=== PATIENT | male | born 1950 | race African-American/Black ===

== ENCOUNTER 2024-07-15 12:00 | Emergency (ER) | payer OTHER, SELFPAY ==
[2024-07-15 12:01] VITALS: BP 154/82; PULSE 75; RESP 16; TEMP 36.6; O2SAT 99; BMI 34.5
--- NOTE | 2024-07-15 12:03 | EDS_ITS ---
HPI History of Present Illness HPI Narrative: Patient presents with a right knee injury that occurred today. Patient states he slipped and fell. Patient states he landed on the anterior aspect of his right knee. Patient states he has been unable to bear any weight since the fall. Patient states his pain is also worse with any flexion. Patient describes it as dull and aching. Patient denies any paresthesias. Patient admits to some weakness with extending his knee. Patient denies any head injury or loss of consciousness. Patient denies any other injuries. Chief Complaint: Lower Extremity Injury Occured/Mechanism Mechanism/Context: Yes fall Onset/Context/Timing Onset: Today Context: Sudden Onset Timing: Continuous Quality of Pain: Dull Location: Right knee Worsened by: Flexion, weightbearing Relieved by: Rest Associated Symptoms Associated Symptoms: Positive for Parasthesia (Chronic) and Weakness; Negative for Loss of Funtion [facility] Medical History (Updated 07/15/24 @ 15:[address] Parth Ayala, DO) Arthritis Neuropathy Diabetes mellitus Hypertension Asthma Hx of fracture of patella Home Medications ?Medication ?Instructions ?Recorded ?Last Taken ?Type albuterol sulfate 90 mcg/actuation 2 inh inhalation Q8 H PRN shortness 07/15/24 Unknown History aerosol inhaler (Ventolin HFA) of breath ascorbic acid (vitamin C) 500 mg 500 mg PO DAILY 07/15 Unknown History tablet (Vitamin C) atorvastatin 40 mg tablet (Lipitor) 40 mg PO QHS 07/15 Unknown History cholecalciferol (vitamin D3) 25 50 mcg PO DAILY Unknown History mcg (1,000 unit) tablet (Vitamin D3) gabapentin 800 mg tablet 800 mg PO BID 07/15/24 Unkno wn History hydrocodone-acetaminophen 5-325mg 1 tab PO Q6H PRN PRN Pain 3 days 07/15/24 Unknown Rx 5mg-325mg #10 TABLETS insulin aspart U-100 100 unit/mL 12 unit subcut TID Unknown History (3 mL) subcutaneous pen (Novolog FlexPen U-100 Insulin aspart) insulin glargine 100 unit/mL (3 35 unit subcut BID Unknown History mL) subcutaneous pen (Lantus Solostar U-100 Insulin) losartan 25 mg tablet (Cozaar) 12.5 mg PO DAILY Unknown History metformin 1,000 mg tablet 1,000 mg PO BID 07/15/24 Unk nown History pantoprazole 40 mg tablet,delayed 40 mg PO DAILY 07/15 Unknown History release (Protonix) Allergy/AdvReac Type Severity Reaction Status Date / Time Penicillins Allergy Unknown NEEDS Verified 07/15/24 12:01 FOLLOW-UP Surgical History (Updated 07/15/24 @ 12:[address] Parth Ayala DO) Hx of right knee surgery Social History Smoking Status: Never smoker ROS ROS ED Constitutional Constitutional ED: Denies chills or fever(s) Eyes Eyes: Denies blurry vision or change in vision ENT ENT ED: Denies rhinorrhea or sore throat Cardiovascular Cardiovascular: Denies chest pain or palpitations Respiratory/Chest Respiratory/Chest: Denies cough or dyspnea Gastrointestinal Gastrointestinal: Denies nausea or vomiting Genitourinary Genitourinary ED: Denies dysuria or hematuria Musculoskeletal Musculoskeletal: Denies back pain or neck pain Integumentary Denies abscess or rash Neurologic Neurologic: Denies headache(s) or weakness Allergic/Immunologic Allergic/Immunologic ED: Denies mouth swelling or urticaria EXAM Physical Exam Const Vital Signs: 07/15/24 12:01 07/15/24 14:00 Temperature 97.8 F Temperature Source Oral Pulse Rate 75 69 Respiratory Rate 16 15 Blood Pressure 154/82 H 148/74 H Blood Pressure Mean 106 98 Pulse Ox 99 98 Oxygen Delivery Method Room Air Room Air Positive well nourished and well developed General Appearance ED: well developed and NAD HEENT Reports moist mucous membranes Neck full ROM and supple Extremity Extremity Narrative: There is tenderness over the anterior aspect of the right knee. There is no joint effusion noted. Patient is unable to extend his knee and elevate his lower leg off of the bed. There is no obvious deformity noted. Range of motion was limited in all motions of the right knee secondary to pain. Pedal pulses are equal bilaterally. Sensation was intact to light touch bilaterally in the lower extremities. Neuro oriented x3, CN's II-XII intact bilaterally, moves all extremities and no sensory deficits noted Sensorium / Orientation: alert Motor Exam: strength 5/5 throughout MDM MDM MDM Narrative Medical decision making narrative: Differential diagnosis includes patella fracture, patellar tendon rupture, tibial plateau fracture, contusion, and sprain. X-rays of the right knee will be obtained to assess for fracture and high riding patella. History & Record Review Additional record(s) reviewed:: No prior records Radiography Diagnostic Testing: Clinical Impression(s) from Imaging Studies Knee X-Ray 07/15/24 12:28 IMPRESSION: Prior patellar fracture and tension band wiring repair. No obvious acute fracture. If continued clinical concern, CT could be performed for further evaluation. Reading Location: [facility] X-rays of the right knee were obtained. There are 4 views. On my independent interpretation, there is no acute fracture. There are degenerative changes noted. Radiologist also interpreted the x-rays and agrees. Treatment and Re-Evaluation Narrative: Patient was given an injection of morphine. Patient was advised of the findings. Patient still unable to extend his knee against gravity. Because of this, I advised the patient that he may have a patellar tendon rupture. Case was discussed with Dr. Bekc. He will follow-up with patient next week. Patient was placed in a knee immobilizer and was given crutches. Patient was given a prescription for [place]. Patient was instructed to return if worse in any way. Patient was advised that he may need an MRI before any surgery. Patient was advised that this may take a week or 2 to get this done. Patient was advised that he could follow-up here or go back to his home in [place] and follow-up there. Patient understood and was agreeable with plan. All questions were answered. Discharge Plan Triage Chief Complaint: Lower Extremity Injury ED Provider: Parth Ayala Dx/Rx/DC Orders Clinical Impression: Rupture of right patellar tendon, Hypertension, Diabetes mellitus Instructions: ED Quadriceps Tendon Rupture Prescriptions: New hydrocodone-acetaminophen 5-325 mg tablet 1 tab PO Q6H PRN PRN (Reason: Pain) 3 Days Qty: 10 0RF No Action insulin glargine [Lantus Solostar U-100 Insulin] 100 unit/mL (3 mL) insulin pen 35 unit subcut BID insulin aspart U-100 [Novolog FlexPen U-100 Insulin] 100 unit/mL (3 mL) insulin pen 12 unit subcut TID metformin 1,000 mg tablet 1,000 mg PO BID atorvastatin [Lipitor] 40 mg tablet 40 mg PO QHS losartan [Cozaar] 25 mg tablet 12.5 mg PO DAILY albuterol sulfate [Ventolin HFA] 90 mcg/actuation HFA aerosol inhaler 2 inh inhalation Q8H PRN (Reason: shortness of breath) gabapentin 800 mg tablet 800 mg PO BID cholecalciferol (vitamin D3) [Vitamin D3] 25 mcg (1,000 unit) tablet 50 mcg PO DAILY ascorbic acid (vitamin C) [Vitamin C] 500 mg tablet 500 mg PO DAILY pantoprazole [Protonix] 40 mg tablet,delayed release (DR/EC) 40 mg PO DAILY Primary Care Provider: [facility] Doctor,Out of Referrals: Lonnie Beck MD [Med Staff - Active Staff] - 3-5 Days [facility] Doctor,Out of [Primary Care Provider] - 5-7 Days Print Language: Serbian Disposition Disposition: Home, Self Care
[2024-07-15] MEDS: Morphine 4 MG/ML Syringe IM ×2 (12:23→15:24)
--- NOTE | 2024-07-15 12:28 | RAD_ITS ---
PROCEDURE: KNEE 4 OR MORE VIEWS 07/15/2024 REASON FOR EXAM: INJURY/PAIN. History of patellar fracture 3 years ago, fell today onto knee, severe pain, unable to bear weight. TECHNIQUE: 4 view(s) of the right knee COMPARISON: None. FINDINGS: Bones: Diffuse osseous demineralization. No acute osseous fracture. Prior patellar fracture with tension band wiring repair. The patella is in grossly anatomic alignment. Joints: Moderate degenerative changes. Effusion: Moderate joint effusion. Soft tissues: Soft tissues are unremarkable. Muscular atrophy. Other: Vascular calcifications. RAD/Knee 4 or More Views IMPRESSION: Prior patellar fracture and tension band wiring repair. No obvious acute fract ure. If continued clinical concern, CT could be performed for further evaluation. Reading Location: [id number]
[2024-07-15 14:00] VITALS: BP 148/74; PULSE 69; RESP 15; O2SAT 98
--- NOTE | 2024-07-15 15:45 | CM.ED ---
Social Work Date of referral: 07/15/24 Reason for referral: Fall/Fall prevention education Referred by: Social Work Identification Patient provided consent for social work visit. Patient stated he has been in town for roughly 10 days visiting his brother who is in poor health, trying to help provide care for him. Patient stated he was mopping the kitchen floor today when his right foot went backwards and his right left twisted. Patient stated he has neuropathy and at times can't feel his feet which patient feels was a contributing factor. [address] [facility] provided fall prevention education which patient verbalized he understood. Patient has an established medical team in [place] that patient reported he follows through with routinely. Patient was supposed to return to [place] Wednesday evening however has decided to stay in the area to follow up with medical care that is going to be needed for his current injury. Patient reported he has a standard cane, a rollator and braces for his knees. No additional concerns/needs identified at this time. Ivette Verma, [employer], [employer]
[2024-07-15 16:03] VITALS: BP 135/86; PULSE 88; RESP 16; TEMP 36.7; O2SAT 99
--- NOTE | 2024-07-15 17:36 | CONS.ORTHO ---
HPI Consult Data Date of Consult: 07/15/24 HPI Narrative HPI Narrative: RANJANA IRVING, is a 74 M who presents with concern of patellar tendon injury from ED provider. Setting of past TWB for patellar fracture. [facility] Medical History (Updated 07/15/24 @ 15:[address] Parth Ayala DO) Arthritis Neuropathy Diabetes mellitus Hypertension Asthma Hx of fracture of patella Home Medications ?Medication ?Instructions ?Recorded ?Last Taken ?Type albuterol sulfate 90 mcg/actuation 2 inh inhalation Q8H PRN shortness 07/15/24 Unknown History aerosol inhaler (Ventolin HFA) of breath ascorbic acid (vitamin C) 500 mg 500 mg PO DAILY 07/15/24 Unknown History tablet (Vitamin C) atorvastatin 40 mg tablet (Lipitor) 40 mg PO QHS 07/15/24 Unknown History cholecalciferol (vitamin D3) 25 50 mcg PO DAILY 07/15/24 Unknown History mcg (1,000 unit) tablet (Vitamin D3) gabapentin 800 mg tablet 800 mg PO BID 07/15/24 Unknown History hydrocodone-acetaminophen 5-325mg 1 tab PO Q6H PRN PRN Pain 3 days 07/15/24 Unknown Rx 5mg-325mg #10 TABLETS insulin aspart U-100 100 unit/mL 12 unit subcut TID 07/15/24 Unknown History (3 mL) subcutaneous pen (Novolog FlexPen U-100 Insulin aspart) insulin glargine 100 unit/mL (3 35 unit subcut BID 07/15/24 Unknown History mL) subcutaneous pen (Lantus Solostar U-100 Insulin) losartan 25 mg tablet (Cozaar) 12.5 mg PO DAILY 07/15/24 Unknown History metformin 1,000 mg tablet 1,000 mg PO BID 07/15/24 Unknown History pantoprazole 40 mg tablet,delayed 40 mg PO DAILY 07/15/24 Unknown History release (Protonix) Allergy/AdvReac Type Severity Reaction Status Date / Time Penicillins Allergy Unknown NEEDS Verified 07/15/24 12:01 FOLLOW-UP Surgical History (Updated 07/15/24 @ 12:[address] Parth Ayala DO) Hx of right knee surgery Social History Smoking Status: Never smoker Vital Signs Vital Signs Vital Signs: 07/15/24 12:01 07/15/24 14:00 07/15/24 16:03 Temperature 97.8 F 98.1 F Temperature Source Oral Pulse Rate 75 69 88 Respiratory Rate 16 15 16 Blood Pressure 154/82 H 148/74 H 135/86 H Blood Pressure Mean 106 98 102 Pulse Ox 99 98 99 Oxygen Delivery Method Room Air Room Air Weight Weight: 269 lb Body Mass Index (BMI) 34.5 Imaging Radiology Impression Knee X-Ray 07/15/24 12:28 IMPRESSION: Prior patellar fracture and tension band wiring repair. No obvious acute fracture. If continued clinical concern, CT could be performed for further evaluation. Reading Location: [id number] Assessment & Plan Assessment/Plan (1) Rupture of right patellar tendon: PLAN: 74 yr M with concern for patellar tendon injury. Recommend for now knee immobilizer, WBAT in full extension. he can FU with myself early this week for further exam and investigation, or go back to [place] where he is travelling from to get definitive treatment there.
== END 2024-07-15 16:04 | disposition home or self-care (01) ==
PROVIDERS: Emergency Provider Emergency Medicine; Visit Provider Emergency Medicine
DX: S76.111A Strain of right quadriceps muscle, fascia and tendon, initial encounter (principal); E11.9 Type 2 diabetes mellitus without complications; Z79.4 Long term (current) use of insulin; I10 Essential (primary) hypertension; W01.10XA Fall on same level from slipping, tripping and stumbling with subsequent striking against unspecified object, initial encounter; Z79.899 Other long term (current) drug therapy; Z79.84 Long term (current) use of oral hypoglycemic drugs
CPT/HCPCS: 73564; 96372; 99285

== ENCOUNTER 2024-07-25 16:33 | Observation (INO) | payer OTHER, SELFPAY ==
[2024-07-25 16:38] VITALS: BP 138/83; PULSE 89; RESP 18; TEMP 37; O2SAT 99; BMI 34.2
--- NOTE | 2024-07-25 17:20 | ED.VIS.FALL ---
HPI HPI - Fall History of Present Illness Chief Complaint: Fall Narrative Narrative: Chief complaint and HPI: Mechanical fall with left upper extremity and left lower extremity pain. 74-year-old male with past medical history of DM 2, HLD, HTN presents for evaluation of left upper extremity and left lower extremity after mechanical fall. Patient states he recently went through divorce and decided to have fun yesterday and green party. States he used cocaine and alcohol. States he was at a family house when he tried to ambulate to the bathroom and slipped on a rug. Did not his head. No LOC. States he landed on his left leg and arm. Family helped him to the couch. Patient states that he has been unable to ambulate since last night secondary to pain which is why presents. He usually uses a walker due to a bad right knee. Denies any fever, chills, abdominal pain, chest pain, nausea, vomiting, shortness of breath. Has taken Tylenol and Advil yesterday for the pain. States that he usually is not a drug abuser. Review of systems: See HPI Medications: As listed on the chart Allergies: As listed on the chart PFSH: Per chart Vital signs: As listed on the chart. Reviewed. Physical exam: Gen: A&O x3, NAD Head: Normocephalic, atraumatic Eyes: No sclera icterus, conjunctiva clear, PERRL, EOMI ENT: TMs clear BL, moist mucous membranes, no swelling/lacerations/blood in the mouth or the nares, No nasal septal hematoma, no facial tenderness Neck: Trachea midline, No JVD, Nontender, full range of motion CV: RRR, no murmurs, no chest wall TTP Resp: Lungs CTA BL, no w/r/c GI: Abd soft, non-distended, non-tender, no r/r/g Musc: Full ROM of the bilateral upper extremities although endorses pain in the left shoulder and mid humerus with movement-no deformity or obvious signs of trauma-tender to palpation, limited range of motion of the left lower extremity secondary to left thigh pain-tender to palpation without any deformity or obvious signs of injury, full range of motion of the left knee without pain or tenderness, radial/DP/PT pulses +2 bilateral, good capillary refill, no midline spinal tenderness, no bony step-off Skin: Warm, dry, intact Neuro: Alert, oriented, grossly intact, sensation intact, GCS 15 Psych: Cooperative, appropriate mood and affect [facility] Medical History (Updated 07/25/24 @ 20:[address] Indu Strauss MD) Cocaine use Obesity HLD (hyperlipidemia) Arthritis Neuropathy Diabetes mellitus Hypertension Asthma Hx of fracture of patella Home Medications ?Medication ?Instructions ?Recorded ?Last Taken ?Type albuterol sulfate 90 mcg/actuation 2 inh inhalation Q8H PRN shortness 07/15/24 Unknown History aerosol inhaler (Ventolin HFA) of breath ascorbic acid (vitamin C) 500 mg 500 mg PO DAILY 07/15/24 07/24/24 History tablet (Vitamin C) atorvastatin 40 mg tablet (Lipitor) 40 mg PO QHS 07/15/24 07/24/24 History cholecalciferol (vitamin D3) 25 50 mcg PO DAILY 07/15/24 07/24/24 History mcg (1,000 unit) tablet (Vitamin D3) gabapentin 800 mg tablet 800 mg PO BID 07/15/24 07/24/24 History hydrocodone-acetaminophen 5-325mg 1 tab PO Q6H PRN PRN Pain 3 days 07/15/24 07/24/24 Rx 5mg-325mg #10 TABLETS insulin aspart U-100 100 unit/mL 12 unit subcut TID 07/15/24 07/24/24 History (3 mL) subcutaneous pen (Novolog FlexPen U-100 Insulin aspart) insulin glargine 100 unit/mL (3 35 unit subcut BID 07/15/24 07/24/24 History mL) subcutaneous pen (Lantus Solostar U-100 Insulin) losartan 25 mg tablet (Cozaar) 12.5 mg PO DAILY 07/15/24 07/24/24 History metformin 1,000 mg tablet 1,000 mg PO BID 07/15/24 07/24/24 History pantoprazole 40 mg tablet,delayed 40 mg PO DAILY 07/15/24 07/24/24 History release (Protonix) Allergy/AdvReac Type Severity Reaction Status Date / Time Penicillins Allergy Unknown NEEDS Verified 07/25/24 16:41 FOLLOW-UP Surgical History Hx of right knee surgery Social History Smoking Status: Never smoker EXAM Physical Exam Const Vital Signs: 07/25/24 16:33 07/25/24 16:38 07/25/24 19:00 Temperature 98.6 F Temperature Source Oral Pulse Rate 89 103 H Respiratory Rate 18 18 Respiratory Effort Normal Respiratory Depth Normal Respiratory Pattern Normal Blood Pressure 138/83 H 170/94 H Blood Pressure Mean 101 119 Pulse Ox 99 98 Oxygen Delivery Method Room Air Room Air Room Air MDM MDM MDM Narrative Medical decision making narrative: 74-year-old male with past medical history of DM 2, HLD, HTN presents for evaluation of left upper extremity and left lower extremity after mechanical fall. Had a mechanical fall on a rug yesterday after alcohol and cocaine abuse. Did not hit his head. No LOC. Not able to ambulate. Differential diagnosis includes but is not limited to contusion, sprain, fracture. X-ray of the left shoulder and humerus ordered along with x-rays of the pelvis and left femur. Morphine and Zofran ordered for symptoms. Given patient has not been able to ambulate he may end up needing admission for placement/PT/OT. Will obtain basic labs with urine drug screen and alcohol level. Given patient did not hit his head and is not endorsing any neck pain I do not think any imaging of the head or neck is needed. Patient did not hit his head. No LOC. Not on blood thinners. CBC without leukocytosis. Patient has anemia with hemoglobin 11.5. I do not have previous labs to compare to although I suspect this is chronic. Urine drug screen positive for cocaine. Patient does admit to cocaine use yesterday. Alcohol level unremarkable. X-rays of the pelvis, left femur, left humerus, left shoulder were personally reviewed interpreted by me, ED physician. No fracture or dislocation. Radiology in agreement. Suspect patient's pain is secondary to contusions. Now that patient has received pain medicine will ambulate with walker. BMP consistent with dehydration, likely secondary to his cocaine and alcohol abuse yesterday. NS bolus ordered. Potassium mildly elevated at 5.2. Will obtain EKG to assess for changes. Creatinine 1.56. Unknown patient's baseline. Glucose 391. Patient is a known diabetic. Patient was unable to ambulate with a walker. Unsteady on his feet and required 2 people to assist him. Patient states his pain is controlled currently in the bed. States pain worsens with ambulation. Patient will warrant admission for PT/OT evaluation. EKG was personally reviewed interpreted by me, ED physician. Sinus tachycardia. No acute ischemic changes. No hyperacute T waves. Heart rate 107. Patient was discussed with the hospitalist service, given patient follows with the PR plan will be to reach out to the [facility] first for admission. I spoke with the [facility] given that patient also has Medicare it is his option [facility] with the use of his Medicare. Patient elected to stay here and use Medicare. Hospitalist repaged, they accepted admission. Impression: 1. Inability to ambulate secondary to injury/pain 2. Left upper extremity contusion 3. Left lower extremity contusion 4. Mechanical fall 5. Mild dehydration 6. Mild hyperkalemia 7. Cocaine abuse Lab Data Labs: Laboratory Results - last 24 hr 07/25/24 07/25/24 15:10 17:25 WBC 9.6 RBC 4.90 Hgb 11.5 L Hct 36.0 L MCV 73.5 L MCH 23.5 L MCHC 31.9 L RDW Std Deviation 38.4 RDW Coeff of Summer 14.5 Plt Count 207 MPV 11.0 Sodium 133 Potassium 5.2 H Chloride 98 Carbon Dioxide 17.5 L Anion Gap 17 H BUN 21 H Creatinine 1.56 H Estim Creat Clear Calc 59.14 Est GFR (MDRD) Non-Af 47 L BUN/Creatinine Ratio 13.7 Glucose 391 H Calcium 9.8 Urine Opiates Screen NEGATIVE U Buprenorphine Qual NEGATIVE Ur Oxycodone Screen NEGATIVE Urine Methadone Screen NEGATIVE Urine Fentanyl Screen NEGATIVE Ur Barbiturates Screen NEGATIVE Ur Phencyclidine Scrn NEGATIVE Ur Amphetamines Screen NEGATIVE U Benzodiazepines Scrn NEGATIVE Urine Cocaine Screen PRESUMPTIVE POSITIVE U Cannabinoids Screen NEGATIVE Ethyl Alcohol < 10.1 Radiography Diagnostic Testing: Clinical Impression(s) from Imaging Studies Femur X-Ray 07/25/24 17:45 IMPRESSION: No acute osseous abnormality of the left femur. Reading Location: [id number] Humerus X-Ray 07/25/24 17:45 IMPRESSION: No acute osseous abnormalities. Reading Location: [id number] Pelvis X-Ray 07/25/24 17:45 IMPRESSION: No acute osseous abnormalities. Details above. Reading Location: [id number] Shoulder X-Ray 07/25/24 17:45 IMPRESSION: No acute osseous abnormalities. Reading Location: [id number] Discharge Plan Triage Chief Complaint: Fall ED Provider: Red Hector Dx/Rx/DC Orders Prescriptions: No Action insulin glargine [Lantus Solostar U-100 Insulin] 100 unit/mL (3 mL) insulin pen 35 unit subcut BID insulin aspart U-100 [Novolog FlexPen U-100 Insulin] 100 unit/mL (3 mL) insulin pen 12 unit subcut TID metformin 1,000 mg tablet 1,000 mg PO BID atorvastatin [Lipitor] 40 mg tablet 40 mg PO QHS losartan [Cozaar] 25 mg tablet 12.5 mg PO DAILY albuterol sulfate [Ventolin HFA] 90 mcg/actuation HFA aerosol inhaler 2 inh inhalation Q8H PRN (Reason: shortness of breath) gabapentin 800 mg tablet 800 mg PO BID cholecalciferol (vitamin D3) [Vitamin D3] 25 mcg (1,000 unit) tablet 50 mcg PO DAILY ascorbic acid (vitamin C) [Vitamin C] 500 mg tablet 500 mg PO DAILY pantoprazole [Protonix] 40 mg tablet,delayed release (DR/EC) 40 mg PO DAILY hydrocodone-acetaminophen 5-325 mg tablet 1 tab PO Q6H PRN PRN (Reason: Pain) 3 Days Qty: 10 0RF Primary Care Provider: [facility] Doctor,Out of Referrals: [facility] Doctor,Out of [Primary Care Provider] - Print Language: Welsh
[2024-07-25] MEDS: Morphine 2 MG/ML Syringe IV (17:22)
[2024-07-25] MEDS: Ondansetron 4 MG/2 ML Vial IV (17:22)
[2024-07-25 17:36] LABS: Hemoglobin 11.5 g/dL (13.0-16.5); Mean Corp Hgb Conc 31.9 g/dL (32-36); Mean Corpuscular Hgb 23.5 pg (27.0-32.0); Mean Corpuscular Volume 73.5 fL (80-94); Platelet Count 207 K/mm3 (150-450); RBC Distribution Width CV 14.5 % (11.6-14.6); RBC Distribution Width SD 38.4 fl (35.1-43.9); White Blood Count 9.6 K/mm3 (4.4-11.0)
[2024-07-25 17:44] LABS: Amphetamine Urine NEGATIVE (<1000 ng/mL); Barbiturate Urine NEGATIVE (< 200 ng/mL); Benzodiazepine Urine NEGATIVE (< 200 ng/mL); Buprenorphine Urine NEGATIVE (< 200 ng/mL); Cocaine Urine PRESUMPTIVE POSITIVE (< 300 ng/mL); Fentanyl, Urine NEGATIVE; Methadone Urine NEGATIVE (< 300 ng/mL); Opiates Urine NEGATIVE (< 300 ng/mL); Oxycodone, Urine NEGATIVE (< 100 ng/mL); PCP Urine NEGATIVE (< 25 ng/mL); THC Urine NEGATIVE (< 50 ng/mL)
--- NOTE | 2024-07-25 17:45 | RAD_ITS ---
PROCEDURE: SHOULDER MIN 2 VIEWS 07/25/2024 REASON FOR EXAM: PAIN TECHNIQUE: 4 views of the left shoulder. COMPARISON: None. FINDINGS: No evidence of acute fracture or dislocation. Mild glenohumeral and acromioclavicular degenerative changes. RAD/Shoulder min 2 Views IMPRESSION: No acute osseous abnormalities. Reading Location: [place] [id number]
--- NOTE | 2024-07-25 17:45 | RAD_ITS ---
PROCEDURE: HUMERUS MIN 2 VIEWS 07/25/2024 REASON FOR EXAM: PAIN TECHNIQUE: 2 view(s) of the left humerus. COMPARISON: None. FINDINGS: No evidence acute fracture or dislocation. No acute soft tissue abnormalities. RAD/Humerus min 2 Views IMPRESSION: No acute osseous abnormalities. Reading Location: [place] [id number]
--- NOTE | 2024-07-25 17:45 | RAD_ITS ---
PROCEDURE: FEMUR MIN 2 VIEWS 07/25/2024 REASON FOR EXAM: PAIN TECHNIQUE: 4 view(s) of the left femur. COMPARISON: None FINDINGS: No acute fracture or traumatic malalignment. There is osteophyte formation at the hip and knee. Bone mineral density is subjectively normal. There are vascular calcifications in the soft tissues. RAD/Femur Min 2 Views IMPRESSION: No acute osseous abnormality of the left femur. Reading Location: [facility]
--- NOTE | 2024-07-25 17:45 | RAD_ITS ---
PROCEDURE: PELVIS 1 OR 2 VIEWS 07/25/2024 REASON FOR EXAM: PAIN TECHNIQUE: 1 view(s) of the pelvis. COMPARISON: None. FINDINGS: No evidence of acute fracture or dislocation. Mild degenerative changes of the bilateral hips. Partially visualized degenerative changes of the spine. Large dense rectal stool burden. RAD/Pelvis 1 or 2 Views IMPRESSION: No acute osseous abnormalities. Details above. Reading Location: [id number]
[2024-07-25 17:58] LABS: Alcohol, Blood (Medical)-Serum < 10.1 mg/dL (<=10.0)
[2024-07-25 18:11] LABS: Anion Gap 17 (5-15); BUN 21 mg/dL (4-19); BUN/Creat Ratio 13.7 RATIO (10-20); Calcium,Total 9.8 mg/dL (7.6-11.0); Carbon Dioxide 17.5 mmol/L (21.0-32.0); Chloride 98 mmol/L (98-108); Creatinine, Serum 1.56 mg/dL (0.70-1.20); EST Glomerular Filtration Rate 47 (>60); Estimated Creatinine Clearance 59.14 ml/min (50-250); Glucose 391 mg/dL (70-99); Potassium 5.2 mmol/L (3.3-5.1); Sodium Level 133 mmol/L (133-145)
--- NOTE | 2024-07-25 18:15 | EKG12_ITS ---
Test Reason : FALL Blood Pressure : */* mmHG Vent. Rate : 107 BPM Atrial Rate : 107 BPM P-R Int : 180 ms QRS Dur : 76 ms QT Int : 352 ms P-R-T Axes : 42 16 17 degrees QTcB Int : 469 ms Sinus tachycardia Otherwise normal ECG Confirmed by KAIN RAMIREZ, MARINA ([id number]), graphics editor TYRELL WANG ([id number]) on 07/31/2024 7:08:27 AM Referred By: Confirmed By: MARINA FINNEGAN MD
[2024-07-25] MEDS: 0.9% Normal Saline (1000mL) 1,000 ML 1000 ML IV (18:21)
--- NOTE | 2024-07-25 18:44 | PCA ---
Addendum entered by Ann Alcantara 07/25/24 19:47: CALL BACK @[id number] Original Note: [facility], CLINICS FAXED OVER AND INFORMATION AND DIAGNOSIS GIVE. AWAIT CALL BACK FROM CLINIC.
[2024-07-25 19:00] VITALS: BP 170/94; PULSE 103; RESP 18; O2SAT 98
--- NOTE | 2024-07-25 20:23 | PCM.HP.STD ---
HPI - General General Date of Admission: 07/25/24 Date of Service: 07/25/24 Chief Complaint: Fall, debility, intractable L sided pain. HPI Narrative The patient is a 74 y/o [facility] patient M w/ PMHx: Former tobacco use, RADHA noncompliant with PAP therapy, Asthma, HTN, HLD, GERD, Diabetes mellitus type II with chronic neuropathy, Obesity, Presumed Chronic CKD stage III unclear subtype but uncertain, Presumed chronic microcytic anemia but uncertain who presents to the [facility] ED on 07/25/24 with history of mechanical fall onto the left side with discomfort to the upper and lower extremity noting that he recently went through divorce and was at a republic[employer] the day prior where he drank a significant mount of alcohol and used cocaine and while attempting to ambulate to the bathroom slipped on a rug with no loss of consciousness or head trauma with family helping him to the couch however he has had discomfort and inability to ambulate since then normally using a walker secondary to severe right knee osteoarthritis prompting family to bring him in for evaluation. In the ED patient initially reporting pain 9 out of 10 in severity to the left side primarily with any exertion or movement or weightbearing attempts. Following administration medications the ED patient noted pain improved to 7 out of 10 however still some discomfort in the calf and thigh. Workup in the ED included T90.6, heart rate 89, BP 138/83, respiratory 18, 99% on room air with most recent repeat labs with heart rate 103, BP 170/94, respiratory rate 18, 98% on room air, CBC with WC 9.6, hemoglobin 0.5, MCV 73.5, platelet 207 without differential, BMP with potassium 5.2, At 17.5, anion gap 17, BUN/creatinine 21/1.56, GFR 47, glucose 391, UDS with presumptive positive cocaine, ethyl alcohol less than 10.1, plain film of the left femur with no acute osseous abnormality, plain film of the left humerus with no acute osseous abnormality, plain film of the pelvis with no acute osseous abnormality, plain film of the left shoulder with no acute osseous abnormality. Patient has both medicare and [facility] insurance and preferred to remain at [facility] for care and evaluation. [facility], [facility] Medical History Former tobacco use RADHA (obstructive sleep apnea) Chronic anemia CKD (chronic kidney disease), stage III Cocaine use Obesity HLD (hyperlipidemia) Arthritis Neuropathy Diabetes mellitus Hypertension Asthma Hx of fracture of patella Home Medications ?Medication ?Instructions ?Recorded ?Last Taken ?Type albuterol sulfate 90 mcg/actuation 2 inh inhalation Q8H PRN shortness 07/15/24 Unknown History aerosol inhaler (Ventolin HFA) of breath ascorbic acid (vitamin C) 500 mg 500 mg PO DAILY 07/15/24 07/24/24 History tablet (Vitamin C) atorvastatin 40 mg tablet (Lipitor) 40 mg PO QHS 07/15/24 07/24/24 History cholecalciferol (vitamin D3) 25 50 mcg PO DAILY 07/15/24 07/24/24 History mcg (1,000 unit) tablet (Vitamin D3) gabapentin 800 mg tablet 800 mg PO BID 07/15/24 07/24/24 History hydrocodone-acetaminophen 5-325mg 1 tab PO Q6H PRN PRN Pain 3 days 07/15/24 07/24/24 Rx 5mg-325mg #10 TABLETS insulin aspart U-100 100 unit/mL 12 unit subcut TID 07/15/24 07/24/24 History (3 mL) subcutaneous pen (Novolog FlexPen U-100 Insulin aspart) insulin glargine 100 unit/mL (3 35 unit subcut BID 07/15/24 07/24/24 History mL) subcutaneous pen (Lantus Solostar U-100 Insulin) losartan 25 mg tablet (Cozaar) 12.5 mg PO DAILY 07/15/24 07/24/24 History metformin 1,000 mg tablet 1,000 mg PO BID 07/15/24 07/24/24 History pantoprazole 40 mg tablet,delayed 40 mg PO DAILY 07/15/24 07/24/24 History release (Protonix) Allergy/AdvReac Type Severity Reaction Status Date / Time Penicillins Allergy Unknown NEEDS Verified 07/25/24 16:41 FOLLOW-UP Family History Mother Diabetes Father Hypertension GERD (gastroesophageal reflux disease) Surgical History History of cholecystectomy Hx of right knee surgery Social History household members: significant other Smoking Status: Former smoker how long ago did patient quit smoking: Quit remotely. alcohol intake: current alcohol intake frequency: holidays/special occasions only substance use type: other details: Admits to cocaine use 07/26/24 but denies commonly using. ROS ROS Narrative Admission Review of Systems: CONSTITUTIONAL: No weight loss, fever, chills, + weakness or fatigue. HEENT: Eyes: No visual loss, blurred vision, double vision or yellow sclerae. Ears, Nose, Throat: No hearing loss, sneezing, congestion, runny nose or sore throat. SKIN: No rash or itching, lesions, wounds. CARDIOVASCULAR: No chest pain, chest pressure or chest discomfort, palpitations, edema, orthopnea, syncopal events. RESPIRATORY: No shortness of breath, cough or sputum, wheezing, hemoptysis. GASTROINTESTINAL: No anorexia, nausea, vomiting or diarrhea, abdominal pain, melena, BRBPR. GENITOURINARY: No dysuria, frequency, urgency or retention. NEUROLOGICAL: + Chronic diabetic neuropathy. No headache, dizziness, syncope, paralysis, ataxia, focal weakness, change in bowel or bladder control, seizure. MUSCULOSKELETAL: + muscle, back pain, joint pain or stiffness. HEMATOLOGIC: + Chronic anemia. No marked easy history of bleeding or bruising. LYMPHATICS: No enlarged nodes. No history of splenectomy. PSYCHIATRIC: No history of depression or anxiety. ENDOCRINOLOGIC: No reports of sweating, cold or heat intolerance. No polyuria or polydipsia. ALLERGIES: + History of asthma. Vital Signs Vital Signs Vital Signs: 07/25/24 16:33 07/25/24 16:38 07/25/24 19:00 Temperature 98.6 F Temperature Source Oral Pulse Rate 89 103 H Respiratory Rate 18 18 Respiratory Effort Normal Respiratory Depth Normal Respiratory Pattern Normal Blood Pressure 138/83 H 170/94 H Blood Pressure Mean 101 119 Pulse Ox 99 98 Oxygen Delivery Method Room Air Room Air Room Air Weight Weight: 266 lb 8.622 oz Body Mass Index (BMI) 34.2 Physical Exam Narrative Physical Examination: General: Awake, alert, oriented x 3 and cooperative, seated upright in bed, no obvious distress, reports ongoing left-sided upper and lower extremity discomfort worse with activity attempts. Skin: Normal color, normal turgor, no icterus, no cyanosis. HEENT: AT/NC, EOMI, PERRLA, MMM, no carotid bruits, difficult to discern JVD given thickened neck. Lungs: Mildly diminished, greater bases, poor effort, no rales, ronchi or wheezing. Heart: Regular rate and rhythm; no gallop, rub audible. Abdomen: Soft, obese, NTTP, no obvious distention, mildly hyperactive BS, no appreciated HSM however habitus makes evaluation difficult. Extremities: No cyanosis, no marked clubbing, no marked significant extremity edema despite recent fall with left-sided ongoing pain to the upper and lower extremity primarily worse with movements. Neurological: Patient awake, alert, oriented as noted, cognitive function intact; pupils equally reactive to light and accommodation, cranial nerves gross normal, moving all 4 extremities, no focal deficits, strength moderately to severely globally decreased secondary to pain reported. Psychiatric: Affect appears normal, talkative, no acute evidence of depressive or anxiety feelings. Results Lab / Micro Data 07/25/24 17:25 07/25/24 17:25 Labs: Laboratory Results - last 24 hr 07/25/24 15:10: Urine Opiates Screen NEGATIVE, U Buprenorphine Qual NEGATIVE, Ur Oxycodone Screen NEGATIVE, Urine Methadone Screen NEGATIVE, Urine Fentanyl Screen NEGATIVE, Ur Barbiturates Screen NEGATIVE, Ur Phencyclidine Scrn NEGATIVE, Ur Amphetamines Screen NEGATIVE, U Benzodiazepines Scrn NEGATIVE, Urine Cocaine Screen PRESUMPTIVE POSITIVE, U Cannabinoids Screen NEGATIVE 07/25/24 17:25: WBC 9.6, RBC 4.90, Hgb 11.5 L, Hct 36.0 L, MCV 73.5 L, MCH 23.5 L, MCHC 31.9 L, RDW Std Deviation 38.4, RDW Coeff of Summer 14.5, Plt Count 207, MPV 11.0, Sodium 133, Potassium 5.2 H, Chloride 98, Carbon Dioxide 17.5 L, Anion Gap 17 H, BUN 21 H, Creatinine 1.56 H, Estim Creat Clear Calc 59.14, Est GFR (MDRD) Non-Af 47 L, BUN/Creatinine Ratio 13.7, Glucose 391 H, Calcium 9.8, Ethyl Alcohol < 10.1 Imaging Radiology Impression Femur X-Ray 07/25/24 17:45 IMPRESSION: No acute osseous abnormality of the left femur. Reading Location: [id number] Humerus X-Ray 07/25/24 17:45 IMPRESSION: No acute osseous abnormalities. Reading Location: [id number] Pelvis X-Ray 07/25/24 17:45 IMPRESSION: No acute osseous abnormalities. Details above. Reading Location: [id number] Shoulder X-Ray 07/25/24 17:45 IMPRESSION: No acute osseous abnormalities. Reading Location: [id number] Assessment & Plan Assessment/Plan (1) Intractable pain: (2) Fall: PLAN: Plan The patient is a 74 y/[facility] patient M w/ PMHx: Former tobacco use, RADHA noncompliant with PAP therapy, Asthma, HTN, HLD, GERD, Diabetes mellitus type II with chronic neuropathy, Obesity, Presumed Chronic CKD stage III unclear subtype but uncertain, Presumed chronic microcytic anemia but uncertain who presents to the [facility] ED on 07/25/24 with history of mechanical fall onto the left side with discomfort to the upper and lower extremity noting that he recently went through divorce and was at a republic[employer] the day prior where he drank a significant mount of alcohol and used cocaine and while attempting to ambulate to the bathroom slipped on a rug with no loss of consciousness or head trauma with family helping him to the couch however he has had discomfort and inability to ambulate since then normally using a walker secondary to severe right knee osteoarthritis prompting family to bring him in for evaluation. #1. Mechanical fall complicated by recent intoxication and cocaine usage which patient denies baseline however uncertain with intractable left upper and lower extremity discomfort complicated by usually chronic walker usage secondary to severe right knee osteoarthritis: Will admit to medical surgical floor, maintain on fall precautions, will initiate short course low-dose IV torado given renal function, lidoacine patches, as needed Tylenol, po/IV narcotic pain regimen only as needed, anti-emetics, bowel regimen. Will consult PT and OT for evaluation as well as Case management for discharge planning. #2. Hyperkalemia, mild: Admission potassium 5.2, no evidence of hemolysis, will judiciously hydrate and repeat CMP in AM. #3. Cocaine use: UDS with positive presumptive cocaine, otherwise negative, ethyl alcohol less than 10.1, [facility], notes used cocaine the day previously at a [employer], encourage clean status. #4. Diabetes mellitus type II with hyperglycemia with chronic neuropathy: Hold oral home regimen, continue home insulin regimen, ADA diet, accu checks w/ ISS, continue home gabapentin regimen. #5. Chronic asthma: Per current list does not appear to be on chronic regimen, will have PRN albuterol, HOB, IS parameters. #6. Hypertension: Continue home regimen including losartan, PRN hydralazine. #7. Hyperlipidemia: Will continue patient on statin therapy. #8. Possible chronic microcytic anemia: Admission hemoglobin 1.5, MCV 73.5, no comparison labs available, will continue to trend CBC to further elucidate. #9. Presumed Chronic Kidney Disease Stage III, unclear subtype: Admission BUN/Cr 21/1.56, GFR 47, baseline renal function uncertain as no comparison labs, will repeat BMP in AM to further elucidate. #10. Obesity: Weight loss and lifestyle changes encouraged. GERD: Will continue patient on PPI. #11. RADHA: Noncompliant with PAP therapy. #12. Former tobacco use: Patient notes he smoked very remotely, encourage continued cessation. #13. DVT prophylaxis: Lovenox. #14. CODE status: Patient ALVA is his girlfriend [place] and living will is currently in place. Discussed CODE status at length including difference between FULL code, DNR-CCA and DNR-CC status. Following discussions about the differences in these status, requested Full Code status. Charges/Coding Visit Charges Inpatient E&M: 62398 Init Hosp L2
[2024-07-25 20:30] VITALS: BP 148/76; PULSE 100; RESP 18; TEMP 37; O2SAT 100
[2024-07-25 21:17] VITALS: BMI 33.5
[2024-07-25 21:24] VITALS: BP 179/83; PULSE 93; RESP 18; TEMP 36.4; O2SAT 97
[2024-07-25] MEDS: oxyCODONE 5 MG Tablet PO (21:31)
[2024-07-25] MEDS: Acetaminophen 325 MG Tablet 650 MG PO (21:32)
[2024-07-25] MEDS: Atorvastatin Calcium 40 MG Tablet PO (21:32)
[2024-07-25] MEDS: Ketorolac 15 MG/ML Vial IV (21:32)
[2024-07-25] MEDS: tiZANidine HCl 2 MG Tablet PO (21:32)
[2024-07-25] MEDS: 0.9% Saline Lock 10 ML Syringe IV (21:33)
[2024-07-25] MEDS: Gabapentin 800 MG Tablet PO (21:39)
[2024-07-25] MEDS: Insulin Glargine-YFGN 100 UNIT/ML Pen 35 UNIT SC (21:45)
[2024-07-25] MEDS: Insulin Lispro 100 UNIT/ML INSULN.PEN SC (21:48)
--- OUTSIDE RECORDS SUMMARY | 2024-07-25 22:16 | XMS RPT_ITS | CCD ---
Author Organization [facility] ion Partnership [facility] Care Team Providers Care Cinder Man Name Role Phone Kishor Hardin Keli Unavailable STACYTommy KISHOR KELI Unavailable Unavailab le WILFRED, KISHOR PARKER-LANDRY Unavailable Unavailab dat HARDIN, KISHOR PARKER-GRIS Unavailable Unavailab le CHERIAGINLINDAY Unavailable Unavailabl e CUNAGIN, LINDA WOLFY Unavailable Unavailabl e SILVERTIGREE Unavailable Unavailabl e YETommy, KISHOR JUAN ANTONIO-LANDRY Unavailable Unavailab le NYLANLINDAY Unavailable Unavailabl e SILVERTIGREE Unavailable Unavailabl e YEH, KISHOR PARKER-LANDRY Unavailable Unavailab le CUNAGINLINDAY Unavailable Unavailabl e SILVERTIGREE Unavailable Unavailabl e YEH, KISHOR SI-LANDRY Unavailable Unavailab DOLORES Rodriguez Unavailable Unava CORAL Buchanan Unavailable Unavailable KISHOR HARDIN Unavailable Unavailab BENJAMIN Downs Attending Unavailable Physician, PCP Unknown Primary Care Unavailab Kishor Mireles Primary Care Provider JOHN JAIMES Admitting Unavail able JOHN JAIEMS Attending Unavail able KISHOR HARDIN Primary Care Unavailab Darlene Louise Primary Care Provider Darlene Calvin Primary Care Provider Darlene Calvin MD Primary Care Provider [phone] DARLENE CALVIN Primary Care Unavailable [place] Attending Unavaila DARLENE Haider Primary Care Unavailable [place] Attending Unavailremy lane [facility] Doctor, Out of Primary Care Unavailable Lonnie Beck Attending Unavailable Darlene Ayala Attending [facility] Doctor, Out of Primary Care Unavailable Allergies Allergy Classification Reported Allergen(s) Allergy Type Date of Onset Reaction(s) Facility (13 sources) Penicillins; Translations: [PENICILLINS] Propensity to adverse reactions to drug 04-10-19 16 Other (See Comments) [facility] Work Phone: (6 sources) atorvastatin; Translations: [Unknown] Drug Allergy 01-03-20 [facility] Repository (6 sources) Milk; Translations: [MILK] Propensity to adverse reactions to drug (disorder) 01-03-20 [facility] Repository (4 sources) Ciprofloxacin Drug Allergy 01-03-20 [facility] (2 sources) cyclobenzaprine Drug Allergy 01-03-20 [facility] (2 sources) Penicillins Propensity to adverse reactions to drug 04-10-19 Other (See Comments) [facility] (1 source) Penicillins Drug allergy (disorder) 07-16-19 [facility] Repository Medications Current Medications Medication Drug Class(es) Dates Sig (Normalized) Sig (Original) empagliflozin 25 mg oral tablet (2 sources) Sodium-Glucose Cotransporter 2 Inhibitor take 1 tablet by mouth once daily empagliflozin (Jardiance) 25 mg Tab Take 25 mg by mouth daily . 0 Active ferrous sulfate 325 mg oral tablet (3 sources) Start: 02-21-2021 End: 03-23-2021 take 1 tablet by mouth every other day ferrous sulfate 325 (65 FE) MG tablet Take 1 (one) tablet (325 mg total) by mouth every other day . 15 tablet 0 02/21/2021 03/23/2021 Active GINSENG ORAL (9 sources) take 1 tablet by mouth twice daily GINSENG ORAL Take 1 tablet by mouth 2 (two) times a day. 0 take 1 tablet by mouth twice cesar ly GINSENG ORAL Take 1 tablet by mouth 2 (two) times a day. 0 Active take 1 tablet by mouth twice cesar ly GINSENG ORAL Take 1 tablet by mouth 2 (two) times a day. Active Ginseng Oral (1 source) take 1 tablet by mouth twice daily GINSENG ORAL Take 1 tablet by mouth 2 (two) times a day. Active glipiZIDE 5 mg oral tablet (2 sources) Sulfonylurea Start: 02-21-2021 End: 03-23-2021 take 1 tablet by mouth twice daily before mealtime glipiZIDE (GLUCOTROL) 5 MG tablet Take 1 (one) tablet (5 mg total) by mouth 2 (two) times a day before meals . 60 tablet 0 02/21/2021 03/23/2021 Active Multivitamin-Ferrous Fumarate-Folic Acid 18 Mg-400 McG Tablet (4 sources) Start: 09-18-2015 rfjoyrucysye-cjfe-n olic acid (CENTRUM COMPLETE) 18-400 mg-mcg Tab 1 tablet daily. 90 tablet 3 09/18/2015 Active modified 24 hr metFORMIN hydrochloride 1000 mg extended release oral tablet (11 sources) Biguanide take 1 tablet by mouth twice daily metFORMIN (GLUMETZA) 1000 MG (MOD) 24 hr tablet Take 1,000 mg by mouth 2 (two) times a day . 0 Active take 1 tablet by mouth twice cesar ly metFORMIN (GLUCOPHAGE-XR) 500 MG 24 hr tablet Take 1,000 mg by mouth 2 (two) times a day . 0 Active take 1 tablet by paco th three times daily metFORMIN (GLUCOPHAGE-XR) 500 MG 24 hr t ablet Take 500 mg by mouth 3 (three) times a day . 0 Active take 1 tablet by paco th four times daily metFORMIN (GLUCOPHAGE-XR) 500 MG 24 hr t ablet Take 500 mg by mouth 4 (four) times a day. Active ficqhosglinq-uzpz-gyvth acid (CENTRUM COMPLETE) 18-400 mg-mcg Tab (7 sources) Start: 09-18-2015 multivitamin-i serge-folic acid (CENTRUM COMPLETE) 18-400 mg-mcg Tab 1 tablet daily. 90 tablet 3 09/18/2015 Start: 09-18-2015 multivitamin-i serge-folic acid (CENTRUM COMPLETE) 18-400 mg-mcg Tab 1 tablet daily. 90 tablet 3 09/18/2015 Active insulin human, isophane 100 unt/ml injectable suspension (4 sources) insulin NPH (HumuLIN,NovoLIN) 100 unit/mL injection Inject 52 Units under the skin 2 (two) times a day. Active omeprazole 40 mg delayed release oral capsule (11 sources) Proton Pump Inhibitor take 2 capsules by mouth twice daily omeprazole (PRILOSEC) 40 MG capsule Take 80 mg by mouth 2 (two) times a day . 0 Active take 1 capsule by mouth once cesar ly omeprazole (PRILOSEC) 40 MG capsule Take 40 mg by mouth daily. Active oxyCODONE hydrochloride 5 mg oral tablet (2 sources) Opioid Agonist Start: 02-21-2021 End: 02-24-2021 oxyCODONE (ROXICODONE) 5 MG immediate release tablet Indications: Drug-induced acute pancreatitis without infection or necrosis Take 1 (one) tablet (5 mg total) by mouth every 6 (six) hours as needed (moderate to severe pain) (Days supply per fill: 3) . 12 tablet 0 02/21/2021 02/24/2021 Active pioglitazone 30 mg oral tablet (3 sources) Peroxisome Proliferator Receptor alpha Agonist, Peroxisome Proliferator Receptor gamma Agonist, Thiazolidinedione pioglitazone (ACTOS) 30 MG tablet Take 25 mg by mouth daily . 0 Active rosuvastatin calcium 20 mg oral tablet (7 sources) HMG-CoA Reductase Inhibitor take 1 tablet by mouth once daily rosuvastatin (CRESTOR) 20 MG tablet Take 20 mg by mouth daily . 0 Active End: 11-28-2020 take 1 tablet by mouth once daily rosuvastatin (CRESTOR) 40 MG tablet Take 40 mg by mouth daily . 0 11/28/2020 Discontinued Completed/Discontinued Medications Medication Drug Class(es) Dates Sig (Normalized) Sig (Original) acetaminophen 325 mg oral tablet (3 sources) Start: 02-20-2021 End: 02-21-2021 take 1 tablet by mouth every four hours as needed for pain and headache 650 mg, Oral, Every 4 hours PRN, mild pain, fever 100.4 F or greater, headaches, Starting on Tori 02/20/21 at 0502 Start: 01-04-2019 End: 01-04-2019 take 1 tablet by mouth every six hours as needed acetaminophen (TYLENOL) tablet 650 mg Start: 05-19-2018 End: 05-20-2018 take 1 tablet by mouth every four hours as needed 650 mg, Oral, Every 4 hours PRN, mild pain, fever 100.4 F or greater, headaches, Starting Tori 05/19/18 at 2210 acetaminophen 325 mg / oxyCODONE hydrochloride 5 mg oral tablet (1 source) Opioid Agonist Start: 05-19-2018 End: 05-20-2018 take 1 tablet by mouth every four hours as needed oxyCODONE-acetaminophen (PERCOCET) 5-325 mg per tablet 1 tablet [id number] 200 actuat albuterol 0.09 mg/actuat metered dose inhaler (13 sources) beta2-Adrene rgic Agonist Start: 02-20-2021 End: 02-21-2021 take 2 puff(s) by inhalation every six hours as needed for wheezing 2 puff, Inhalation, Every 6 hours PRN (RT), wheezing, Starting on Tori 02/20/21 at 1154 SPACER REQUIRED FOR ADMINISTRATION Start: 05-19-2018 End: 05-20-2018 take 2 puff(s) by inhalation every six hours as needed for wheezing 2 puff, Inhalation, Every 6 hours PRN (RT), wheezing, Starting Tori 05/19/18 at 2256 SPACER REQUIRED FOR ADMINISTRATION albuterol 90 mcg /actuation inhaler Inhale 2 puffs every 6 (six) hours as needed for wheezing. Active alogliptin 25 mg oral tablet (2 sources) End: 02-21-2021 take 1 tablet by mouth once daily alogliptin 25 mg Tab Take 25 mg by mouth daily . 0 02/21/2021 Discontinued aluminum hydroxide 40 mg/ml / magnesium hydroxide 40 mg/ml / simethicone 4 mg/ml oral suspension (1 source) Start: 02-20-2021 End: 02-21-2021 take 30 mL by mouth every four hours as needed 30 mL, Oral, Every 4 hours PRN, indigestion, Starting on Tori 02/20/21 at 0502 amLODIPine 5 mg oral tablet (7 sources) Dihydropyridine Calcium Channel Natalya Start: 05-20-2018 End: 05-20-2018 take 10 mg by mouth once daily 10 mg, Oral, Daily, First dose on Wed05/20/18 at 0900 End: 02-20-2021 take 1 tablet by mouth once daily amLODIPine (NORVASC) 10 MG tablet Take 10 mg by mouth daily . 0 02/20/2021 Discontinued (Therapy completed) aspirin 81 mg delayed release oral tablet (12 sources) Nonsteroidal Anti-inflammatory Drug Start: 02-20-2021 End: 02-21-2021 take 81 mg by mouth once daily 81 mg, Oral, Daily, First dose on Tori 02/20/21 at 0900 DO NOT CRUSH OR CHEW. atorvastatin 20 mg oral tablet (11 sources) HMG-CoA Reductase Inhibitor Start: 05-20-2018 End: 05-20-2018 take 80 mg by mouth once daily 80 mg, Oral, Nightly, First dose on Wed05/20/18 at 0030 End: 02-20-2021 take 1 tablet by mouth once daily atorvastatin (LIPITOR) 40 MG tablet Take 40 mg by mouth daily. 0 02/20/2021 Discontinued (Therapy completed) azithromycin 250 mg oral tablet (5 sources) Macrolide Antimicrobial Start: 04-08-2017 End: 11-28-2020 azithromycin (ZITHROMAX) 250 MG tablet 2 tabs po x 1 day then 1 tab po x 4 days. 6 tablet 0 04/08/2017 11/28/2020 Discontinued bisacodyl 10 mg rectal suppository (1 source) Stimulant Laxative Start: 05-20-2018 End: 05-20-2018 bisacodyl (DULCOLAX) suppository 10 mg budesonide / formoterol (12 sources) Corticosteroid, beta2-Adrenergic Agonist Start: 02-20-2021 End: 02-21-2021 take 2 puff(s) by inhalation twice daily 2 puff, Inhalation, 2 times daily (RT), First dose on Tori 02/20/21 at 1400 SPACER REQUIRED FOR ADMINISTRATION take 2 puff(s) by in halation twice daily budesonide-formoterol (SYMBICORT) 80-4.5 mcg/actuation inhaler Inhale 2 puffs 2 (two) times a day. 0 take 2 puff(s) by in halation twice daily budesonide-formoterol (SYMBICORT) 80-4.5 mcg/actuation inhaler Inhale 2 puffs 2 (two) times a day. 0 Active take 2 puff(s) by in halation twice daily budesonide-formoterol (SYMBICORT) 80-4.5 mcg/actuation inhaler Inhale 2 puffs 2 (two) times a day. 0 Active budesonide-formo terol (SYMBICORT) 80-4.5 mcg/actuation inhaler Inhale 2 puffs 2 (two) times a day. Active calcium chloride 0.0014 meq/ ml / potassium chloride 0.004 meq/ml / sodium chloride 0.103 meq/ml / sodium lactate 0.028 meq/ml injectable solution (4 sources) Start: 02-20-2021 End: 02-21-2021 lactated Ringers infusion Start: 01-04-2019 End: 01-04-2019 take 100 mL intravenous route every hour 100 mL/hr, Intravenous, Continuous, Starting Wed01/04/19 at 1015, PACU (only) Start: 01-04-2019 End: 01-04-2019 lactated Ringers infusion Start: 05-20-2018 End: 05-20-2018 lactated Ringers infusion cholecalciferol 0.025 mg oral tablet (12 sources) Vitamin D Start: 02-20-2021 End: 02-21-2021 take 1000 [IU] by mouth once daily 1,000 Units, Oral, Daily, First dose on Tori 02/20/21 at 0900 cyclobenzaprine hydrochloride 10 mg oral tablet (6 sources) Muscle Relaxant Start: 04-02-2017 End: 11-28-2020 take 1 tablet by mouth three times daily as needed for muscle spasms cyclobenzaprine (FLEXERIL) 10 MG tablet Take 1 (one) tablet (10 mg total) by mouth 3 (three) times a day as needed for muscle spasms. 90 tablet 0 04/02/2017 11/28/2020 Discontinued dicyclomine hydrochloride 10 mg oral capsule (1 source) Anticholinergic Start: 02-20-2021 End: 02-21-2021 take 1 capsule by mouth every twelve hours as needed dicyclomine (BENTYL) capsule 20 mg docusate sodium 50 mg / sennosides, long term 8.6 mg oral tablet (1 source) Start: 05-20-2018 End: 05-20-2018 senna-docusate (SENNA-S) 8.6-50 mg per tablet 1 tablet 0.4 ml enoxaparin sodium 100 mg/ml prefilled syringe (1 source) Low Molecular Weight Heparin Start: 02-20-2021 End: 02-21-2021 inject 40 mg by subcutaneous injection once daily 40 mg, Subcutaneous, Daily, First dose on Tori 02/20/21 at 0900 Administer in abdomen unless otherwise directed by prescriber. Notify physician if patient refuses. Indication: VTE Prophylaxis 50 ml fentaNYL 0.05 mg/ml injection (3 sources) Opioid Agonist Start: 05-19-2018 End: 05-19-2018 fentaNYL (SUBLIMAZE) injection 50 mcg Start: 05-19-2018 End: 05-19-2018 fentaNYL (SUBLIMAZE) 50 mcg/ mL injection - ADS Override Pull Start: 11-09-2016 End: 11-09-2016 fentaNYL (SUBLIMAZE) 50 mcg/ mL injection 50 mcg 50 mcg, Intravenous, Once, 11/09/16 at 1205, For 1 dose Given 11/09/2016 12:49 EDT 50 mcg folic acid 1 mg oral tablet (1 source) Start: 02-20-2021 End: 02-21-2021 folic acid (FOLVITE) tablet 1 mg gabapentin 300 mg oral capsule (12 sources) Anti-epileptic Agent Start: 02-20-2021 End: 02-21-2021 take 600 mg by mouth every eight hours 600 mg, Oral, Every 8 hours scheduled, First dose on Tori 02/20/21 at 0600 take 1 tablet by mouth three cynthia es daily gabapentin (NEURONTIN) 600 MG tablet Take 600 mg by mouth 3 (three) times a day . 0 Active take 2 capsules by m outh three times daily gabapentin (NEURONTIN) 300 MG capsule Ta ke 600 mg by mouth 3 (three) times a day . 0 Active take 1 capsule by mo uth three times daily gabapentin (NEURONTIN) 300 MG capsule Ta ke 300 mg by mouth 3 (three) times a day . 0 Active take 3 capsules by m outh three times daily gabapentin (NEURONTIN) 300 MG capsule Ta ke 900 mg by mouth 3 (three) times a day. Active hydroCHLOROthiazide (9 sources) Thiazide Diuretic End: 11-28-2020 HYDROCHLOROTHIAZIDE ORAL Take by mouth daily . 0 11/28/2020 Discontinued HYDROCHLOROTHIAZ LUDWIN ORAL Take by mouth daily . 0 Active HYDROCHLOROTHIAZ LUDWIN ORAL Take by mouth. Active 0.5 ml HYDROmorphone hydrochloride 1 mg/ml prefilled syringe (3 sources) Opioid Agonist Start: 02-19-2021 End: 02-21-2021 take 0.5 mg intravenously every three hours as needed HYDROmorphone (DILAUDID) injection 0.5 mg insulin glargine 100 unt/ml injectable solution (7 sources) Insulin Analog Start: 02-20-2021 End: 02-21-2021 11 Units (rounded from 10.89 Units = 0.1 Units/kg 108.9 kg), Subcutaneous, Nightly, First dose on Tori 02/20/21 at 2100 Do not hold basal insulin without notifying physician. If patient NPO and BG < 100 before procedure, administer half of the glargine insulin (Lantus) dose; if BG is >100 administer full dose. Do not mix with other insulins in a syringe. Do NOT hold basal insulin without notifying physician Start: 05-20-2018 End: 05-20-2018 35 Units, Subcutaneous, 2 ti mes daily, First dose on Wed05/20/18 at 0200 Do not hold basal insulin without notifying physician. If patient NPO and BG < 100 before procedure, administer half of the glargine insulin (Lantus) dose; if BG is >100 administer full dose. Do not mix with other insulins in a syringe. Do NOT hold basal insulin without notifying physician End: 11-28-2020 inject 50 [IU] by subcutaneous injection twice daily insulin glargine (LANTUS) 100 unit/mL (3 mL) InPn Inject 50 Units under the skin 2 (two) times a day . 0 11/28/2020 Discontinued insulin lispro 100 unt/ml injectable solution (4 sources) Insulin Analog Start: 02-20-2021 End: 02-21-2021 inject 1 dose by subcutaneous injection once daily 0-15 Units, Subcutaneous, At bedtime, First dose on Tori 02/20/21 at 2100 For Nightly Insulin Dose Coverage, use: CORRECTIVE (Only) for BG greater than 300 Nightly CORRECTIVE Dose Method: Follow Corrective SCALE Corrective Scale to use for BG > 300: Normal Sensitivity Scale For Downtime Calculator, use: Insulin SC NIGHTtime Start: 02-20-2021 End: 02-21-2021 inject 1 dose by subcutaneous injection three times daily before mealtime 0-30 Units, Subcutaneous, 3 times daily before meals, First dose on Tori 02/20/21 at 0730 Dose should be given 10-15 minutes before a meal. If poor oral intake, nausea or blood glucose value < 80 before meal, give of the dose (rounded up to nearest unit) immediately after meal completed. If patient skipping meal, hold base prandial dose and continue to use corrective insulin as ordered. Once diet resumed, total base prandial + corrective doses may be given. Prandial Insulin Dosing Method: NO Prandial Dose - Corrective Scale ONLY Corrective Insulin Regimen (select desired scale to cover BG result): Normal Sensitivity Scale For Downtime Calculator, use: Insulin SC MEALtime PREprandial Start: 05-20-2018 End: 05-20-2018 inject 1 dose by subcutaneous injection three times daily before mealtime 0-30 Units, Subcutaneous, 3 times daily before meals, First dose on Wed05/20/18 at 0730 Dose should be given 10-15 minutes before a meal. If poor oral intake, nausea or blood glucose value < 80 before meal, give of the dose (rounded up to nearest unit) immediately after meal completed. If patient skipping meal, hold base prandial dose and continue to use corrective insulin as ordered. Once diet resumed, total base prandial + corrective doses may be given. Prandial Insulin Dosing Method: NO Prandial Dose - Corrective Scale ONLY Corrective Insulin Regimen (select desired scale to cover BG result): Conservative Scale For Downtime Calculator, use: Insulin SC MEALtime PREprandial Start: 05-20-2018 End: 05-20-2018 inject 1 dose by subcutaneous injection once daily 0-15 Units, Subcutaneous, At bedtime, First dose on Wed05/20/18 at 0030 For Nightly Insulin Dose Coverage, use: CORRECTIVE (Only) for BG greater than 300 Nightly CORRECTIVE Dose Method: Specific Corrective Dose Nightly Specific CORRECTIVE dose (units of insulin): 2 For Downtime Calculator, use: Insulin SC NIGHTtime insulin aspart, human 100 unt/ml injectable solution (9 sources) Insulin Analogue End: 11-28-2020 insulin aspart (NovoLOG) 100 unit/mL injection Inject under the skin 3 (three) times a day before meals 10-22 units sliding scale insulin 180, 240 . 0 11/28/2020 Discontinued insulin isophane, human 100 unt/ml injectable suspension (5 sources) End: 11-28-2020 inject 52 [IU] by subcutaneous injection twice daily insulin NPH (HumuLIN,NovoLIN) 100 unit/mL injection Inject 52 Units under the skin 2 (two) times a day. 0 11/28/2020 Discontinued iopamidol (1 source) Radiographic Contrast Agent Start: 11-09-2016 End: 11-09-2016 iopamidol (ISOVUE-370) 76 % injection 75 mL 75 mL, Intravenous, Once in imaging, contrast, Starting 11/09/16 at 1049, For 1 dose Contrast Administered 11/09/2016 11:09 EDT 145 mL iopamidoL (ISOVUE-370) 76 % injection 75 mL (1 source) Start: 02-19-2021 End: 02-19-2021 iopamidoL (ISOVUE-370) 76 % injection 75 mL 4 ml labetalol hydrochloride 5 mg/ml cartridge (1 source) beta-Adrenergic Natalya Start: 01-04-2019 End: 01-04-2019 5 mg, Intravenous, Every 5 min PRN, SBP greater than 180 or DBP greater than 120, Starting 01/04/19 at 0928, For 4 doses, PACU (only) [] Do not give more than 20 mg total. [] Hold for HR less than 50. ledipasvir / sofosbuvir (9 sources) Hepatitis C Virus NS5A Inhibitor, Hepatitis C Virus Nucleotide Analog NS5B Polymerase Inhibitor End: 11-28-2020 LEDIPASVIR/SOFOSB UVIR (HARVONI ORAL) Take by mouth daily. 0 11/28/2020 Discontinued LEDIPASVIR/SOFOS BUVIR (HARVONI ORAL) Take by mouth daily. 0 Active LEDIPASVIR/SOFOS BUVIR (HARVONI ORAL) Take by mouth daily. Active lisinopril 40 mg oral tablet (9 sources) Angiotensin Converting Enzyme Inhibitor End: 11-28-2020 take 1 tablet by mouth once daily lisinopril (PRINIVIL,ZESTRIL) 40 MG tablet Take 40 mg by mouth daily. 0 11/28/2020 Discontinued magnesium gluconate 550 mg oral tablet (9 sources) End: 11-28-2020 take 1 tablet by mouth twice daily magnesium 30 mg tablet Take 30 mg by mouth 2 (two) times a day. 0 11/28/2020 Discontinued methocarbamol 500 mg oral tablet (3 sources) Muscle Relaxant Start: 02-20-2021 End: 02-21-2021 take 750 mg by mouth three times daily as needed for muscle spasms 750 mg, Oral, 3 times daily PRN, muscle spasms, Starting on Tori 30/21 at 0502 take 1 tablet by [facility] three times daily as needed for muscle spasms methocarbamoL (ROBAXIN) 750 MG tablet Ta ke 750 mg by mouth 3 (three) times a day as needed for muscle spasms . 0 Active metoprolol tartrate 25 mg oral tablet (9 sources) beta-Adrenergic Natalya Start: 02-20-2021 End: 02-21-2021 25 mg, Oral, 2 times daily, First dose on Wed02/20/21 at 0900 Hold for HR less than 60 and SBP less than 105 Start: 05-20-2018 End: 05-20-2018 take 25 mg by mouth twice daily 25 mg, Oral, 2 times d aily, First dose on Wed05/20/18 at 0030 multivitamin (THERAGRAN) per tablet 1 tablet (1 source) Start: 02-20-2021 End: 02-21-2021 multivitamin (THERAGRAN) per tablet 1 tablet 2 ml ondansetron 2 mg/ml injection (4 sources) Serotonin-3 Receptor Antagonist Start: 02-19-2021 End: 02-20-2021 ondansetron (ZOFRAN) injection 4 mg Start: 01-04-2019 End: 01-04-2019 take 4 mg intravenous route every twenty-four hours as needed 4 mg, Intravenous, Once as needed, nausea, vomiting, Starting Wed01/04/19 at 0928, For 1 dose, PACU (only) Administer first as needed for nausea/vomiting, or as directed by anesthesia Start: 05-19-2018 End: 05-20-2018 take 4 mg intravenous route every six hours as needed 4 mg, Intravenous, Every 6 hours PRN, nausea, vomiting, Starting Wed05/19/18 at 2249 ondansetron (ZOFRAN-ODT) disintegrating tablet 4 mg (1 source) Start: 02-20-2021 End: 02-21-2021 take 1 tablet by mouth every six hours as needed for nausea and vomiting ondansetron (ZOFRAN-ODT) disintegrating tablet 4 mg pantoprazole 40 mg delayed release oral tablet (3 sources) Proton Pump Inhibitor Start: 02-20-2021 End: 02-21-2021 take 40 mg by mouth twice daily 40 mg, Oral, 2 times daily, First dose on Tori 02/20/21 at 0900 DO NOT CRUSH OR CHEW. Start: 05-20-2018 End: 05-20-2018 pantoprazole (PROTONIX) EC t ablet 40 mg Start: 05-19-2018 End: 05-20-2018 40 mg, Intravenous, 2 times daily, First dose on Tori 05/19/18 at 2300 polyethylene glycol 3350 10385 mg powder for oral solution (2 sources) Osmotic Laxative Start: 05-21-2018 End: 05-20-2018 polyethylene glycol (MIRALAX) powder 34 g Start: 05-20-2018 End: 05-20-2018 polyethylene glycol (MIRALAX ) powder 17 g 2 ml prochlorperazine 5 mg/ml injection (1 source) Phenothiazine Start: 01-04-2019 End: 01-04-2019 2.5 mg, Intravenous, Every 15 min PRN, nausea, Starting 01/04/19 at 0928, For 2 doses, PACU (only) Administer if ondansetron (Zofran), promethazine (Phenergan), and Metocolopramide (Reglan) ineffective or not ordered, or as directed by anesthesia, as needed for nausea/vomiting Do not give more than 2 doses. ribavirin (9 sources) Nucleoside Analog Antiviral End: 11-28-2020 RIBAVIRIN ORAL Take by mouth daily. 0 11/28/2020 Discontinued RIBAVIRIN ORAL T matt by mouth daily. 0 Active RIBAVIRIN ORAL T matt by mouth daily. Active sennosides, long term 8.6 mg oral tablet (1 source) Start: 02-20-2021 End: 02-21-2021 take 1 tablet by mouth twice daily as needed for constipation 8.6 mg (1 tablet), Oral, 2 times daily PRN, constipation, Starting on Tori 02/20/21 at 0502 sodium chloride (5 sources) Start: 02-20-2021 End: 02-21-2021 sodium chloride (PF) (NS) flush 5 mL Start: 02-19-2021 End: 02-20-2021 sodium chloride 0.9% (NS) adele clovis 1,000 mL Start: 05-19-2018 End: 05-20-2018 take 125 mL intravenous route every hour 125 mL/hr, Intravenous, Continuous, Starting Tori 05/19/18 at 2345 Start: 11-09-2016 End: 11-09-2016 sodium chloride 0.9% (NS) adele clovis 1,000 mL 1,000 mL, Intravenous, at 1,000 mL/hr, Once, 11/09/16 at 0945, For 1 dose New Bag 11/09/2016 09:45 EDT 1,000 mL 1000 mL/hr sodium phosphate, dibasic 59 .3 mg/ml / sodium phosphate, monobasic 161 mg/ml enema (1 source) Start: 01-04-2019 End: 01-04-2019 sodium phosphates (FLEETS ADULT) 19-7 gram/118 mL enema 1 each thiamine 100 mg oral tablet (1 source) Start: 02-20-2021 End: 02-21-2021 thiamine tablet 100 mg Problems Active Problems Problem Classification Problem Date Documented Da te Episodic/Chronic Abdominal pain (10 sources) Abdominal pain; Translations: [Generalized abdominal pain] Onset: 07-18-2017 05-19-2018 Episodic Diabetes mellitus without complication (12 sources) Type 2 diabetes mellitus; Translations: [Type 2 diabetes mellitus without complications] Onset: 04-11-2015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 pelvis. Mild endplate irregularity at L5-S1 favors degenerative change management consultant early discitis. No disc space narrowing is seen. No acute osseous abnormality or suspicious bony lesion is identified. IMPRESSION: 1. Nonspecific bubbles of air outlining the posterior wall of the dependent cecum and ascending colon favors pseudopneumatosis over pneumatosis coli related to colonic ischemia. No colonic wall thickening, surrounding fat stranding, or portal venous gas is present. Precautionary lactate level is recommended. No other potential acute findings are seen in the abdomen or pelvis. 2. Interval cholecystectomy. Workstation ID: [id number] [facility] CT Abdomen Pelvis With IV Co ntrast OnlyOrdered By: Austny Bush on 02-20-2021 [facility] Work Phone: Calcium Levelon 02-20-2021 Calcium [Mass/Vol] 9.1 mg/dL 8.4 - 10. 2 mg/dL [facility] Calcium [Mass/Vol]on Interpretation and review of laboratory results Normal [facility] Ethanol [Mass/Vol]on Interpretation and review of laboratory results Normal [facility] Glucose (Bld) [Mass/Vol]on 1 Glucose [Mass/Vol] 174 mg/dL High 65 - 99 mg/dL [facility] Interpretation and review of laboratory results Abnormal [facility] Glucose [Mass/Vol] 285 mg/dL High 65 - 99 mg/dL [facility] Interpretation and review of laboratory results Abnormal [facility] Glucose [Mass/Vol] 176 mg/dL High 65 - 99 mg/dL [facility] Interpretation and review of laboratory results Abnormal [facility] Glucose [Mass/Vol] 236 mg/dL High 65 - 99 mg/dL [facility] Interpretation and review of laboratory results Abnormal [facility] HbA1c (Bld) [Mass fraction]o n 02-20-2021 Average glucose Estimated from glycated hemoglobin (Bld) [Mass/Vol] 280 mg/dL High 74 - 114 mg/dL [facility] Interpretation and review of laboratory results Abnormal [facility] Normal: 4.2% - 5.6% Increased risk for diabetes: 5.7% - 6.4% Diabetes: >= 6.5% Pediatrics: No established reference range Estimated average glucose: 74-114 mg/dL [facility] Hemoglobin A1con 02-20-2021 HbA1c (Bld) [Mass fraction] 11.4 % High 4.2 - 5.6 % [facility] Iron Study with Ferritinon 1 Ferritin [Mass/Vol] 189 ng/mL 30 - 400 ng/mL [facility] Interpretation and review of laboratory results Abnormal [facility] Iron [Mass/Vol] 42 ug/dL [facility] Iron binding capacity [Mass/Vol] 279 [facility] Iron saturation [Mass fraction] 15 % Low 20 - 50 % [facility] Lactate [Moles/Vol]on 2020 Interpretation and review of laboratory results Normal [facility] Lactic Acid, Plasmaon 2020 Lactate [Moles/Vol] 0.7 mmol/L 0.6 - 2. 0 mmol/L [facility] LipaseOrdered By: Shayne sewell on 02-20-2021 Lipase [Catalytic activity/Vol] 693 U/L Critically high 15 - 65 U/L [facility] Lipase [Catalytic activity/V ol]Ordered By: Shayne Mccarthy on 02-20-2021 Interpretation and review of laboratory results Abnormal [facility] Lipid 1996 panelon Cholesterol [Mass/Vol] 101 mg/dL 100 - 199 mg/dL [facility] Cholesterol in HDL [Mass/Vol] 39 mg/dL Low 40 - 59 [facility] Cholesterol in LDL [Mass/Vol] 52 mg/dL 10 - 130 mg/dL [facility] Comment on above: National Cholesterol Education Program Guidelines: LDL Cholesterol Optimal: <100 mg/dL Near Optimal/above Optimal: 100-129 mg/dL Borderline High: 130-159 mg/dL High: 160-189 mg/dL Very High: greater than or equal to 190 mg/dL Cholesterol non HDL [Mass/Vol] 62 mg/dL [facility] Comment on above: National Cholesterol Education Program Guidelines: NON HDL Cholesterol Desirable: <130 mg/dL Borderline High: 130-159 mg/dL High: 160-189 mg/dL Very High: > or = 190 mg/dL Cholesterol.total/Cho lesterol in HDL [Mass ratio] 2.6 {ratio} ratio [facility] Comment on above: Males Cholesterol/HD L Ratio: Average risk: 5.0 1/2 average risk: 3.4 2 x average risk: 9.6 Interpretation and review of laboratory results Abnormal [facility] Triglyceride [Mass/Vol] 52 mg/dL 30 - 150 mg/dL [facility] Magnesium Levelon 02-20-2021 Magnesium [Mass/Vol] 2.3 mg/dL 1.6 - 2 .4 mg/dL [facility] Magnesium [Mass/Vol]on 02-20 Interpretation and review of laboratory results Normal [facility] No Panel Informationon 02-20 Extra Tube Hold for add-ons. [facility] Comment on above: Auto resulted. [facility] [place] Topon 02-20-2021 [facility] SARS-CoV-2 (COVID-19) RdRp g shahnaz ROXANA+probe Ql (Resp)Ordered By: Arturo Charles on 02-20-2021 Interpretation and review of laboratory results Normal [facility] Triglyceride [Mass/Vol]on Interpretation and review of laboratory results Abnormal [facility] Triglycerideson 02-20-2021 Triglyceride [Mass/Vol] 160 mg/dL High 30 - 150 mg/dL [facility] Comment on above: National Cholesterol Education Program Guidelines: Triglyceride Normal: <150 mg/dL Borderline High: 150-199 mg/dL High: 200-499 mg/dL Very High: greater than or equal to 500 mg/dL Basic metabolic 1998 panelOr dered By: Sherin Morris on 02-19-2021 Anion gap [Moles/Vol] 17 mmol/L 10 - 2 0 mmol/L [facility] Chloride [Moles/Vol] 97 mmol/L Low 98 - 10 8 mmol/L [facility] Creatinine [Mass/Vol] 0.95 mg/dL 0.80 - 1.30 [facility] GFR/1.73 sq M.predicted CKD-EPI (S/P/Bld) [Vol rate/Area] 95 >=60 mL/min/1.73 m2 [facility] Glucose [Mass/Vol] 486 mg/dL Critically high 65 - 9 9 mg/dL [facility] HCO3 [Moles/Vol] 21 mmol/L 21 - 32 mmol/L [facility] Interpretation and review of laboratory results Abnormal [facility] Potassium [Moles/Vol] 4.4 mmol/L 3.5 - 5.1 mmol/L [facility] Sodium [Moles/Vol] 131 mmol/L Low 135 - 145 mmol/L [facility] Urea nitrogen [Mass/Vol] 20 mg/dL 8 - 25 mg/dL [facility] Urea nitrogen/Creatinine [Mass ratio] 21.1 mg/mg High [facility] The eGFR should be used for monitoring renal function only and not for medication dosing. [facility] CBC Auto Differentialon 01-23 Basophils (Bld) [#/Vol] 0.02 10*3/uL [facility] Basophils/100 WBC (Bld) 0.2 % [facility] Eosinophils (Bld) [#/Vol] 0.08 10*3/uL [facility] Eosinophils/100 WBC (Bld) 0.9 % [facility] Erythrocyte distribution width (RBC) [Entitic vol] 14.8 % 11.6 - 14.8 % [facility] Hematocrit (Bld) [Volume fraction] 39.4 % Low 41.0 - 53.0 % [facility] Hemoglobin (Bld) [Mass/Vol] 12.6 g/dL Low 13.5 - 17.5 g/dL [facility] Immature granulocytes (Bld) [#/Vol] 0.05 10*3/uL [facility] Immature granulocytes/100 WBC (Bld) 0.60 % [facility] Comment on above: The IG parameter is the percentage of metamyelocytes, myelocytes and promyelocytes. An immature granulocyte count (IG) of 1% or more suggests the possibility of infection, an IG count of 3% is very likely related to an infection. Interpretation and review of laboratory results Abnormal [facility] Lymphocytes (Bld) [#/Vol] 2.90 10*3/uL [facility] Lymphocytes/100 WBC (Bld) 34.1 % [facility] MCH (RBC) [Entitic mass] 23.1 pg Low 26.0 - 34.0 pg [facility] MCHC (RBC) [Mass/Vol] 32.0 g/dL 31.0 - 37.0 g/dL [facility] MCV (RBC) [Entitic vol] 72.3 fL Low 80.0 - 100.0 fL [facility] Monocytes (Bld) [#/Vol] 0.82 10*3/uL [facility] Monocytes/100 WBC (Bld) 9.6 % [facility] Neutrophils (Bld) [#/Vol] 4.63 10*3/uL [facility] Neutrophils/100 WBC (Bld) 54.6 % [facility] Nucleated RBC (Bld) [#/Vol] 0.00 10*3/uL [facility] Nucleated RBC/100 WBC (Bld) [Ratio] 0.0 % [facility] Platelet mean volume (Bld) [Entitic vol] 11.0 fL 9.4 - 12.4 fL [facility] Platelets (Bld) [#/Vol] 250 10*3/uL [facility] RBC (Bld) [#/Vol] 5.45 10*6/uL [facility] WBC (Bld) [#/Vol] 8.50 10*3/uL [facility] With IV Co ntrast Onlyon 02-19-2021 Radiology Study observation (narrative) [facility] Hepatic function 2000 panelo n 02-19-2021 Albumin [Mass/Vol] 4.2 g/dL 3.2 - 5.2 g/dL [facility] ALP [Catalytic activity/Vol] 93 U/L 40 - 150 U/L [facility] ALT [Catalytic activity/Vol] 13 U/L 0 - 40 U/L [facility] AST [Catalytic activity/Vol] 12 U/L 0 - 45 U/L [facility] Bilirubin [Mass/Vol] 0.2 mg/dL 0.0 - 1 .3 mg/dL [facility] Bilirubin.conjugated [Mass/Vol] mg/dL 0.0 - 0.4 mg/dL [facility] Interpretation and review of laboratory results Normal [facility] Protein [Mass/Vol] 7.2 g/dL 6.0 - 8.0 g/dL [facility] Lipaseon 02-19-2021 Lipase [Catalytic activity/Vol] 1200 U/L Critically high 15 - 65 U/L [facility] Lipase [Catalytic activity/V ol]on 02-19-2021 Interpretation and review of laboratory results Abnormal [facility] UrinalysisOrdered By: Thalia Rogers on 02-19-2021 Bacteria Auto Ql (U) None Seen None Se en /hpf [facility] Bilirubin Ql (U) Negative Negative [facility] th Clarity Refractometry automated (U) Clear Clear [facility] Color (U) Colorless Colorless, Yellow [facility] Glucose Auto test strip (U) [Mass/Vol] >=500 Abnormal Negative mg/dL [facility] Hemoglobin Auto test strip Ql (U) Negative Negative [facility] Interpretation and review of laboratory results Abnormal [facility] Ketones (U) [Mass/Vol] Trace Abnormal Negative mg/dL [facility] Leukocyte esterase Auto test strip Ql (U) Negative Negative [facility] Mucus Auto (Urine sed) [#/Area] Rare None Seen, Rare /lpf [facility] Nitrite Auto test strip Ql (U) Negative Negative [facility] pH (U) 5.0 [pH] [facility] Protein (U) [Mass/Vol] Negative Negative mg/dL [facility] RBC Auto (Urine sed) [#/Area] 1 [facility] Specific gravity (U) [Rel density] 1.035 High [facility] Urobilinogen (U) [Mass/Vol] mg/dL <2.0 mg/dL [facility] Microscopic examination is performed on all urinalysis samples and only positive findings are reported. The test for blood on the chemical analytic portion of urinalysis may also be positive due to hemoglobinuria and myoglobinuria and if red blood cells are present they are quantified by microscopic examination. [facility] POC Glucoseon 01-04-2019 Glucose [Mass/Vol] 196 mg/dL High 65 - 99 mg/dL [facility] Interpretation and review of laboratory results Abnormal [facility] SCAN OTHER ORDERSon 01-04-20 Ordered by an unspecified provider. [facility] SCAN OTHER ORDERSon 12-31-19 Ordered by an unspecified provider. [facility] Basic Metabolic Panelon 04-23 Anion gap molar conc 13 mmol/L 10 - 20 mmol/L [facility] Calcium mass conc 9.1 mg/dL 8.4 - 10.2 mg/dL [facility] Chloride molar conc 102 mmol/L 98 - 108 mmol/L [facility] Creatinine mass conc 0.87 mg/dL 0.8 - 1 .3 mg/dL [facility] GFR/1.73 sq M predicted among non-blacks MDRD vol rate/area (S/P/Bld) The eGFR should be used for monitoring renal function only and not for medication dosing. [facility] GFR/1.73 sq M.predicted CKD-EPI vol rate/area (S/P/Bld) 104 >=60 mL/min/1.73 m2 [facility] Glucose mass conc 89 mg/dL 65 - 99 mg/dL [facility] HCO3 molar conc 26 mmol/L 21 - 32 mmol/L [facility] Potassium molar conc 4.6 mmol/L 3.5 - 5 .1 mmol/L [facility] Sodium molar conc 136 mmol/L 135 - 145 mmol/L [facility] Urea nitrogen mass conc 15 mg/dL 8 - 25 mg/dL [facility] Urea nitrogen/Creatinine mass ratio 17.2 mg/mg [facility] CBCon 05-20-2018 Erythrocyte distribution width Entitic volume (RBC) 14.7 % 11.6 - 14.8 % [facility] Hematocrit Volume Fraction (Bld) 33.6 % Low 41 - 53 % [facility] Hemoglobin mass conc (Bld) 10.7 g/dL Low 13.5 - 17.5 g/dL [facility] Interpretation and review of laboratory results Abnormal [facility] MCH Entitic mass (RBC) 22.8 pg Low 26 - 34 pg [facility] Comment on above: 2+ hypochromia MCHC mass conc (RBC) 31.8 g/dL 31 - 37 g/dL [facility] MCV Entitic volume (RBC) 71.6 fL Low 80 - 100 fL [facility] Comment on above: 2+microcytosis Nucleated RBC #/vol (Bld) 0.00 10*3/uL [facility] Nucleated RBC/100 WBC Ratio (Bld) 0.0 % [facility] Platelet mean volume Entitic volume (Bld) 11.6 fL 9 - 15.5 fL [facility] Platelets #/vol (Bld) 177 10*3/uL [facility] RBC #/vol (Bld) 4.69 10*6/uL [facility] WBC #/vol (Bld) 7.21 10*3/uL [facility] ECG 12-LEADon 05-20-2018 Atrial Rate 49 BPM [facility] P [place] 33 degrees [facility] P-R Interval 218 ms [facility] Q-T Interval 438 ms [facility] QRS Duration 72 ms [facility] QTC Calculation (Bezet) 395 ms [facility] R [place] 21 degrees [facility] T [place] 27 degrees [facility] Ventricular Rate 49 BPM [facility] Sinus bradycardia with 1st degree AV block Otherwise normal ECG Confirmed by Dolores Espinosa MD ([id number]) on 05/20/2018 6:06:36 PM [facility] Otheron 05-20-2018 Interpretation and review of laboratory results Normal [facility] POC Glucoseon 05-20-2018 Glucose mass conc 122 mg/dL High 65 - 99 mg/dL [facility] Interpretation and review of laboratory results Abnormal [facility] Glucose mass conc 122 mg/dL High 65 - 99 mg/dL [facility] Interpretation and review of laboratory results Abnormal [facility] Glucose mass conc 98 mg/dL 65 - 99 mg/dL [facility] Glucose mass conc 100 mg/dL High 65 - 99 mg/dL [facility] Interpretation and review of laboratory results Abnormal [facility] Glucose mass conc 88 mg/dL 65 - 99 mg/dL [facility] US ABDOMEN LIMITED STUDYon 0 05-20-2018 EXAMINATION: US ABDOMEN LIMITED STUDY HISTORY: ORDERING SYSTEM PROVIDED HISTORY: evall for gallstones, TECHNOLOGIST PROVIDED HISTORY: Reason for exam: evall for gallstones Illness/Other Cancer History: unk Surgery, RadiationHistory: unk Encounter Type: Unknown Additional signs and symptoms: ORDERING SYSTEM PROVIDED DIAGNOSIS CODES: K85.90 Acute pancreatitis, unspecified complication status, unspecified pancreatitis type R10.84 Generalized abdominal pain COMPARISON: None. TECHNIQUE: Sonographic evaluation of the abdomen was performed by the technologist. Images are submitted for review. FINDINGS: Pancreas: The proximal aspect of the pancreas is obscured secondary to overlying bowel gas, fat and technical factors. Liver: The liver demonstrates diffusely increased and coarsened echotexture with poor visualization of the intrahepatic landmarks. Gallbladder and Biliary Tree: The gallbladder wall is not significantly thickened and measures up to 2.6 mm, however there is a mild amount of sludge suggested in the gallbladder. No sonographic Elizabeth sign is reported. No definite large shadowing stones are seen. The common duct measures 3 mm. Right Kidney: The right kidney measures approximately 11.2 x 4.7 x 5.4 cm. Normal renal echotexture with no space-occupying lesions identified. No definite shadowing stones. No hydronephrosis. No sonographic Elizabeth sign is reported. There is no ascites. [facility] Interface, Rad In Wilfrido Dangq - 05/20/2018 5:24 AM EDT EXAMINATION: US ABDOMEN LIMITED STUDY HISTORY: ORDERING SYSTEM PROVIDED HISTORY: evall for gallstones, TECHNOLOGIST PROVIDED HISTORY: Reason for exam: evall for gallstones Illness/Other Cancer History: unk Surgery, RadiationHistory: unk Encounter Type: Unknown Additional signs and symptoms: ORDERING SYSTEM PROVIDED DIAGNOSIS CODES: K85.90 Acute pancreatitis, unspecified complication status, unspecified pancreatitis type R10.84 Generalized abdominal pain COMPARISON: None. TECHNIQUE: Sonographic evaluation of the abdomen was performed by the technologist. Images are submitted for review. FINDINGS: Pancreas: The proximal aspect of the pancreas is obscured secondary to overlying bowel gas, fat and technical factors. Liver: The liver demonstrates diffusely increased and coarsened echotexture with poor visualization of the intrahepatic landmarks. Gallbladder and Biliary Tree: The gallbladder wall is not significantly thickened and measures up to 2.6 mm, however there is a mild amount of sludge suggested in the gallbladder. No sonographic Elizabeth sign is reported. No definite large shadowing stones are seen. The common duct measures 3 mm. Right Kidney: The right kidney measures approximately 11.2 x 4.7 x 5.4 cm. Normal renal echotexture with no space-occupying lesions identified. No definite shadowing stones. No hydronephrosis. No sonographic Elizabeth sign is reported. There is no ascites. IMPRESSION: 1. Heterogeneously echogenic liver, which is nonspecific finding and may represent hepatic steatosis and/or other underlying hepatocellular pathology. 2. Small amount of gallbladder sludge with no evidence of significant gallbladder wall thickening, definite shadowing stones, or biliary ductal dilatation. [facility] Workstation ID: [id number] [facility] 1. Heterogeneously echogenic liver, which is nonspecific finding and may represent hepatic steatosis and/or other underlying hepatocellular pathology. 2. Small amount of gallbladder sludge with no evidence of significant gallbladder wall thickening, definite shadowing stones, or biliary ductal dilatation. [facility] Workstation ID: [id number] [facility] BMPon 05-19-2018 Anion gap molar conc 18 mmol/L 10 - 20 mmol/L [facility] Calcium mass conc 9.4 mg/dL 8.4 - 10.2 mg/dL [facility] Chloride molar conc 97 mmol/L Low 98 - 108 mmol/L [facility] Creatinine mass conc 1.04 mg/dL 0.8 - 1 .3 mg/dL [facility] GFR/1.73 sq M predicted among non-blacks MDRD vol rate/area (S/P/Bld) The eGFR should be used for monitoring renal function only and not for medication dosing. [facility] GFR/1.73 sq M.predicted CKD-EPI vol rate/area (S/P/Bld) 86 >=60 mL/min/1.73 m2 [facility] Glucose mass conc 271 mg/dL High 65 - 99 mg/dL [facility] HCO3 molar conc 24 mmol/L 21 - 32 mmol/L [facility] Interpretation and review of laboratory results Abnormal [facility] Potassium molar conc 4.7 mmol/L 3.5 - 5 .1 mmol/L [facility] Sodium molar conc 134 mmol/L Low 135 - 145 mmol/L [facility] Urea nitrogen mass conc 20 mg/dL 8 - 25 mg/dL [facility] Urea nitrogen/Creatinine mass ratio 19.2 mg/mg [facility] CBC WITH AUTO DIFFERENTIALon 05-19-2018 Basophils #/vol (Bld) 0.01 10*3/uL [facility] Basophils/100 WBC (Bld) 0.1 % [facility] Eosinophils #/vol (Bld) 0.10 10*3/uL [facility] Eosinophils/100 WBC (Bld) 1.2 % [facility] Erythrocyte distribution width Entitic volume (RBC) 14.6 % 11.6 - 14.8 % [facility] Hematocrit Volume Fraction (Bld) 38.0 % Low 41 - 53 % [facility] Hemoglobin mass conc (Bld) 11.8 g/dL Low 13.5 - 17.5 g/dL [facility] Immature granulocytes #/vol (Bld) 0.02 10*3/uL [facility] Immature granulocytes/100 WBC (Bld) 0.20 % [facility] Comment on above: The IG parameter is the percentage of metamyelocytes, myelocytes, and promyelocytes. Interpretation and review of laboratory results Abnormal [facility] Lymphocytes #/vol (Bld) 2.96 10*3/uL [facility] Lymphocytes/100 WBC (Bld) 35.0 % [facility] MCH Entitic mass (RBC) 23.0 pg Low 26 - 34 pg [facility] MCHC mass conc (RBC) 31.1 g/dL 31 - 37 g/dL [facility] MCV Entitic volume (RBC) 74.2 fL Low 80 - 100 fL [facility] Monocytes #/vol (Bld) 0.61 10*3/uL [facility] Monocytes/100 WBC (Bld) 7.2 % [facility] Neutrophils #/vol (Bld) 4.76 10*3/uL [facility] Neutrophils/100 WBC (Bld) 56.3 % [facility] Nucleated RBC #/vol (Bld) 0.00 10*3/uL [facility] Nucleated RBC/100 WBC Ratio (Bld) 0.0 % [facility] Platelet mean volume Entitic volume (Bld) 12.2 fL 9 - 15.5 fL [facility] Platelets #/vol (Bld) 197 10*3/uL [facility] RBC #/vol (Bld) 5.12 10*6/uL [facility] WBC #/vol (Bld) 8.46 10*3/uL [facility] CT Abdomen Pelvis With IV Co ntrast Onlyon 05-19-2018 EXAMINATION: CT ABDOMEN PELVIS WITH IV CONTRAST ONLY HISTORY: ORDERING SYSTEM PROVIDED HISTORY: epigastric abd pain, TECHNOLOGIST PROVIDED HISTORY: Reason for exam: epigastric abd pain Illness/Other Encounter Type: Initial Additional signs and symptoms: n ORDERING SYSTEM PROVIDED DIAGNOSIS CODES: COMPARISON: 11/09/2016. TECHNIQUE: CT examination of the abdomen and pelvis following the administration of intravenous contrast. Coronal and sagittal reformations were performed. Dose reduction techniques were achieved by using automated exposure control and/or adjustment of mA and/or kV according to patient size and/or use of iterative reconstruction technique. CONTRAST: IOPAMIDOL 76 % INTRAVENOUS SOLUTION - 75 mL, FINDINGS: The lung bases are clear. The heart size is normal. The liver, gallbladder, spleen, pancreas, and adrenal glands are unremarkable. Bilateral kidneys demonstrate normal size, morphology, and contrast enhancement. There is no evidence for hydronephrosis bilaterally. The stomach and duodenum appear unremarkable. Mild fluid distention of the small bowel is seen with air-fluid levels, which may represent mild ileus/enteritis. Normal-appearing appendix is visualized. Large volume of stool is seen in the right and transverse colon. No significant bowel wall thickening is seen. The urinary bladder is unremarkable. No significant free fluid or abnormal fluid collections are seen in the abdomen and pelvis. No significant enlarged abdominal or pelvic adenopathy is seen. Aortic and iliac arterial calcification is seen, without aneurysmal dilatation. Small, fat-containing umbilical hernia is seen. The abdominal wall and visualized soft tissues are otherwise unremarkable. Stable appearance mild compression deformity of the L4 and L5 vertebral bodies is seen. The osseous structures are otherwise unremarkable. [facility] Interface, Rad In Fuji Speechq - 05/19/2018 8:53 PM EDT EXAMINATION: CT ABDOMEN PELVIS WITH IV CONTRAST ONLY HISTORY: ORDERING SYSTEM PROVIDED HISTORY: epigastric abd pain, TECHNOLOGIST PROVIDED HISTORY: Reason for exam: epigastric abd pain Illness/Other Encounter Type: Initial Additional signs and symptoms: n ORDERING SYSTEM PROVIDED DIAGNOSIS CODES: COMPARISON: 11/09/2016. TECHNIQUE: CT examination of the abdomen and pelvis following the administration of intravenous contrast. Coronal and sagittal reformations were performed. Dose reduction techniques were achieved by using automated exposure control and/or adjustment of mA and/or kV according to patient size and/or use of iterative reconstruction technique. CONTRAST: IOPAMIDOL 76 % INTRAVENOUS SOLUTION - 75 mL, FINDINGS: The lung bases are clear. The heart size is normal. The liver, gallbladder, spleen, pancreas, and adrenal glands are unremarkable. Bilateral kidneys demonstrate normal size, morphology, and contrast enhancement. There is no evidence for hydronephrosis bilaterally. The stomach and duodenum appear unremarkable. Mild fluid distention of the small bowel is seen with air-fluid levels, which may represent mild ileus/enteritis. Normal-appearing appendix is visualized. Large volume of stool is seen in the right and transverse colon. No significant bowel wall thickening is seen. The urinary bladder is unremarkable. No significant free fluid or abnormal fluid collections are seen in the abdomen and pelvis. No significant enlarged abdominal or pelvic adenopathy is seen. Aortic and iliac arterial calcification is seen, without aneurysmal dilatation. Small, fat-containing umbilical hernia is seen. The abdominal wall and visualized soft tissues are otherwise unremarkable. Stable appearance mild compression deformity of the L4 and L5 vertebral bodies is seen. The osseous structures are otherwise unremarkable. IMPRESSION: Mild fluid distention of the small bowel with multiple air-fluid levels may represent mild ileus versus enteritis. No significant bowel wall thickening is seen. No abnormal fluid collection is seen. Large volume of stool seen in the right and transverse colon. Small fat-containing umbilical hernia, without evidence for bowel obstruction. [employer] Workstation ID: [id number] [facility] Mild fluid distentio n of the small bowel with multiple air-fluid levels may represent mild ileus versus enteritis. No significant bowel wall thickening is seen. No abnormal fluid collection is seen. Large volume of stool seen in the right and transverse colon. Small fat-containing umbilical hernia, without evidence for bowel obstruction. [employer] Workstation ID: [id number] [facility] Hepatic Function Panel (LFT) on 05-19-2018 Albumin mass conc 4.7 g/dL 3.2 - 5.2 g/dL [facility] ALP enzyme act/vol 58 U/L 40 - 150 U/L [facility] ALT enzyme act/vol 18 U/L 0 - 40 U/L [facility] AST enzyme act/vol 19 U/L 0 - 45 U/L [facility] Bilirubin mass conc 0.2 mg/dL 0 - 1.3 mg/dL [facility] Bilirubin.conjugated mass conc mg/dL 0 - 0.4 mg/dL [facility] Interpretation and review of laboratory results Normal [facility] Protein mass conc 7.9 g/dL 6 - 8 g/dL [facility] Lipaseon 05-19-2018 Interpretation and review of laboratory results Abnormal [facility] Lipase enzyme act/vol 459 U/L Critically high 15 - 65 U /L [facility] Otheron 05-19-2018 Extra Tube Hold for add-ons. [facility] Comment on above: Auto resulted. POC Glucoseon 05-19-2018 Glucose mass conc 109 mg/dL High 65 - 99 mg/dL [facility] Interpretation and review of laboratory results Abnormal [facility] Triglycerideson 05-19-2018 Interpretation and review of laboratory results Normal [facility] Triglyceride mass conc 124 mg/dL 30 - 150 mg/dL [facility] Comment on above: National Cholesterol Education Program Guidelines: Triglyceride Normal: <150 mg/dL Borderline High: 150-199 mg/dL High: 200-499 mg/dL Very High: greater than or equal to 500 mg/dL URINALYSISon 05-19-2018 Bacteria Auto Ql (U) None Seen None Se en /hpf [facility] Bilirubin Ql (U) Negative Negative [facility] th Clarity Refractometry automated Nom (U) Hazy Abnormal Clear [facility] Color Nom (U) Yellow Colorless, Yellow [facility] Epithelial cells.squamous Auto #/area (Urine sed) 1 [facility] Glucose Automated test strip mass conc (U) 50 Abnormal Negative mg/dL [facility] Hemoglobin Automated test strip Ql (U) Moderate Abnormal Negative [facility] Interpretation and review of laboratory results Abnormal [facility] Ketones mass conc (U) Negative Negati ve mg/dL [facility] Leukocyte esterase Automated test strip Ql (U) Negative Negative [facility] Mucus Auto #/area (Urine sed) Rare None Seen, Rare /lpf [facility] Nitrite Automated test strip Ql (U) Negative Negative [facility] pH (U) 5.0 [pH] [facility] Protein mass conc (U) Negative Negati ve mg/dL [facility] RBC Auto #/area (Urine sed) 28 High [facility] Specific gravity Relative Density (U) 1.021 [facility] Urobilinogen mass conc (U) <2.0 <2.0 mg/dL [facility] WBC Auto #/area (Urine sed) 3 [facility] Microscopic examination is performed on all urinalysis samples and only positive findings are reported. The test for blood on the chemical analytic portion of urinalysis may also be positive due to hemoglobinuria and myoglobinuria and if red blood cells are present they are quantified by microscopic examination. [facility] HIPAA Documentson 07-26-2017 HIPAA Documents IMPORTANT Please be aware that during the time of registration the wrong patient was initially selected for a MCE visit. Corrections for a wrong patient registered involving Ranjana Hughes and Ranjana Hughes have been completed and noted in [id number]. The correct patient is now registered for this visit and the information for both patients has been verified in [employer] and the EMPI. Correct patient: Ranjana Hughes. 1950 [id number] Wrong patient: Ranjana Hughes. 1950 [id number] Please distribute this e-mail internally, as needed, so that the necessary corrections can be carried down-stream to ancillary information systems and/or to those maintaining paper records. Thanks, [employer] [facility] Progress Noteson 07-26-2017 Protein mass conc PROGRESS NOTES IMPORTANT Please be aware that during the time of registration the wrong patient was initially selected for a MCE visit. Corrections for a wrong patient registered involving Ranjana Hughes and Ranjana Hughes have been completed and noted in [id number]. The correct patient is now registered for this visit and the information for both patients has been verified in [employer] and the EMPI. Correct patient: Ranjana Hughes. 1950 [id number] Wrong patient: Ranjana Hughes. 1950 [id number] Please distribute this e-mail internally, as needed, so that the necessary corrections can be carried down-stream to ancillary information systems and/or to those maintaining paper records. Thanks, [employer] [facility] ED Pat Eduon 07-22-2017 ED Pat Edu [address] [address] Emergency Department Discharge Instructions RANJANA HUGHES , Please provide this information to your Primary Care/Specialist Name : RANJANA HUGHES Current Date : 07/22/2017 11:18:04 : 1950 12:00 PM Primary Care Physician : Physician, PCP Unknown Diagnosis : Abdominal pain Follow-Up Instructions: RANJANA HUGHES has been given these follow-up instructions: FOLLOW-UP APPOINTMENTS: Provider: Specialty: Address: Date: PCP Unknown Physician Family Practice Follow-up as needed Provider: Specialty: Address: Date: Follow up with primary care provider 1 to 2 days Comment: Your primary care doctor at the [facility] Return to the emergency department immediately for a recheck if your symptoms worsen or if you develop concerns or have difficulty following up with your doctor. Laboratory Orders: Name: Status: Urinalysis with Microscopic Automatic Completed Basic Metabolic Panel Completed CBC with Differential Completed Lipase Completed Hepatic Function Panel Completed Troponin I Completed GFRaa Completed GFRbb Completed Urinalysis Microscopic Completed Radiology Orders: Name: Status: US Abdomen Ltd Completed Diagnostic Tests: Name: Status: ECG 12 Lead Completed Procedure(s) and Patient Education(s) : Free Text Instruction (CUSTOM); Work Release 1 Day No restrictions ([place]) (CUSTOM); Abdominal Pain, Adult EMERGENCY SERVICES MEDICATION LIST Lista de Medicaciones de los Servicios de Emergencia Name RANJANA HUGHES MRN (COL)-[id number] PLEASE READ THE FOLLOWING REGARDING YOUR MEDICATIONS Based on the information available during your visit we have given you the medication instructions below. Continue taking medications you took prior to your visit unless you have been told to change. Please share this information with your own doctor. Carry a list of your medications with you in case of an emergency. Update it when medications are stopped, doses are changed, or new medications (including awxb-mhw-mbktmys products) are added. If you have any questions, check with your doctor. Por la informaci??n disponible shelley mcmillan visita, las instrucciones de medicaci??n aparecen debajo. Favor de continuar tomando las medicaciones Ud. roxana?? antes de mcmillan visita por lo menos que hay cambios. Favor de compartir esta informaci??n con mcmillan medico. Lleva nelly lista de medicaciones consigo por kinjal de emergenc??a. Actualiza la lista cuando Ud. ezra de sam las medicaciones, si cambian las dosis, o si hay nuevas medicaciones a??adidas (incluyendo medicaciones vendidas sin prescripci??n). Favor de preguntar a mcmillan medico por cualquier germain. THESE ARE THE MEDICATIONS YOU SHOULD BE TAKING acetaminophen-HYDROco done (Ro[place]oke 325 mg-5 mg oral tablet) 1 Tab(s) By Mouth every 6 hours. Refills: 0. Diagnosis: Abdominal pain [R10.9] omeprazole (PriLOSEC 20 mg oral enteric coated capsule) 1 Capsule By Mouth once a day. Refills: 0. ondansetron (Zofran 4 mg oral tablet) 1 Tab(s) By Mouth every 6 hours as needed Nausea and Vomitting for 2 Days. Refills: 0. MEDICATIONS GIVEN DURING MEDICAL VISIT None NON-MEDICATION PRESCRIPTION SCHEDULING PHONE NUMBER: MEDICATION CHANGE DETAILS (Not your Final Home Medication List) During the course of your visit, your home medication list was updated with the most current information. The details of those changes are shown below: NEW MEDICATIONS Printed Prescriptions acetaminophen-HYDROco done (Roanoke 325 mg-5 mg oral tablet) 1 Tab(s) By Mouth every 6 hours. Refills: 0. Comment omeprazole (PriLOSEC 20 mg oral enteric coated capsule) 1 Capsule By Mouth once a day. Refills: 0. Comment ondansetron (Zofran 4 mg oral tablet) 1 Tab(s) By Mouth every 6 hours as needed Nausea and Vomitting for 2 Days. Refills: 0. Comment UPDATED MEDICATIONS None UNCHANGED MEDICATIONS None STOP TAKING THESE MEDICATIONS None DO NOT TAKE UNTIL YOU TALK TO YOUR DOCTOR None [place] [id number] Emergency Department Discharge Instructions Name: RANJANA HUGHES Current Date: 07/22/2017 11:18:04 : 1950 12:00 PM Primary Physician: Physician, PCP Unknown We would like to thank you for choosing [facility] for your emergency medical needs. We examined and treated you today on an emergency basis only. This was not a substitute for, or an effort to provide, complete medical care. In most cases, you must let your doctor (or the doctor we referred you to) check you again. Tell your doctor about any new or lasting problems. We cannot recognize and treat all injuries or illnesses in one emergency department visit. After you leave, you should follow the directions attached. Instructions for obtaining X-rays: When following up with your doctor or a bone doctor, you may need to take copies of your x-rays that were done in the Emergency Department. If you didn't receive these upon your discharge from the emergency department, please call . When the final report becomes available and it is reviewed, the emergency department will attempt to contact you if there are any changes in your instructions. It is important that you leave accurate information with us on how to contact you. IF you cannot be contacted, YOU must contact the follow-up doctor that you were assigned to make sure that the final official x-ray report does not require a change in your treatment. Instructions for obtaining medical records: If you need a copy of your medical records for follow-up, please contact the Health Information Management Department at . Their office hours are 8 AM- 4:30 PM, Wednesday through Wednesday. Please note: Results are not immediately available. Please allow a minimum of 48 hours for documentation and results. If you were prescribed an antibiotic: Antibiotics are life-saving drugs and they need to be used properly. Your team might change your antibiotic because test results show that a different antibiotic would be better to treat your infection. Like all medications, antibiotics have side effects. Some can be serious. This includes the risk of getting an antibiotic-resistant infection later, which may be difficult to treat. Remember to take your antibiotics as prescribed. If you have any questions please talk to your healthcare team. Seatbelts: There is no doubt that seatbelts save lives. Every day, people without seatbelts have more serious injuries. Have everyone buckle up, using age appropriate seatbelts or car seats, to reduce their risk of injury. Smoking: If you do smoke, we encourage you to stop. Smoking affects all aspects of your health and the health of those around you. [facility] offers many resources to help with smoking cessation. Call the [place] Tobacco Quit Line at 4-374-TTIG-NOW ( ). High blood pressure: Your screening blood pressure today was 138 mm Hg / 89 mm Hg. Hypertension (high blood pressure) is blood pressure over 120/80. People with hypertension should contact their primary care provider within 30 days to follow up. Check your patient portal for additional blood pressure information. Immunizations: Immunization is a way to protect against deadly infections. Discuss this with your child's engineer design and construction, or Public Health Department. Your family practice doctor can determine if you need pneumonia or flu vaccine. The [facility] Department can be reached at . Domestic Violence: If you are a victim of domestic violence (physical, verbal, or emotional), you are not alone. Discuss this with your physician or a friend and call the [place] Domestic Violence Hotline or [place] Domestic Violence Hotline for assistance and support. You are the most important factor in your recovery. Follow the provided instructions carefully. Take your medications as prescribed. Most importantly, see a doctor again as discussed. If you have problems that we have not discussed, call or visit your doctor right away. If you do not have a primary care physician, we have provided one for you to follow up with. When you call for an appointment, please inform them that you were seen in the emergency department and the date of your visit. If you are unable to reach your doctor and are still experiencing problems, return to the emergency department. For assistance finding a primary care physician, call the Physician Referral Line at [phone] 626-YCOV (9588). Suicide Hotline: Your mental and emotional well-being is important. If you are in a mental health crisis or are having thoughts of suicide, please call the nationwide suicide hotline, anytime day or night, at 7-989-707-GWFL (3542). Community Manager Retail Store: You may be contacted by your local fire department for a follow up visit from a community mortgage loan processor. The community mortgage loan processor can help with a home safety check; follow up care, and general home care management. Pharmacy Information: Below is a list of 24 hour pharmacies that we are aware of. We suggest that you call the specific pharmacy for their hours before traveling to a location. Hours may vary on holidays. [facility] [address], [place] [phone] [address], [place] [address] [phone] [address] [place], [place] [address] [phone] [address], [place] [phone] [address], [place] [phone] [address] [place], [place] [phone] [address], [place] [phone] Take all medications as directed. If you need prescription assistance, contact the following agencies: ?? Partnership for Prescription Assistance at or www.[employer].org ?? [place] at or www.[employer].org ?? www.[employer] is a site with many valuable coupons Patient Education Materials RANJANA HUGHES has been given the following patient education materials: It's important for you to [facility] to further investigate your gallbladder with nuclear scan or HIDA scan to see if your gallbladder is functioning properly. [facility] Emergency Department [address] [place] [address] Work Release Form This notice verifies that your employee Vesta Hughes was seen in this facility on 07/22/2017 11:18:04. Excused From Work: 1 day The following restrictions: None NOTE: If symptoms continue and the employee is unable to perform the full duties of their job by this date, please advise the employee to return to this facility or make an appointment with the referral physician for further evaluation. ED Physician/Provider Emergency Medicine Abdominal Pain, Adult Many things can cause abdominal pain. Usually, abdominal pain is not caused by a disease and will improve without treatment. It can often be observed and treated at home. Your health care provider will do a physical exam and possibly order blood tests and X-rays to help determine the seriousness of your pain. However, in many cases, more time must pass before a clear cause of the pain can be found. Before that point, your health care provider may not know if you need more testing or further treatment. HOME CARE INSTRUCTIONS Monitor your abdominal pain for any changes. The following actions may help to alleviate any discomfort you are experiencing: ???Only take zojr-gyp-mztscmf or prescription medicines as directed by your health care provider. ???Do not take laxatives unless directed to do so by your health care provider. ???Try a clear liquid diet (broth, tea, or water) as directed by your health care provider. Slowly move to a bland diet as tolerated. SEEK MEDICAL CARE IF: ???You have unexplained abdominal pain. ???You have abdominal pain associated with nausea or diarrhea. ???You have pain when you urinate or have a bowel movement. ???You experience abdominal pain that wakes you in the night. ???You have abdominal pain that is worsened or improved by eating food. ???You have abdominal pain that is worsened with eating fatty foods. ???You have a fever. SEEK IMMEDIATE MEDICAL CARE IF: ???Your pain does not go away within 2 hours. ???You keep throwing up (vomiting). ???Your pain is felt only in portions of the abdomen, such as the right side or the left lower portion of the abdomen. ???You pass bloody or black tarry stools. MAKE SURE YOU: ???Understand these instructions. ?Will watch your condition. ?Will get help right away if you are not doing well or get worse. ? This information is not intended to replace advice given to you by your health care provider. Make sure you discuss any questions you have with your health care provider. Document Released: 11/18/2005 Document Revised: 03/01/2015 Document Reviewed: 10/18/2013 [employer] Patient Education ?2016 [employer] What You Should Know About Opioid Medicine What is an Opioid? Opioid medications are used to treat moderate to severe pain. Morphine, Oxycodone (Percocet??), Hydromorphone (Dilaudid??) and Hydrocodone (Roanoke??) are some types of opioids. How do Opioids work? Opioids reduce the pain signals sent to your brain, which decrease your feelings of pain. Opioids may reduce your pain, but may not take all the pain away. What are the risks from taking opioids? Prescription opioids carry serious risks of physical dependence, addiction and overdose, with long term care phlebotomist use. If you take too much of an opioid it can cause sudden . Other risks include but are not limited to: - Physical dependence means you have symptoms of withdrawal when a medication is stopped. - Addiction is a brain disease. Medications change the structure of the brain and how the brain works. These brain changes may be long lasting and can lead to harmful behaviors. - Overdose means you took too much medication. Opioid overdose can result in . Make sure you read all of the medication sheet you received with your prescription. Call 911 right away if you have any of these signs of overdose: - Pale or bluish skin color - Trouble breathing - Severe confusion; not knowing where you are - Your heart is beating slower than normal - You see or hear things that are not real Tell the people you live with that you are taking a medicine that can stop your breathing. Ask them to watch for slow, shallow, or trouble breathing. Tell them to call 911 right away if you have trouble breathing or they cannot wake you up. What you need to know while taking Opioid medication: - Do Not take more medication, or higher doses than prescribed, as you may stop breathing or pass out. - Do not take opioids more often or in higher doses than prescribed. Call your doctor if your pain is not controlled. - Do Not drink alcohol (beer, wine or liquor) while taking this medication, as you may stop breathing or pass out. - Do Not take sleeping pills (like zolpidem (Ambien??) or temazepam (Restoril??)or anti-anxiety medication (like alprazolam (Xanax??), diazepam (Valium??), and lorazepam (Ativan ??) while taking this medication, as you may stop breathing or pass out. - Do Not crush or alter opioid medication or take it in ways not prescribed by your doctor. - Do Not drive or do tasks that require you to be alert after taking this medication. - If you are , talk to your doctor. Opioids may harm your or baby. What are the side effects from taking opioids? The most common side effects are: - Hard stools (Constipation) - Upset stomach, throwing up and dry mouth - Feeling sleepy - Feeling more pain - Confusion - Depression, low mood, feeling sad or nervous - Itching and sweating - Trouble passing urine Will I become addicted to opioid medication? Addiction is not common when this medication is used for a short time. But, when opioid medications are misused addiction is possible. Talk with your doctor about how to switch to using only non-opioid pain treatment. Please talk to your doctor about your concerns about addiction. How do I safely store and dispose of my opioids? Storage: - Keep your medications secure. - Keep your medications, including any medication patches,out of reach of others (this includes children, friends, family and pets). - Keep your opioids, and all medications, in the pill bottle from the pharmacy. Keep the lid closed. Disposal: - Safely throw out unused opioids: Contact your local pharmacy for how to throw out unused opioid medications or find your local medicine take-back site (http://disposemymeds .org/) - Follow these steps if you can't find a medicine take-back site to throw out , unused or unwanted medicines: Step #1: Mix medicine with used coffee grounds, dirt, or di litter. Step #2: Put medicines in a sealed plastic bag. Step #3: Place plastic bag in the trash. Step #4: Take prescription bottle and scratch out personal information, then recycle or throw away. - Throw out patch medications by folding them in half with the sticky sides together,and then flushing them down a toilet. Do not place them in the household trash where children or pets can find them. It is against the law to share or sell your opioid medication. What else can I use to treat my pain? Non-opioid pain medications (such as Tylenol??, Motrin??, and Aleve??) may also help with your pain. If your doctor approves, these medications may be used with an opioid medication ordered for you. Non-opioid pain medications also have risks and side effects; please ask your doctor if these medications are safe for you. Many opioid medications also have acetaminophen (Tylenol??) in it. Very bad, and sometimes deadly, liver problems can happen with too much acetaminophen use. What are other ways to help ease your pain? - Heat or ice - Stretching - A pillow under the painful area - Massage - Talking to someone about how your thoughts and feelings affect your pain - Listening to music Talk to your doctor to make sure these actions are safe for you <><><><><><><><><><>< ><><><><><><><><><><> <><><><><> Patient Visit Summary Signature RANJANA HUGHES has been given the following list of patient education materials, prescriptions and follow-up instructions: MARIA FERNANDA Amador THOMAS D, have received the above patient education materials/instruction s and have verbalized understanding: Date Time Patient Signature Date Time Provider Signature Normal [facility] CBCon 04-02-2017 Erythrocytes (RBC) 5.42 M/mcL Invalid Interpretation Code 4.50 - 5.90 [facility] Erythrocytes (RBC) 0.00 K/mcL Invalid Interpretation Code 0.00 - 0.00 [facility] Hematocrit (HCT) 40.3 % Low 41 - 53 % [facility] Hemoglobin (HGB) 12.3 g/dL Low 13.5 - 17.5 g/dL [facility] MCH 22.7 pg Low 26 - 34 pg [facility] MCHC 30.5 g/dL Low 31 - 37 g/dL [facility] MCV 74.4 fL Low 80 - 100 fL [facility] Nucleated erythrocytes/100 erythrocytes 0.0 % Invalid Interpretation Code [facility] Platelet mean volume (PMV) 12.1 fL Invalid Interpretation Code 9 - 15.5 fL [facility] Platelets 168 K/mcL Invalid Interpretation Code 150 - 400 [facility] RDW-CA 15.2 % High 11.6 - 14.8 % [facility] WBC (Leukocytes) 9.02 K/mcL Invalid Interpretation Code 4.50 - 11.00 [facility] Comprehensive Metabolic Pane richelle 04-02-2017 Alanine aminotransferase (ALT) 18 U/L Invalid Interpretation Code 0 - 40 U/L [facility] Albumin 4.5 g/dL Invalid Interpretation Code 3.2 - 5.2 g/dL [facility] Alkaline phosphatase (ALP) 55 U/L Invalid Interpretation Code 40 - 150 U/L [facility] Anion gap 18 mmol/L Invalid Interpretation Code 10 - 20 mmol/L [facility] Aspartate aminotransferase (AST) 21 U/L Invalid Interpretation Code 0 - 45 U/L [facility] Bicarbonate (HCO3) 24 mmol/L Invalid Interpretation Code 21 - 32 mmol/L [facility] Bilirubin (total) 0.4 mg/dL Invalid Interpretation Code 0 - 1.3 mg/dL [facility] BUN/Creatinine Ratio 15.9 mg/mg Invalid Interpretation Code 10.0 - 20.0 [facility] Calcium 9.1 mg/dL Invalid Interpretation Code 8.4 - 10.2 mg/dL [facility] Chloride 100 mmol/L Invalid Interpretation Code 98 - 108 mmol/L [facility] Creatinine 0.88 mg/dL Invalid Interpretation Code 0.8 - 1.3 mg/dL [facility] eGFR (black) 105 mL/min/{1.73_m2} Invalid Interpretation Code >=60 [facility] eGFR (non-black) The eGFR should be used for monitoring renal function only and not for medication dosing. Invalid Interpretation Code [facility] Glucose 241 mg/dL High 65 - 99 mg/dL [facility] Potassium 4.8 mmol/L Invalid Interpretation Code 3.5 - 5.1 mmol/L [facility] Protein 7.5 g/dL Invalid Interpretation Code 6 - 8 g/dL [facility] Sodium 137 mmol/L Invalid Interpretation Code 135 - 145 mmol/L [facility] Urea nitrogen 14 mg/dL Invalid Interpretation Code 8 - 25 mg/dL [facility] Hemoglobin A1con 04-02-2017 Glucose 249 mg/dL High 68 - 126 mg/dL [facility] HbA1c 10.3 % High 4.2 - 6 % [facility] Interpretation and review of laboratory results Abnormal Invalid Interpretation Code [facility] Microalbumin, Urine, Randomo n 04-02-2017 ACR (microalbumin/creatin ine) ratio 45 mg/g crea High 0 - 25 [facility] Urine, creatinine 274.3 mg/dL Invalid Interpretation Code [facility] Urine, microalbumin 12.3 mg/dL High 0 - 1.8 mg/dL [facility] Urinalysison 04-02-2017 Bilirubin, Urine Negative Invalid Interpretation Code Negative [facility] Blood, Urine Negative Invalid Interpretation Code Negative [facility] Mucus, Urine Rare Invalid Interpretation Code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 wheezing and stridor. Cardiovascular: Negative for chest pain, palpitations and leg swelling. Gastrointestinal: Positive for abdominal distention, abdominal pain, constipation and nausea. Negative for blood in stool, diarrhea and vomiting. Genitourinary: Negative for hematuria. Musculoskeletal: Negative for arthralgias and myalgias. Neurological: Negative for dizziness, syncope, weakness, light-headedness and numbness. Hematological: Negative for adenopathy. All other systems reviewed and are negative. Physical Exam Vital Signs: BP 148/83 (BP Location: Right arm, Patient Position: Lying) Pulse (!) 51 Temp 97.5 F (36.4 C) (Oral) Resp 16 Ht 6' Wt 127.1 kg (280 lb 4 oz) SpO2 100% BMI 38.01 kg/m Physical Exam Constitutional: He is oriented to person, place, and time. No distress. Male sitting up at edge of bed with at bedside. HENT: Head: Normocephalic and atraumatic. Eyes: Pupils are equal, round, and reactive to light. No scleral icterus. Cardiovascular: Normal rate, regular rhythm, S1 normal and S2 normal. Exam reveals distant heart sounds and decreased pulses. Exam reveals no gallop. No murmur heard. Extremities warm to palpation Pulmonary/Chest: Effort normal and breath sounds normal. No accessory muscle usage or stridor. No tachypnea. No respiratory distress. He has no decreased breath sounds. He has no wheezes. He has no rhonchi. He has no rales. Abdominal: Soft. Bowel sounds are normal. He exhibits no distension, no fluid wave, no ascites and no mass. There is no hepatosplenomegaly. There is tenderness in the epigastric area and periumbilical area. There is no rigidity, no guarding, no tenderness at McBurney's point and negative Elizabeth's sign. Musculoskeletal: He exhibits no edema or tenderness. Neurological: He is alert and oriented to person, place, and time. Skin: Skin is warm and dry. Capillary refill takes less than 2 seconds. He is not diaphoretic. No erythema. Vitals reviewed. Additional Data - Labs/ Radiology/ etc. Recent Labs 05/19/18 1701 05/20/18 0438 NA 134* 136 K 4.7 4.6 CL 97* 102 BICARB 24 26 BUN 20 15 CREATININE 1.04 0.87 GLUCOSE 271* 89 Recent Labs 05/19/18 1701 05/20/18 0438 WBC 8.46 7.21 HGB 11.8* 10.7* HCT 38.0* 33.6* PLT 197 177 Lab Results Component Value Date ALT 18 05/19/2018 AST 19 05/19/2018 ALKPHOS 58 05/19/2018 BILITOT 0.2 05/19/2018 ALBUMIN 4.7 05/19/2018 No results for input(s): INR in the last 72 hours. Lab Results Component Value Date HGBA1C 10.3 (H) 04/02/2017 Patient Home Medications Ranjana Hughes Home Medication Instructions Prior to Surgery DAVID:[id number] Printed on:05/20/18 0900 Medication Information Take last dose on Take the morning of surgery Comment(s) albuterol 90 mcg/actuation inhaler Inhale 2 puffs every 6 (six) hours as needed for wheezing. amLODIPine (NORVASC) 10 MG tablet Take 10 mg by mouth daily . aspirin 81 MG EC tablet Take 81 mg by mouth daily. atorvastatin (LIPITOR) 40 MG tablet Take 40 mg by mouth daily. azithromycin (ZITHROMAX) 250 MG tablet 2 tabs po x 1 day then 1 tab po x 4 days. budesonide-formoterol (SYMBICORT) 80-4.5 mcg/actuation inhaler Inhale 2 puffs 2 (two) times a day. cholecalciferol, vitamin D3, 1,000 unit tablet Take 1,000 Units by mouth daily. cyclobenzaprine (FLEXERIL) 10 MG tablet Take 1 (one) tablet (10 mg total) by mouth 3 (three) times a day as needed for muscle spasms. gabapentin (NEURONTIN) 300 MG capsule Take 300 mg by mouth 3 (three) times a day . GINSENG ORAL Take 1 tablet by mouth 2 (two) times a day. HYDROCHLOROTHIAZIDE ORAL Take by mouth daily . insulin aspart (NovoLOG) 100 unit/mL injection Inject under the skin 3 (three) times a day before meals 10-22 units sliding scale insulin 180, 240 . insulin glargine (LANTUS) 100 unit/mL (3 mL) InPn Inject 50 Units under the skin 2 (two) times a day . insulin NPH (HumuLIN,NovoLIN) 100 unit/mL injection Inject 52 Units under the skin 2 (two) times a day. LEDIPASVIR/SOFOSBUVIR (HARVONI ORAL) Take by mouth daily. lisinopril (PRINIVIL,ZESTRIL) 40 MG tablet Take 40 mg by mouth daily. magnesium 30 mg tablet Take 30 mg by mouth 2 (two) times a day. metFORMIN (GLUCOPHAGE-XR) 500 MG 24 hr tablet Take 500 mg by mouth 3 (three) times a day . metoprolol tartrate (LOPRESSOR) 25 MG tablet Take 25 mg by mouth 2 (two) times a day . nwlkjegtynoa-erxf-xvwvd acid (CENTRUM COMPLETE) 18-400 mg-mcg Tab 1 tablet daily. omeprazole (PRILOSEC) 40 MG capsule Take 80 mg by mouth 2 (two) times a day . RIBAVIRIN ORAL Take by mouth daily. rosuvastatin (CRESTOR) 40 MG tablet Take 40 mg by mouth daily . Associated attestation - Surendra Draper DO - 05/20/2018 2:29 PM EDT Gastroenterology Resident Attestation 4 The patient was seen and examined with the residents. I personally reviewed the radiographic images and laboratory data. I agree with the history, physical exam, and assessment and plan with the following comments. Reason for visit/chief complaint: Epigastric pain History of Present Illness: Epigastric pain a/w nausea x 2 weeks. Denies NSAIDs. Denies vomiting. Denies alcohol. Pain improving. Denies melena/hematochezia. Family history: No significant family history of GI malignancy or disorders ROS: Ten systems were reviewed and negative except for those as specified in the history of present illness Physical examination: CONSTITUTIONAL: Appropriate attention to grooming, normal body habitus, NAD HEENT: Normocephalic, atraumatic, nonicteric CARDIAC: regular rate & rhythm. LUNGS: Clear to auscultation anteriorly ABDOMEN: flat, negative hepatosplenomegaly, soft and non-tender. SKIN: No jaundice, rashes NEURO: No asterixis PSYCHIATRIC: Normal insight, AAO x 3, normal affect/mood EXTREMITIES: No evidence of cyanosis, clubbing or edema. Assessment/Plan: This is a 56 yo male with a history of obesity, DM, and HCV s/p treatment admitted with epigastric pain x 2 weeks. Lipase 459. LFTs normal. TG normal. Hgb 10.[address] with a small bowel ileus and constipation but normal appearing pancreas. U/S gallbladder sludge. Epigastric pain with an elevated lipase meets criteria for acute pancreatitis however if symptoms have been occurring for two weeks would suspect we would see evidence on imaging. EGD with erosive gastritis but no PUD. PPI daily. Will treat as pancreatitis with IVFs. Low fat diet today. Will consult surgery to evaluate for possible cholecystectomy given gallbladder sludge. Will need an outpatient colonoscopy to evaluate anemia but this can be done at the [facility]. Surendra Draper Associated Order(s): IP CONSULT TO UROLOGY CONSULT NOTE Patient Name: Ranjana Hughes Admit Date: [id number] MR #: [id number] : 1950 Physicians: FAMILY: Kishor Hardin DO REFERRING: Loreta Conrad MD Chief Complaint/Reason for Visit: Gross hematuria Assessment and Plan: Gross hematuria States has had intermittent small amount of bloody urination for several years. Has seen a urologist at the [facility] in the past, however denies imaging or cystoscopy. His CT a/p here showed no upper tract pathology. Recommend cystoscopy in the future. Dr. Acosta will evaluate later today. History of Present Illness: Mr. Hughes is a 68-year-old male with a history of diabetes mellitus type 2, hypertension, asthma, and GERD. He presented to [facility] observation on 05/19/2018, after his PCP evaluated him for 4 weeks of burning epigastric and periumbilical abdominal pain. His lab work indicated the patient had significantly elevated lipase, and he was instructed to present to the emergency department for further care. He states that for the past several years has intermittently passed small bloody threads and he has some urethral pain as he does this. He states that this occurs on average every few months. This occurred yesterday. He states that he has seen a urologist at the [facility] years ago for this issue, however states did not receive formal workup. He admits to some urinary hesitancy, moderate stream quality and nocturia x [address] a/p with IV contrast was obtained here and showed no pathology within the kidney of bladder. History: Past Medical History: Diagnosis Date Arthritis Asthma Coronary artery disease Diabetes mellitus (HCC) Hypertension Myocardial infarction (HCC) Neuropathy Reflux History reviewed. No pertinent surgical history. Family History Problem Relation Age of Onset Hypertension Father Hyperlipidemia Father Social History Socioeconomic History Marital status: Spouse name: Not on file Number of children: Not on file Years of education: Not on file Highest education level: Not on file Social Needs Financial resource strain: Not on file Food insecurity - worry: Not on file Food insecurity - inability: Not on file Transportation needs - medical: Not on file Transportation needs - non-medical: Not on file Occupational History Not on file Tobacco Use Smoking status: Former Smoker Last attempt to quit: 02/22/1977 Years since quittin.2 Smokeless tobacco: Never Used Substance and Sexual Activity Alcohol use: No Alcohol/week: 0.0 oz Drug use: No Sexual activity: Not on file Other Topics Concern Not on file Social History Narrative Not on file Allergy Information: I have reviewed the patient's allergies. Penicillins Home Medications: Outpatient Medications as of 05/19/2018 Medication Sig albuterol 90 mcg/actuation inhaler Inhale 2 puffs every 6 (six) hours as needed for wheezing. aspirin 81 MG EC tablet Take 81 mg by mouth daily. cholecalciferol, vitamin D3, 1,000 unit tablet Take 1,000 Units by mouth daily. gabapentin (NEURONTIN) 300 MG capsule Take 300 mg by mouth 3 (three) times a day . GINSENG ORAL Take 1 tablet by mouth 2 (two) times a day. HYDROCHLOROTHIAZIDE ORAL Take by mouth daily . insulin aspart (NovoLOG) 100 unit/mL injection Inject under the skin 3 (three) times a day before meals 10-22 units sliding scale insulin 180, 240 . metFORMIN (GLUCOPHAGE-XR) 500 MG 24 hr tablet Take 500 mg by mouth 3 (three) times a day . ygajfpdtbtcx-avxx-cvuph acid (CENTRUM COMPLETE) 18-400 mg-mcg Tab 1 tablet daily. omeprazole (PRILOSEC) 40 MG capsule Take 80 mg by mouth 2 (two) times a day . atorvastatin (LIPITOR) 40 MG tablet Take 40 mg by mouth daily. azithromycin (ZITHROMAX) 250 MG tablet 2 tabs po x 1 day then 1 tab po x 4 days. budesonide-formoterol (SYMBICORT) 80-4.5 mcg/actuation inhaler Inhale 2 puffs 2 (two) times a day. cyclobenzaprine (FLEXERIL) 10 MG tablet Take 1 (one) tablet (10 mg total) by mouth 3 (three) times a day as needed for muscle spasms. insulin NPH (HumuLIN,NovoLIN) 100 unit/mL injection Inject 52 Units under the skin 2 (two) times a day. LEDIPASVIR/SOFOSBUVIR (HARVONI ORAL) Take by mouth daily. lisinopril (PRINIVIL,ZESTRIL) 40 MG tablet Take 40 mg by mouth daily. magnesium 30 mg tablet Take 30 mg by mouth 2 (two) times a day. RIBAVIRIN ORAL Take by mouth daily. Review of Systems: The following system(s) were reviewed and are negative unless otherwise noted in the HPI: Eyes, ENT, CV, Resp, GI, Neuro, Skin, Musc, Endo, , Heme/Lym, Allergy, Psych. Physical Examination: Vital Signs: BP 148/83 (BP Location: Right arm, Patient Position: Lying) Pulse (!) 51 Temp 97.5 F (36.4 C) (Oral) Resp 16 Ht 6' Wt 127.1 kg (280 lb 4 oz) SpO2 100% BMI 38.01 kg/m Constitutional: Alert, cooperative, no distress, appears stated age Eyes: conjunctiva/corneas clear, normal vision Ears/Nose/Mouth Eyes -EOMI. Ears - External normal ear. Hearing normal. Mouth - Lips normal color. Head/Neck: Face symmetrical, trachea midline, Head - Normocephalic. symmetrical. Respiratory: Normal respiratory effort, non-labored breathing. Abdominal/GI: Soft, non-tender, no organomegaly Skin: Skin color, texture, turgor normal, no rashes or lesions Neurologic: Alert and oriented x3. No focal neurological deficits noted. Extremities: No clubbing, cyanosis, or edema noted, no calf tenderness bilaterally. Skin: Normal turgor, well-hydrated, no rashes noted. Psych: Mood and affect appropriate Genitourinary: Normal genitalia, No CVA tenderness bilaterally Laboratory and Additional Data Reviewed: Laboratory 05/20/18 9:35 AM Microbiology 05/20/18 9:35 AM Pathology 05/20/18 9:35 AM Radiology 05/20/18 9:35 AM Cardiology 05/20/18 9:35 AM Medications 05/20/18 9:35 AM Transcriptions 05/20/18 9:35 AM Associated attestation - Nitin Acosta MD - 05/20/2018 5:29 PM EDT I have spoken to Mr. Hughes, reviewed records and films. Agree with assessment and plan as noted below by Cy Lee CNP as noted below. [facility] given [facility]in this encounter Delia Wynne RN - 05/20/2018 12:43 PM Kayden Leal RN - 05/20/2018 11:59 AM Brian Phan RN - 05/20/2018 11:22 AM Vesta Montes RN - 01/04/2019 9:39 AM EST Nursing Notes (unrecognized section and content) REPORT CALLED TO FLOOR RN SUNITA EVSTA WAS HERE AT BEDSIDE AND TALKED WITH DR VALE THEN WENT BACK UP TO PTS ROOM See anesthesia notes for meds and vitals.Procedure was done under General/MAC. Patients (Vesta) is in waiting room. Ok to share information with . in this encounter Taking solids and fluids well Belongings returned to patient. Arrives in PACU on cart. Snoring noted. Arouses easily. Denies c/o. 10 ounces apple juice this morning, dr finn notified Mother here documented in this encounter Judy Castillo, JAREK - 05/19/2018 10:33 PM Nancy Morrow, VIOLETA - 05/19/2018 5:39 PM Nelly Dang RN - 05/19/2018 4:46 PM Easton Arevalo RN - 05/19/2018 4:45 PM EDT ED Notes (unrecognized secti on and content) Spoke with Dr Conrad per telephone. V.o. For oxycodone 5mg/325mg x1 q 4 hrs as needed for pain. Prep for transport to room PCP: Kishor Hardin DO Chief Complaint Patient presents with Abdominal Pain HPI: HPI HPI, 68-year-old -British male who presents emergency department with complaints of having abdominal pain for the last 12-13 days. Patient describes the pain is more in the middle of his abdomen. Patient states that he followed up with his family doctor yesterday who did lab work called him today said his lipase was elevated at 2000 and creat was elevated at 1.5. Patient is a diabetic. Patient states that he has had diarrhea along with having this abdominal pain from was 2 weeks. Denies noticing any blood or stool but also states that he has not really looked. The patient just returned back from the bathroom when I entered the room to assess him. He states that he had some burning with urination which is the first time he had that. Denies any flank pain. Denies any nausea or vomiting. Patient states he has never been told he had pancreatitis in the past. Therefore his doctor wanted him to come in and be evaluated for further evaluation. REVIEW OF SYSTEMS: Review of Systems All systems reviewed negative except as mentioned above. Constitutional: no fevers Skin: no rash Eyes: no discharge ENMT: No sore throat Genitourinary: No dysuria Endocrine: No polyuria Neurologic: No new numbness Psychiatric: No hallucinations Hematologic/Lymphatic: No abnormal bruising Allergic/Immunologic: no urticaria Other pertinent positives and negatives in HPI Past Medical History: Past Medical History: Diagnosis Date Asthma Diabetes mellitus (HCC) Hypertension Myocardial infarction (HCC) Neuropathy Reflux Past medical history reviewed. Past Surgical History: History reviewed. No pertinent surgical history. Past surgical history reviewed. Family History: Family History Problem Relation Age of Onset Hypertension Father Hyperlipidemia Father Family history reviewed. Social History: Social History Socioeconomic History Marital status: Spouse name: Not on file Number of children: Not on file Years of education: Not on file Highest education level: Not on file Social Needs Financial resource strain: Not on file Food insecurity - worry: Not on file Food insecurity - inability: Not on file Transportation needs - medical: Not on file Transportation needs - non-medical: Not on file Occupational History Not on file Tobacco Use Smoking status: Former Smoker Last attempt to quit: 02/22/1977 Years since quittin.2 Smokeless tobacco: Never Used Substance and Sexual Activity Alcohol use: No Alcohol/week: 0.0 oz Drug use: No Sexual activity: Not on file Other Topics Concern Not on file Social History Narrative Not on file Social history reviewed. Allergies: Allergies Allergen Reactions Penicillins Other (See Comments) Pt states shakes and nausea Medications: Ranjana Hughes Home Medication Instructions Prior to Surgery DAVID:[id number] Printed on:05/19/18 8101 Medication Information Take last dose on Take the morning of surgery Comment(s) albuterol 90 mcg/actuation inhaler Inhale 2 puffs every 6 (six) hours as needed for wheezing. aspirin 81 MG EC tablet Take 81 mg by mouth daily. atorvastatin (LIPITOR) 40 MG tablet Take 40 mg by mouth daily. azithromycin (ZITHROMAX) 250 MG tablet 2 tabs po x 1 day then 1 tab po x 4 days. budesonide-formoterol (SYMBICORT) 80-4.5 mcg/actuation inhaler Inhale 2 puffs 2 (two) times a day. cholecalciferol, vitamin D3, 1,000 unit tablet Take 1,000 Units by mouth daily. cyclobenzaprine (FLEXERIL) 10 MG tablet Take 1 (one) tablet (10 mg total) by mouth 3 (three) times a day as needed for muscle spasms. gabapentin (NEURONTIN) 300 MG capsule Take 900 mg by mouth 3 (three) times a day. GINSENG ORAL Take 1 tablet by mouth 2 (two) times a day. HYDROCHLOROTHIAZIDE ORAL Take by mouth. insulin aspart (NovoLOG) 100 unit/mL injection Inject under the skin 3 (three) times a day before meals 10-22 units sliding scale insulin 180, 240 . insulin NPH (HumuLIN,NovoLIN) 100 unit/mL injection Inject 52 Units under the skin 2 (two) times a day. LEDIPASVIR/SOFOSBUVIR (HARVONI ORAL) Take by mouth daily. lisinopril (PRINIVIL,ZESTRIL) 40 MG tablet Take 40 mg by mouth daily. magnesium 30 mg tablet Take 30 mg by mouth 2 (two) times a day. metFORMIN (GLUCOPHAGE-XR) 500 MG 24 hr tablet Take 500 mg by mouth 4 (four) times a day. incgzpuvsmlb-gnww-tsxfz acid (CENTRUM COMPLETE) 18-400 mg-mcg Tab 1 tablet daily. omeprazole (PRILOSEC) 40 MG capsule Take 40 mg by mouth daily. RIBAVIRIN ORAL Take by mouth daily. PHYSICAL EXAMINATION: Vital Signs BP 131/69 (BP Location: Right arm, Patient Position: Lying) Pulse 66 Temp 97.7 F (36.5 C) (Oral) Resp 18 Ht 6' Wt 127.1 kg (280 lb 4 oz) SpO2 97% BMI 38.01 kg/m Physical Exam Constitutional: He is oriented to person, place, and time. He appears well- developed and well-nourished. No distress. HENT: Head: Normocephalic. Nose: Nose normal. Eyes: Pupils are equal, round, and reactive to light. Neck: Normal range of motion. Neck supple. Cardiovascular: Normal rate, regular rhythm and normal heart sounds. Pulmonary/Chest: Effort normal and breath sounds normal. Abdominal: Soft. Bowel sounds are normal. There is tenderness. Abdomen is soft to palpate. Diffuse tenderness to the middle of the abdomen. No pinpoint tenderness. Musculoskeletal: Normal range of motion. Neurological: He is alert and oriented to person, place, and time. Skin: Skin is warm and dry. Psychiatric: He has a normal mood and affect. Nursing note and vitals reviewed. Vital Signs During ED Visit (as charted by nursing) Patient Vitals for the past 24 hrs: BP Temp Temp src Pulse Resp SpO2 Height Weight 05/19/18 1930 131/69 97.7 F (36.5 C) Oral 66 18 05/19/18 1724 (!) 171/84 98.3 F (36.8 C) Oral 81 (!) 20 97 % 05/19/18 1648 (!) 150/79 98 F (36.7 C) 83 14 97 % 6' 127.1 kg (280 lb 4 oz) MEDICAL DECISION MAKING: Medical decision-making at this time patient presented to the ER with complaints of having abdominal pain. Patient states symptoms have been going on little less than 2 weeks. Also having some nonbloody or mucousy diarrhea. Workup was done regarding his complaints. As he was found to have an elevated lipase yesterday repeat lipase was done here today was 459 which is significantly lower than yesterday however still elevated. Urine showed moderate blood and RBCs at 28. He is noticed other signs of infection. Sodium 134. Glucose 271. BUN and creat are unremarkable. Normal anion gap and bicarb. AST / ALT are normal. White blood cell count is normal at 8.4. Hemoglobin 11.8. Platelets 197. CT abdomen pelvis with IV contrast was done which showed mild fluid distention of the small bowel with multiple air-fluid levels may represent mild ileus versus enteritis. No significant wall thickening seen. No abnormal fluid collection is seen. Large volume of stool seen in the right and transverse colon. Small fat-containing umbilical hernia, without evidence of bowel obstruction. Patient was given pain nausea medicine along with fluids. Did bring him in for concerns for new onset pancreatitis. Hydrate patient and watch his lipase level. No vomiting noted. Vital signs are stable. He is nontoxic appearing. Stable for observation at this time. Spoke to [employer]. IMPRESSION: SNOMED CT(R) 1. Acute pancreatitis, unspecified complication status, unspecified pancreatitis type ACUTE PANCREATITIS 2. Generalized abdominal pain GENERALIZED ABDOMINAL PAIN Plan- Med [facility] PACO Condition- stable PROCEDURES (if any, during ED visit): Procedures DIAGNOSTICS: Laboratory (if any, during ED visit): Labs Reviewed BASIC METABOLIC PANEL - Abnormal; Notable for the following components: Result Value Sodium 134 (*) Chloride 97 (*) Glucose 271 (*) All other components within normal limits Narrative: The eGFR should be used for monitoring renal function only and not for medication dosing. LIPASE - Abnormal; Notable for the following components: Lipase 459 (*) All other components within normal limits URINALYSIS - Abnormal; Notable for the following components: Clarity, Urine Hazy (*) Glucose, Urine 50 (*) Blood, Urine Moderate (*) RBCs, Urine 28 (*) All other components within normal limits Narrative: Microscopic examination is performed on all urinalysis samples and only positive findings are reported. The test for blood on the chemical analytic portion of urinalysis may also be positive due to hemoglobinuria and myoglobinuria and if red blood cells are present they are quantified by microscopic examination. CBC WITH AUTO DIFFERENTIAL - Abnormal; Notable for the following components: Hemoglobin 11.8 (*) Hematocrit 38.0 (*) MCV 74.2 (*) MCH 23.0 (*) All other components within normal limits HEPATIC FUNCTION PANEL - Normal TRIGLYCERIDES - Normal CBC AND DIFFERENTIAL Narrative: The following orders were created for panel order CBC w/ Diff. Procedure Abnormality Status --------- ------ CBC Auto Differential[[id number]] Abnormal Final result Please view results for these tests on the individual orders. RADIOGRAPHIC IMAGING (if any, during ED visit): CT Abdomen Pelvis With IV Contrast Only Final Result Mild fluid distention of the small bowel with multiple air-fluid levels may represent mild ileus versus enteritis. No significant bowel wall thickening is seen. No abnormal fluid collection is seen. Large volume of stool seen in the right and transverse colon. Small fat-containing umbilical hernia, without evidence for bowel obstruction. WARD/LIBCAST Workstation ID: [id number] MEDICATIONS ORDERED/GIVEN (if any, during ED visit): Medications sodium chloride (PF) (NS) 0.9 % contrast line flush 10 mL (10 mL Intravenous Given 05/19/181846) And sodium chloride (PF) (NS) 0.9 % contrast line flush 80 mL (80 mL Intravenous Given 05/19/181845) And iopamidol (ISOVUE-370) 76 % injection 75 mL (75 mL Intravenous Contrast Administered 05/19/181845) fentaNYL (SUBLIMAZE) injection 50 mcg (50 mcg Intravenous Given 05/19/181832) ondansetron (ZOFRAN) injection 4 mg (4 mg Intravenous Given 05/19/181831) sodium chloride 0.9% (NS) bolus 500 mL (0 mL Intravenous Stopped 05/19/181999) Nancy Hollis CNP 05/19/182129 TRANSFER NOTE: Sending pt to [facility] ED for evaluation of acute pancreatitis. Pt will be coming from home and arrive approximately 1400. Seen in office 05/18 lab work returned w/ elevated Lipase 2000, and Cr 1.5. states vss, Will forward labs and progress notes Pt presents to triage c/o abd pain for 2 weeks. in this encounter Quick Note - Sunita Arthur, JAREK - 05/20/2018 5:56 PM EDTQuick Note - Nickie Hamlin RN - 05/20/2018 5:56 PM EDTVariance IP Rehab - Yanick Harris, PT - 05/20/2018 3:04 PM EDT Miscellaneous Notes (unrecog nized section and content) Pt has called RN to room every 1/2 and or come to RN station for the last 4 hours. Pt is very agitated about multiple issue regarding food, obs status and surgery scheduled tomorrow. Pt wants to talk to dr radha snowden which we were about to accommodated 2 times and I called SW to talk to him more about billing. Pt wants to take his own home med's that we have in bedside med locked box. I reminded him that he already took a similar medication this am. Pt has been at the desk speaking in a very elevated voice to radha RN's and dietary. The dietary attendant went to get his tray earlier and delivered within 30 min's BC he was so addiment on getting his tray immediately. Pt had been given 2 turkey sandwiches 10 min's prior. Pt had to be walked back to his room 3 times by this RN bc of his elevated voice and aggressive behavior at the RN station. Pt is leaving AMA This RN called to patient room. Patient requesting to leave. Patient informed that he would be leaving AMA. Patient became verbally aggressive toward this RN. Patient refused to sign AMA form and informed RN he ws leaving and not signing any form. Witness at bedside. Brenda ESPINOZA notified. RN removed patient IV and returned home medications to patient at that time. Patient then ambulated off the unit yelling at staff. PHYSICAL THERAPY VISIT VARIANCE NOTE Attempted to see patient at this time, but unable secondary to: PT Visit Variance: (Patient on phone when PT entered room. Patient did not make eye contact with PT or get off of phone. RN reports patient has not appeared to be in a good mood today). Will follow up as appropriate. Pt. brought meds from home: Generic antacid (Mintox) and prescription Omeprazole 40 mg. Agreed to take hospital supplied meds. Personal meds stored on unit in lockbox in room. Refused to send to pharmacy. ED Attestation: I have reviewed the non physician practitioner's documentation, personally taken the patient's history, performed an exam and agree with the physical findings, clinical impression and management plan ADDENDUM TO ATTESTATION A 68-year-old gentleman who [facility], vomiting, mostly in the upper abdomen. He denies history of pancreatitis. He does drink some alcohol. Denies gallbladder problems or triglycerides. His lipase was markedly elevated yesterday at 4000; it is down to 400 today. He denies history of kidney stones, but he states he has had some blood in his urine and thought he passed something. PHYSICAL EXAMINATION General: He is moderately obese. Vital Signs: He is afebrile. Lungs: Clear. Cardiac: Rhythm and rate are regular without murmur. Abdomen: Soft with bowel sounds. There is tenderness across the upper abdomen. No guarding or rebound. No masses. His urine does show blood, including red blood cells. No markers for infection. His lipase is elevated at 459, which is trending down. White count 8.4, hemoglobin 11.8. His liver functions are normal. Bilirubin is normal. Electrolytes are normal. Glucose 271. Urine shows no markers for infection. CT scan of the abdomen and pelvis currently pending to evaluate for pancreatitis or obstructive uropathy due to his hematuria. IMPRESSION 1.Abdominal pain secondary to pancreatitis. 2.Hematuria. I anticipate patient will need admission to continue to trend his pancreas enzymes. He is cloth dyeing range tender, unclear etiology. May need evaluation of triglycerides or gallbladder. in this encounter Care Teams (unrecognized sec tion and content) Cinder Man Relationship Specialty Start Date End Date Darlene Calvin MD [address] [place] [address] PCP - General Internal Medicine 12/29/18 Cinder Man Relationship Specialty Start Date End Date Darlene Clavin MD [address] [place] [address] PCP - General Internal Medicine 12/29/18 Scheduled Active and Recently Administ ered Medications (unrecognized section and content) Medication Order 02/19/2021 02/20/2021 02/21/2021 aspirin EC tablet 81 mg 81 mg, Oral, Daily, First dose on Tori 02/20/21 at 0900, DO NOT CRUSH OR CHEW. 0900 (Given - Provider: Jarrod Lu, JAREK) 0938 (Given - Provider: Danni Vaughan, RN) budesonide-formoteroL (SYMBICORT) 80-4.5 mcg/actuation inhaler 2 puff 2 puff, Inhalation, 2 times daily (RT), First dose on Tori 02/20/21 at 1400, SPACER REQUIRED FOR ADMINISTRATION 1454 (Given - Provider: Dejah Anthony RN) 0100 (Not Given - Provider: Mai Townsend RN - Reason: Patient/family refused)0900 (Not Given - Provider: Danni Vaughan, RN - Reason: Patient/family refused) cholecalciferol (vitamin D3) tablet 1,000 Units 1,000 Units, Oral, Daily, First dose on Tori 02/20/21 at 0900 0900 (Given - Provider: Jarrod Lu RN) 0938 (Given - Provider: Danni Vaughan, RN) enoxaparin (LOVENOX) syringe 40 mg 40 mg, Subcutaneous, Daily, First dose on Tori 02/20/21 at 0900, Administer in abdomen unless otherwise directed by prescriber. Notify physician if patient refuses., Indication: VTE Prophylaxis 0900 (Given - Provider: Jarrod Lu RN) 0938 (Given - Provider: Danni Vaughan, RN) ferrous sulfate tablet 325 mg 325 mg, Oral, Daily with breakfast, First dose on Wed02/21/21 at 0800 0938 (Given - Provid er: Danni Vaughan RN - Comment: with food) folic acid (FOLVITE) tablet 1 mg 1 mg, Oral, Daily, First dose on Wed02/20/21 at 1500 1454 (Given - Provider: Dejah Anthony RN) 0938 (Given - Provider: Danni Vaughan RN) gabapentin (NEURONTIN) capsule 600 mg 600 mg, Oral, Every 8 hours scheduled, First dose on Wed02/20/21 at 0600 0524 (Given - Provider: Delia Rainey RN)1312 (Given - Provider: Dejah Anthony RN)2051 (Given - Provider: Charis Sanford RN) 0652 (Given - Provider: Mia Townsend RN) HYDROmorphone (DILAUDID) injection 0.5 mg (COMPLETED) 0.5 mg, Intravenous, Once, On Wed02/19/21 at 2345, For 1 dose 0004 (Given - Provider: Polina Soto RN) HYDROmorphone (DILAUDID) injection 0.5 mg (COMPLETED) 0.5 mg, Intravenous, Once, On Wed02/20/21 at 0110, For 1 dose 0125 (Given - Provider: Polina Soto, JAREK) insulin glargine (LANTUS) injection 11 Units 11 Units (rounded from 10.89 Units = 0.1 Units/kg 108.9 kg), Subcutaneous, Nightly, First dose on Wed02/20/21 at 2100, Do not hold basal insulin without notifying physician. If patient NPO and BG < 100 before procedure, administer half of the glargine insulin (Lantus) dose; if BG is >100 administer full dose. Do not mix with other insulins in a syringe. Do NOT hold basal insulin without notifying physician 2054 (Given - Provider: Charis Sanford RN) insulin lispro (AdmeLOG,HumaLOG) injection 0-15 Units 0-15 Units, Subcutaneous, At bedtime, First dose on Wed02/20/21 at 2100, For Nightly Insulin Dose Coverage, use: CORRECTIVE (Only) for BG greater than 300, Nightly CORRECTIVE Dose Method: Follow Corrective SCALE, Corrective Scale to use for BG > 300: Normal Sensitivity Scale, For Downtime Calculator, use: Insulin SC NIGHTtime 2100 (Not Given - Provider: Charis Sanford RN - Reason: Order parameters not met) insulin lispro (AdmeLOG,HumaLOG) injection 0-30 Units 0-30 Units, Subcutaneous, 3 times daily before meals, First dose on Wed02/20/21 at 0730, Dose should be given 10-15 minutes before a meal. If poor oral intake, nausea or blood glucose value < 80 before meal, give of the dose (rounded up to nearest unit) immediately after meal completed. If patient skipping meal, hold base prandial dose and continue to use corrective insulin as ordered. Once diet resumed, total base prandial + corrective doses may be given., Prandial Insulin Dosing Method: NO Prandial Dose - Corrective Scale ONLY, Corrective Insulin Regimen (select desired scale to cover BG result): Normal Sensitivity Scale, For Downtime Calculator, use: Insulin SC MEALtime PREprandial 0730 (Given - Provider: James Moreau RN)1130 (Not Given - Provider: Dejah Anthony RN - Reason: Patient/family refused)1852 (Given - Provider: Dejah Anthony RN) 0952 (Given - Provider: Danni Vaughan RN - Comment: late breakfast)1246 (Given - Provider: Francisca Carrion RN) lactated ringers bolus 1,000 mL (COMPLETED) 1,000 mL, Intravenous, at 983.6 mL/hr, Once, On Wed02/20/21 at 0505, For 1 dose 0524 (New Bag - Provider: Delia Rainey, JAREK)0644 (Stopped - Provider: James Moreau RN) metoprolol tartrate (LOPRESSOR) tablet 25 mg 25 mg, Oral, 2 times daily, First dose on Wed02/20/21 at 0900, Hold for HR less than 60 and SBP less than 105 0900 (Given - Provider: Jarrod Lu RN)2051 (Not Given - Provider: Charis Sanford RN - Reason: Order parameters not met) 0938 (Not Given - Provider: Danni Vaughan, JAREK - Reason: Order parameters not met) multivitamin (THERAGRAN) per tablet 1 tablet 1 tablet, Oral, Daily, First dose on Wed02/20/21 at 1500 1454 (Given - Provider: Dejah Anthony RN) 0938 (Given - Provider: Danni Vaughan RN) ondansetron (ZOFRAN) injection 4 mg (COMPLETED) 4 mg, Intravenous, Once, On Wed02/19/21 at 2345, For 1 dose 0003 (Given - Provider: Polina Soto RN) pantoprazole (PROTONIX) EC tablet 40 mg 40 mg, Oral, 2 times daily, First dose on Wed02/20/21 at 0900, DO NOT CRUSH OR CHEW. 0900 (Given - Provider: Jarrod Lu RN)2044 (Given - Provider: Charis Sanford RN) 0938 (Given - Provider: Danni Vaughan RN) sodium chloride (PF) (NS) flush 5 mL(Linked Group 1) 5 mL, Intravenous, Every 8 hours scheduled, First dose on Wed02/20/21 at 0600, Saline lock 0600 (Not Given - Provider: aJmes Moreau RN - Reason: Other)1400 (Canceled Entry - Provider: Dejah Anthony RN)2200 (Canceled Entry - Provider: Charis Sanford RN) 0600 (Canceled Entry - Provider: Danni Vaughan RN) sodium chloride 0.9% (NS) bolus 1,000 mL (COMPLETED) 1,000 mL, Intravenous, at 983.6 mL/hr, Once, On Wed02/19/21 at 2345, For 1 dose 0003 (New Bag - Provider: Polina Soto RN)010 (Stopped - Provider: Polina Soto, JAREK) thiamine tablet 100 mg 100 mg, Oral, Daily, First dose on Wed02/20/21 at 1500 1454 (Given - Provider: Dejah Anthony RN) 0938 (Given - Provider: Danni Vaughan RN) Continuous Medication Order 02/19/2021 02/20/2021 02/21/2021 lactated Ringers infusion (CANCELED) 3 mL/kg/hr 108.9 kg (326.7 mL/hr), Intravenous, Continuous, Starting on Tori 02/20/21 at 0505 0644 (New Bag - Provider: James Moreau, RN)1215 (Stopped - Provider: Dejah Anthony, RN) lactated Ringers infusion 150 mL/hr, Intravenous, Continuous, Starting on Tori 02/20/21 at 1500 1453 (New Bag - Provider: Dejah Anthony, RN)1522 (Paused - Provider: Charis Sanford RN)1525 (Restarted - Provider: Charis Sanford RN)1525 (Paused - Provider: Charis Sanford RN)1526 (Restarted - Provider: Charis Sanford RN)1526 (Paused - Provider: Charis Sanford RN)1527 (Restarted - Provider: Charis Sanford RN)1528 (Paused - Provider: Charis Sanford RN)1528 (Restarted - Provider: Charis Sanford RN)1529 (Paused - Provider: Charis Sanford RN)1530 (Restarted - Provider: Charis Sanford RN)1530 (Paused - Provider: Charis Sanford RN)1530 (Restarted - Provider: Charis Sanford RN)1530 (Paused - Provider: Charis Sanford RN)1531 (Restarted - Provider: Charis Sanford RN)1531 (Paused - Provider: Charis Sanford RN)1531 (Restarted - Provider: Charis Sanford RN)1532 (Paused - Provider: Charis Sanford RN)1532 (Restarted - Provider: Charis Sanford RN)1533 (Paused - Provider: Charis Sanford RN)1533 (Restarted - Provider: Charis Sanford RN)1533 (Paused - Provider: Charis Sanford RN)1533 (Restarted - Provider: Charis Sanford RN)1534 (Paused - Provider: Charis Sanford RN)1534 (Restarted - Provider: Charis Sanford RN)1535 (Paused - Provider: Charis Sanford RN)1535 (Restarted - Provider: Charis Sanford RN)1535 (Paused - Provider: Charis Sanford RN)1535 (Restarted - Provider: Charis Sanford RN)1536 (Paused - Provider: Charis Sanford RN)1536 (Restarted - Provider: Charis Sanford RN)1536 (Paused - Provider: Charis Sanford RN)1537 (Restarted - Provider: Charis Sanford RN)1537 (Paused - Provider: Charis Sanford RN)1539 (Restarted - Provider: Charis Sanford RN)1539 (Paused - Provider: Charis Sanford RN)1542 (Restarted - Provider: Charis Sanford RN)1542 (Paused - Provider: Charis Sanford RN)1542 (Restarted - Provider: Charis Sanford RN)1543 (Paused - Provider: Charis Sanford RN)1543 (Restarted - Provider: Charis Sanford RN)1543 (Paused - Provider: Charis Sanford RN)1543 (Restarted - Provider: Charis Sanford RN)1544 (Paused - Provider: Charis Sanford RN)1546 (Restarted - Provider: Charis Sanford RN)1546 (Paused - Provider: Charis Sanford RN)1547 (Restarted - Provider: Charis Sanford RN)1548 (Paused - Provider: Charis Sanford RN)1549 (Restarted - Provider: Charis Sanford RN)1549 (Paused - Provider: Charis Sanford RN)1550 (Restarted - Provider: Charis Sanford RN)1550 (Paused - Provider: Charis Sanford RN)1551 (Restarted - Provider: Charis Sanford RN)1551 (Paused - Provider: Charis Sanford RN)1554 (Restarted - Provider: Chrais Sanford RN)1555 (Paused - Provider: Charis Sanford RN)1557 (Restarted - Provider: Charis Sanford RN)1557 (Paused - Provider: Charis Sanford RN)1559 (Restarted - Provider: Charis Sanford RN)1559 (Paused - Provider: Charis Sanford RN)1600 (Restarted - Provider: Charis Sanford RN)1601 (Paused - Provider: Charis Sanford RN)1605 (Restarted - Provider: Charis Sanford RN)1605 (Paused - Provider: Charis Sanford RN)1608 (Restarted - Provider: Charis Sanford RN)1609 (Paused - Provider: Charis Sanford RN)1609 (Restarted - Provider: Charis Sanford RN)1610 (Paused - Provider: Charis Sanford RN)1614 (Restarted - Provider: Charis Sanford RN)1614 (Paused - Provider: Charis Sanford RN)1620 (Restarted - Provider: Charis Sanford RN)1620 (Paused - Provider: Charis Sanford RN)1621 (Restarted - Provider: Charis Sanford RN)1622 (Paused - Provider: Charis Sanford RN)1622 (Restarted - Provider: Charis Sanford RN)1622 (Paused - Provider: Charis Sanford RN)1622 (Restarted - Provider: Charis Sanford RN)1622 (Rate/Dose Change - Provider: Charis Sanford RN)1623 (Paused - Provider: Charis Sanford RN)1623 (Restarted - Provider: Charis Sanford RN)1623 (Paused - Provider: Charis Sanford RN)1631 (Restarted - Provider: Charis Sanford RN)1632 (Paused - Provider: Charis Sanford RN)1637 (Restarted - Provider: Charis Sanford RN)1637 (Rate/Dose Change - Provider: Charis Sanford RN)1638 (Stopped - Provider: Charis Sanford RN)204 (New Bag - Provider: Charis Sanford RN)2046 (Paused - Provider: Charis Sanford RN)204 (Paused - Provider: Charis Sanford RN)204 (Paused - Provider: Charis Sanford RN)204 (Paused - Provider: Charis Sanford RN)204 (Restarted - Provider: Charis Sanford RN)2248 (Rate/Dose Verify - Provider: Charis Sanford RN)2300 (Rate/Dose Verify - Provider: Mai Townsend RN) 0000 (Rate/Dose Verify - Provider: Mai Townsend RN)0200 (Rate/Dose Verify - Provider: Mai Townsend RN)0251 (Rate/Dose Verify - Provider: Mai Townsend RN)0315 (Rate/Dose Change - Provider: Mai Townsend RN)0320 (Paused - Provider: Mai Townsend RN)0324 (Rate/Dose Change - Provider: Mai Townsend RN)0331 (Stopped - Provider: Mai Townsend RN)0331 (New Bag - Provider: Mai Townsend RN)0400 (Rate/Dose Verify - Provider: Mai Townsend RN)0600 (Rate/Dose Verify - Provider: Mai Townsend RN)0700 (Rate/Dose Verify - Provider: Mai Townsend RN)1007 (New Bag - Provider: Danni Vaughna RN)1306 (Stopped - Provider: Francisca Carrion RN) PRN Medication Order 02/19/2021 02/20/2021 02/21/2021 acetaminophen (TYLENOL) tablet 650 mg 650 mg, Oral, Every 4 hours PRN, mild pain, fever 100.4 F or greater, headaches, Starting on Wed02/20/21 at 0502 1652 (Given - Provider: Dejah Anthony, RN) 1249 (Given - Provider: Francisca Carrion, JAREK) albuterol inhaler 2 puff 2 puff, Inhalation, Every 6 hours PRN (RT), wheezing, Starting on Wed02/20/21 at 1154, SPACER REQUIRED FOR ADMINISTRATION aluminum-magnesium hydroxide-simethicone (MAALOX PLUS) 200-200-20 mg/5 mL suspension 30 mL 30 mL, Oral, Every 4 hours PRN, indigestion, Starting on Wed02/20/21 at 0502 dicyclomine (BENTYL) capsule 20 mg 20 mg, Oral, Every 12 hours PRN, abd pain, Starting on Wed02/20/21 at 1656 1746 (Given - Provider: Dejah Anthony RN) HYDROmorphone (DILAUDID) injection 0.5 mg 0.5 mg, Intravenous, Every 3 hours PRN, moderate to severe pain, Starting on Wed02/20/21 at 0413 0437 (Given - Provider: James Moreau, JAREK)0903 (Given - Provider: Jarrod Lu, JAREK)2214 (Given - Provider: Charis Sanford, JAREK) 0327 (Given - Provider: Mai Townsend RN - Comment: 08/31 sharp, burning mid-line epigastric)0935 (Given - Provider: Danni Vaughan RN) iopamidoL (ISOVUE-370) 76 % injection 75 mL (COMPLETED) 75 mL, Intravenous, Once in imaging, contrast, Starting on Wed02/19/21 at 2343, For 1 dose 2348 (Contrast Administered - Provider: Duyen Frey, TECHNOLOGIST) methocarbamoL (ROBAXIN) tablet 750 mg 750 mg, Oral, 3 times daily PRN, muscle spasms, Starting on Wed02/20/21 at 0502 ondansetron (ZOFRAN) injection 4 mg(Linked Group 2) 4 mg, Intravenous, Every 6 hours PRN, nausea, vomiting, Starting on Wed02/20/21 at 0502, Use oral route first, if tolerated. ondansetron (ZOFRAN-ODT) disintegrating tablet 4 mg(Linked Group 2) 4 mg, Oral, Every 6 hours PRN, nausea, vomiting, Starting on Wed02/20/21 at 0502, Use oral route first, if tolerated. Formulation requires tablet remain in sealed package until immediately prior to dose being administered. senna (SENOKOT) tablet 8.6 mg 8.6 mg (1 tablet), Oral, 2 times daily PRN, constipation, Starting on Wed02/20/21 at 0502 sodium chloride (PF) (NS) 0.9 % contrast line flush 10 mL (COMPLETED) 10 mL, Intravenous, Once in imaging, contrast, Per tabber (Radiology) for line patency check prior to contrast administration, Starting on Wed02/19/21 at 2343, For 1 dose 2349 (Given - Provider: Duyen Frey, TECHNOLOGIST) sodium chloride (PF) (NS) 0.9 % contrast line flush 80 mL (COMPLETED) 80 mL, Intravenous, Once in imaging, contrast, Per tabber (Radiology), Starting on Wed02/19/21 at 2343, For 1 dose, 30 mL BEFORE contrast administration 50 mL AFTER contrast administration 2348 (Given - Provider: Duyen Frey, TECHNOLOGIST) sodium chloride (PF) (NS) flush 5 mL(Linked Group 1) 5 mL, Intravenous, As needed, line care, Starting on Wed02/20/21 at 0502 sodium chloride 0.9% (NS)(Linked Group 1) 0-150 mL/hr, Intravenous, As needed, To flush line after IV infusions when no maintenance IV ordered or a compatibility issue. Infuse 20ml at the same rate as the secondary infusion, Starting on Wed02/20/21 at 0502, Run as Primary IV. NOT intended for KVO. Linked Groups Order Group 1: Saline lock IV (CANCELED) Routine, Continuous, Starting on Wed02/20/21 at 0505, Until Specified And sodium chloride (PF) (NS) flush 5 mLJump to med 5 mL, Intravenous, As needed, line care, Starting on Wed02/20/21 at 0502 And sodium chloride (PF) (NS) flush 5 mLJump to med 5 mL, Intravenous, Every 8 hours scheduled, First dose on Tori 02/20/21 at 0600
Saline lock
And sodium chloride 0.9% (NS)Jump to med 0-150 mL/hr, Intravenous, As needed, To flush line after IV infusions when no maintenance IV ordered or a compatibility issue. Infuse 20ml at the same rate as the secondary infusion, Starting on Tori 02/20/21 at 0502
Run as Primary IV. NOT intended for KVO.
Group 2: ondansetron (ZOFRAN-ODT) disintegrating tablet 4 mgJump to med 4 mg, Oral, Every 6 hours PRN, nausea, vomiting, Starting on Tori 02/20/21 at 0502
Use oral route first, if tolerated. Formulation requires tablet remain in sealed package until immediately prior to dose being administered.
Or ondansetron (ZOFRAN) injection 4 mgJump to med 4 mg, Intravenous, Every 6 hours PRN, nausea, vomiting, Starting on Tori 02/20/21 at 0502
Use oral route first, if tolerated.
FOR RECORDS PERTAINING TO PATIENTS WHO ARE OR HAVE BEEN ENROLLED IN A CHEMICAL DEPENDENCY/SUBSTANCEABUSE PROGRAM, SOME INFORMATION MAY BE OMITTED. This clinical summary was aggregated from multiple sources. Caution should be exercised in using it in the provision of clinical care. This summary normalizes information from multiple sources, and as a consequence, information in this document may materially change the coding, format and clinical context of patient data. In addition, data may be omitted in some cases. CLINICAL DECISIONS SHOULD BE BASED ON THE PRIMARY CLINICAL RECORDS. [email or web address] provides no warranty or guarantee of the accuracy or completeness of information in this document.
[2024-07-25 22:30] LABS: Bedside Glucose 332 mg/dL (74-106)
[2024-07-26] MEDS: Morphine 2 MG/ML Syringe IV (00:38)
[2024-07-26] MEDS: MELATONIN 3 MG TABLET PO (00:38)
[2024-07-26] MEDS: 0.9% Saline Lock 10 ML Syringe IV ×4 (00:39→21:33)
[2024-07-26] MEDS: Lidocaine 5% Patch 2 PATCH TOPICAL (03:07)
[2024-07-26] MEDS: Acetaminophen 325 MG Tablet 650 MG PO ×2 (03:16→09:01)
[2024-07-26] MEDS: oxyCODONE 5 MG Tablet PO ×3 (03:16→21:53)
[2024-07-26 03:30] VITALS: BP 157/88; PULSE 88; RESP 16; TEMP 36.6; O2SAT 97
[2024-07-26] MEDS: Ketorolac 15 MG/ML Vial IV ×3 (05:47→21:32)
[2024-07-26 06:00] VITALS: BMI 33.5
[2024-07-26 06:59] LABS: Absolute Lymphocyte Count 1.64 X10^3/uL (0.83-4.51); Absolute Neutrophil Count 3.1 X10^3/uL (2.0-7.7); Basophil# 0.01 X10^3/uL; Basophil% 0.2 % (0-1); Eosinophil# 0.12 X10^3/uL; Eosinophils% 2.1 % (0-5); Hematocrit 28.9 % (40-54); Hemoglobin 9.1 g/dL (13.0-16.5); Lymphocyte # 1.64 X10^3/ul (0.83-4.51); Lymphocyte % 28.7 % (19-41); Mean Corp Hgb Conc 31.5 g/dL (32-36); Mean Corpuscular Volume 73.2 fL (80-94); Mean Platelet Vol. 10.9 fl (6.2-12.0); NRBC Flagged by Analyzer 0 % (0-5); Neutrophil # 3.13 X10^3/uL (2.7-7.7); Neutrophil % 54.8 % (47-70); Platelet Count 166 K/mm3 (150-450); RBC Distribution Width CV 14.6 % (11.6-14.6); RBC Distribution Width SD 38.7 fl (35.1-43.9); Red Blood Count 3.95 M/mm3 (4.6-6.2); White Blood Count 5.7 K/mm3 (4.4-11.0)
[2024-07-26 07:15] VITALS: O2SAT 93
--- NOTE | 2024-07-26 07:23 | PCM.PN.HOSP ---
Reason for Visit Reason for Visit: Diagnoses Pain, unspecified (07/25/24) Unspecified fall, initial encounter (07/25/24) Subjective Subjective Patient is a 74-year-old gentleman presented following a fall Objective Data Objective Data Vital Signs: Vital Signs Temp Pulse Resp BP Pulse Ox O2 Del Method 98 F 88 16 157/88 H 97 Room Air 07/26/24 03:30 07/26/24 03:30 07/26/24 03:30 07/26/24 03:30 07/26/24 03:30 07/26/24 03:30 Oxygen Delivery Method Room Air Weight: 118.6 kg Body Mass Index (BMI) 33.5 Intake & Output: Intake and Output for Last 24 Hours 07/24/24 07/25/24 07/26/24 23:59 23:59 23:59 Intake Total 1000 / 1000 Output Total 600 / 600 600 / 600 Balance 400 / 400 -600 / -600 Lab / Micro Data 07/26/24 06:44 07/26/24 06:44 Labs: Laboratory Results - last 24 hr 07/25/24 15:10: Urine Opiates Screen NEGATIVE, U Buprenorphine Qual NEGATIVE, Ur Oxycodone Screen NEGATIVE, Urine Methadone Screen NEGATIVE, Urine Fentanyl Screen NEGATIVE, Ur Barbiturates Screen NEGATIVE, Ur Phencyclidine Scrn NEGATIVE, Ur Amphetamines Screen NEGATIVE, U Benzodiazepines Scrn NEGATIVE, Urine Cocaine Screen PRESUMPTIVE POSITIVE, U Cannabinoids Screen NEGATIVE 07/25/24 17:25: WBC 9.6, RBC 4.90, Hgb 11.5 L, Hct 36.0 L, MCV 73.5 L, MCH 23.5 L, MCHC 31.9 L, RDW Std Deviation 38.4, RDW Coeff of Summer 14.5, Plt Count 207, MPV 11.0, Sodium 133, Potassium 5.2 H, Chloride 98, Carbon Dioxide 17.5 L, Anion Gap 17 H, BUN 21 H, Creatinine 1.56 H, Estim Creat Clear Calc 59.14, Est GFR (MDRD) Non-Af 47 L, BUN/Creatinine Ratio 13.7, Glucose 391 H, Calcium 9.8, Ethyl Alcohol < 10.1 07/25/24 21:43: POC Glucose 332 H 07/26/24 06:44: WBC 5.7, RBC 3.95 L, Hgb 9.1 L, Hct 28.9 L, MCV 73.2 L, MCH 23.0 L, MCHC 31.5 L, RDW Std Deviation 38.7, RDW Coeff of Summer 14.6, Plt Count 166, MPV 10.9, Immature Gran % (Auto) 0.200, Neut % (Auto) 54.8, Lymph % (Auto) 28.7, [place] % (Auto) 14.0 H, Eos % (Auto) 2.1, Baso % (Auto) 0.2, Absolute Neuts (auto) 3.1, Absolute Lymphs (auto) 1.64, Nucleated RBC % 0 Radiography Diagnostic Testing: Radiology Impression Femur X-Ray 07/25/24 17:45 IMPRESSION: No acute osseous abnormality of the left femur. Reading Location: [facility] Humerus X-Ray 07/25/24 17:45 IMPRESSION: No acute osseous abnormalities. Reading Location: [place] [address] Pelvis X-Ray 07/25/24 17:45 IMPRESSION: No acute osseous abnormalities. Details above. Reading Location: [place] [address] Shoulder X-Ray 07/25/24 17:45 IMPRESSION: No acute osseous abnormalities. Reading Location: [place] [address] Physical Exam Narrative GENERAL: cooperative HEENT: Atraumatic; normocephalic EYES; Anicteric, Normal Conjunctiva NECK; supple, normal thyroid, RESPIRATORY: Diminished to auscultation CARDIOVASCULAR: Regular S1 S2, GI: soft, normoactive bowel sounds, : No Renal angle tenderness; EXTREMITIES: No edema, no clubbing, MUSCULOSKELETAL: no muscle wasting NEURO: Awake; no lateralizing signs. SKIN: No Rash PSYCH; Flat affect Assessment & Plan Assessment/Plan (1) Intractable pain: (2) Fall: PLAN: Plan Patient is a 74-year-old gentleman presented following a fall 1. Acute mechanical fall ? Patient underwent extensive imaging studies with no identifiable fractures. Admitted to regular nursing floor for pain management. Requested for PT OT eval and social organization professor to assist with discharge planning 2. Polysubstance dependence ? Patient urine drug screen was positive for cocaine alcohol was less than10.1. Cessation encouraged 3. Diabetes mellitus type II -patient's oral hypoglycemics held. Placed on long acting insulin, Accu-Cheks a.c. and at bedtime and covered with sliding scale insulin 4. Class I obesity with BMI of 33.6 ? Weight loss advised 5. Hypertension ? Blood pressure controlled, home medications continued with dose adjustment as needed 6. GERD ? On PPI 7. Mild intermittent asthma ? Aerosol treatment as needed 8. Diabetic polyneuropathy ? Patient is on gabapentin 9. Dyslipidemia ?Patient is on statin therapy, continued at home dose 10. Obstructive sleep apnea ? With reported noncompliance with PAP therapy consistent use encouraged 11. DVT prophylaxis ? On enoxaparin Charges/Coding Visit Charges Inpatient E&M: 76790 Subs Hosp L2
[2024-07-26 07:33] LABS: ALB/GLOB Ratio 1.6 RATIO (0.9-2.4); AST(SGOT) 29 U/L (<=37); Alanine Aminotransfer ALT/SGPT 17 U/L (<=46); Albumin, Serum 4.1 g/dL (3.4-4.8); Alkaline Phosphatase 65 U/L (40-129); Anion Gap 10 (5-15); BUN 29 mg/dL (4-19); BUN/Creat Ratio 18.8 RATIO (10-20); Carbon Dioxide 23.2 mmol/L (21.0-32.0); Chloride 100 mmol/L (98-108); Creatinine, Serum 1.52 mg/dL (0.70-1.20); EST Glomerular Filtration Rate 48 (>60); Estimated Creatinine Clearance 60.12 ml/min (50-250); Globulin 2.6 g/dL (2.2-4.2); Glucose 348 mg/dL (70-99); Potassium 5.1 mmol/L (3.3-5.1); Protein, Total 6.6 g/dL (5.9-8.4); Sodium Level 133 mmol/L (133-145); Total Bilirubin 0.65 mg/dL (0.00-1.30)
[2024-07-26] MEDS: Insulin Lispro 100 UNIT/ML INSULN.PEN SC ×3 (08:00→21:49)
[2024-07-26] MEDS: Insulin Lispro 100 UNIT/ML INSULN.PEN 12 UNIT SC ×2 (08:00→16:31)
[2024-07-26 08:22] LABS: Bedside Glucose 332 mg/dL (74-106)
[2024-07-26 08:44] VITALS: BP 150/78; PULSE 82; RESP 18; TEMP 36.6; O2SAT 96
[2024-07-26] MEDS: Pantoprazole Sodium 40 MG Tablet PO (09:00)
[2024-07-26] MEDS: Enoxaparin 40 MG/0.4 ML Syringe SC (09:00)
[2024-07-26] MEDS: Gabapentin 800 MG Tablet PO ×2 (09:01→21:48)
[2024-07-26] MEDS: Insulin Glargine-YFGN 100 UNIT/ML Pen 35 UNIT SC ×2 (09:01→21:48)
[2024-07-26] MEDS: Losartan Potassium 25 MG Tablet 12.5 MG PO (09:01)
--- NOTE | 2024-07-26 11:15 | CASEMGMT ---
JAREK CM asked Discharge Char [employer] to do pt polo.
--- NOTE | 2024-07-26 11:49 | CASEMGMT ---
Addendum entered by Marce Grissom 07/26/24 12:20: A list of SNF providers including quality and resource use data and consistent with the patient?s preferred geographic region, medical needs, and insurance network were provided from the [facility] Guide. Pt [facility]. DAMARI notified of referral request. JAKE Mcdonald Original Note: Social Work- SW met with pt to discuss discharge plans. Pt feels that he is unable to return to [place] at this time and needs additional therapy. Pt reports that he is 100% disabled [facility] to the [facility]. Pt verified his other coverage is MCR A. Pt is agreeable to using [facility] for placement. DCA notified of request for SNF list. ARBEN remains available to follow. JAKE Mcdonald
[2024-07-26 12:04] LABS: Bedside Glucose 125 mg/dL (74-106)
--- NOTE | 2024-07-26 12:08 | CASEMGMT ---
Discharge Planning A list of?SNF providers including quality and resource use data and consistent with the patient's preferred geographic region, medical needs, and insurance network was created in [employer] Guide.? This list was provided to the SW. Janna Blackburn Discharge Planning Asst.
--- NOTE | 2024-07-26 12:24 | CASEMGMT ---
Addendum entered by Janna Blackburn 07/26/24 15:30: [facility]. SW updated. Janna Blackburn DC Planning Asst. Original Note: Discharge Planning Referral sent to [place] [facility] [place]. Janna Blackburn DC Planning Asst.
[2024-07-26 14:04] VITALS: BP 114/61; PULSE 83; RESP 18; TEMP 36.9; O2SAT 99
--- NOTE | 2024-07-26 14:56 | CASEMGMT ---
Met with patient to complete PAPPAS form. PAPPAS form and its content were verbally explained and patient's questions were answered to the best of my ability.? Patient voiced understanding and signed PAPPAS form.? Patient provided a copy of signed PAPPAS form and original placed in patient's chart.? Patient had no further questions. Janna Blackburn, Discharge Planning Asst
--- NOTE | 2024-07-26 15:29 | CASEMGMT ---
Social Work- SW met with pt to advise that [facility] is unable to accept referral. Pt selected [facility] as next choice. DCA notified of referral request. JAKE Mcdonald
--- NOTE | 2024-07-26 15:30 | CASEMGMT ---
Addendum entered by Janna Blackburn 07/26/24 16:06: [facility] has accepted and will submit for auth. SW updated. Janna Blackburn DC Planning Asst. Original Note: Discharge Planning Referral sent to [facility]. Janna Blackburn DC Planning Asst.
--- NOTE | 2024-07-26 15:53 | CASEMGMT ---
Social Work- SW called Yahir Goldsmith at [facility] and left a voicemail to confirm pt connectedness to [place]. ARBEN remains available to follow. JAKE Mcdonald
--- NOTE | 2024-07-26 16:31 | CASEMGMT ---
Social Work- SW received notice that [facility] accepted referral. ARBEN submitted [facility] to [facility] via secure email and fax. ARBEN remains available to follow. JAKE Mcdonald
[2024-07-26 16:51] LABS: Bedside Glucose 247 mg/dL (74-106)
[2024-07-26 21:30] VITALS: BP 159/71; PULSE 85; RESP 16; TEMP 36.6; O2SAT 98
[2024-07-26] MEDS: Atorvastatin Calcium 40 MG Tablet PO (21:48)
[2024-07-26 22:20] LABS: Bedside Glucose 264 mg/dL (74-106)
[2024-07-27 02:45] VITALS: BP 147/71; PULSE 84; RESP 16; TEMP 36.3; O2SAT 96
[2024-07-27] MEDS: Acetaminophen 325 MG Tablet 650 MG PO ×4 (03:45→22:17)
[2024-07-27] MEDS: oxyCODONE 5 MG Tablet PO ×3 (03:46→22:18)
[2024-07-27 05:01] VITALS: BMI 34.1
[2024-07-27] MEDS: Ketorolac 15 MG/ML Vial IV (06:03)
[2024-07-27] MEDS: 0.9% Saline Lock 10 ML Syringe IV (06:04)
[2024-07-27 06:22] LABS: Bedside Glucose 261 mg/dL (74-106)
[2024-07-27 06:31] LABS: Absolute Lymphocyte Count 1.97 X10^3/uL (0.83-4.51); Absolute Neutrophil Count 2.4 X10^3/uL (2.0-7.7); Basophil# 0.01 X10^3/uL; Basophil% 0.2 % (0-1); Eosinophil# 0.12 X10^3/uL; Eosinophils% 2.4 % (0-5); Lymphocyte # 1.97 X10^3/ul (0.83-4.51); Lymphocyte % 38.9 % (19-41); Mean Corpuscular Volume 74.2 fL (80-94); Mean Platelet Vol. 11.3 fl (6.2-12.0); Monocyte# 0.58 X10^3/uL; Monocyte% 11.5 % (0-10); NRBC Flagged by Analyzer 0 % (0-5); Neutrophil # 2.37 X10^3/uL (2.7-7.7); Neutrophil % 46.8 % (47-70); POSITIVE MORPHOLOGY YES; Platelet Count 163 K/mm3 (150-450); RBC Distribution Width CV 14.6 % (11.6-14.6); RBC Distribution Width SD 38.7 fl (35.1-43.9); Red Blood Count 3.91 M/mm3 (4.6-6.2); White Blood Count 5.1 K/mm3 (4.4-11.0)
[2024-07-27 06:40] LABS: Differential Indicated SCAN CRITERIA MET
[2024-07-27 07:13] LABS: Anion Gap 9 (5-15); BUN 33 mg/dL (4-19); Calcium,Total 8.4 mg/dL (7.6-11.0); Carbon Dioxide 23.6 mmol/L (21.0-32.0); Chloride 103 mmol/L (98-108); Creatinine, Serum 1.28 mg/dL (0.70-1.20); EST Glomerular Filtration Rate 59 (>60); Estimated Creatinine Clearance 71.98 ml/min (50-250); Glucose 296 mg/dL (70-99); Magnesium 1.9 mg/dL (1.5-2.2); Phosphorus 3.8 mg/dL (2.7-4.5); Potassium 5.1 mmol/L (3.3-5.1); Sodium Level 135 mmol/L (133-145)
[2024-07-27 07:19] LABS: Ovalocyte 1+; Platelet Estimate A (ADEQ); Polychromasia 1+
[2024-07-27 08:00] VITALS: O2SAT 93
[2024-07-27] MEDS: Insulin Lispro 100 UNIT/ML INSULN.PEN SC ×4 (08:16→22:16)
[2024-07-27] MEDS: Insulin Lispro 100 UNIT/ML INSULN.PEN 12 UNIT SC ×3 (08:16→16:41)
[2024-07-27] MEDS: Pantoprazole Sodium 40 MG Tablet PO (08:17)
[2024-07-27] MEDS: Losartan Potassium 25 MG Tablet 12.5 MG PO (08:17)
[2024-07-27] MEDS: Enoxaparin 40 MG/0.4 ML Syringe SC (08:18)
[2024-07-27] MEDS: Gabapentin 800 MG Tablet PO ×2 (08:23→22:18)
--- NOTE | 2024-07-27 09:06 | CASEMGMT ---
Social Work- SW received an email from Yahir Arias [facility] that approval will need to go through [facility] for SNF placement. SW reached out to Cande Wyatt [facility] SW ([phone] ext [phone] and fax [phone]) who provided SW with required forms and documentation requirements checklist. SW completed forms and faxed along with documentation. SW remains available to follow. Plan: [facility]; skilled level of care pending [facility] approval JAKE Mcdonald
[2024-07-27 09:30] VITALS: BP 150/80; PULSE 75; RESP 18; TEMP 36.5; O2SAT 95
[2024-07-27] MEDS: Insulin Glargine-YFGN 100 UNIT/ML Pen 35 UNIT SC ×2 (09:43→22:17)
[2024-07-27] MEDS: Lidocaine 5% Patch 2 PATCH TOPICAL (09:43)
--- NOTE | 2024-07-27 11:01 | PCM.PN.HOSP ---
Reason for Visit Reason for Visit: Diagnoses Pain, unspecified (07/25/24) Unspecified fall, initial encounter (07/25/24) Subjective Subjective Patient seen awaiting insurance precertification [facility]. If patient denied plan for patient to be discharged home with outpatient PT Objective Data Objective Data Vital Signs: Vital Signs Temp Pulse Resp BP Pulse Ox O2 Del Method 97.7 F L 75 18 150/80 H 95 Room Air 07/27/24 09:30 07/27/24 09:30 07/27/24 09:30 07/27/24 09:30 07/27/24 09:30 07/27/24 09:30 Oxygen Delivery Method Room Air Weight: 120.6 kg Body Mass Index (BMI) 34.1 Intake & Output: Intake and Output for Last 24 Hours 07/25/24 07/26/24 07/27/24 23:59 23:59 23:59 Intake Total 1000 / 1000 120 / 120 Output Total 600 / 600 600 / 900 400 / 400 Balance 400 / 400 -480 / -780 -400 / -400 Lab / Micro Data 07/27/24 06:10 07/27/24 06:10 Labs: Laboratory Results - last 24 hr 07/26/24 11:44: POC Glucose 125 H 07/26/24 16:31: POC Glucose 247 H 07/26/24 21:38: POC Glucose 264 H 07/27/24 06:04: POC Glucose 261 H 07/27/24 06:10: WBC 5.1, RBC 3.91 L, Hgb 9.0 L, Hct 29.0 L, MCV 74.2 L, MCH 23.0 L, MCHC 31.0 L, RDW Std Deviation 38.7, RDW Coeff of Summer 14.6, Plt Count 163, MPV 11.3, Immature Gran % (Auto) 0.200, Neut % (Auto) 46.8 L, Lymph % (Auto) 38.9, [place] % (Auto) 11.5 H, Eos % (Auto) 2.4, Baso % (Auto) 0.2, Absolute Neuts (auto) 2.4, Absolute Lymphs (auto) 1.97, Nucleated RBC % 0, Platelet Estimate A, Polychromasia 1+, Ovalocytes 1+, Sodium 135, Potassium 5.1, Chloride 103, Carbon Dioxide 23.6, Anion Gap 9, BUN 33 H, Creatinine 1.28 H, Estim Creat Clear Calc 71.98, Est GFR (MDRD) Non-Af 59 L, BUN/Creatinine Ratio 26.0 H, Glucose 296 H, Calcium 8.4, Phosphorus 3.8, Magnesium 1.9 Physical Exam Narrative GENERAL: cooperative HEENT: Atraumatic; normocephalic EYES; Anicteric, Normal Conjunctiva NECK; supple, normal thyroid, RESPIRATORY: Diminished to auscultation CARDIOVASCULAR: Regular S1 S2, GI: soft, normoactive bowel sounds, : No Renal angle tenderness; EXTREMITIES: No edema, no clubbing, MUSCULOSKELETAL: no muscle wasting NEURO: Awake; no lateralizing signs. SKIN: No Rash PSYCH; Flat affect Assessment & Plan Assessment/Plan (1) Intractable pain: (2) Fall: PLAN: Plan Patient is a 74-year-old gentleman presented following a fall 1. Acute mechanical fall ? Patient underwent extensive imaging studies with no identifiable fractures. Admitted to regular nursing floor for pain management. Requested for PT OT eval and social media assistant to assist with discharge planning 07/27/2024;Patient seen awaiting insurance precertification prior to [facility]. If patient denied plan for patient to be discharged home with outpatient PT 2. Polysubstance dependence ? Patient urine drug screen was positive for cocaine alcohol was less than10.1. Cessation encouraged 3. Diabetes mellitus type II -patient's oral hypoglycemics held. Placed on long acting insulin, Accu-Cheks a.c. and at bedtime and covered with sliding scale insulin 4. Class I obesity with BMI of 33.6 ? Weight loss advised 5. Hypertension ? Blood pressure controlled, home medications continued with dose adjustment as needed 6. GERD ? On PPI 7. Mild intermittent asthma ? Aerosol treatment as needed 8. Diabetic polyneuropathy ? Patient is on gabapentin 9. Dyslipidemia ?Patient is on statin therapy, continued at home dose 10. Obstructive sleep apnea ? With reported noncompliance with PAP therapy consistent use encouraged 11. DVT prophylaxis ? On enoxaparin 12. Anemia ? Secondary to chronic disorder monitoring H&H and transfuse if patient becomes symptomatic or hemoglobin falls below 7, did undertake iron studies given patient low MCV Charges/Coding Visit Charges Inpatient E&M: 77772 Subs Hosp L2
[2024-07-27 12:16] LABS: Bedside Glucose 155 mg/dL (74-106)
[2024-07-27 13:22] LABS: Platelet Count 172 K/mm3 (150-450); RET-HE 24.9 pg (30-35); Reticulocyte Count 2.26 % (0.5-1.5)
[2024-07-27 13:52] LABS: Vitamin B12 394 pg/mL (180-914)
[2024-07-27 14:10] LABS: Iron 43 ug/dL (65-175); Iron Binding Capacity,Total 267 ug/dL (250-450); Iron Binding Capacity,Unsat 224 ug/dL (228-428)
[2024-07-27 15:13] VITALS: BP 127/74; PULSE 88; RESP 18; TEMP 37.1; O2SAT 98
--- NOTE | 2024-07-27 16:17 | CASEMGMT ---
Social Work- SW received fax confirmation at 10:39 that fax of documentation for SNF approval was completed. ARBEN followed up with an email and voicemail to Ms Edmundo CM ([phone] ext [phone]). ARBEN met with pt to update that documentation was faxed and once determination has been made, SW will provide updates. Pt was frustrated, but agreeable to continued updates. SW was asked to stop in pt room. Pt was on the phone with [facility] with [facility], title unknown, inquiring into SNF approval. Lexis was unable to assist other than to forward a message to Ms. Wyatt. Pt was observed to be agitated with aggressive language and labile affect. SW worked to co-regulate pt and provide support via active and empathetic listening. Pt shared that he is entitled to whatever care he needs as he has precedence over all medical decisions as being declared totally disabled. SW created space for pt to verbally process emotions and return to a more regulated state. ARBEN called Ms Wyatt at 15:35 to inquire into status of determination, as it was previously mentioned that reviews occur at 13:00 and a determination would be offered same day. Ms. Wyatt reports she has not received a decision at this time. When asked, Ms Wyatt reports that she is unable to confirm that fax had been received and is in process. Ms Wyatt reports that there are no other contacts that ARBEN could call to confirm this information. Ms Wyatt reports that she does not have any contacts that she can reach out to regarding this information. Ms Wyatt offered that if she has not received a decision by 14:00 tomorrow (following review at 13:00), that she would follow up with ARBEN. ARBEN re-faxed documentation with a request for a call to confirm receipt (fax [phone]). ARBEN received fax confirmation of fax at 16:12. ARBEN attempted to call [facility] Office ([phone] ext [phone]), however, office was closed and there was no ability to leave a voicemail. ARBEN notified hospitalist of undecided determination at this time. ARBEN updated bedside nurse and pt as well. Pt agreeable and cooperative in demeanor. Plan: [facility]; pending [facility] approval JAKE Mcdonald
[2024-07-27 17:01] LABS: Bedside Glucose 190 mg/dL (74-106)
[2024-07-27 19:55] VITALS: BP 145/82; PULSE 97; RESP 18; TEMP 36.9; O2SAT 98
[2024-07-27] MEDS: tiZANidine HCl 2 MG Tablet PO (20:06)
[2024-07-27] MEDS: MELATONIN 3 MG TABLET PO (22:18)
[2024-07-27] MEDS: Atorvastatin Calcium 40 MG Tablet PO (22:18)
[2024-07-27 22:40] LABS: Bedside Glucose 338 mg/dL (74-106)
[2024-07-28] VITALS (7 sets, daily range): BP systolic 142–163; BP diastolic 65–77; PULSE 80–89; RESP 16–18; TEMP 36.6–37; O2SAT 94–100; BMI 34.7
[2024-07-28] MEDS: oxyCODONE 5 MG Tablet PO ×2 (04:08→21:05)
[2024-07-28] MEDS: Acetaminophen 325 MG Tablet 650 MG PO ×2 (04:08→21:06)
[2024-07-28 06:19] LABS: Absolute Lymphocyte Count 1.88 X10^3/uL (0.83-4.51); Absolute Neutrophil Count 2.6 X10^3/uL (2.0-7.7); Basophil# 0.01 X10^3/uL; Basophil% 0.2 % (0-1); Eosinophil# 0.12 X10^3/uL; Eosinophils% 2.3 % (0-5); Hematocrit 28.2 % (40-54); Hemoglobin 8.8 g/dL (13.0-16.5); Lymphocyte # 1.88 X10^3/ul (0.83-4.51); Lymphocyte % 35.9 % (19-41); Mean Corp Hgb Conc 31.2 g/dL (32-36); Mean Corpuscular Hgb 23.1 pg (27.0-32.0); Mean Platelet Vol. 11.6 fl (6.2-12.0); Monocyte# 0.64 X10^3/uL; Monocyte% 12.2 % (0-10); NRBC Flagged by Analyzer 0 % (0-5); Neutrophil # 2.56 X10^3/uL (2.7-7.7); Platelet Count 181 K/mm3 (150-450); RBC Distribution Width CV 14.6 % (11.6-14.6); RBC Distribution Width SD 38.9 fl (35.1-43.9); Red Blood Count 3.81 M/mm3 (4.6-6.2); White Blood Count 5.2 K/mm3 (4.4-11.0)
[2024-07-28 07:19] LABS: Anion Gap 9 (5-15); BUN 24 mg/dL (4-19); BUN/Creat Ratio 22.3 RATIO (10-20); Calcium,Total 8.8 mg/dL (7.6-11.0); Carbon Dioxide 24.2 mmol/L (21.0-32.0); Chloride 103 mmol/L (98-108); Creatinine, Serum 1.06 mg/dL (0.70-1.20); EST Glomerular Filtration Rate 75 (>60); Estimated Creatinine Clearance 87.67 ml/min (50-250); Glucose 244 mg/dL (70-99); Potassium 4.9 mmol/L (3.3-5.1); Sodium Level 136 mmol/L (133-145)
[2024-07-28] MEDS: Pantoprazole Sodium 40 MG Tablet PO (08:34)
[2024-07-28] MEDS: Losartan Potassium 25 MG Tablet 12.5 MG PO (08:34)
[2024-07-28] MEDS: Insulin Lispro 100 UNIT/ML INSULN.PEN 12 UNIT SC ×3 (08:35→16:17)
[2024-07-28] MEDS: Insulin Lispro 100 UNIT/ML INSULN.PEN SC ×3 (08:36→21:04)
[2024-07-28] MEDS: Insulin Glargine-YFGN 100 UNIT/ML Pen 35 UNIT SC ×2 (08:36→21:05)
[2024-07-28] MEDS: Enoxaparin 40 MG/0.4 ML Syringe SC (08:37)
[2024-07-28] MEDS: Lidocaine 5% Patch 2 PATCH TOPICAL (08:37)
[2024-07-28] MEDS: Gabapentin 800 MG Tablet PO ×2 (08:46→21:06)
[2024-07-28] MEDS: Morphine 2 MG/ML Syringe IV (08:47)
--- NOTE | 2024-07-28 09:08 | PCM.PN.HOSP ---
Reason for Visit Reason for Visit: Diagnoses Pain, unspecified (07/25/24) Unspecified fall, initial encounter (07/25/24) Subjective Subjective Patient seen still complains of feeling weak. Awaiting insurance precertification from the [place] prior to patient being discharged Objective Data Objective Data Vital Signs: Vital Signs Temp Pulse Resp BP Pulse Ox O2 Del Method 98 F 80 18 142/68 H 100 Room Air 07/28/24 04:04 07/28/24 04:04 07/28/24 04:04 07/28/24 04:04 07/28/24 04:04 07/28/24 04:04 Oxygen Delivery Method Room Air Weight: 122.7 kg Body Mass Index (BMI) 34.7 Intake & Output: Intake and Output for Last 24 Hours 07/26/24 07/27/24 07/28/24 23:59 23:59 23:59 Intake Total 120 / 120 120 / 120 700 / 700 Output Total 600 / 900 400 / 400 Balance -480 / -780 -280 / -280 700 / 700 Lab / Micro Data 07/28/24 05:47 07/28/24 05:47 Labs: Laboratory Results - last 24 hr 07/27/24 06:10: Retic Count 2.26 H, Immature Retic Fraction 30.90 H, Retic Hgb Equivalent 24.9 L, Iron 43 L, TIBC 267, Iron Saturation 16.0, Unsaturated IBC 224 L, Vitamin B12 394 07/27/24 11:54: POC Glucose 155 H 07/27/24 16:41: POC Glucose 190 H 07/27/24 22:15: POC Glucose 338 H 07/28/24 05:47: WBC 5.2, RBC 3.81 L, Hgb 8.8 L, Hct 28.2 L, MCV 74.0 L, MCH 23.1 L, MCHC 31.2 L, RDW Std Deviation 38.9, RDW Coeff of Summer 14.6, Plt Count 181, MPV 11.6, Immature Gran % (Auto) 0.400, Neut % (Auto) 49.0, Lymph % (Auto) 35.9, [place] % (Auto) 12.2 H, Eos % (Auto) 2.3, Baso % (Auto) 0.2, Absolute Neuts (auto) 2.6, Absolute Lymphs (auto) 1.88, Nucleated RBC % 0, Sodium 136, Potassium 4.9, Chloride 103, Carbon Dioxide 24.2, Anion Gap 9, BUN 24 H, Creatinine 1.06, Estim Creat Clear Calc 87.67, Est GFR (MDRD) Non-Af 75, BUN/Creatinine Ratio 22.3 H, Glucose 244 H, Calcium 8.8 Physical Exam Narrative GENERAL: cooperative HEENT: Atraumatic; normocephalic EYES; Anicteric, Normal Conjunctiva NECK; supple, normal thyroid, RESPIRATORY: Diminished to auscultation CARDIOVASCULAR: Regular S1 S2, GI: soft, normoactive bowel sounds, : No Renal angle tenderness; EXTREMITIES: No edema, no clubbing, MUSCULOSKELETAL: no muscle wasting NEURO: Awake; no lateralizing signs. SKIN: No Rash PSYCH; Flat affect Assessment & Plan Assessment/Plan (1) Intractable pain: (2) Fall: PLAN: Plan Patient is a 74-year-old gentleman presented following a fall 1. Acute mechanical fall ? Patient underwent extensive imaging studies with no identifiable fractures. Admitted to regular nursing floor for pain management. Requested for PT OT eval and social work supervisor to assist with discharge planning 07/27/2024;Patient seen awaiting insurance precertification prior to being transferred to residential facility for rehab. If patient denied plan for patient to be discharged home with outpatient PT ? 07/28/2024; insurance precertification pending prior to patient being 2. Polysubstance dependence ? Patient urine drug screen was positive for cocaine alcohol was less than10.1. Cessation encouraged 3. Diabetes mellitus type II -patient's oral hypoglycemics held. Placed on long acting insulin, Accu-Cheks a.c. and at bedtime and covered with sliding scale insulin 4. Class I obesity with BMI of 33.6 ? Weight loss advised 5. Hypertension ? Blood pressure controlled, home medications continued with dose adjustment as needed 6. GERD ? On PPI 7. Mild intermittent asthma ? Aerosol treatment as needed 8. Diabetic polyneuropathy ? Patient is on gabapentin 9. Dyslipidemia ?Patient is on statin therapy, continued at home dose 10. Obstructive sleep apnea ? With reported noncompliance with PAP therapy consistent use encouraged 11. DVT prophylaxis ? On enoxaparin 12. Anemia ? Secondary to chronic disorder monitoring H&H and transfuse if patient becomes symptomatic or hemoglobin falls below 7, did undertake iron studies given patient low MCV 6 extremity and 5; patient iron studies consistent with iron deficiency anemia patient given parenteral iron discussed with patient on the need to undergo subsequent outpatient evaluation including colonoscopy given his advanced age Time spent in the patient's overall evaluation,decision-making process, review of diagnostic data, adjustment of management, discussion with other providers, nursing nursing and ancillary staff involved in patient's care documentation, 35 Minutes Charges/Coding Visit Charges Inpatient E&M: 65409 Subs Hosp L2
[2024-07-28 09:27] LABS: Bedside Glucose 201 mg/dL (74-106)
[2024-07-28 11:51] LABS: Bedside Glucose 141 mg/dL (74-106)
--- NOTE | 2024-07-28 14:47 | CASEMGMT ---
Addendum entered by Sheron Flores 07/28/24 15:58: Social Work Return call from Sil Espino at the [place]. Sil will reach out to [facility] to set up authorization and call this screen writer back. JAKE Buchanan Addendum entered by Sheron Flores 07/28/24 15:44: Social Work Second call placed to Sil Pisanoyor with call going to . Call to the [facility] dept and VM recieved. SW called Kymberly Casillas and explained that Sil has not returned call and SW would like to obtain authorization today so pt does not have to be hospitalized all weeked as he is ready for dc. Kymberly placed SW on hold then came back and stated she contacted Sil with the situation and Sil will reach out to this SW shortly to discuss authorization for SNF. JAKE Buchanan Original Note: Social Work SW received call from Kymberly Casillas at the [facility] ([phone] ext [phone]) who states that pt has been approved for 30 days of skilled stay at a facility in the [facility]. Kymberly states this SW much contact local [place] to find a facility in the [facility] and once a facility is secured, this SW must call Sil Espino at [facility] to set up authorization. Phone call placed to Yahir at [facility]. Yahir confirms [facility] is in the [facility] with provider number [phone]. Phone call placed to Sil Espino at [facility] ([phone]) and left requesting a call back as soon as possible to setup authorization for SNF. SW awaiting return call. JAKE Buchanan
--- NOTE | 2024-07-28 16:15 | PCM.TXEXTCAR ---
Diet Diet Order/Speech Therapy: INPATIENT Hospital Diet / Speech Therapy Order(s) 07/25/24 21:08 Diet: Consistent Carb - Calorie Controlled Food consistency:: Regular Liquid Consistency:: Regular/Thin How many daily calories?: 1800 calorie Routine Orders/Code Status Code Status: Full Code DC O2, CPAP, BIPAP needs Home O2 Discharge instructions: No Wound(s) rt knee: Wound Type: Skin Tear Therapies Physical Therapy: Eval and Treat Occupational Therapy: Eval and Treat Problem/Diagnosis (1) Intractable pain: Status: Acute Code(s): R52 - Pain, unspecified (2) Fall: Status: Acute Code(s): W19.XXXA - Unspecified fall, initial encounter Plan Patient is a 74-year-old gentleman presented following a fall 1. Acute mechanical fall ? Patient underwent extensive imaging studies with no identifiable fractures. Admitted to regular nursing floor for pain management. Requested for PT OT eval and social media senior associate to assist with discharge planning 07/27/2024;Patient seen awaiting insurance precertification prior to being transferred to assisted facility for rehab. If patient denied plan for patient to be discharged home with outpatient PT ? 07/28/2024; insurance precertification pending prior to patient being 2. Polysubstance dependence ? Patient urine drug screen was positive for cocaine alcohol was less than10.1. Cessation encouraged 3. Diabetes mellitus type II -patient's oral hypoglycemics held. Placed on long acting insulin, Accu-Cheks a.c. and at bedtime and covered with sliding scale insulin 4. Class I obesity with BMI of 33.6 ? Weight loss advised 5. Hypertension ? Blood pressure controlled, home medications continued with dose adjustment as needed 6. GERD ? On PPI 7. Mild intermittent asthma ? Aerosol treatment as needed 8. Diabetic polyneuropathy ? Patient is on gabapentin 9. Dyslipidemia ?Patient is on statin therapy, continued at home dose 10. Obstructive sleep apnea ? With reported noncompliance with PAP therapy consistent use encouraged 11. DVT prophylaxis ? On enoxaparin 12. Anemia ? Secondary to chronic disorder monitoring H&H and transfuse if patient becomes symptomatic or hemoglobin falls below 7, did undertake iron studies given patient low MCV 6 extremity and 5; patient iron studies consistent with iron deficiency anemia patient given parenteral iron discussed with patient on the need to undergo subsequent outpatient evaluation including colonoscopy given his advanced age Time spent in the patient's overall evaluation,decision-making process, review of diagnostic data, adjustment of management, discussion with other providers, nursing nursing and ancillary staff involved in patient's care documentation, 35 Minutes Allergies/Procedures Done in Hospital Allergies Penicillins Allergy (Unknown, Verified 07/25/24 16:41) NEEDS FOLLOW-UP Type of Care/Length of Stay Estimated LOS: Convalescent Care Less Than 30 days Type of Care Needed: Skilled Rehab Potential: Good Prognosis: Good Additional Orders/Day of Discharge Day of Discharge: 07/28/24 Discharge Plan Admission Admit Date/Time: 07/25/24 20:25 Attending Provider: Mikhail Guzman Primary Care Provider: [facility] Doctor,Out of Consulting Providers: Indu Strauss Discharge Orders/Prescriptions Prescriptions: New melatonin 3 mg Tablet 3 mg PO QHS PRN PRN (Reason: Insomnia) Qty: 0 0RF lidocaine 5 % Adhesive Patch,Medicated 2 patch topical DAILY Qty: 0 0RF Protocol: *Topical Application Instructions APPLICATION INSTRUCTIONS: L side U/L extremity points of most pain. alum-mag hydroxide-simeth [Mag-Al Plus Extra Strength] 400-400-40 mg/5 mL Suspension 30 ml PO Q6H PRN PRN (Reason: Gastric Burning) Qty: 0 0RF oxycodone 5 mg Tablet 5 mg PO Q4H PRN PRN (Reason: Pain Score 4-10) 3 Days Qty: 14 0RF insulin lispro [Humalog KwikPen Insulin] 100 unit/mL Insulin Pen See Protocol subcut ACHS Qty: 0 0RF Protocol: 3. Sliding Scale Insulin Med Dosing Condition: 150-189 mg/dl = 1 unit Condition: 190-229 mg/dl = 2 units Condition: 230-269 mg/dl = 3 units Condition: 270-309 mg/dl = 4 units Condition: 310-349 mg/dl = 5 units Condition: 350-399 mg/dl = 6 units Condition: 400-449 mg/dl = 7 units Condition: Greater than 449 call physician Protocol Text: - Use for Total Daily Dose of Insulin 37-55 units - Obsese, infected, or steroid patients MEDIUM DOSING ALGORITHIM tizanidine 2 mg Tablet 2 mg PO Q8H PRN PRN (Reason: Muscle spasm/strain) Qty: 0 0RF sennosides-docusate sodium [Stimulant Laxative Plus] 8.6-50 mg Tablet 2 tab PO BID PRN PRN (Reason: Constipation) Qty: 0 0RF acetaminophen 325 mg Tablet 650 mg PO Q4H PRN PRN (Reason: Fever, pain -12/01) Qty: 0 0RF albuterol sulfate 2.5 mg /3 mL (0.083 %) Solution For Nebulization 2.5 mg inhalation Q2H PRN PRN (Reason: Dyspnea, wheezing) Qty: 0 0RF polysaccharide iron complex [Ferrex 150] 150 mg iron Capsule 150 mg PO DAILY Qty: 0 0RF Continued insulin glargine [Lantus Solostar U-100 Insulin] 100 unit/mL (3 mL) insulin pen 35 unit subcut BID insulin aspart U-100 [Novolog FlexPen U-100 Insulin] 100 unit/mL (3 mL) insulin pen 12 unit subcut TID metformin 1,000 mg tablet 1,000 mg PO BID atorvastatin [Lipitor] 40 mg tablet 40 mg PO QHS losartan [Cozaar] 25 mg tablet 12.5 mg PO DAILY albuterol sulfate [Ventolin HFA] 90 mcg/actuation HFA aerosol inhaler 2 inh inhalation Q8H PRN (Reason: shortness of breath) gabapentin 800 mg tablet 800 mg PO BID cholecalciferol (vitamin D3) [Vitamin D3] 25 mcg (1,000 unit) tablet 50 mcg PO DAILY ascorbic acid (vitamin C) [Vitamin C] 500 mg tablet 500 mg PO DAILY pantoprazole [Protonix] 40 mg tablet,delayed release (DR/EC) 40 mg PO DAILY Discontinued hydrocodone-acetaminophen 5-325 mg tablet 1 tab PO Q6H PRN PRN (Reason: Pain) 3 Days Qty: 10 0RF Referrals / Follow Up: [facility] Doctor,Out of [Primary Care Provider] - Within 1 Month (To be scheduled for outpatient colonoscopy) Disposition Disposition (needs filled in before D/C Order can be placed): [facility]
--- NOTE | 2024-07-28 16:18 | PCM.DC.SUM ---
Providers Date of Admission: 07/25/24 Date of Discharge: 07/28/24 Primary Care Physician: Out of [facility] Doctor Reason For Visit: FALL, INTRACTABLE PAIN Diagnosis Discharge Diagnosis (1) Intractable pain: Status: Acute Code(s): R52 - Pain, unspecified (2) Fall: Status: Acute Code(s): W19.XXXA - Unspecified fall, initial encounter Plan Patient is a 74-year-old gentleman presented following a fall 1. Acute mechanical fall ? Patient underwent extensive imaging studies with no identifiable fractures. Admitted to regular nursing floor for pain management. Requested for PT OT eval and industrial services worker to assist with discharge planning 07/27/2024;Patient seen awaiting insurance precertification prior to [facility]. If patient denied plan for patient to be discharged home with outpatient PT ? 07/28/2024; insurance precertification pending prior to patient being 2. Polysubstance dependence ? Patient urine drug screen was positive for cocaine alcohol was less than10.1. Cessation encouraged 3. Diabetes mellitus type II -patient's oral hypoglycemics held. Placed on long acting insulin, Accu-Cheks a.c. and at bedtime and covered with sliding scale insulin 4. Class I obesity with BMI of 33.6 ? Weight loss advised 5. Hypertension ? Blood pressure controlled, home medications continued with dose adjustment as needed 6. GERD ? On PPI 7. Mild intermittent asthma ? Aerosol treatment as needed 8. Diabetic polyneuropathy ? Patient is on gabapentin 9. Dyslipidemia ?Patient is on statin therapy, continued at home dose 10. Obstructive sleep apnea ? With reported noncompliance with PAP therapy consistent use encouraged 11. DVT prophylaxis ? On enoxaparin 12. Anemia ? Secondary to chronic disorder monitoring H&H and transfuse if patient becomes symptomatic or hemoglobin falls below 7, did undertake iron studies given patient low MCV 6 extremity and 5; patient iron studies consistent with iron deficiency anemia patient given parenteral iron discussed with patient on the need to undergo subsequent outpatient evaluation including colonoscopy given his advanced age Time spent in the patient's overall evaluation,decision-making process, review of diagnostic data, adjustment of management, discussion with other providers, nursing nursing and ancillary staff involved in patient's care documentation, 35 Minutes Medications at Discharge Home Medications albuterol sulfate 90 mcg/actuation aerosol inhaler (Ventolin HFA) 2 inh inhalation Q8H PRN shortness of breath 07/15/24 ascorbic acid (vitamin C) 500 mg tablet (Vitamin C) 500 mg PO DAILY 07/15/24 atorvastatin 40 mg tablet (Lipitor) 40 mg PO QHS 07/15/24 cholecalciferol (vitamin D3) 25 mcg (1,000 unit) tablet (Vitamin D3) 50 mcg PO DAILY 07/15/24 gabapentin 800 mg tablet 800 mg PO BID 07/15/24 insulin aspart U-100 100 unit/mL (3 mL) subcutaneous pen (Novolog FlexPen U-100 Insulin aspart) 12 unit subcut TID 07/15/24 insulin glargine 100 unit/mL (3 mL) subcutaneous pen (Lantus Solostar U-100 Insulin) 35 unit subcut BID 07/15/24 losartan 25 mg tablet (Cozaar) 12.5 mg PO DAILY 07/15/24 metformin 1,000 mg tablet 1,000 mg PO BID 07/15/24 pantoprazole 40 mg tablet,delayed release (Protonix) 40 mg PO DAILY 07/15/24 acetaminophen 325 mg tablet 650 mg (2 x 325 mg) PO Q4H PRN PRN Fever, pain 1-12/01 #0 tabs 07/28/24 albuterol sulfate 2.5 mg/3 mL (0.083 %) solution for nebulization 2.5 mg (3 mL) inhalation Q2H PRN PRN Dyspnea, wheezing #0 mL 07/28/24 aluminum-mag hydroxide-simethicone 400 mg-400 mg-40 mg/5 mL oral susp (Mag-Al Plus Extra Strength) 30 ml PO Q6H PRN PRN Gastric Burning #0 mL 07/28/24 insulin lispro 100 unit/mL subcutaneous pen (Humalog KwikPen (U-100) Insulin) See Protocol subcut ACHS #0 mL 07/28/24 lidocaine 5 % topical patch 2 patch topical DAILY #0 ea 07/28/24 melatonin 3 mg tablet 3 mg PO QHS PRN PRN Insomnia #0 tabs 07/28/24 oxycodone 5 mg tablet 5 mg PO Q4H PRN PRN Pain Score 4-10 3 days #14 tabs 07/28/24 polysaccharide iron complex 150 mg iron capsule (Ferrex) 150 mg PO DAILY #0 caps 07/28/24 sennosides 8.6 mg-docusate sodium 50 mg tablet (Stimulant Laxative Plus) 2 tab PO BID PRN PRN Constipation #0 tabs 07/28/24 tizanidine 2 mg tablet 2 mg PO Q8H PRN PRN Muscle spasm/strain #0 tabs 07/28/24 Physical Exam Narrative GENERAL: cooperative HEENT: Atraumatic; normocephalic EYES; Anicteric, Normal Conjunctiva NECK; supple, normal thyroid, RESPIRATORY: Diminished to auscultation CARDIOVASCULAR: Regular S1 S2, GI: soft, normoactive bowel sounds, : No Renal angle tenderness; EXTREMITIES: No edema, no clubbing, MUSCULOSKELETAL: no muscle wasting NEURO: Awake; no lateralizing signs. SKIN: No Rash PSYCH; Flat affect Weight / BMI Weight Weight: 122.7 kg Body Mass Index (BMI) 34.7 ABG / Lab / Microbiology Data 07/28/24 05:47 07/28/24 05:47 Laboratory: Laboratory Results - last 24 hr 07/27/24 16:41: POC Glucose 190 H 07/27/24 22:15: POC Glucose 338 H 07/28/24 05:47: WBC 5.2, RBC 3.81 L, Hgb 8.8 L, Hct 28.2 L, MCV 74.0 L, MCH 23.1 L, MCHC 31.2 L, RDW Std Deviation 38.9, RDW Coeff of Summer 14.6, Plt Count 181, MPV 11.6, Immature Gran % (Auto) 0.400, Neut % (Auto) 49.0, Lymph % (Auto) 35.9, [place] % (Auto) 12.2 H, Eos % (Auto) 2.3, Baso % (Auto) 0.2, Absolute Neuts (auto) 2.6, Absolute Lymphs (auto) 1.88, Nucleated RBC % 0, Sodium 136, Potassium 4.9, Chloride 103, Carbon Dioxide 24.2, Anion Gap 9, BUN 24 H, Creatinine 1.06, Estim Creat Clear Calc 87.67, Est GFR (MDRD) Non-Af 75, BUN/Creatinine Ratio 22.3 H, Glucose 244 H, Calcium 8.8 07/28/24 08:33: POC Glucose 201 H 07/28/24 11:26: POC Glucose 141 H D/C Instructions Discharge Diet: 1800 Calorie Control Diet Discharge Activity: Return to Normal Activity Call your doctor if you observe: Fever of 101 or Higher, Shortness of breath, Fainting spells and Chest pain DC O2, CPAP, BIPAP Needs Home O2 Discharge instructions: No Meaningful Use Info Meaningful Use Meaningful Use Diagnoses (Choose all that apply): None applicable Ischemic Stroke Statin Dosing Therapy Reference: STATIN DOSE THERAPY REFERENCE: * Patients > 75 years receive moderate or high dose statin therapy. * Patients 75 years or YOUNGER should receive HIGH intensity statin dose unless contraindicated. You will be required to document reason for non-treatment if statin daily dose does not meet guidelines. HIGH DOSE STATIN THERAPY DAILY Atorvastatin > than or = to 40 mg Rosuvastatin > than or = to 20 mg Amlodipine + Atorvastatin > than or = to 2.5/40 mg Ezetimibe + Simvastatin 10/80 mg Simvastatin 80mg Discharge Plan Admission Admit Date/Time: 07/25/24 20:25 Attending Provider: Mikhail Guzman Primary Care Provider: [facility] Doctor,Out of Consulting Providers: Indu Strauss Discharge Orders/Prescriptions Prescriptions: New melatonin 3 mg Tablet 3 mg PO QHS PRN PRN (Reason: Insomnia) Qty: 0 0RF lidocaine 5 % Adhesive Patch,Medicated 2 patch topical DAILY Qty: 0 0RF Protocol: *Topical Application Instructions APPLICATION INSTRUCTIONS: L side U/L extremity points of most pain. alum-mag hydroxide-simeth [Mag-Al Plus Extra Strength] 400-400-40 mg/5 mL Suspension 30 ml PO Q6H PRN PRN (Reason: Gastric Burning) Qty: 0 0RF oxycodone 5 mg Tablet 5 mg PO Q4H PRN PRN (Reason: Pain Score 4-10) 3 Days Qty: 14 0RF insulin lispro [Humalog KwikPen Insulin] 100 unit/mL Insulin Pen See Protocol subcut ACHS Qty: 0 0RF Protocol: 3. Sliding Scale Insulin Med Dosing Condition: 150-189 mg/dl = 1 unit Condition: 190-229 mg/dl = 2 units Condition: 230-269 mg/dl = 3 units Condition: 270-309 mg/dl = 4 units Condition: 310-349 mg/dl = 5 units Condition: 350-399 mg/dl = 6 units Condition: 400-449 mg/dl = 7 units Condition: Greater than 449 call physician Protocol Text: - Use for Total Daily Dose of Insulin 37-55 units - Obsese, infected, or steroid patients MEDIUM DOSING ALGORITHIM tizanidine 2 mg Tablet 2 mg PO Q8H PRN PRN (Reason: Muscle spasm/strain) Qty: 0 0RF sennosides-docusate sodium [Stimulant Laxative Plus] 8.6-50 mg Tablet 2 tab PO BID PRN PRN (Reason: Constipation) Qty: 0 0RF acetaminophen 325 mg Tablet 650 mg PO Q4H PRN PRN (Reason: Fever, pain -12/01) Qty: 0 0RF albuterol sulfate 2.5 mg /3 mL (0.083 %) Solution For Nebulization 2.5 mg inhalation Q2H PRN PRN (Reason: Dyspnea, wheezing) Qty: 0 0RF polysaccharide iron complex [Ferrex 150] 150 mg iron Capsule 150 mg PO DAILY Qty: 0 0RF Continued insulin glargine [Lantus Solostar U-100 Insulin] 100 unit/mL (3 mL) insulin pen 35 unit subcut BID insulin aspart U-100 [Novolog FlexPen U-100 Insulin] 100 unit/mL (3 mL) insulin pen 12 unit subcut TID metformin 1,000 mg tablet 1,000 mg PO BID atorvastatin [Lipitor] 40 mg tablet 40 mg PO QHS losartan [Cozaar] 25 mg tablet 12.5 mg PO DAILY albuterol sulfate [Ventolin HFA] 90 mcg/actuation HFA aerosol inhaler 2 inh inhalation Q8H PRN (Reason: shortness of breath) gabapentin 800 mg tablet 800 mg PO BID cholecalciferol (vitamin D3) [Vitamin D3] 25 mcg (1,000 unit) tablet 50 mcg PO DAILY ascorbic acid (vitamin C) [Vitamin C] 500 mg tablet 500 mg PO DAILY pantoprazole [Protonix] 40 mg tablet,delayed release (DR/EC) 40 mg PO DAILY Discontinued hydrocodone-acetaminophen 5-325 mg tablet 1 tab PO Q6H PRN PRN (Reason: Pain) 3 Days Qty: 10 0RF Referrals / Follow Up: [facility] Doctor,Out of [Primary Care Provider] - Within 1 Month (To be scheduled for outpatient colonoscopy) Disposition Disposition (needs filled in before D/C Order can be placed): [facility] Facility Charges/Coding Visit Charges Inpatient E&M: 69765 Disch Hosp >30min
[2024-07-28 16:40] LABS: Bedside Glucose 157 mg/dL (74-106)
--- NOTE | 2024-07-28 16:46 | CASEMGMT ---
Social Work SW spoke with Barbra from [facility]. Barbra states that she has spoke with Sil at the [place] and Sil states the auth will be emailed to [facility] shortly. Barbra will call the nursing unit when auth is received. Physician notified and pt is ready for dc. DC orders sent to [facility] via [facility]. SW updated pt that pt has been approved and will likely discharge tonight. Pt is agreeable. Green sheet on chart to facilitate discharge. Orders have been sent, transportation will need set up once [facility] calls with final auth. Plan: [facility], skilled level of care JAKE Buchanan
[2024-07-28] MEDS: Sodium Ferric Gluconat/Sucrose 250 MG in 0.9% Normal Saline (250mL Bag) 250 ML 135 MG IV (16:48)
[2024-07-28] MEDS: 0.9% Saline Lock 10 ML Syringe IV ×2 (16:48→21:07)
[2024-07-28] MEDS: MELATONIN 3 MG TABLET PO (21:06)
[2024-07-28] MEDS: hydrALAZINE 20 MG/ML Vial 10 MG IV (21:06)
[2024-07-28] MEDS: Atorvastatin Calcium 40 MG Tablet PO (21:06)
[2024-07-28 22:17] LABS: Bedside Glucose 290 mg/dL (74-106)
[2024-07-29] MEDS: Morphine 2 MG/ML Syringe IV ×2 (00:23→15:11)
[2024-07-29 03:01] VITALS: BP 141/75; PULSE 78; RESP 18; TEMP 36.3; O2SAT 98
[2024-07-29 05:48] VITALS: BMI 34.0
[2024-07-29 05:57] LABS: Absolute Lymphocyte Count 1.97 X10^3/uL (0.83-4.51); Absolute Neutrophil Count 3.4 X10^3/uL (2.0-7.7); Basophil# 0.02 X10^3/uL; Basophil% 0.3 % (0-1); Eosinophil# 0.14 X10^3/uL; Eosinophils% 2.2 % (0-5); Hematocrit 31.8 % (40-54); Hemoglobin 10.1 g/dL (13.0-16.5); Lymphocyte # 1.97 X10^3/ul (0.83-4.51); Lymphocyte % 31.5 % (19-41); Mean Corp Hgb Conc 31.8 g/dL (32-36); Mean Corpuscular Hgb 23.4 pg (27.0-32.0); Mean Corpuscular Volume 73.8 fL (80-94); Mean Platelet Vol. 11.2 fl (6.2-12.0); Monocyte# 0.73 X10^3/uL; Monocyte% 11.7 % (0-10); NRBC Flagged by Analyzer 0 % (0-5); Neutrophil # 3.35 X10^3/uL (2.7-7.7); Neutrophil % 53.7 % (47-70); Platelet Count 212 K/mm3 (150-450); RBC Distribution Width CV 14.4 % (11.6-14.6); RBC Distribution Width SD 38.5 fl (35.1-43.9); Red Blood Count 4.31 M/mm3 (4.6-6.2); White Blood Count 6.3 K/mm3 (4.4-11.0)
[2024-07-29 06:13] LABS: Anion Gap 10 (5-15); BUN 15 mg/dL (4-19); BUN/Creat Ratio 14.6 RATIO (10-20); Calcium,Total 9.3 mg/dL (7.6-11.0); Carbon Dioxide 26.2 mmol/L (21.0-32.0); Chloride 101 mmol/L (98-108); Creatinine, Serum 0.99 mg/dL (0.70-1.20); EST Glomerular Filtration Rate 81 (>60); Estimated Creatinine Clearance 92.96 ml/min (50-250); Glucose 157 mg/dL (70-99); Potassium 4.5 mmol/L (3.3-5.1); Sodium Level 137 mmol/L (133-145)
[2024-07-29 07:48] VITALS: BP 133/85; PULSE 87; RESP 16; TEMP 36.3; O2SAT 98
[2024-07-29] MEDS: Insulin Lispro 100 UNIT/ML INSULN.PEN 12 UNIT SC ×3 (07:55→16:25)
[2024-07-29] MEDS: Insulin Glargine-YFGN 100 UNIT/ML Pen 35 UNIT SC ×2 (07:56→20:21)
[2024-07-29] MEDS: Losartan Potassium 25 MG Tablet 12.5 MG PO (07:58)
[2024-07-29] MEDS: Pantoprazole Sodium 40 MG Tablet PO (07:59)
[2024-07-29] MEDS: Enoxaparin 40 MG/0.4 ML Syringe SC (07:59)
[2024-07-29] MEDS: Gabapentin 800 MG Tablet PO ×2 (08:04→20:53)
[2024-07-29] MEDS: oxyCODONE 5 MG Tablet PO ×2 (08:05→20:53)
[2024-07-29] MEDS: Lidocaine 5% Patch 2 PATCH TOPICAL (08:08)
[2024-07-29 08:33] LABS: Bedside Glucose 147 mg/dL (74-106)
[2024-07-29] MEDS: Iron Polysaccharide Complex 150 MG CAPSULE PO (09:57)
[2024-07-29] MEDS: tiZANidine HCl 2 MG Tablet PO (10:03)
[2024-07-29 11:59] LABS: Bedside Glucose 222 mg/dL (74-106)
[2024-07-29] MEDS: Insulin Lispro 100 UNIT/ML INSULN.PEN SC ×3 (12:08→20:21)
--- NOTE | 2024-07-29 13:43 | CASEMGMT ---
Social Work SW did receive a message back from [facility] in [facility]. They asked for the [facility] to [facility] [place] so are hopeful it may come through today. SW asked SW to just call [facility] if they do indeed get the approval for pt to go to [facility] today. LINA Galicia
[2024-07-29] MEDS: 0.9% Saline Lock 10 ML Syringe IV ×2 (15:11→20:37)
[2024-07-29 15:15] VITALS: BP 130/76; PULSE 88; RESP 15; TEMP 36.7; O2SAT 100
[2024-07-29 16:49] LABS: Bedside Glucose 275 mg/dL (74-106)
--- NOTE | 2024-07-29 18:19 | PN.HOSP_ITS ---
Reason for Visit Reason for Visit: Diagnoses Pain, unspecified (07/25/24) Unspecified fall, initial encounter (07/25/24) Subjective Subjective Patient was seen and examined today we are still awaiting approval for him to go to an extended care facility for inpatient rehab services Objective Data Objective Data Vital Signs: Vital Signs Temp Pulse Resp BP Pulse Ox O2 Del Method 98.0 F 88 15 130/76 H 100 Room Air 07/29/24 15:15 07/29/24 15:15 07/29/24 15:15 07/29/24 15:15 07/29/24 15:15 07/29/24 15:15 Oxygen Delivery Method Room Air Weight: 120.3 kg Body Mass Index (BMI) 34.0 Intake & Output: Intake and Output for Last 24 Hours 07/27/24 07/28/24 07/29/24 23:59 23:59 23:59 Intake Total 120 / 120 970 / 1470 1100 / 1100 Output Total 400 / 400 925 / 1925 2600 / 2600 Balance -280 / -280 45 / -455 -1500 / -1500 Lab / Micro Data 07/29/24 05:45 07/29/24 05:45 Labs: Laboratory Results - last 24 hr 07/28/24 21:01: POC Glucose 290 H 07/29/24 05:45: WBC 6.3, RBC 4.31 L, Hgb 10.1 L, Hct 31.8 L, MCV 73.8 L, MCH 23.4 L, MCHC 31.8 L, RDW Std Deviation 38.5, RDW Coeff of Summer 14.4, Plt Count 212, MPV 11.2, Immature Gran % (Auto) 0.600, Neut % (Auto) 53.7, Lymph % (Auto) 31.5, [place] % (Auto) 11.7 H, Eos % (Auto) 2.2, Baso % (Auto) 0.3, Absolute Neuts (auto) 3.4, Absolute Lymphs (auto) 1.97, Nucleated RBC % 0, Sodium 137, Potassium 4.5, Chloride 101, Carbon Dioxide 26.2, Anion Gap 10, BUN 15, Creatinine 0.99, Estim Creat Clear Calc 92.96, Est GFR (MDRD) Non-Af 81, BUN/Creatinine Ratio 14.6, Glucose 157 H, Calcium 9.3 07/29/24 07:53: POC Glucose 147 H 07/29/24 11:40: POC Glucose 222 H 07/29/24 16:21: POC Glucose 275 H Physical Exam Const alert, oriented x3, no apparent distress and healthy appearing General Appearance: cooperative, well kempt and well developed Orientation / Consciousness: awake, oriented to person, oriented to place and oriented to time HEENT normocephalic, head/scalp atraumatic and moist oral mucous membranes Eyes PERRL, EOMs intact bilaterally and conjunctivae normal Neck supple, no JVD, thyroid normal and no carotid bruits General: trachea midline Resp normal respiratory effort, no retractions, no use of accessory muscles and clear to auscultation bilaterally Auscultation: Negative for rales, rhonchi or wheezes Cardio regular rate, regular rhythm, S1 normal heart sound, S2 normal heart sound, no murmurs, no rub and no gallops GI normal to inspection, nondistended, normoactive bowel sounds, soft to palpation, non-tender and non-distended Extremity no clubbing, cyanosis or edema Skin no rashes or lesions noted General Skin Exam: no breakdown Neuro oriented x3, CN's II-XII intact bilaterally and no focal motor deficits Neuro Narrative: decreased sensation to light touch in the feet Sensorium / Orientation: awake and alert Speech: speech normal Psych affect normal Assessment & Plan Assessment/Plan (1) Neuropathy: PLAN: Plan 1. Acute debility-secondary to neuropathy and osteoarthritis-continue PT and OT, awaiting approval of for ECF placement #2 type 2 diabetes-continue present medications, monitor blood sugars #3 essential hypertension-continue present medications #4 neuropathy secondary to diabetes-patient will remain on his present medications Total clinical time spent by myself addressing the patient's medical issues, reviewing all of his data, and collaborating with patient's care team: 35 minutes Charges/Coding Visit Charges Inpatient E&M: 15373 Subs Hosp L2
[2024-07-29 20:10] VITALS: BP 152/81; PULSE 105; RESP 18; TEMP 37; O2SAT 96
[2024-07-29] MEDS: Acetaminophen 325 MG Tablet 650 MG PO (20:19)
[2024-07-29] MEDS: Atorvastatin Calcium 40 MG Tablet PO (20:19)
[2024-07-29] MEDS: Arthritis Pain Compound 60 CLICK TUBE TOPICAL (20:20)
[2024-07-29] MEDS: MELATONIN 3 MG TABLET PO (20:53)
[2024-07-29 21:19] LABS: Bedside Glucose 348 mg/dL (74-106)
[2024-07-30 01:29] VITALS: BP 139/67; PULSE 93; RESP 18; TEMP 36.6; O2SAT 98
[2024-07-30] MEDS: Acetaminophen 325 MG Tablet 650 MG PO ×3 (01:32→20:40)
[2024-07-30] MEDS: oxyCODONE 5 MG Tablet PO ×4 (01:33→22:51)
[2024-07-30 03:53] VITALS: BMI 34.1
[2024-07-30 07:30] VITALS: BP 142/86; PULSE 76; RESP 20; TEMP 37; O2SAT 99
[2024-07-30] MEDS: Insulin Lispro 100 UNIT/ML INSULN.PEN SC ×4 (08:13→20:40)
[2024-07-30] MEDS: Arthritis Pain Compound 60 CLICK TUBE TOPICAL ×2 (08:13→20:40)
[2024-07-30] MEDS: Insulin Lispro 100 UNIT/ML INSULN.PEN 12 UNIT SC ×3 (08:13→16:35)
[2024-07-30] MEDS: Losartan Potassium 25 MG Tablet 12.5 MG PO (08:14)
[2024-07-30] MEDS: Insulin Glargine-YFGN 100 UNIT/ML Pen 35 UNIT SC ×2 (08:15→20:41)
[2024-07-30] MEDS: Lidocaine 5% Patch 2 PATCH TOPICAL (08:15)
[2024-07-30] MEDS: Pantoprazole Sodium 40 MG Tablet PO (08:15)
[2024-07-30] MEDS: Gabapentin 800 MG Tablet PO ×2 (08:20→20:40)
[2024-07-30] MEDS: Enoxaparin 40 MG/0.4 ML Syringe SC (08:22)
[2024-07-30 08:48] LABS: Bedside Glucose 217 mg/dL (74-106)
[2024-07-30] MEDS: Iron Polysaccharide Complex 150 MG CAPSULE PO (11:16)
[2024-07-30 11:42] LABS: Bedside Glucose 227 mg/dL (74-106)
--- NOTE | 2024-07-30 14:18 | PN.HOSP_ITS ---
Reason for Visit Reason for Visit: Diagnoses Polyneuropathy, unspecified (07/25/24) Pain, unspecified (07/25/24) Unspecified fall, initial encounter (07/25/24) Subjective Subjective Patient was seen and examined today, he states that he still having pain in his left knee but the right knee pain is better. I have elected to place him on Voltaren p.o., according to the patient, he has not taken nonsteroidal anti- inflammatory agents before. Objective Data Objective Data Vital Signs: Vital Signs Temp Pulse Resp BP Pulse Ox O2 Del Method 98.6 F 76 20 H 142/86 H 99 Room Air 07/30/24 07:30 07/30/24 07:30 07/30/24 07:30 07/30/24 07:30 07/30/24 07:30 07/30/24 10:00 Oxygen Delivery Method Room Air Weight: 120.6 kg Body Mass Index (BMI) 34.1 Intake & Output: Intake and Output for Last 24 Hours 07/28/24 07/29/24 07/30/24 23:59 23:59 23:59 Intake Total 970 / 1470 1100 / 1100 400 / 400 Output Total 925 / 1925 3350 / 3650 750 / 750 Balance 45 / -455 -2250 / -2550 -350 / -350 Lab / Micro Data 07/29/24 05:45 07/29/24 05:45 Labs: Laboratory Results - last 24 hr 07/29/24 16:21: POC Glucose 275 H 07/29/24 20:17: POC Glucose 348 H 07/30/24 08:11: POC Glucose 217 H 07/30/24 11:15: POC Glucose 227 H Physical Exam Narrative alert, oriented x3, no apparent distress and healthy appearing General Appearance: cooperative, well kempt and well developed Orientation / Consciousness: awake, oriented to person, oriented to place and oriented to time HEENT normocephalic, head/scalp atraumatic and moist oral mucous membranes Eyes PERRL, EOMs intact bilaterally and conjunctivae normal Neck supple, no JVD, thyroid normal and no carotid bruits General: trachea midline Resp normal respiratory effort, no retractions, no use of accessory muscles and clear to auscultation bilaterally Auscultation: Negative for rales, rhonchi or wheezes Cardio regular rate, regular rhythm, S1 normal heart sound, S2 normal heart sound, no murmurs, no rub and no gallops GI normal to inspection, nondistended, normoactive bowel sounds, soft to palpation, non-tender and non-distended Extremity no clubbing, cyanosis or edema Skin no rashes or lesions noted General Skin Exam: no breakdown Neuro oriented x3, CN's II-XII intact bilaterally and no focal motor deficits Neuro Narrative: decreased sensation to light touch in the feet Sensorium / Orientation: awake and alert Speech: speech normal Psych affect normal Assessment & Plan Assessment/Plan (1) Intractable pain: (2) Neuropathy: PLAN: Plan 1. 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-patient will remain on his present medications Total clinical time spent by myself addressing the patient's medical issues, reviewing all of his data, and collaborating with patient's care team: 35 minutes Charges/Coding Visit Charges Inpatient E&M: 35474 Subs Hosp L2
[2024-07-30] MEDS: tiZANidine HCl 2 MG Tablet PO ×2 (14:26→22:51)
[2024-07-30 14:49] VITALS: BP 133/77; PULSE 100; RESP 19; TEMP 37.2; O2SAT 96
[2024-07-30] MEDS: Diclofenac 75 MG Tablet PO (16:34)
[2024-07-30 17:06] LABS: Bedside Glucose 277 mg/dL (74-106)
[2024-07-30 20:23] VITALS: BP 146/77; PULSE 96; RESP 16; TEMP 36.8; O2SAT 95
[2024-07-30] MEDS: Atorvastatin Calcium 40 MG Tablet PO (20:40)
[2024-07-30 21:07] LABS: Bedside Glucose 308 mg/dL (74-106)
[2024-07-30] MEDS: MELATONIN 3 MG TABLET PO (22:51)
[2024-07-31 03:23] VITALS: BMI 34.2
[2024-07-31 04:47] VITALS: BP 138/81; PULSE 80; RESP 18; TEMP 37; O2SAT 98
[2024-07-31] MEDS: Acetaminophen 325 MG Tablet 650 MG PO ×2 (05:06→14:19)
[2024-07-31] MEDS: oxyCODONE 5 MG Tablet PO ×2 (06:45→14:20)
[2024-07-31 07:54] VITALS: BP 149/71; PULSE 74; RESP 17; TEMP 36.3; O2SAT 95
[2024-07-31] MEDS: Insulin Lispro 100 UNIT/ML INSULN.PEN 12 UNIT SC ×2 (08:00→12:03)
[2024-07-31] MEDS: Gabapentin 800 MG Tablet PO (08:00)
[2024-07-31] MEDS: Insulin Lispro 100 UNIT/ML INSULN.PEN SC ×2 (08:00→12:03)
[2024-07-31] MEDS: Losartan Potassium 25 MG Tablet 12.5 MG PO (08:01)
[2024-07-31] MEDS: Insulin Glargine-YFGN 100 UNIT/ML Pen 35 UNIT SC (08:02)
[2024-07-31] MEDS: Arthritis Pain Compound 60 CLICK TUBE TOPICAL (08:02)
[2024-07-31] MEDS: Diclofenac 75 MG Tablet PO (08:02)
[2024-07-31] MEDS: Pantoprazole Sodium 40 MG Tablet PO (08:03)
[2024-07-31] MEDS: Enoxaparin 40 MG/0.4 ML Syringe SC (08:03)
[2024-07-31] MEDS: Lidocaine 5% Patch 2 PATCH TOPICAL (08:03)
[2024-07-31 10:05] LABS: Bedside Glucose 242 mg/dL (74-106)
--- NOTE | 2024-07-31 10:20 | CASEMGMT ---
Addendum entered by Marce Grissom 07/31/24 10:25: [facility] reports authorization received. Pt approved for 30 days through 08/27. ARBEN updated hospitalist and pt. JAKE Mcdonald Original Note: Social Work- SW emailed Ms Wyatt- [facility] to follow up on auth/approval. Ms Wyatt called SW and provided two contacts with the long-term team. Bruna Goldsmith [phone] and Charmaine Kern [phone]. Ms. Wyatt reports that it is showing that the approval has been sent to [facility] multiple times as well as uploaded to the portal. SW forwarded this information for [facility] to follow up with. SW remain available to follow. JAKE Mcdonald
--- NOTE | 2024-07-31 10:30 | CASEMGMT ---
[facility] has obtained auth to admit. SW updated. Janna Blackburn DC Planning Asst.
[2024-07-31 12:24] LABS: Bedside Glucose 261 mg/dL (74-106)
--- NOTE | 2024-07-31 12:29 | CASEMGMT ---
Discharge Planning Discharge orders, signed med list, and transport time sent to [facility]. Physicians will transport pt by cot at 2p. SW updated. Janna Blackburn DC Planning Asst.
--- NOTE | 2024-07-31 12:48 | PCM.TXEXTCAR ---
Diet Diet Order/Speech Therapy: INPATIENT Hospital Diet / Speech Therapy Order(s) 07/25/24 21:08 Diet: Consistent Carb - Calorie Controlled Food consistency:: Regular Liquid Consistency:: Regular/Thin How many daily calories?: 1800 calorie Routine Orders/Code Status Code Status: Full Code DC O2, CPAP, BIPAP needs Home O2 Discharge instructions: No Wound(s) rt knee: Wound Type: Skin Tear Therapies Physical Therapy: Eval and Treat Occupational Therapy: Eval and Treat Problem/Diagnosis (1) Intractable pain: Status: Acute Code(s): R52 - Pain, unspecified (2) Neuropathy: Status: Acute Code(s): G62.9 - Polyneuropathy, unspecified Plan 1. 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-patient will remain on his present medications Total clinical time spent by myself addressing the patient's medical issues, reviewing all of his data, and collaborating with patient's care team: 35 minutes Allergies/Procedures Done in Hospital Allergies Penicillins Allergy (Unknown, Verified 07/25/24 16:41) NEEDS FOLLOW-UP Type of Care/Length of Stay Estimated LOS: Convalescent Care Less Than 30 days Type of Care Needed: Skilled Rehab Potential: Good Prognosis: Good Additional Orders/Day of Discharge Day of Discharge: 07/28/24 Discharge Plan Admission Admit Date/Time: 07/25/24 20:25 Primary Reason for Your Visit: Generalized weakness Attending Provider: Guille Oswald Primary Care Provider: [facility] Doctor,Out of Consulting Providers: Indu Strauss; Mikhali Guzman Discharge Orders/Prescriptions Prescriptions: New melatonin 3 mg Tablet 3 mg PO QHS PRN PRN (Reason: Insomnia) Qty: 0 0RF lidocaine 5 % Adhesive Patch,Medicated 2 patch topical DAILY Qty: 0 0RF Protocol: *Topical Application Instructions APPLICATION INSTRUCTIONS: L side U/L extremity points of most pain. alum-mag hydroxide-simeth [Mag-Al Plus Extra Strength] 400-400-40 mg/5 mL Suspension 30 ml PO Q6H PRN PRN (Reason: Gastric Burning) Qty: 0 0RF oxycodone 5 mg Tablet 5 mg PO Q4H PRN PRN (Reason: Pain Score 4-10) 3 Days Qty: 14 0RF insulin lispro [Humalog KwikPen Insulin] 100 unit/mL Insulin Pen See Protocol subcut ACHS Qty: 0 0RF Protocol: 3. Sliding Scale Insulin Med Dosing Condition: 150-189 mg/dl = 1 unit Condition: 190-229 mg/dl = 2 units Condition: 230-269 mg/dl = 3 units Condition: 270-309 mg/dl = 4 units Condition: 310-349 mg/dl = 5 units Condition: 350-399 mg/dl = 6 units Condition: 400-449 mg/dl = 7 units Condition: Greater than 449 call physician Protocol Text: - Use for Total Daily Dose of Insulin 37-55 units - Obsese, infected, or steroid patients MEDIUM DOSING ALGORITHIM tizanidine 2 mg Tablet 2 mg PO Q8H PRN PRN (Reason: Muscle spasm/strain) Qty: 0 0RF sennosides-docusate sodium [Stimulant Laxative Plus] 8.6-50 mg Tablet 2 tab PO BID PRN PRN (Reason: Constipation) Qty: 0 0RF acetaminophen 325 mg Tablet 650 mg PO Q4H PRN PRN (Reason: Fever, pain 1-10/10) Qty: 0 0RF albuterol sulfate 2.5 mg /3 mL (0.083 %) Solution For Nebulization 2.5 mg inhalation Q2H PRN PRN (Reason: Dyspnea, wheezing) Qty: 0 0RF polysaccharide iron complex [Ferrex 150] 150 mg iron Capsule 150 mg PO DAILY Qty: 0 0RF diclofenac sodium 75 mg Tablet,Delayed Release (Dr/Ec) 75 mg PO BIDCM Qty: 0 0RF Continued insulin glargine [Lantus Solostar U-100 Insulin] 100 unit/mL (3 mL) insulin pen 35 unit subcut BID insulin aspart U-100 [Novolog FlexPen U-100 Insulin] 100 unit/mL (3 mL) insulin pen 14 unit subcut TID metformin 1,000 mg tablet 1,000 mg PO BID atorvastatin [Lipitor] 40 mg tablet 40 mg PO QHS losartan [Cozaar] 25 mg tablet 12.5 mg PO DAILY albuterol sulfate [Ventolin HFA] 90 mcg/actuation HFA aerosol inhaler 2 inh inhalation Q8H PRN (Reason: shortness of breath) gabapentin 800 mg tablet 800 mg PO TID cholecalciferol (vitamin D3) [Vitamin D3] 25 mcg (1,000 unit) tablet 50 mcg PO DAILY ascorbic acid (vitamin C) [Vitamin C] 500 mg tablet 500 mg PO DAILY pantoprazole [Protonix] 40 mg tablet,delayed release (DR/EC) 40 mg PO DAILY Discontinued hydrocodone-acetaminophen 5-325 mg tablet 1 tab PO Q6H PRN PRN (Reason: Pain) 3 Days Qty: 10 0RF Humalog U-100 Insulin 100 unit/mL cartridge 12 unit subcut QHS Referrals / Follow Up: [facility] Doctor,Out of [Primary Care Provider] - Within 1 Month (To be scheduled for outpatient colonoscopy) Disposition Disposition (needs filled in before D/C Order can be placed): Long Term Facility
--- NOTE | 2024-07-31 12:54 | PCM.DC.SUM ---
Providers Date of Admission: 07/25/24 Date of Discharge: 07/31/24 Primary Care Physician: Out of [facility] Doctor Reason For Visit: FALL, INTRACTABLE PAIN Diagnosis Discharge Diagnosis (1) Intractable pain: Status: Acute Code(s): R52 - Pain, unspecified (2) Neuropathy: Status: Acute Code(s): G62.9 - Polyneuropathy, unspecified Plan 1. 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-patient will remain on his present medications Total clinical time spent by myself addressing the patient's medical issues, reviewing all of his data, and collaborating with patient's care team: 35 minutes Medications at Discharge Home Medications albuterol sulfate 90 mcg/actuation aerosol inhaler (Ventolin HFA) 2 inh inhalation Q8H PRN shortness of breath 07/15/24 ascorbic acid (vitamin C) 500 mg tablet (Vitamin C) 500 mg PO DAILY 07/15/24 atorvastatin 40 mg tablet (Lipitor) 40 mg PO QHS 07/15/24 cholecalciferol (vitamin D3) 25 mcg (1,000 unit) tablet (Vitamin D3) 50 mcg PO DAILY 07/15/24 gabapentin 800 mg tablet 800 mg PO TID 07/15/24 insulin aspart U-100 100 unit/mL (3 mL) subcutaneous pen (Novolog FlexPen U-100 Insulin aspart) 14 unit subcut TID 07/15/24 insulin glargine 100 unit/mL (3 mL) subcutaneous pen (Lantus Solostar U-100 Insulin) 35 unit subcut BID 07/15/24 losartan 25 mg tablet (Cozaar) 12.5 mg PO DAILY 07/15/24 metformin 1,000 mg tablet 1,000 mg PO BID 07/15/24 pantoprazole 40 mg tablet,delayed release (Protonix) 40 mg PO DAILY 07/15/24 acetaminophen 325 mg tablet 650 mg (2 x 325 mg) PO Q4H PRN PRN Fever, pain 1-12/01 #0 tabs 07/28/24 albuterol sulfate 2.5 mg/3 mL (0.083 %) solution for nebulization 2.5 mg (3 mL) inhalation Q2H PRN PRN Dyspnea, wheezing #0 mL 07/28/24 aluminum-mag hydroxide-simethicone 400 mg-400 mg-40 mg/5 mL oral susp (Mag-Al Plus Extra Strength) 30 ml PO Q6H PRN PRN Gastric Burning #0 mL 07/28/24 insulin lispro 100 unit/mL subcutaneous pen (Humalog KwikPen (U-100) Insulin) See Protocol subcut ACHS #0 mL 07/28/24 lidocaine 5 % topical patch 2 patch topical DAILY #0 ea 07/28/24 melatonin 3 mg tablet 3 mg PO QHS PRN PRN Insomnia #0 tabs 07/28/24 oxycodone 5 mg tablet 5 mg PO Q4H PRN PRN Pain Score 4-10 3 days #14 tabs 07/28/24 polysaccharide iron complex 150 mg iron capsule (Ferrex) 150 mg PO DAILY #0 caps 07/28/24 sennosides 8.6 mg-docusate sodium 50 mg tablet (Stimulant Laxative Plus) 2 tab PO BID PRN PRN Constipation #0 tabs 07/28/24 tizanidine 2 mg tablet 2 mg PO Q8H PRN PRN Muscle spasm/strain #0 tabs 07/28/24 diclofenac sodium 75 mg tablet,delayed release 75 mg PO BIDCM #0 tabs 07/31/24 Hospital Course Operations None Procedures None Summary of Care Provided Minutes Spent on Discharge: 32 Hospital Course: This 74-year-old black male was seen in the emergency room at [facility] after sustaining mechanical fall at home. He has a history of type 2 diabetes with severe peripheral neuropathy. Patient admitted to using cocaine and alcohol, he was at a family house when he tried to ambulate to the bathroom and slipped. Patient stated he landed on his left leg and arm. Patient complained he was unable to ambulate since the night before secondary to pain. Patient uses a walker due to osteoarthritis in his knees. Imaging studies were performed that showed no evidence of fracture or dislocation. There was suspected the patient's pain was due to contusions. Patient's glucose was elevated at 391 and creatinine was 1.56. Patient was placed in observation status on [facility] 3 and seen by PT and OT, patient [facility] but elected to stay here at [facility] and uses Medicare, ultimately it was advised that the patient go to a skilled care facility for further inpatient rehab services, the [place] approved [facility] but admission was delayed due to communication issues until 07/31/2024. On 07/31/2024, patient was seen and examined: On examination he appeared in good health and spirits. Vital signs as documented. Skin warm and dry and without overt rashes. Neck without JVD, neck was supple, trachea midline, thyroid was normal. Lungs clear bilaterally, normal air movement was noted. Heart exam notable for regular rhythm, normal sounds and absence of murmurs, rubs or gallops. Abdomen unremarkable and without evidence of organomegaly, masses, or abdominal aortic enlargement. Bowel sounds are present, abdomen is not distended. Extremities nonedematous, no cyanosis was noted, no clubbing was noted. Neuro: Cranial nerves II through XII are grossly intact, no focal motor deficits were noted, sensation to light touch and pinprick intact, motor exam 5/5 throughout. Psych: Patient is alert and oriented x3, he does not appear anxious or depressed, he does not appear agitated. On 07/31/2024, patient was transferred to a local extended care facility in stable condition for inpatient rehab services. Weight / BMI Weight Weight: 120.9 kg Body Mass Index (BMI) 34.2 ABG / Lab / Microbiology Data 07/29/24 05:45 07/29/24 05:45 Laboratory: Laboratory Results - last 24 hr 07/30/24 16:33: POC Glucose 277 H 07/30/24 20:37: POC Glucose 308 H 07/31/24 07:46: POC Glucose 242 H 07/31/24 12:01: POC Glucose 261 H D/C Instructions Discharge Diet: 1800 Calorie Control Diet Call your doctor if you observe: Fever of 101 or Higher, Shortness of breath, Fainting spells and Chest pain DC O2, CPAP, BIPAP Needs Home O2 Discharge instructions: No Meaningful Use Info Meaningful Use Meaningful Use Diagnoses (Choose all that apply): None applicable Ischemic Stroke Statin Dosing Therapy Reference: STATIN DOSE THERAPY REFERENCE: * Patients > 75 years receive moderate or high dose statin therapy. * Patients 75 years or YOUNGER should receive HIGH intensity statin dose unless contraindicated. You will be required to document reason for non-treatment if statin daily dose does not meet guidelines. HIGH DOSE STATIN THERAPY DAILY Atorvastatin > than or = to 40 mg Rosuvastatin > than or = to 20 mg Amlodipine + Atorvastatin > than or = to 2.5/40 mg Ezetimibe + Simvastatin 10/80 mg Simvastatin 80mg Discharge Plan Admission Admit Date/Time: 07/25/24 20:25 Primary Reason for Your Visit: Generalized weakness Attending Provider: Guille Oswald Primary Care Provider: [facility] Doctor,Out of Consulting Providers: Indu Strauss; Mikhail Guzman Discharge Orders/Prescriptions Prescriptions: New melatonin 3 mg Tablet 3 mg PO QHS PRN PRN (Reason: Insomnia) Qty: 0 0RF lidocaine 5 % Adhesive Patch,Medicated 2 patch topical DAILY Qty: 0 0RF Protocol: *Topical Application Instructions APPLICATION INSTRUCTIONS: L side U/L extremity points of most pain. alum-mag hydroxide-simeth [Mag-Al Plus Extra Strength] 400-400-40 mg/5 mL Suspension 30 ml PO Q6H PRN PRN (Reason: Gastric Burning) Qty: 0 0RF oxycodone 5 mg Tablet 5 mg PO Q4H PRN PRN (Reason: Pain Score 4-10) 3 Days Qty: 14 0RF insulin lispro [Humalog KwikPen Insulin] 100 unit/mL Insulin Pen See Protocol subcut ACHS Qty: 0 0RF Protocol: 3. Sliding Scale Insulin Med Dosing Condition: 150-189 mg/dl = 1 unit Condition: 190-229 mg/dl = 2 units Condition: 230-269 mg/dl = 3 units Condition: 270-309 mg/dl = 4 units Condition: 310-349 mg/dl = 5 units Condition: 350-399 mg/dl = 6 units Condition: 400-449 mg/dl = 7 units Condition: Greater than 449 call physician Protocol Text: - Use for Total Daily Dose of Insulin 37-55 units - Obsese, infected, or steroid patients MEDIUM DOSING ALGORITHIM tizanidine 2 mg Tablet 2 mg PO Q8H PRN PRN (Reason: Muscle spasm/strain) Qty: 0 0RF sennosides-docusate sodium [Stimulant Laxative Plus] 8.6-50 mg Tablet 2 tab PO BID PRN PRN (Reason: Constipation) Qty: 0 0RF acetaminophen 325 mg Tablet 650 mg PO Q4H PRN PRN (Reason: Fever, pain 1-10/10) Qty: 0 0RF albuterol sulfate 2.5 mg /3 mL (0.083 %) Solution For Nebulization 2.5 mg inhalation Q2H PRN PRN (Reason: Dyspnea, wheezing) Qty: 0 0RF polysaccharide iron complex [Ferrex 150] 150 mg iron Capsule 150 mg PO DAILY Qty: 0 0RF diclofenac sodium 75 mg Tablet,Delayed Release (Dr/Ec) 75 mg PO BIDCM Qty: 0 0RF Continued insulin glargine [Lantus Solostar U-100 Insulin] 100 unit/mL (3 mL) insulin pen 35 unit subcut BID insulin aspart U-100 [Novolog FlexPen U-100 Insulin] 100 unit/mL (3 mL) insulin pen 14 unit subcut TID metformin 1,000 mg tablet 1,000 mg PO BID atorvastatin [Lipitor] 40 mg tablet 40 mg PO QHS losartan [Cozaar] 25 mg tablet 12.5 mg PO DAILY albuterol sulfate [Ventolin HFA] 90 mcg/actuation HFA aerosol inhaler 2 inh inhalation Q8H PRN (Reason: shortness of breath) gabapentin 800 mg tablet 800 mg PO TID cholecalciferol (vitamin D3) [Vitamin D3] 25 mcg (1,000 unit) tablet 50 mcg PO DAILY ascorbic acid (vitamin C) [Vitamin C] 500 mg tablet 500 mg PO DAILY pantoprazole [Protonix] 40 mg tablet,delayed release (DR/EC) 40 mg PO DAILY Discontinued hydrocodone-acetaminophen 5-325 mg tablet 1 tab PO Q6H PRN PRN (Reason: Pain) 3 Days Qty: 10 0RF Humalog U-100 Insulin 100 unit/mL cartridge 12 unit subcut QHS Referrals / Follow Up: [facility] Doctor,Out of [Primary Care Provider] - Within 1 Month (To be scheduled for outpatient colonoscopy) Disposition Disposition (needs filled in before D/C Order can be placed): [facility] Charges/Coding Visit Charges Inpatient E&M: 95438 Disch Hosp >30min
--- NOTE | 2024-07-31 14:22 | CASEMGMT ---
Social Work- SW met with pt to discuss concerns pt brought to nurse's attention. Pt reported feeling that an aide had not been as attentive as pt felt that he should have been and also reported that the aide refused to complete a task. Pt felt that it was verbalized with a disrespectful tone. SW actively and empathetically listened and provided support. Pt shared background information and processed emotions generated by situation and how that impacted pt thoughts. SW guided pt through reframing thoughts and replacing negative thoughts. SW created a safe space for sharing. Pt expressed appreciation for SW time and for creating a safe space for processing emotions so that he can discharge in a more positive frame of mind. Pt requested a new pair of socks, which SW assisted with. Pt thankful and appreciative. JAKE Mcdonald
--- NOTE | 2024-07-31 14:35 | CASEMGMT ---
Social Work DC approval has been obtained.? Physician updated and pt is ready for discharge today.? PASRR form completed in [facility]. Transportation arranged with Physician ambulance for 14:00 pickup via cot.? SW met with pt and they are agreeable to discharge plan as stated above.? DCA and bedside nurse notified of discharge time. Pt notified. Disposition: [facility], skilled level of care JAKE Mcdonald
== END 2024-07-31 14:34 | disposition skilled nursing facility (03) ==
LOC: ED 19:59 → MS3 20:52
PROVIDERS: Internal Medicine; Admitting Provider Family Medicine; Emergency Provider Surgery; Visit Provider Internal Medicine
DX: M17.0 Bilateral primary osteoarthritis of knee (principal); F14.20 Cocaine dependence, uncomplicated; E11.42 Type 2 diabetes mellitus with diabetic polyneuropathy; E11.65 Type 2 diabetes mellitus with hyperglycemia; E11.22 Type 2 diabetes mellitus with diabetic chronic kidney disease; Z79.4 Long term (current) use of insulin; N18.30 Chronic kidney disease, stage 3 unspecified; Z87.891 Personal history of nicotine dependence; G47.33 Obstructive sleep apnea (adult) (pediatric); E87.5 Hyperkalemia; K21.9 Gastro-esophageal reflux disease without esophagitis; I12.9 Hypertensive chronic kidney disease with stage 1 through stage 4 chronic kidney disease, or unspecified chronic kidney disease; E66.811 Obesity, class 1; E78.5 Hyperlipidemia, unspecified; J45.20 Mild intermittent asthma, uncomplicated; R53.81 Other malaise; Z68.33 Body mass index [BMI] 33.0-33.9, adult; E86.0 Dehydration; R26.2 Difficulty in walking, not elsewhere classified; F10.10 Alcohol abuse, uncomplicated; Z79.899 Other long term (current) drug therapy; Z79.84 Long term (current) use of oral hypoglycemic drugs; W01.0XXA Fall on same level from slipping, tripping and stumbling without subsequent striking against object, initial encounter; Y93.01 Activity, walking, marching and hiking; Y92.009 Unspecified place in unspecified non-institutional (private) residence as the place of occurrence of the external cause; D63.8 Anemia in other chronic diseases classified elsewhere; S40.022A Contusion of left upper arm, initial encounter; S80.12XA Contusion of left lower leg, initial encounter
CPT/HCPCS: 36415; 72170; 73030; 73060; 73552; 80048; 80053; 80307; 82077; 82607; 82962; 83540; 83550; 83735; 84100; 85025; 85027; 85045; 93005; 94668; 96361; 96365; 96366; 96372; 96375; 96376; 97110; 97162; 97166; 97530; 97535; 99221; 99285; A4216; G0378; J2405; J2916

== ENCOUNTER → 2024-08-01 05:00 | Outpatient (REF) | payer MEDICARE, SELFPAY ==
--- OUTSIDE RECORDS SUMMARY | 2024-08-01 03:56 | XMS RPT_ITS | CCD ---
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 (S/P/Bld) [Vol rate/Area] 81 mL/min/{1.73_m2} Normal >60 [facility] Comment on above: Result Comment: mL/m in/1.73m2 CKD-EPI Creatinine Equation (2020) Performed By: #### L 501.080 #### [facility] [address] [place], [address] Glucose [Mass/Vol] 157 mg/dL High 70-99 [facility] Comment on above: Performed By: #### L 501.080 #### [facility] [address] [place], [address] Potassium [Moles/Vol] 4.5 mmol/L Normal 3.3-5.1 [facility] Comment on above: Performed By: #### L 501.080 #### [facility] [address] [place], [address] Sodium [Moles/Vol] 137 mmol/L Normal 133-145 [facility] Comment on above: Performed By: #### L 501.080 #### [facility] [address] [place], [address] Urea nitrogen [Mass/Vol] 15 mg/dL Normal 4-19 [facility] Comment on above: Performed By: #### L 501.080 #### [facility] [address] [place], [address] Basophil percentageOrdered B y: Mikhail Sharpmorganamy on 07-29-2024 Basophils/100 WBC (Bld) 0.3 % 0-1 [facility] Bedside Glucoseon 07-29-2024 FINGERSTICK GLU 348 mg/dL High 74-106 [facility] Comment on above: Result Comment: ALEX GEMENT OF PATIENT CARE PER NURSING PROTOCOL Performed By: #### L 501.080 #### [facility] [address] [place], [address] FINGERSTICK GLU 275 mg/dL High 74-106 [facility] Comment on above: Result Comment: ALEX GEMENT OF PATIENT CARE PER NURSING PROTOCOL Performed By: #### L 501.080 ####[facility] [address] [place], [address] FINGERSTICK GLU 222 mg/dL High 74-106 [facility] Comment on above: Result Comment: ALEX GEMENT OF PATIENT CARE PER NURSING PROTOCOL Performed By: #### L 501.080 #### [facility] [address] [place], [address] FINGERSTICK GLU 147 mg/dL High 74-106 [facility] Comment on above: Result Comment: ALEX RAMIREZ OF PATIENT CARE PER NURSING PROTOCOL Performed By: #### L 501.080 ####[facility] [address] [place], [address] CBC W/Diff, Automatedon 06-0 7-2024 Absolute Lymph 1.97 X10 3/uL Normal 0.83-4.51 [facility] Comment on above: Performed By: #### L 501.080 #### [facility] [address] [place], [address] Absolute Neut 3.4 X10 3/uL Normal 2.0-7.7 [facility] Comment on above: Performed By: #### L 501.080 #### [facility] [address] [place], [address] Basophils/100 WBC (Bld) 0.3 % Normal 0-1 [facility] Comment on above: Performed By: #### L 501.080 #### [facility] [address], [address] Eosinophils/100 WBC (Bld) 2.2 % Normal 0-5 [facility] Comment on above: Performed By: #### L 501.080 #### [facility] [address] [place], [address] Erythrocyte distribution width (RBC) [Ratio] 14.4 % Normal 11.6-14.6 [facility] Comment on above: Performed By: #### L 501.080 #### [facility] [address] [place], [address] Hematocrit (Bld) [Volume fraction] 31.8 % Low 40-54 [facility] Comment on above: Performed By: #### L 501.080 #### [facility] [address] [place], [address] Hemoglobin (Bld) [Mass/Vol] 10.1 g/dL Low 13.0-16.5 [facility] Comment on above: Performed By: #### L 501.080 #### [facility] [address] [place], [address] IG% 0.600 Normal 0.0-0.9 [facility] Comment on above: Result Comment: IG% - Immature Granulocytes (promyelocytes, myelocytes and metamyelocytes) > 1% indicates that a LEFT SHIFT is Present. Performed By: #### L 501.080 #### [facility] [address] [place], [address] Lymphocytes/100 WBC (Bld) 31.5 % Normal 19-41 [facility] Comment on above: Performed By: #### L 501.080 #### [facility] [address] [place], [address] MCH (RBC) [Entitic mass] 23.4 pg Low 27.0-32.0 [facility] Comment on above: Performed By: #### L 501.080 #### [facility] [address] [place], [address] MCHC (RBC) [Mass/Vol] 31.8 g/dL Low 32-36 [facility] Comment on above: Performed By: #### L 501.080 #### [facility] [address] [place], [address] MCV (RBC) [Entitic vol] 73.8 fL Low 80-94 [facility] Comment on above: Performed By: #### L 501.080 #### [facility] [address] [place], [address] Monocytes/100 WBC (Bld) 11.7 % High 0-10 [facility] Comment on above: Performed By: #### L 501.080 #### [facility] [address] [place], [address] Neutrophils/100 WBC (Bld) 53.7 % Normal 47-70 [facility] Comment on above: Performed By: #### L 501.080 #### [facility] [address] [place], [address] Nucleated RBC (Bld) [#/Vol] 0 10*3/uL Normal 0-5 [facility] Comment on above: Performed By: #### L 501.080 #### [facility] [address] [place], [address] Platelet mean volume (Bld) [Entitic vol] 11.2 fL Normal 6.2-12.0 [facility] Comment on above: Performed By: #### L 501.080 #### [facility] [address] [place], [address] Platelets (Bld) [#/Vol] 212 10*3/uL Normal 150-450 [facility] Comment on above: Performed By: #### L 501.080 #### [facility] [address] [place], [address] RBC (Bld) [#/Vol] 4.31 10*6/uL Low 4.6-6.2 [facility] Comment on above: Performed By: #### L 501.080 #### [facility] [address] [place], [address] RDW SD 38.5 fl Normal 35.1-43.9 [facility] Comment on above: Performed By: #### L 501.080 #### [facility] [address] [place], [address] WBC (Bld) [#/Vol] 6.3 10*3/uL Normal 4.4-11.0 [facility] Comment on above: Performed By: #### L 501.080 #### [facility] [address] [place], [address] Carbon dioxide, total [Moles /volume] in Central venous bloodOrdered By: Mikhail Guzman on 07-29-2024 CO2 [Moles/Vol] 26.2 mmol/L 21.0-32.0 [facility] Chloride assayOrdered By: Ray Guzman on 07-29-2024 Chloride [Moles/Vol] 101 mmol/L 98-108 [facility] Eosinophil percentageOrdered By: Mikhail Guzman on 07-29-2024 Eosinophils/100 WBC (Bld) 2.2 % 0-5 [facility] Erythrocyte distribution wid th ratioOrdered By: Mikhail Guzman on 07-29-2024 Erythrocyte distribution width (RBC) [Ratio] 14.4 % 11.6-14.6 [facility] Erythrocyte distribution wid th standard deviationOrdered By: Mikhail Guzman on 07-29-2024 Erythrocyte distribution width (RBC) [Ratio] 38.5 fl 35.1-43.9 [facility] Glomerular filtration rate ( GFR) estimation/1.73 sq m using serum, plasma, or whole bOrdered By: Mikhail Guzman on 07-29-2024 GFR/1.73 sq M.predicted among non-blacks MDRD (S/P/Bld) [Vol rate/Area] 81 mL/min/{1.73_m2} >60 [facility] Comment on above: mL/min/1.73m2 CKD-EP I Creatinine Equation (2020) Hematocrit Auto (Bld) [Volum e fraction]Ordered By: Mikhail Guzman on 07-29-2024 Hematocrit (Bld) [Volume fraction] 31.8 % Low 40-54 [facility] Hemoglobin measurementOrdere d By: Mikhail Guzman on 07-29-2024 Hemoglobin (Bld) [Mass/Vol] 10.1 g/dL Low 13.0-16.5 [facility] Immature granulocytes/100 WB C Auto (Bld)Ordered By: Mikhail Guzman on 07-29-2024 Immature granulocytes/100 WBC (Bld) 0.600 % 0.0-0.9 [facility] Comment on above: IG% - Immature Granu locytes (promyelocytes, myelocytes and metamyelocytes) > 1% indicates that a LEFT SHIFT is Present. MCV (mean corpuscular volume ) determinationOrdered By: Mikhail Guzman on 07-29-2024 MCV (RBC) [Entitic vol] 73.8 fL Low 80-94 [facility] Mean corpuscular hemoglobin (MCH) determinationOrdered By: Mikhail Guzman on 07-29-2024 MCH (RBC) [Entitic mass] 23.4 pg Low 27.0-32.0 [facility] Mean corpuscular hemoglobin concentration (MCHC) determinationOrdered By: Mikhail Guzman on 07-29-2024 MCHC (RBC) [Mass/Vol] 31.8 g/dL Low 32-36 [facility] Mean platelet volume determi nationOrdered By: Mikhail Guzman on 07-29-2024 Platelet mean volume (Bld) [Entitic vol] 11.2 fL 6.2-12.0 [facility] Monocyte percentageOrdered B y: Mikhail Guzman on 07-29-2024 Monocytes/100 WBC (Bld) 11.7 % High 0-10 [facility] Neutrophil percentageOrdered By: Mikhail Guzman on 07-29-2024 Neutrophils/100 WBC (Bld) 53.7 % 47-70 [facility] Nucleated red blood cell per centageOrdered By: Mikhail Guzman on 07-29-2024 Nucleated RBC/100 WBC (Bld) [Ratio] 0 % 0-5 [facility] Platelet countOrdered By: Ray Guzman on 07-29-2024 Platelets (Bld) [#/Vol] 212 10*3/uL 150-450 [facility] Potassium measurement (mass/ volume)Ordered By: Mikhail Guzman on 07-29-2024 Potassium (Unsp spec) [Mass/Vol] 4.5 mmol/L 3.3-5.1 [facility] RBC Auto (Bld) [#/Vol]Ordere d By: Mikhail Guzman on 07-29-2024 RBC (Bld) [#/Vol] 4.31 10*6/uL Low 4.6-6.2 [facility] Serum creatinine measurement (mass/volume)Ordered By: Mikhail Guzman on 07-29-2024 Creatinine [Mass/Vol] 0.99 mg/dL 0.70-1.20 [facility] Serum glucose measurement (m ass/volume)Ordered By: Mikhail Guzman on 07-29-2024 Glucose [Mass/Vol] 157 mg/dL High 70-99 [facility] Serum or plasma calcium rodolfo urement (mass/volume)Ordered By: Mikhail Guzman on 07-29-2024 Calcium [Mass/Vol] 9.3 mg/dL 7.6-11.0 [facility] Serum or plasma urea nitroge n measurement (mass/volume)Ordered By: Mikhail Guzman on 07-29-2024 Urea nitrogen [Mass/Vol] 15 mg/dL 4-19 [facility] Sodium levelOrdered By: Rudy Guzman on 07-29-2024 Sodium [Moles/Vol] 137 mmol/L 133-145 [facility] White blood cell (WBC) count Ordered By: Mikhail Guzman on 07-29-2024 WBC (Bld) [#/Vol] 6.3 10*3/uL 4.4-11.0 [facility] Basic Metabolic Profile (BMP )on 07-28-2024 BUN/CRE 22.3 RATIO High 10-20 [facility] Comment on above: Performed By: #### L 501.080 #### [facility] [address] [place], [address] Calcium [Mass/Vol] 8.8 mg/dL Normal 7.6-11.0 [facility] Comment on above: Performed By: #### L 501.080 #### [facility] [address] [place], [address] Chloride [Moles/Vol] 103 mmol/L Normal 98-108 [facility] Comment on above: Performed By: #### L 501.080 #### [facility] [address] [place], [address] CO2 [Moles/Vol] 24.2 mmol/L Normal 21.0-32.0 [facility] Comment on above: Performed By: #### L 501.080 #### [facility] [address] [place], [address] Creatinine [Mass/Vol] 1.06 mg/dL Normal 0.70-1.20 [facility] Comment on above: Performed By: #### L 501.080 #### [facility] [address] [place], [address] ECRCL 87.67 ml/min Normal 50-250 [facility] Comment on above: Performed By: #### L 501.080 #### [facility] [address] [place], [address] GAP 9 Normal 5-15 [facility] Comment on above: Performed By: #### L 501.080 #### [facility] [address] [place], [address] GFR/1.73 sq M.predicted among non-blacks MDRD (S/P/Bld) [Vol rate/Area] 75 mL/min/{1.73_m2} Normal >60 [facility] Comment on above: Result Comment: mL/m in/1.73m2 CKD-EPI Creatinine Equation (2020) Performed By: #### L 501.080 #### [facility] [address] [place], [address] Glucose [Mass/Vol] 244 mg/dL High 70-99 [facility] Comment on above: Performed By: #### L 501.080 #### [facility] [address] [place], [address] Potassium [Moles/Vol] 4.9 mmol/L Normal 3.3-5.1 [facility] Comment on above: Performed By: #### L 501.080 #### [facility] [address] [place], [address] Sodium [Moles/Vol] 136 mmol/L Normal 133-145 [facility] Comment on above: Performed By: #### L 501.080 #### [facility] [address] [place], [address] Urea nitrogen [Mass/Vol] 24 mg/dL High 4-19 [facility] Comment on above: Performed By: #### L 501.080 #### [facility] [address] [place], [address] Bedside Glucoseon 07-28-2024 FINGERSTICK GLU 290 mg/dL High 74-106 [facility] Comment on above: Result Comment: ALEX GEMENT OF PATIENT CARE PER NURSING PROTOCOL Performed By: #### L 501.080 #### [facility] [address] [place], [address] FINGERSTICK GLU 157 mg/dL High 74-106 [facility] Comment on above: Result Comment: ALEX GEMENT OF PATIENT CARE PER NURSING PROTOCOL Performed By: #### L 501.080 ####[facility] [address] [place], [address] FINGERSTICK GLU 141 mg/dL High 74-106 [facility] Comment on above: Result Comment: ALEX GEMENT OF PATIENT CARE PER NURSING PROTOCOL Performed By: #### L 501.080 #### [facility] [address] [place], [address] FINGERSTICK GLU 201 mg/dL High 74-106 [facility] Comment on above: Result Comment: ALEX GEMENT OF PATIENT CARE PER NURSING PROTOCOL Performed By: #### L 501.080 ####[facility] [address] [place], [address] CBC W/Diff, Automatedon 06-0 Absolute Lymph 1.88 X10 3/uL Normal 0.83-4.51 [facility] Comment on above: Performed By: #### L 501.080 #### [facility] [address] [place], [address] Absolute Neut 2.6 X10 3/uL Normal 2.0-7.7 [facility] Comment on above: Performed By: #### L 501.080 #### [facility] [address] [place], [address] Basophils/100 WBC (Bld) 0.2 % Normal 0-1 [facility] Comment on above: Performed By: #### L 501.080 #### [facility] [address] [place], [address] Eosinophils/100 WBC (Bld) 2.3 % Normal 0-5 [facility] Comment on above: Performed By: #### L 501.080 #### [facility] [address] [place], [address] Erythrocyte distribution width (RBC) [Ratio] 14.6 % Normal 11.6-14.6 [facility] Comment on above: Performed By: #### L 501.080 #### [facility] [address] [place], [address] Hematocrit (Bld) [Volume fraction] 28.2 % Low 40-54 [facility] Comment on above: Performed By: #### L 501.080 #### [facility] [address] [place], [address] Hemoglobin (Bld) [Mass/Vol] 8.8 g/dL Low 13.0-16.5 [facility] Comment on above: Performed By: #### L 501.080 #### [facility] [address] [place], [address] IG% 0.400 Normal 0.0-0.9 [facility] Comment on above: Result Comment: IG% - Immature Granulocytes (promyelocytes, myelocytes and metamyelocytes) > 1% indicates that a LEFT SHIFT is Present. Performed By: #### L 501.080 #### [facility] [address] [place], [address] Lymphocytes/100 WBC (Bld) 35.9 % Normal 19-41 [facility] Comment on above: Performed By: #### L 501.080 #### [facility] [address] [place], [address] MCH (RBC) [Entitic mass] 23.1 pg Low 27.0-32.0 [facility] Comment on above: Performed By: #### L 501.080 #### [facility] [address] [place], [address] MCHC (RBC) [Mass/Vol] 31.2 g/dL Low 32-36 [facility] Comment on above: Performed By: #### L 501.080 #### [facility] [address] [place], [address] MCV (RBC) [Entitic vol] 74.0 fL Low 80-94 [facility] Comment on above: Performed By: #### L 501.080 #### [facility] [address] [place], [address] Monocytes/100 WBC (Bld) 12.2 % High 0-10 [facility] Comment on above: Performed By: #### L 501.080 #### [facility] [address] [place], [address] Neutrophils/100 WBC (Bld) 49.0 % Normal 47-70 [facility] Comment on above: Performed By: #### L 501.080 #### [facility] [address] [place], [address] Nucleated RBC (Bld) [#/Vol] 0 10*3/uL Normal 0-5 [facility] Comment on above: Performed By: #### L 501.080 #### [facility] [address] [place], [address] Platelet mean volume (Bld) [Entitic vol] 11.6 fL Normal 6.2-12.0 [facility] Comment on above: Performed By: #### L 501.080 #### [facility] [address] [place], [address] Platelets (Bld) [#/Vol] 181 10*3/uL Normal 150-450 [facility] Comment on above: Performed By: #### L 501.080 #### [facility] [address] [place], [address] RBC (Bld) [#/Vol] 3.81 10*6/uL Low 4.6-6.2 [facility] Comment on above: Performed By: #### L 501.080 #### [facility] [address] [place], [address] RDW SD 38.9 fl Normal 35.1-43.9 [facility] Comment on above: Performed By: #### L 501.080 #### [facility] [address] [place], [address] WBC (Bld) [#/Vol] 5.2 10*3/uL Normal 4.4-11.0 [facility] Comment on above: Performed By: #### L 501.080 #### [facility] [address] [place], [address] Basic Metabolic Profile (BMP )on 07-27-2024 BUN/CRE 26.0 RATIO High 10-20 [facility] Comment on above: Performed By: #### L 501.5200, L501.2300, L500.2500, L100.0100 #### [facility] [address] [place], [address] Calcium [Mass/Vol] 8.4 mg/dL Normal 7.6-11.0 [facility] Comment on above: Performed By: #### L 501.5200, L501.2300, L500.2500, L100.0100 #### [facility] [address] [place], [address] Chloride [Moles/Vol] 103 mmol/L Normal 98-108 [facility] Comment on above: Performed By: #### L 501.5200, L501.2300, L500.2500, L100.0100 #### [facility] [address] [place], [address] CO2 [Moles/Vol] 23.6 mmol/L Normal 21.0-32.0 [facility] Comment on above: Performed By: #### L 501.5200, L501.2300, L500.2500, L100.0100 #### [facility] [address] [place], [address] Creatinine [Mass/Vol] 1.28 mg/dL High 0.70-1.20 [facility] Comment on above: Performed By: #### L 501.5200, L501.2300, L500.2500, L100.0100 #### [facility] [address] [place], [address] ECRCL 71.98 ml/min Normal 50-250 [facility] Comment on above: Performed By: #### L 501.5200, L501.2300, L500.2500, L100.0100 #### [facility] [address] [place], [address] GAP 9 Normal 5-15 [facility] Comment on above: Performed By: #### L 501.5200, L501.2300, L500.2500, L100.0100 #### [facility] [address] [place], [address] GFR/1.73 sq M.predicted among non-blacks MDRD (S/P/Bld) [Vol rate/Area] 59 mL/min/{1.73_m2} Low >60 [facility] Comment on above: Result Comment: mL/m in/1.73m2 CKD-EPI Creatinine Equation (2020) Performed By: #### L 501.5200, L501.2300, L500.2500, L100.0100 #### [facility] [address] [place], [address] Glucose [Mass/Vol] 296 mg/dL High 70-99 [facility] Comment on above: Performed By: #### L 501.5200, L501.2300, L500.2500, L100.0100 #### [facility] [address] [place], [address] Potassium [Moles/Vol] 5.1 mmol/L Normal 3.3-5.1 [facility] Comment on above: Performed By: #### L 501.5200, L501.2300, L500.2500, L100.0100 #### [facility] [address] [place], [address] Sodium [Moles/Vol] 135 mmol/L Normal 133-145 [facility] Comment on above: Performed By: #### L 501.5200, L501.2300, L500.2500, L100.0100 #### [facility] [facility] [address] [place], [address] Urea nitrogen [Mass/Vol] 33 mg/dL High 4-19 [facility] Comment on above: Performed By: #### L 501.5200, L501.2300, L500.2500, L100.0100 #### [facility] [address] [place], [address] Bedside Glucoseon 07-27-2024 FINGERSTICK GLU 338 mg/dL High 74-106 [facility] Comment on above: Result Comment: ALEX GEMENT OF PATIENT CARE PER NURSING PROTOCOL Performed By: #### L 501.080 #### [facility] [address] [place], [address] FINGERSTICK GLU 190 mg/dL High 74-106 [facility] Comment on above: Result Comment: ALEX GEMENT OF PATIENT CARE PER NURSING PROTOCOL Performed By: #### L 501.080 #### [facility] [address] [place], [address] FINGERSTICK GLU 155 mg/dL High 74-106 [facility] Comment on above: Result Comment: ALEX GEMENT OF PATIENT CARE PER NURSING PROTOCOL Performed By: #### L 501.080 ####[facility] [address] [place], [address] FINGERSTICK GLU 261 mg/dL High 74-106 [facility] Comment on above: Result Comment: ALEX GEMENT OF PATIENT CARE PER NURSING PROTOCOL Performed By: #### L 501.080 ####[facility] [address] [place], [address] Blood polychromasia detectio n by light microscopyOrdered By: Mikhail Guzman on 07-27-2024 Polychromasia LM Ql (Bld) 1+ [facility] CBC W/Diff, Automatedon 0 OVALOCYTE 1+ Normal [facility] Comment on above: Performed By: #### L 501.5200, L501.2300, L500.2500, L100.0100 #### [facility] [address] [place], [address] PLT EST A Normal ADEQ [facility] Comment on above: Performed By: #### L 501.5200, L501.2300, L500.2500, L100.0100 #### [facility] [address] [place], [address] POLYCHROMASIA 1+ Normal [facility] Comment on above: Performed By: #### L 501.5200, L501.2300, L500.2500, L100.0100 #### [facility] [address] [place], [address] Iron measurement (mass/mass) Ordered By: Mikhail Guzman on 07-27-2024 Iron (Unsp spec) [Mass/Mass] 43 ug/dL Low 65-175 [facility] Iron+Iron Binding Capacityon 07-27-2024 Iron [Mass/Vol] 43 ug/dL Low 65-175 [facility] Comment on above: Performed By: #### L 503.6030, L503.0106, L100.9950 ####[facility] [address] [place], [address] IRON SATURATION 16.0 Normal 9-55 [facility] Comment on above: Performed By: #### L 503.6030, L503.0106, L100.9950 ####[facility] [address] [place], [address] TIBC 267 ug/dL Normal 250-450 [facility] Comment on above: Performed By: #### L 503.6030, L503.0106, L100.9950 ####[facility] [address] [place], [address] UIBC 224 ug/dL Low 228-428 [facility] Comment on above: Performed By: #### L 503.6030, L503.0106, L100.9950 ####[facility] [address] [place], [address] Magnesiumon 07-27-2024 Magnesium [Mass/Vol] 1.9 mg/dL Normal 1.5-2.2 [facility] Comment on above: Performed By: #### L 501.5200, L501.2300, L500.2500, L100.0100 #### [facility] [address] [place], [address] Magnesium measurement (mass/ volume)Ordered By: Mikhail Guzman on 07-27-2024 Magnesium (Unsp spec) [Mass/Vol] 1.9 mg/dL 1.5-2.2 [facility] No Panel InformationOrdered By: Mikhail Guzman on 07-27-2024 Unsaturated Iron Binding Capacity 224 ug/dL Low 228-428 [facility] Ovalocyte detectionOrdered B y: Mikhail Guzman on 07-27-2024 Ovalocytes LM Ql (Bld) 1+ [facility] Phosphoruson 07-27-2024 Phosphate [Mass/Vol] 3.8 mg/dL Normal 2.7-4.5 [facility] Comment on above: Performed By: #### L 501.5200, L501.2300, L500.2500, L100.0100 #### [facility] [address] [place], [address] Platelet estimateOrdered By: Mikhail Guzman on 07-27-2024 Platelets LM Ql (Bld) A ADEQ [facility] Retic Panelon 07-27-2024 IM RET FRACTION 30.90 High 3.00-15.90 [facility] Comment on above: Performed By: #### L 503.6030, L503.0106, L100.9950 ####[facility] [address] [place], [address] RET-HE 24.9 pg Low 30-35 [facility] Comment on above: Performed By: #### L 503.6030, L503.0106, L100.9950 ####[facility] [address] [place], [address] Retic Count 2.26 High 0.5-1.5 [facility] Comment on above: Performed By: #### L 503.6030, L503.0106, L100.9950 ####[facility] [address] [place], [address] Reticulocyte hemoglobin equi valent (RET-He) measurementOrdered By: Mikhail Guzman on 07-27-2024 Hemoglobin (Reticulocytes) [Entitic mass] 24.9 pg Low 30-35 [facility] Reticulocytes Auto (Bld) [#/ Vol]Ordered By: Mikhail Guzman on 07-27-2024 Reticulocytes/100 RBC (Bld) 2.26 % High 0.5-1.5 [facility] Serum or plasma iron saturat ion measurement (mass fraction)Ordered By: Mikhail Guzman on 07-27-2024 Iron saturation [Mass fraction] 16.0 % 9-55 [facility] Vitamin B12on 07-27-2024 Cobalamin (Vitamin B12) [Mass/Vol] 394 pg/mL Normal 180-914 [facility] Comment on above: Performed By: #### L 503.6030, L503.0106, L100.9950 ####[facility] [address] [facility] [address] Vitamin B12 ser/plasOrdered By: Mikhail Guzman on 07-27-2024 Cobalamin (Vitamin B12) [Mass/Vol] 394 pg/mL 180-914 [facility] Bedside Glucoseon 07-26-2024 FINGERSTICK GLU 264 mg/dL High 74-106 [facility] Comment on above: Result Comment: ALEX GEMENT OF PATIENT CARE PER NURSING PROTOCOL Performed By: #### L 501.080 ####[facility] [address] [facility] [address] FINGERSTICK GLU 247 mg/dL High 74-106 [facility] Comment on above: Result Comment: ALEX GEMENT OF PATIENT CARE PER NURSING PROTOCOL Performed By: #### L 501.080 #### [facility] [address] [facility] [address] FINGERSTICK GLU 125 mg/dL High 74-106 [facility] Comment on above: Result Comment: ALEX GEMENT OF PATIENT CARE PER NURSING PROTOCOL Performed By: #### L 501.080 #### [facility] [address] [place], [address] FINGERSTICK GLU 332 mg/dL High 74-106 [facility] Comment on above: Result Comment: ALEX RAMIREZ OF PATIENT CARE PER NURSING PROTOCOL Performed By: #### L 501.080 ####[facility] [address] [place], [address] Bilirubin, totalOrdered By: Indu Strauss on 07-26-2024 Bilirubin [Mass/Vol] 0.65 mg/dL 0.00-1.30 [facility] CBC W/Diff, Automatedon Absolute Lymph 1.64 X10 3/uL Normal 0.83-4.51 [facility] Comment on above: Performed By: #### L 501.080 #### [facility] [address] [place], [address] Absolute Neut 3.1 X10 3/uL Normal 2.0-7.7 [facility] Comment on above: Performed By: #### L 501.080 #### [facility] [address] [place], [address] Basophils/100 WBC (Bld) 0.2 % Normal 0-1 [facility] Comment on above: Performed By: #### L 501.080 #### [facility] [address] [place], [address] Eosinophils/100 WBC (Bld) 2.1 % Normal 0-5 [facility] Comment on above: Performed By: #### L 501.080 #### [facility] [address] [place], [address] Erythrocyte distribution width (RBC) [Ratio] 14.6 % Normal 11.6-14.6 [facility] Comment on above: Performed By: #### L 501.080 #### [facility] [address] [place], [address] Hematocrit (Bld) [Volume fraction] 28.9 % Low 40-54 [facility] Comment on above: Performed By: #### L 501.080 #### [facility] [address] [place], [address] Hemoglobin (Bld) [Mass/Vol] 9.1 g/dL Low 13.0-16.5 [facility] Comment on above: Performed By: #### L 501.080 #### [facility] [address] [place], [address] IG% 0.200 Normal 0.0-0.9 [facility] Comment on above: Result Comment: IG% - Immature Granulocytes (promyelocytes, myelocytes and metamyelocytes) > 1% indicates that a LEFT SHIFT is Present. Performed By: #### L 501.080 #### [facility] [address] [place], [address] Lymphocytes/100 WBC (Bld) 28.7 % Normal 19-41 [facility] Comment on above: Performed By: #### L 501.080 #### [facility] [address] [place], [address] MCH (RBC) [Entitic mass] 23.0 pg Low 27.0-32.0 [facility] Comment on above: Performed By: #### L 501.080 #### [facility] [address] [place], [address] MCHC (RBC) [Mass/Vol] 31.5 g/dL Low 32-36 [facility] Comment on above: Performed By: #### L 501.080 #### [facility] [address] [place], [address] MCV (RBC) [Entitic vol] 73.2 fL Low 80-94 [facility] Comment on above: Performed By: #### L 501.080 #### [facility] [address] [place], [address] Monocytes/100 WBC (Bld) 14.0 % High 0-10 [facility] Comment on above: Performed By: #### L 501.080 #### [facility] [address] [place], [address] Neutrophils/100 WBC (Bld) 54.8 % Normal 47-70 [facility] Comment on above: Performed By: #### L 501.080 #### [facility] [address] [place], [address] Nucleated RBC (Bld) [#/Vol] 0 10*3/uL Normal 0-5 [facility] Comment on above: Performed By: #### L 501.080 #### [facility] [address] [place], [address] Platelet mean volume (Bld) [Entitic vol] 10.9 fL Normal 6.2-12.0 [facility] Comment on above: Performed By: #### L 501.080 #### [facility] [address] [place], [address] Platelets (Bld) [#/Vol] 166 10*3/uL Normal 150-450 [facility] Comment on above: Performed By: #### L 501.080 #### [facility] [address] [place], [address] RBC (Bld) [#/Vol] 3.95 10*6/uL Low 4.6-6.2 [facility] Comment on above: Performed By: #### L 501.080 #### [facility] [address] [place], [address] RDW SD 38.7 fl Normal 35.1-43.9 [facility] Comment on above: Performed By: #### L 501.080 #### [facility] [address] [place], [address] WBC (Bld) [#/Vol] 5.7 10*3/uL Normal 4.4-11.0 [facility] Comment on above: Performed By: #### L 501.080 #### [facility] [address] [place], [address] Comprehensive Metabolic Prof ilon 07-26-2024 Albumin [Mass/Vol] 4.1 g/dL Normal 3.4-4.8 [facility] Comment on above: Performed By: #### L 501.080 #### [facility] [address] [place], [address] Albumin/Globulin [Mass ratio] 1.6 {ratio} Normal 0.9-2.4 [facility] Comment on above: Performed By: #### L 501.080 #### [facility] [address] [place], [address] ALK PHOS 65 U/L Normal 40-129 [facility] Comment on above: Performed By: #### L 501.080 #### [facility] [address] [place], [address] ALT [Catalytic activity/Vol] 17 U/L Normal <=46 [facility] Comment on above: Performed By: #### L 501.080 #### [facility] [address] [place], [address] AST [Catalytic activity/Vol] 29 U/L Normal <=37 [facility] Comment on above: Performed By: #### L 501.080 #### [facility] [address] [place], [address] Bilirubin [Mass/Vol] 0.65 mg/dL Normal 0.00-1.30 [facility] Comment on above: Performed By: #### L 501.080 #### [facility] [address] [place], [address] BUN/CRE 18.8 RATIO Normal 10-20 [facility] Comment on above: Performed By: #### L 501.080 #### [facility] [address] [place], [address] Calcium [Mass/Vol] 9.0 mg/dL Normal 7.6-11.0 [facility] Comment on above: Performed By: #### L 501.080 #### [facility] [address] [place], [address] Chloride [Moles/Vol] 100 mmol/L Normal 98-108 [facility] Comment on above: Performed By: #### L 501.080 #### [facility] [address] [place], [address] CO2 [Moles/Vol] 23.2 mmol/L Normal 21.0-32.0 [facility] Comment on above: Performed By: #### L 501.080 #### [facility] [address] [place], [address] Creatinine [Mass/Vol] 1.52 mg/dL High 0.70-1.20 [facility] Comment on above: Performed By: #### L 501.080 #### [facility] [address] [place], [address] ECRCL 60.12 ml/min Normal 50-250 [facility] Comment on above: Performed By: #### L 501.080 #### [facility] [address] [place], [address] GAP 10 Normal 5-15 [facility] Comment on above: Performed By: #### L 501.080 #### [facility] [address] [place], [address] GFR/1.73 sq M.predicted among non-blacks MDRD (S/P/Bld) [Vol rate/Area] 48 mL/min/{1.73_m2} Low >60 [facility] Comment on above: Result Comment: mL/m in/1.73m2 CKD-EPI Creatinine Equation (2020) Performed By: #### L 501.080 #### [facility] [address] [place], [address] Globulin (S) [Mass/Vol] 2.6 g/dL Normal 2.2-4.2 [facility] Comment on above: Performed By: #### L 501.080 #### [facility] [address] [place], [address] Glucose [Mass/Vol] 348 mg/dL High 70-99 [facility] Comment on above: Performed By: #### L 501.080 #### [facility] [address] [place], [address] Potassium [Moles/Vol] 5.1 mmol/L Normal 3.3-5.1 [facility] Comment on above: Performed By: #### L 501.080 #### [facility] [address] [place], [address] Sodium [Moles/Vol] 133 mmol/L Normal 133-145 [facility] Comment on above: Performed By: #### L 501.080 #### [facility] [address] [place], [address] T PROT 6.6 g/dL Normal 5.9-8.4 [facility] Comment on above: Performed By: #### L 501.080 #### [facility] [address] [place], [address] Urea nitrogen [Mass/Vol] 29 mg/dL High 4-19 [facility] Comment on above: Performed By: #### L 501.080 #### [facility] [address] [place], [address] Laboratory - Chemistry and C hemistry - challengeOrdered By: Indu Strauss on 07-26-2024 AST [Catalytic activity/Vol] 29 U/L <38 [facility] Serum globulin measurementOr dered By: Indu Strauss on 07-26-2024 Globulin (S) [Mass/Vol] 2.6 g/dL 2.2-4.2 [facility] Serum or plasma alanine diaz otransferase (ALT) measurementOrdered By: Indu Strauss on 07-26-2024 ALT [Catalytic activity/Vol] 17 U/L <47 [facility] Serum or plasma albumin rodolfo urement (mass/volume)Ordered By: Indu Strauss on 07-26-2024 Albumin [Mass/Vol] 4.1 g/dL 3.4-4.8 [facility] Serum or plasma albumin/glob ulin mass ratioOrdered By: Indu Rica on 07-26-2024 Albumin/Globulin [Mass ratio] 1.6 {ratio} 0.9-2.4 [facility] Serum or plasma alkaline chandler sphatase measurementOrdered By: Indu Strauss on 07-26-2024 ALP [Catalytic activity/Vol] 65 U/L 40-129 [facility] Total proteinOrdered By: [facility] access hospitalmelodie Strauss on 07-26-2024 Protein [Mass/Vol] 6.6 g/dL 5.9-8.4 [facility] 12 Lead EKGon 07-25-2024 12 Lead EKG [facility] [address] [place] [address] 12 Lead EKG 07/25/24 1824 MR#: [id number] Acct: [id number] Name: RANJANA HUGHES Rep #: [id number] : 1950 74 From: Trinity Damico MD Attending Dr: Dr. Guille Oswald, DO Status: A DM LOUIE Ordering Dr: Red Hector DO Date: 5 Location: [facility] Sex: M AA Admitted: 07/25/24 Test Reason : FALL Blood Pressure : */* mmHG Vent. Rate : 107 BPM Atrial Rate : 107 BPM P-R Int : 180 ms QRS Dur : 76 ms QT Int : 352 ms P-R-T Axes : 42 16 17 degrees QTcB Int : 469 ms Sinus tachycardia Otherwise normal ECG Confirmed by KAIN RAMIREZ, MARINA ([id number]), medical editor TYRELL WANG ([id number]) on 07/31/2024 7:08:27 AM Referred By: Confirmed By: MARINA DAMICO MD 07/31/24 0708 Date Trinity Damico MD CC: Dr. Red Hector, DO; Dr. Guille Oswald DO Signed Normal [facility] Alcohol, Blood (Medical)-Ser umon 07-25-2024 SERUM ETOH < 10.1 Normal <=10.0 [facility] Comment on above: Result Comment: This test is for medical purposes only. The legal definition of intoxication varies according to local law. Performed By: #### L 501.9100 ####[facility] [address] [facility] [place], [place], [id number] Amphetamine detection with 1 000 ng/mL as cutoffOrdered By: Red Hector on 07-25-2024 Amphetamines Screen method >1000 ng/mL Ql (U) Negative < 200 ng/mL [facility] Basic Metabolic Profile (BMP )on 07-25-2024 BUN/CRE 13.7 RATIO Normal 10-20 [facility] Comment on above: Performed By: #### L 501.080 #### [facility] [address] [facility] [place], [address] Calcium [Mass/Vol] 9.8 mg/dL Normal 7.6-11.0 [facility] Comment on above: Performed By: #### L 501.080 #### [facility] [address] [place], [address] Chloride [Moles/Vol] 98 mmol/L Normal 98-108 [facility] Comment on above: Performed By: #### L 501.080 #### [facility] [address] [place], [address] CO2 [Moles/Vol] 17.5 mmol/L Low 21.0-32.0 [facility] Comment on above: Performed By: #### L 501.080 #### [facility] [address] [place], [address] Creatinine [Mass/Vol] 1.56 mg/dL High 0.70-1.20 [facility] Comment on above: Performed By: #### L 501.080 #### [facility] [address] [place], [address] ECRCL 59.14 ml/min Normal 50-250 [facility] Comment on above: Performed By: #### L 501.080 #### [facility] [address] [place], [address] GAP 17 High 5-15 [facility] Comment on above: Performed By: #### L 501.080 #### [facility] [address] [place], [address] GFR/1.73 sq M.predicted among non-blacks MDRD (S/P/Bld) [Vol rate/Area] 47 mL/min/{1.73_m2} Low >60 [facility] Comment on above: Result Comment: mL/m in/1.73m2 CKD-EPI Creatinine Equation (2020) Performed By: #### L 501.080 #### [facility] [address] [place], [address] Glucose [Mass/Vol] 391 mg/dL High 70-99 [facility] Comment on above: Performed By: #### L 501.080 #### [facility] [address] [place], [address] Potassium [Moles/Vol] 5.2 mmol/L High 3.3-5.1 [facility] Comment on above: Performed By: #### L 501.080 #### [facility] [address] [place], [address] Sodium [Moles/Vol] 133 mmol/L Normal 133-145 [facility] Comment on above: Performed By: #### L 501.080 #### [facility] [address] [place], [address] Urea nitrogen [Mass/Vol] 21 mg/dL High 4-19 [facility] Comment on above: Performed By: #### L 501.080 #### [facility] [address] [place], [address] Bedside Glucoseon 07-25-2024 FINGERSTICK GLU 332 mg/dL High 74-106 [facility] Comment on above: Result Comment: ALEX RAMIREZ OF PATIENT CARE PER NURSING PROTOCOL Performed By: #### L 501.080 #### [facility] [address] [place], [address] CBC-Complete Blood Cnt No Di ffon 07-25-2024 Erythrocyte distribution width (RBC) [Ratio] 14.5 % Normal 11.6-14.6 [facility] Comment on above: Performed By: #### L 501.080 #### [facility] [address] [place], [address] Hematocrit (Bld) [Volume fraction] 36.0 % Low 40-54 [facility] Comment on above: Performed By: #### L 501.080 #### [facility] [address] [place], [address] Hemoglobin (Bld) [Mass/Vol] 11.5 g/dL Low 13.0-16.5 [facility] Comment on above: Performed By: #### L 501.080 #### [facility] [address] [place], [address] MCH (RBC) [Entitic mass] 23.5 pg Low 27.0-32.0 [facility] Comment on above: Performed By: #### L 501.080 #### [facility] [address] [place], [address] MCHC (RBC) [Mass/Vol] 31.9 g/dL Low 32-36 [facility] Comment on above: Performed By: #### L 501.080 #### [facility] [address] [place], [address] MCV (RBC) [Entitic vol] 73.5 fL Low 80-94 [facility] Comment on above: Performed By: #### L 501.080 #### [facility] [address] [place], [address] Platelet mean volume (Bld) [Entitic vol] 11.0 fL Normal 6.2-12.0 [facility] Comment on above: Performed By: #### L 501.080 #### [facility] [address] [place], [address] Platelets (Bld) [#/Vol] 207 10*3/uL Normal 150-450 [facility] Comment on above: Performed By: #### L 501.080 #### [facility] [address] [place], [address] RBC (Bld) [#/Vol] 4.90 10*6/uL Normal 4.6-6.2 [facility] Comment on above: Performed By: #### L 501.080 #### [facility] [address] [place], [address] RDW SD 38.4 fl Normal 35.1-43.9 [facility] Comment on above: Performed By: #### L 501.080 #### [facility] [address] [place], [address] WBC (Bld) [#/Vol] 9.6 10*3/uL Normal 4.4-11.0 [facility] Comment on above: Performed By: #### L 501.080 #### [facility] [address] [place], [place], [address] Emergency Department Summary on 07-25-2024 Emergency Department Summary [facility] Medical Records Department [address] [place] [address] Emergency Department Summary 07/25/24 MR#: [id number] Acct: [id number] Name: RANJANA HUGHES Rep #: [id number] : 1950 74 From: Red Hector DO PCP: OUT OF TOWN DOCTOR Status:REG ER Location: ED HPI HPI - Fall History of Present Illness Chief Complaint: Fall Narrative Narrative: Chief complaint and HPI: Mechanical fall with left upper extremity and left lower extremity pain. 74-year-old male with past medical history of DM 2, HLD, HTN presents for evaluation of left upper extremity and left lower extremity after mechanical fall. Patient states he recently went through divorce and decided to have fun yesterday and constitution party. States he used cocaine and alcohol. States he was at a family house when he tried to ambulate to the bathroom and slipped on a rug. Did not his head. No LOC. States he landed on his left leg and arm. Family helped him to the couch. Patient states that he has been unable to ambulate since last night secondary to pain which is why presents. He usually uses a walker due to a bad right knee. Denies any fever, chills, abdominal pain, chest pain, nausea, vomiting, shortness of breath. Has taken Tylenol and Advil yesterday for the pain. States that he usually is not a drug abuser. Review of systems: See HPI Medications: As listed on the chart Allergies: As listed on the chart PFSH: Per chart Vital signs: As listed on the chart. Reviewed. Physical exam: Gen: A O x3, NAD Head: Normocephalic, atraumatic Eyes: No sclera icterus, conjunctiva clear, PERRL, EOMI ENT: TMs clear BL, moist mucous membranes, no swelling/lacerations /blood in the mouth or the nares, No nasal septal hematoma, no facial tenderness Neck: Trachea midline, No JVD, Nontender, full range of motion CV: RRR, no murmurs, no chest wall TTP Resp: Lungs CTA BL, no w/r/c GI: Abd soft, non-distended, non-tender, no r/r/g Musc: Full ROM of the bilateral upper extremities although endorses pain in the left shoulder and mid humerus with movement-no deformity or obvious signs of trauma-tender to palpation, limited range of motion of the left lower extremity secondary to left thigh pain-tender to palpation without any deformity or obvious signs of injury, full range of motion of the left knee without pain or tenderness, radial/DP/PT pulses +2 bilateral, good capillary refill, no midline spinal tenderness, no bony step-off Skin: Warm, dry, intact Neuro: Alert, oriented, grossly intact, sensation intact, GCS 15 Psych: Cooperative, appropriate mood and affect [facility] Medical History (Updated 07/25/24 @ 20:[address] Indu Strauss MD) Cocaine use Obesity HLD (hyperlipidemia) Arthritis Neuropathy Diabetes mellitus Hypertension Asthma Hx of fracture of patella Home Medications ???Medication ???Instructions ???Recorded ???Last Taken ???Type albuterol sulfate 90 mcg/actuation 2 inh inhalation Q8H PRN shortne ss 07/15/24 Unknown History aerosol inhaler (Ventolin HFA) of breath ascorbic acid (vitamin C) 500 mg 500 mg PO DAILY 07/15/24 07/24/24 History tablet (Vitamin C) atorvastatin 40 mg tablet (Lipitor) 40 mg PO QHS 07/15/24 07/24/24 History cholecalciferol (vitamin D3) 25 50 mcg PO DAILY 07/15/24 07/24/24 History mcg (1,000 unit) tablet (Vitamin D3) gabapentin 800 mg tablet 800 mg PO BID 07/15/24 07/24/24 Hi story hydrocodone-acetamin ophen 5-325mg 1 tab PO Q6H PRN PRN Pain 3 days 07/15/24 07/24/24 Rx 5mg-325mg #10 TABLETS insulin aspart U-100 100 unit/mL 12 unit subcut TID 07/15/24 History (3 mL) subcutaneous pen (Novolog FlexPen U-100 Insulin aspart) insulin glargine 100 unit/mL (3 35 unit subcut BID 07/15/24 History mL) subcutaneous pen (Lantus Solostar U-100 Insulin) losartan 25 mg tablet (Cozaar) 12.5 mg PO DAILY 07/15/24 07/24/24 History metformin 1,000 mg tablet 1,000 mg PO BID 07/15/24 07/24/24 History pantoprazole 40 mg tablet,delayed 40 mg PO DAILY 07/15/24 07/24/24 History release (Protonix) Allergy/AdvReac Type Severity Reaction Status Date / Time Penicillins Allergy Unknown NEEDS Verified 07/25/24 16:41 FOLLOW-UP Surgical History Hx of right knee surgery Social History Smoking Status: Never smoker EXAM Physical Exam Const Vital Signs: 07/25/24 16:33 07/25/24 16:38 07/25/24 19:00 Temperature 98.6 F Temperature Source Oral Pulse Rate 89 103 H Respiratory Rate 18 18 Respiratory Effort Normal Respiratory Depth Normal Respiratory Pattern Normal Blood Pressure 138/83 H 170/94 H Blood Pressure Mean 101 119 Pulse Ox 99 98 (more content not included)... Normal [facility] Femur Min 2 Viewson 07-26-19 Femur Min 2 Views [facility] Imaging Services [address] [place], [place] [id number] Femur Min 2 Views MR#: [id number] Acct: [id number] Name: RANJANA HUGHES Rep #: [id number] : 1950 M 74 From: Yanick Gibbons MD PCP: OUT OF TOWN DOCTOR Status: REG ER Study: Femur Min 2 Views Date of Exam: 07/25/24 Exam# [id number] Ordering Dr: Red Hector DO PROCEDURE: FEMUR MIN 2 VIEWS 07/25/2024 REASON FOR EXAM: PAIN TECHNIQUE: 4 view(s) of the left femur. COMPARISON: None FINDINGS: No acute fracture or traumatic malalignment. There is osteophyte formation at the hip and knee. Bone mineral density is subjectively normal. There are vascular calcifications in the soft tissues. RAD/Femur Min 2 Views IMPRESSION: No acute osseous abnormality of the left femur. Reading Location: [id number] CC: Dr. Red Hector DO Tilting Head Band Sawyer: Signed Normal [facility] H AND P Exam - Hospitaliston 07-25-2024 H&P Exam - Hospitalist [facility] Medical Records Department [address] [place] [address] H P Exam - Hospitalist 07/25/242022 MR#: [id number] Acct: [id number] Name: RANJANA HUGHES Rep #: [id number] : 1950 74 From: Indu Strauss MD PCP: OUT OF TOWN DOCTOR Status:REG ER Location: ED HPI - General General Date of Admission: 07/25/24 Date of Service: 07/25/24 Chief Complaint: Fall, debility, intractable L sided pain. HPI Narrative The patient is a 74 y/o [facility] patient M w/ PMHx: Former tobacco use, RADHA noncompliant with PAP therapy, Asthma, HTN, HLD, GERD, Diabetes mellitus type II with chronic neuropathy, Obesity, Presumed Chronic CKD stage III unclear subtype but uncertain, Presumed chronic microcytic anemia but uncertain who presents to the [facility] ED on 07/25/24 with history of mechanical fall onto the left side with discomfort to the upper and lower extremity noting that he recently went through divorce and was at a constitution party the day prior where he drank a significant mount of alcohol and used cocaine and while attempting to ambulate to the bathroom slipped on a rug with no loss of consciousness or head trauma with family helping him to the couch however he has had discomfort and inability to ambulate since then normally using a walker secondary to severe right knee osteoarthritis prompting family to bring him in for evaluation. In the ED patient initially reporting pain 9 out of 10 in severity to the left side primarily with any exertion or movement or weightbearing attempts. Following administration medications the ED patient noted pain improved to 7 out of 10 however still some discomfort in the calf and thigh. Workup in the ED included T90.6, heart rate 89, BP 138/83, respiratory 18, 99% on room air with most recent repeat labs with heart rate 103, BP 170/94, respiratory rate 18, 98% on room air, CBC with WC 9.6, hemoglobin 0.5, MCV 73.5, platelet 207 without differential, BMP with potassium 5.2, At 17.5, anion gap 17, BUN/creatinine 21/1.56, GFR 47, glucose 391, UDS with presumptive positive cocaine, ethyl alcohol less than 10.1, plain film of the left femur with no acute osseous abnormality, plain film of the left humerus with no acute osseous abnormality, plain film of the pelvis with no acute osseous abnormality, plain film of the left shoulder with no acute osseous abnormality. Patient has both medicare and [place] insurance and preferred to remain at [facility] for care and evaluation. [facility] Medical History Former tobacco use RADHA (obstructive sleep apnea) Chronic anemia CKD (chronic kidney disease), stage III Cocaine use Obesity HLD (hyperlipidemia) Arthritis Neuropathy Diabetes mellitus Hypertension Asthma Hx of fracture of patella Home Medications ???Medication ???Instructions ???Recorded ???Last Taken ???Type albuterol sulfate 90 mcg/actuation 2 inh inhalation Q8H PRN shortne ss 07/15/24 Unknown History aerosol inhaler (Ventolin HFA) of breath ascorbic acid (vitamin C) 500 mg 500 mg PO DAILY 07/15/24 07/24/24 History tablet (Vitamin C) atorvastatin 40 mg tablet (Lipitor) 40 mg PO QHS 07/15/24 07/24/24 History cholecalciferol (vitamin D3) 25 50 mcg PO DAILY 07/15/24 07/24/24 History mcg (1,000 unit) tablet (Vitamin D3) gabapentin 800 mg tablet 800 mg PO BID 07/15/24 07/24/24 Hi story hydrocodone-acetamin ophen 5-325mg 1 tab PO Q6H PRN PRN Pain 3 days 07/15/24 07/24/24 Rx 5mg-325mg #10 TABLETS insulin aspart U-100 100 unit/mL 12 unit subcut TID 07/15/24 History (3 mL) subcutaneous pen (Novolog FlexPen U-100 Insulin aspart) insulin glargine 100 unit/mL (3 35 unit subcut BID 07/15/24 History mL) subcutaneous pen (Lantus Solostar U-100 Insulin) losartan 25 mg tablet (Cozaar) 12.5 mg PO DAILY 07/15/24 07/24/24 History metformin 1,000 mg tablet 1,000 mg PO BID 07/15/24 07/24/24 History pantoprazole 40 mg tablet,delayed 40 mg PO DAILY 07/15/24 07/24/24 History release (Protonix) Allergy/AdvReac Type Severity Reaction Status Date / Time Penicillins Allergy Unknown NEEDS Verified 07/25/24 16:41 FOLLOW-UP Family History Mother Diabetes Father Hypertension GERD (gastroesophageal reflux disease) Surgical History History of cholecystectomy Hx of right knee surgery Social History household members: significant other Smoking Status: Former smoker how long ago did patient quit smoking: Quit remotely. alcohol intake: current alcohol intake frequency: holidays/special occasions only substance use type: other details: Admits to cocaine use 07/26/24 but denies commonly using. (more content not included)... Normal [facility] Humerus min 2 Viewson 2024 Humerus min 2 Views [facility] Imaging Services [address] [place], [place] [address] Humerus min 2 Views MR#: [id number] Acct: [id number] Name: RANJANA HUGHES Rep #: [id number] : 1950 M 74 From: Osito Guadarrama MD PCP: OUT OF TOWN DOCTOR Status: REG ER Study: Humerus min 2 Views Date of Exam: 07/25/24 Exam# [id number] Ordering Dr: Red Hector DO PROCEDURE: HUMERUS MIN 2 VIEWS 07/25/2024 REASON FOR EXAM: PAIN TECHNIQUE: 2 view(s) of the left humerus. COMPARISON: None. FINDINGS: No evidence acute fracture or dislocation. No acute soft tissue abnormalities. RAD/Humerus min 2 Views IMPRESSION: No acute osseous abnormalities. Reading Location: [id number] CC: Dr. Red Hector DO Tilting Head Band Sawyer: Signed Normal [facility] No Panel InformationOrdered By: Red Hector on 07-25-2024 Urine Buprenorphine Qualitative Negative < 200 ng/mL [facility] Urine Oxycodone Screen Negative < 100 ng/mL [facility] Pelvis 1 or 2 Viewson 2024 Pelvis 1 or 2 Views [facility] Imaging Services [address] [place] [address] Pelvis 1 or 2 Views MR#: [id number] Acct: [id number] Name: RANJANA HUGHES Rep #: [id number] : 1950 M 74 From: Osito Guadarrama MD PCP: OUT OF TOWN DOCTOR Status: REG ER Study: Pelvis 1 or 2 Views Date of Exam: 07/25/24 Exam# [id number] Ordering Dr: Red Hector DO PROCEDURE: PELVIS 1 OR 2 VIEWS 07/25/2024 REASON FOR EXAM: PAIN TECHNIQUE: 1 view(s) of the pelvis. COMPARISON: None. FINDINGS: No evidence of acute fracture or dislocation. Mild degenerative changes of the bilateral hips. Partially visualized degenerative changes of the spine. Large dense rectal stool burden. RAD/Pelvis 1 or 2 Views IMPRESSION: No acute osseous abnormalities. Details above. Reading Location: [id number] CC: Dr. Red Hector DO Tilting Head Band Sawyer: Signed Normal [facility] Quantitative urine opiates m easurementOrdered By: Red Hector on 07-25-2024 Opiates Ql (U) Negative < 300 ng/mL [facility] Screening urine fentanyl melinda surementOrdered By: Red Hector on 07-25-2024 fentaNYL Screen Ql (U) Negative [facility] Serum or plasma ethanol rodolfo urement (mass/volume)Ordered By: Red Wallace on 07-25-2024 Ethanol [Mass/Vol] mg/dL <10.1 [facility] Comment on above: This test is for med ical purposes only. The legal definition of intoxication varies according to local law. Shoulder min 2 Viewson 07-25 Shoulder min 2 Views [facility] Imaging Services [address] [place], [place] [id number] Shoulder min 2 Views MR#: [id number] Acct: [id number] Name: RANJANA HUGHES Rep #: [id number] : 1950 M 74 From: Osito Guadarrama MD PCP: OUT OF TOWN DOCTOR Status: REG ER Study: Shoulder min 2 Views Date of Exam: 07/25/24 Exam# [id number] Ordering Dr: Red Hector DO PROCEDURE: SHOULDER MIN 2 VIEWS 07/25/2024 REASON FOR EXAM: PAIN TECHNIQUE: 4 views of the left shoulder. COMPARISON: None. FINDINGS: No evidence of acute fracture or dislocation. Mild glenohumeral and acromioclavicular degenerative changes. RAD/Shoulder min 2 Views IMPRESSION: No acute osseous abnormalities. Reading Location: [place] [address] CC: Dr. Red Hector DO Tilting Head Band Sawyer: Signed Normal [facility] Urine Drug Screen (VISTA)on 07-25-2024 AMPHETAMINES Negative Normal <1000 ng/mL [facility] Comment on above: Performed By: #### L 501.080 #### [facility] [address] [place], [place], [id number] BARBITIURATES Negative Normal < 200 ng/mL [facility] Comment on above: Performed By: #### L 501.080 #### [facility] [address] [facility] [place], [address] BENZODIAZIPINE Negative Normal < 200 ng/mL [facility] Comment on above: Performed By: #### L 501.080 #### [facility] [address] [place], [address] BUP Ur Drug Scr Negative Normal < 200 ng/mL [facility] Comment on above: Performed By: #### L 501.080 #### [facility] [address] [place], [address] COCAINE Positive Normal < 300 ng/mL [facility] Comment on above: Result Comment: If c onfirmation testing is needed, a separate order will be required to send out testing to the reference laboratory. Performed By: #### L 501.080 #### [facility] [address] [place], [address] Fentanyl Negative Normal [facility] Comment on above: Performed By: #### L 501.080 #### [facility] [address] [place], [address] METHADONE Negative Normal < 300 ng/mL [facility] Comment on above: Performed By: #### L 501.080 #### [facility] [address] [place], [address] OPIATES Negative Normal < 300 ng/mL [facility] Comment on above: Performed By: #### L 501.080 #### [facility] [address] [place], [address] OXYCODONE Negative Normal < 100 ng/mL [facility] Comment on above: Performed By: #### L 501.080 #### [facility] [address] [place], [address] PCP Negative Normal < 25 ng/mL [facility] Comment on above: Performed By: #### L 501.080 #### [facility] [address] [place], [address] THC Negative Normal < 50 ng/mL [facility] Comment on above: Performed By: #### L 501.080 #### [facility] [address] [place], [address] Urine benzodiazepine levelOr dered By: Red Hector on 07-25-2024 Benzodiazepines Ql (U) Negative < 200 ng/mL [facility] Urine cocaine levelOrdered B y: Red Hector on 07-25-2024 Cocaine Ql (U) Positive < 300 ng/mL [facility] Comment on above: If confirmation test ing is needed, a separate order will be required to send out testing to the reference laboratory. Urine kplnn-9-tglxaquwxkfiln abinol (THC) measurementOrdered By: Red Wallace on 07-25-2024 Cannabinoids Screen Ql (U) Negative < 50 ng/mL [facility] Urine phencyclidine (PCP) de tectionOrdered By: Red Hector on 07-25-2024 Phencyclidine Ql (U) Negative < 25 ng/mL [facility] Consultation - Orthopedicson 07-15-2024 Consultation - Orthopedics [facility] Medical Records Department [address] [place] [address] Consultation - Orthopedics 07/15/24 1736 MR#: [id number] Acct: [id number] Name: RANJANA HUGHES Rep #: [id number] : 1950 74 From: Lonnie Beck MD PCP: OUT OF TOWN DOCTOR Status:DEP ER Location: ED HPI Consult Data Date of Consult: 07/15/24 HPI Narrative HPI Narrative: RANJANA HUGHES, is a 74 M who presents with concern of patellar tendon injury from ED provider. Setting of past TWB for patellar fracture. [facility] Medical History (Updated 07/15/24 @ 15:38 by [...] mg PO BID 07/15/24 Unknown His tory hydrocodone-acetamin ophen 5-325mg 1 tab PO Q6H PRN PRN [...] be performed for further evaluation. Reading Location: [facility] Assessment Plan Assessment/Plan (1) Rupture of right patellar tendon: PLAN: 74 yr M with concern for patellar tendon injury. Recommend for now knee immobilizer, WBAT in full extension. he can FU with myself early this week for further exam and investigation, or go back to [place] where he is travelling from to get definitive treatment there. 07/15/24 0708 Cosigner Signature (if applicable): CC: Signed Normal [facility] Emergency Department Summary on 07-15-2024 Emergency Department Summary [facility] Medical Records Department [address] [facility] [place] [address] Emergency Department Summary 07/15/24 MR#: [id number] Acct: [id number] Name: RANJANA HUGHES Rep #: [id number] : 1950 74 From: Darlene Ayala DO [...] and Weakness; Negative for Loss of Funtion [facility] Medical History (Updated 07/15/24 @ 15:[address] Darlene Ayala, ) Arthritis Neuropathy Diabetes mellitus Hypertension Asthma Hx [...] mg PO BID 07/15/24 Unknown His tory hydrocodone-acetamin ophen 5-325mg 1 tab PO Q6H PRN PRN [...] throughout MDM (more content not included)... Normal [facility] Knee 4 or More Viewson 07-15 Knee 4 or More Views [facility] Imaging Services [address] [place], [place] [address] Knee 4 or More Views MR#: [id number] Acct: [id number] Name: RANJANA HUGHES Rep #: [id number] : 1950 M 74 From: Graciela Delatorre nd, MD PCP: OUT OF TOWN DOCTOR Status: REG ER Study: Knee 4 or More Views Date of Exam: 07/15/24 Exam# [id number] Ordering Dr: Darlene Ayala DO PROCEDURE: KNEE [...] be performed for further evaluation. Reading Location: [id number] CC: Dr. Darlene Ayala, DO Tilting Head Band Sawyer: Signed Normal [facility] WOUND AEROBIC CULTUREon 09-22 WOUND AEROBIC [...] Vancomycin Susc Islt S <=0.5 F Abnormal [facility] Comment on above: Performed By: #### 4 4060 #### [facility] [address] [place] [address] Chino Rosales M.D. [id number] ED Prov Noteon 10-09-2023 ED Prov Note [...] drop Both Eyes Given by Other 10/09/23 5472) fluorescein ophthalmic strip 1 strip (1 strip Right Eye Given by Other 10/09/23 2999) Review of Systems As described above or [...] ED Disposition Discharge Condition Stable Comment Ranjana Hughes discharged to home/self care in stable condition. Follow-up Infor (more content not included)... Normal [facility] Amylaseon 02-21-2021 Amylase.pancreatic [Catalytic activity/Vol] 115.2 U/L High 13.0 - 53.0 U/L [facility] Glucose (Bld) [Mass/Vol]on 1 Glucose [Mass/Vol] 223 mg/dL High 65 - 99 mg/dL [facility] Interpretation and review of laboratory results Abnormal [facility] Glucose [Mass/Vol] 168 mg/dL High 65 - 99 mg/dL [facility] Interpretation and review of laboratory results Abnormal [facility] Lipaseon 02-21-2021 Lipase [Catalytic activity/Vol] 286 U/L High 15 - 65 U/L [facility] Magnesiumon 02-21-2021 Magnesium [Mass/Vol] 1.9 mg/dL 1.6 - 2 .4 mg/dL [facility] Magnesium [Mass/Vol]on 02-21 Interpretation and review of laboratory results Normal [facility] No Panel Informationon 02-21 Interpretation and review of laboratory results Abnormal [facility] Alcohol, Medicalon Ethanol [Mass/Vol] mg/dL <10.0 mg/dL [facility] Comment on above: Alcohol cutoff: <10. 00 mg/dL = None Detected Amylaseon 02-20-2021 Amylase.pancreatic [Catalytic activity/Vol] 192.4 U/L High 13.0 - 53.0 U/L [facility] Interpretation and review of laboratory results Abnormal [facility] Basic metabolic 2000 panelon 02-20-2021 Anion gap [Moles/Vol] 15 mmol/L 10 - 2 0 mmol/L [facility] Calcium [Mass/Vol] 9.0 mg/dL 8.4 - 10. 2 mg/dL [facility] Chloride [Moles/Vol] 103 mmol/L 98 - 10 8 mmol/L [facility] Creatinine [Mass/Vol] 0.81 mg/dL 0.80 - 1.30 [facility] GFR/1.73 sq M.predicted CKD-EPI (S/P/Bld) [Vol rate/Area] 106 >=60 mL/min/1.73 m2 [facility] Glucose [Mass/Vol] 204 mg/dL High 65 - 99 mg/dL [facility] HCO3 [Moles/Vol] 25 mmol/L 21 - 32 mmol/L [facility] Interpretation and review of laboratory results Abnormal [facility] Potassium [Moles/Vol] 4.7 mmol/L 3.5 - 5.1 mmol/L [facility] Sodium [Moles/Vol] 138 mmol/L 135 - 145 mmol/L [facility] Urea nitrogen [Mass/Vol] 15 mg/dL 8 - 25 mg/dL [facility] Urea nitrogen/Creatinine [Mass ratio] 18.5 mg/mg [facility] The eGFR should be used for monitoring renal function only and not for medication dosing. [facility] COVID-19, MolecularOrdered B y: Arturo Charles on 02-20-2021 SARS-CoV-2 (COVID-19) RdRp gene ROXANA+probe Ql (Resp) Not detected Not Detected [facility] Comment on above: This test was perfor med under the FDA's Emergency Use Authorization (EUA). Testing was performed using the Mcdonald ID NOW COVID-19 assay on the ID NOW platform. This test has not been approved for use in asymptomatic patients and its performance in this patient population has not been evaluated. Negative results do not rule out the presence of SARS-CoV-2/COVID-19. Fact sheets for the EUA can be found at the following links: For Healthcare Providers: https://www.fda.gov/media/735584/download For Patients: https://www.fda.gov/media/057854/download CT Abdomen Pelvis With IV Co ntrast [...] pelvis. 2. Interval cholecystectomy. Workstation ID: [id number] FANCRU EXAMINATION: CT ABDOMEN WITH CONTRAST AND CT [...] Mild endplate irregularity at L5-S1 favors degenerative pack changer early discitis. No disc space narrowing is seen. No acute osseous abnormality or suspicious bony lesion is identified. [employer] [facility] Austyn Bush MD - 02/20/2021 EXAMINATION: CT [...] Mild endplate irregularity at L5-S1 favors degenerative pack changer early discitis. No disc space narrowing is [...] pelvis. 2. Interval cholecystectomy. Workstation ID: [id number] [facility] CT Abdomen Pelvis With IV Co ntrast OnlyOrdered By: Austyn Bush on 02-20-2021 [facility] Work Phone: Calcium Levelon 02-20-2021 Calcium [Mass/Vol] 9.1 mg/dL 8.4 - 10. 2 mg/dL [facility] Calcium [Mass/Vol]on Interpretation and review of laboratory results Normal [facility] Ethanol [Mass/Vol]on 021 Interpretation and review of laboratory results Normal [facility] Glucose (Bld) [Mass/Vol]on 1 Glucose [Mass/Vol] 174 mg/dL High 65 - 99 mg/dL [facility] Interpretation and review of laboratory results Abnormal [facility] Glucose [Mass/Vol] 285 mg/dL High 65 - 99 mg/dL [facility] Interpretation and review of laboratory results Abnormal [facility] Glucose [Mass/Vol] 176 mg/dL High 65 - 99 mg/dL [facility] Interpretation and review of laboratory results Abnormal [facility] Glucose [Mass/Vol] 236 mg/dL High 65 - 99 mg/dL [facility] Interpretation and review of laboratory results Abnormal [facility] HbA1c (Bld) [Mass fraction]o n 02-20-2021 Average glucose Estimated from glycated hemoglobin (Bld) [Mass/Vol] 280 mg/dL High 74 - 114 mg/dL [facility] Interpretation and review of laboratory results Abnormal [facility] Normal: 4.2% - 5.6% Increased risk for diabetes: 5.7% - 6.4% Diabetes: >= 6.5% Pediatrics: No established reference range Estimated average glucose: 74-114 mg/dL [facility] Hemoglobin A1con 02-20-2021 HbA1c (Bld) [Mass fraction] 11.4 % High 4.2 - 5.6 % [facility] Iron Study with Ferritinon 1 Ferritin [Mass/Vol] 189 ng/mL 30 - 400 ng/mL [facility] Interpretation and review of laboratory results Abnormal [facility] Iron [Mass/Vol] 42 ug/dL [facility] Iron binding capacity [Mass/Vol] 279 [facility] Iron saturation [Mass fraction] 15 % Low 20 - 50 % [facility] Lactate [Moles/Vol]on 2020 Interpretation and review of laboratory results Normal [facility] Lactic Acid, Plasmaon 2020 Lactate [Moles/Vol] 0.7 mmol/L 0.6 - 2. 0 mmol/L [facility] LipaseOrdered By: Shayne sewell on 02-20-2021 Lipase [Catalytic activity/Vol] 693 U/L Critically high 15 - 65 U/L [facility] Lipase [Catalytic activity/V ol]Ordered By: Shayne Mccarthy on 02-20-2021 Interpretation and review of laboratory results Abnormal [facility] Lipid 1996 panelon Cholesterol [Mass/Vol] 101 mg/dL 100 - 199 mg/dL [facility] Cholesterol in HDL [Mass/Vol] 39 mg/dL Low 40 - 59 [facility] Cholesterol in LDL [Mass/Vol] 52 mg/dL 10 - 130 mg/dL [facility] Comment on above: National Cholesterol Education Program Guidelines: LDL Cholesterol Optimal: <100 mg/dL Near Optimal/above Optimal: 100-129 mg/dL Borderline High: 130-159 mg/dL High: 160-189 mg/dL Very High: greater than or equal to 190 mg/dL Cholesterol non HDL [Mass/Vol] 62 mg/dL [facility] Comment on above: National Cholesterol Education Program Guidelines: NON HDL Cholesterol Desirable: <130 mg/dL Borderline High: 130-159 mg/dL High: 160-189 mg/dL Very High: > or = 190 mg/dL Cholesterol.total/Francisca sterol in HDL [Mass ratio] 2.6 {ratio} ratio [facility] Comment on above: Males Cholesterol/HD L Ratio: Average risk: 5.0 1/2 average risk: 3.4 2 x average risk: 9.6 Interpretation and review of laboratory results Abnormal [facility] Triglyceride [Mass/Vol] 52 mg/dL 30 - 150 mg/dL [facility] Magnesium Levelon 02-20-2021 Magnesium [Mass/Vol] 2.3 mg/dL 1.6 - 2 .4 mg/dL [facility] Magnesium [Mass/Vol]on 02-20 Interpretation and review of laboratory results Normal [facility] No Panel Informationon 02-20 Extra Tube Hold for add-ons. [facility] Comment on above: Auto resulted. [facility] [place] 02-20-2021 [facility] SARS-CoV-2 (COVID-19) RdRp g shahnaz ROXANA+probe Ql (Resp)Ordered By: Arturo Charles on 02-20-2021 Interpretation and review of laboratory results Normal [facility] Triglyceride [Mass/Vol]on Interpretation and review of laboratory results Abnormal [facility] Triglycerideson 02-20-2021 Triglyceride [Mass/Vol] 160 mg/dL High 30 - 150 mg/dL [facility] Comment on above: National Cholesterol Education Program Guidelines: Triglyceride Normal: <150 mg/dL Borderline High: 150-199 mg/dL High: 200-499 mg/dL Very High: greater than or equal to 500 mg/dL Basic metabolic 1998 panelOr dered By: Sherin Morris on 02-19-2021 Anion gap [Moles/Vol] 17 mmol/L 10 - 2 0 mmol/L [facility] Chloride [Moles/Vol] 97 mmol/L Low 98 - 10 8 mmol/L [facility] Creatinine [Mass/Vol] 0.95 mg/dL 0.80 - 1.30 [facility] GFR/1.73 sq M.predicted CKD-EPI (S/P/Bld) [Vol rate/Area] 95 >=60 mL/min/1.73 m2 [facility] Glucose [Mass/Vol] 486 mg/dL Critically high 65 - 9 9 mg/dL [facility] HCO3 [Moles/Vol] 21 mmol/L 21 - 32 mmol/L [facility] Interpretation and review of laboratory results Abnormal [facility] Potassium [Moles/Vol] 4.4 mmol/L 3.5 - 5.1 mmol/L [facility] Sodium [Moles/Vol] 131 mmol/L Low 135 - 145 mmol/L [facility] Urea nitrogen [Mass/Vol] 20 mg/dL 8 - 25 mg/dL [facility] Urea nitrogen/Creatinine [Mass ratio] 21.1 mg/mg High [facility] The eGFR should be used for monitoring renal function only and not for medication dosing. [facility] CBC Auto Differentialon 01-23 Basophils (Bld) [#/Vol] 0.02 10*3/uL [facility] Basophils/100 WBC (Bld) 0.2 % [facility] Eosinophils (Bld) [#/Vol] 0.08 10*3/uL [facility] Eosinophils/100 WBC (Bld) 0.9 % [facility] Erythrocyte distribution width (RBC) [Entitic vol] 14.8 % 11.6 - 14.8 % [facility] Hematocrit (Bld) [Volume fraction] 39.4 % Low 41.0 - 53.0 % [facility] Hemoglobin (Bld) [Mass/Vol] 12.6 g/dL Low 13.5 - 17.5 g/dL [facility] Immature granulocytes (Bld) [#/Vol] 0.05 10*3/uL [facility] Immature granulocytes/100 WBC (Bld) 0.60 % [facility] Comment on above: The IG parameter is the percentage of metamyelocytes, myelocytes and promyelocytes. An immature granulocyte count (IG) of 1% or more suggests the possibility of infection, an IG count of 3% is very likely related to an infection. Interpretation and review of laboratory results Abnormal [facility] Lymphocytes (Bld) [#/Vol] 2.90 10*3/uL [facility] Lymphocytes/100 WBC (Bld) 34.1 % [facility] MCH (RBC) [Entitic mass] 23.1 pg Low 26.0 - 34.0 pg [facility] MCHC (RBC) [Mass/Vol] 32.0 g/dL 31.0 - 37.0 g/dL [facility] MCV (RBC) [Entitic vol] 72.3 fL Low 80.0 - 100.0 fL [facility] Monocytes (Bld) [#/Vol] 0.82 10*3/uL [facility] Monocytes/100 WBC (Bld) 9.6 % [facility] Neutrophils (Bld) [#/Vol] 4.63 10*3/uL [facility] Neutrophils/100 WBC (Bld) 54.6 % [facility] Nucleated RBC (Bld) [#/Vol] 0.00 10*3/uL [facility] Nucleated RBC/100 WBC (Bld) [Ratio] 0.0 % [facility] Platelet mean volume (Bld) [Entitic vol] 11.0 fL 9.4 - 12.4 fL [facility] Platelets (Bld) [#/Vol] 250 10*3/uL [facility] RBC (Bld) [#/Vol] 5.45 10*6/uL [facility] ealt WBC (Bld) [#/Vol] 8.50 10*3/uL [facility] CT Abdomen Pelvis With IV Co ntrast Onlyon 02-19-2021 Radiology Study observation (narrative) [facility] Hepatic function 2000 panelo n 02-19-2021 Albumin [Mass/Vol] 4.2 g/dL 3.2 - 5.2 g/dL [facility] ALP [Catalytic activity/Vol] 93 U/L 40 - 150 U/L [facility] ALT [Catalytic activity/Vol] 13 U/L 0 - 40 U/L [facility] AST [Catalytic activity/Vol] 12 U/L 0 - 45 U/L [facility] Bilirubin [Mass/Vol] 0.2 mg/dL 0.0 - 1 .3 mg/dL [facility] Bilirubin.conjugated [Mass/Vol] mg/dL 0.0 - 0.4 mg/dL [facility] Interpretation and review of laboratory results Normal [facility] Protein [Mass/Vol] 7.2 g/dL 6.0 - 8.0 g/dL [facility] Lipaseon 02-19-2021 Lipase [Catalytic activity/Vol] 1200 U/L Critically high 15 - 65 U/L [facility] Lipase [Catalytic activity/V ol]on 02-19-2021 Interpretation and review of laboratory results Abnormal [facility] UrinalysisOrdered By: Thalia Rogers on 02-19-2021 Bacteria Auto Ql (U) None Seen None Se en /hpf [facility] Bilirubin Ql (U) Negative Negative [facility] Clarity Refractometry automated (U) Clear Clear [facility] Color (U) Colorless Colorless, Yellow [facility] Glucose Auto test strip (U) [Mass/Vol] >=500 Abnormal Negative mg/dL [facility] Hemoglobin Auto test strip Ql (U) Negative Negative [facility] Interpretation and review of laboratory results Abnormal [facility] Ketones (U) [Mass/Vol] Trace Abnormal Negat sharmila mg/dL [facility] Leukocyte esterase Auto test strip Ql (U) Negative Negative [facility] Mucus Auto (Urine sed) [#/Area] Rare None Seen, Rare /lpf [facility] Nitrite Auto test strip Ql (U) Negative Negative [facility] pH (U) 5.0 [pH] [facility] Protein (U) [Mass/Vol] Negative Negat sharmila mg/dL [facility] RBC Auto (Urine sed) [#/Area] 1 [facility] Specific gravity (U) [Rel density] 1.035 High [facility] Urobilinogen (U) [Mass/Vol] mg/dL <2.0 mg/dL [facility] Microscopic examination is performed on all urinalysis samples and only positive findings are reported. The test for blood on the chemical analytic portion of urinalysis may also be positive due to hemoglobinuria and myoglobinuria and if red blood cells are present they are quantified by microscopic examination. [facility] POC Glucoseon 01-04-2019 Glucose [Mass/Vol] 196 mg/dL High 65 - 99 mg/dL [facility] Interpretation and review of laboratory results Abnormal [facility] SCAN OTHER ORDERSon 01-04-20 Ordered by an unspecified provider. [facility] SCAN OTHER ORDERSon 12-31-19 Ordered by an unspecified provider. [facility] Basic Metabolic Panelon 04-23 Anion gap molar conc 13 mmol/L 10 - 20 mmol/L [facility] Calcium mass conc 9.1 mg/dL 8.4 - 10.2 mg/dL [facility] Chloride molar conc 102 mmol/L 98 - 108 mmol/L [facility] Creatinine mass conc 0.87 mg/dL 0.8 - 1 .3 mg/dL [facility] GFR/1.73 sq M predicted among non-blacks MDRD vol rate/area (S/P/Bld) The eGFR should be used for monitoring renal function only and not for medication dosing. [facility] GFR/1.73 sq M.predicted CKD-EPI vol rate/area (S/P/Bld) 104 >=60 mL/min/1.73 m2 [facility] Glucose mass conc 89 mg/dL 65 - 99 mg/dL [facility] HCO3 molar conc 26 mmol/L 21 - 32 mmol/L [facility] Potassium molar conc 4.6 mmol/L 3.5 - 5 .1 mmol/L [facility] Sodium molar conc 136 mmol/L 135 - 145 mmol/L [facility] Urea nitrogen mass conc 15 mg/dL 8 - 25 mg/dL [facility] Urea nitrogen/Creatinine mass ratio 17.2 mg/mg [facility] CBCon 05-20-2018 Erythrocyte distribution width Entitic volume (RBC) 14.7 % 11.6 - 14.8 % [facility] Hematocrit Volume Fraction (Bld) 33.6 % Low 41 - 53 % [facility] Hemoglobin mass conc (Bld) 10.7 g/dL Low 13.5 - 17.5 g/dL [facility] Interpretation and review of laboratory results Abnormal [facility] MCH Entitic mass (RBC) 22.8 pg Low 26 - 34 pg [facility] Comment on above: 2+ hypochromia MCHC mass conc (RBC) 31.8 g/dL 31 - 37 g/dL [facility] MCV Entitic volume (RBC) 71.6 fL Low 80 - 100 fL [facility] Comment on above: 2+microcytosis Nucleated RBC #/vol (Bld) 0.00 10*3/uL [facility] Nucleated RBC/100 WBC Ratio (Bld) 0.0 % [facility] Platelet mean volume Entitic volume (Bld) 11.6 fL 9 - 15.5 fL [facility] Platelets #/vol (Bld) 177 10*3/uL [facility] RBC #/vol (Bld) 4.69 10*6/uL [facility] WBC #/vol (Bld) 7.21 10*3/uL [facility] ECG 12-LEADon 05-20-2018 Atrial Rate 49 BPM [facility] P [place] 33 degrees [facility] P-R Interval 218 ms [facility] Q-T Interval 438 ms [facility] QRS Duration 72 ms [facility] QTC Calculation (Bezet) 395 ms [facility] [place] 21 degrees [facility] T [place] 27 degrees [facility] Ventricular Rate 49 BPM [facility] Sinus bradycardia with 1st degree AV block Otherwise normal ECG Confirmed by Dolores Espinosa MD ([id number]) on 05/20/2018 6:06:36 PM [facility] Otheron 05-20-2018 Interpretation and review of laboratory results Normal [facility] POC Glucoseon 05-20-2018 Glucose mass conc 122 mg/dL High 65 - 99 mg/dL [facility] Interpretation and review of laboratory results Abnormal [facility] Glucose mass conc 122 mg/dL High 65 - 99 mg/dL [facility] Interpretation and review of laboratory results Abnormal [facility] Glucose mass conc 98 mg/dL 65 - 99 mg/dL [facility] Glucose mass conc 100 mg/dL High 65 - 99 mg/dL [facility] Interpretation and review of laboratory results Abnormal [facility] Glucose mass conc 88 mg/dL 65 - 99 mg/dL [facility] US ABDOMEN LIMITED STUDYon 0 05-20-2018 EXAMINATION: [...] sign is reported. There is no ascites. [facility] [place] Speechq - 05/20/2018 5:24 AM EDT EXAMINATION: US [...] definite shadowing stones, or biliary ductal dilatation. ASC/vrs Workstation ID: [id number] [facility] 1. Heterogeneously echogenic liver, which is nonspecific finding and may represent hepatic steatosis and/or other underlying hepatocellular pathology. 2. Small amount of gallbladder sludge with no evidence of significant gallbladder wall thickening, definite shadowing stones, or biliary ductal dilatation. [facility] Workstation ID: [id number] [facility] BMPon 05-19-2018 Anion gap molar conc 18 mmol/L 10 - 20 mmol/L [facility] Calcium mass conc 9.4 mg/dL 8.4 - 10.2 mg/dL [facility] Chloride molar conc 97 mmol/L Low 98 - 108 mmol/L [facility] Creatinine mass conc 1.04 mg/dL 0.8 - 1 .3 mg/dL [facility] GFR/1.73 sq M predicted among non-blacks MDRD vol rate/area (S/P/Bld) The eGFR should be used for monitoring renal function only and not for medication dosing. [facility] GFR/1.73 sq M.predicted CKD-EPI vol rate/area (S/P/Bld) 86 >=60 mL/min/1.73 m2 [facility] Glucose mass conc 271 mg/dL High 65 - 99 mg/dL [facility] HCO3 molar conc 24 mmol/L 21 - 32 mmol/L [facility] Interpretation and review of laboratory results Abnormal [facility] Potassium molar conc 4.7 mmol/L 3.5 - 5 .1 mmol/L [facility] Sodium molar conc 134 mmol/L Low 135 - 145 mmol/L [facility] Urea nitrogen mass conc 20 mg/dL 8 - 25 mg/dL [facility] Urea nitrogen/Creatinine mass ratio 19.2 mg/mg [facility] CBC WITH AUTO DIFFERENTIALon 05-19-2018 Basophils #/vol (Bld) 0.01 10*3/uL [facility] Basophils/100 WBC (Bld) 0.1 % [facility] Eosinophils #/vol (Bld) 0.10 10*3/uL [facility] Eosinophils/100 WBC (Bld) 1.2 % [facility] Erythrocyte distribution width Entitic volume (RBC) 14.6 % 11.6 - 14.8 % [facility] Hematocrit Volume Fraction (Bld) 38.0 % Low 41 - 53 % [facility] Hemoglobin mass conc (Bld) 11.8 g/dL Low 13.5 - 17.5 g/dL [facility] Immature granulocytes #/vol (Bld) 0.02 10*3/uL [facility] Immature granulocytes/100 WBC (Bld) 0.20 % [facility] Comment on above: The IG parameter is the percentage of metamyelocytes, myelocytes, and promyelocytes. Interpretation and review of laboratory results Abnormal [facility] Lymphocytes #/vol (Bld) 2.96 10*3/uL [facility] Lymphocytes/100 WBC (Bld) 35.0 % [facility] MCH Entitic mass (RBC) 23.0 pg Low 26 - 34 pg [facility] MCHC mass conc (RBC) 31.1 g/dL 31 - 37 g/dL [facility] MCV Entitic volume (RBC) 74.2 fL Low 80 - 100 fL [facility] Monocytes #/vol (Bld) 0.61 10*3/uL [facility] Monocytes/100 WBC (Bld) 7.2 % [facility] Neutrophils #/vol (Bld) 4.76 10*3/uL [facility] Neutrophils/100 WBC (Bld) 56.3 % [facility] Nucleated RBC #/vol (Bld) 0.00 10*3/uL [facility] Nucleated RBC/100 WBC Ratio (Bld) 0.0 % [facility] Platelet mean volume Entitic volume (Bld) 12.2 fL 9 - 15.5 fL [facility] Platelets #/vol (Bld) 197 10*3/uL [facility] RBC #/vol (Bld) 5.12 10*6/uL [facility] WBC #/vol (Bld) 8.46 10*3/uL [facility] CT Abdomen Pelvis With IV Co ntrast [...] seen. The osseous structures are otherwise unremarkable. [facility] Rad [facility] [place] Speech[facility] - 05/19/2018 8:53 PM EDT EXAMINATION: [...] umbilical hernia, without evidence for bowel obstruction. [facility] Workstation ID: [id number] [facility] Mild fluid distention of the small bowel with multiple air-fluid levels may represent mild ileus versus enteritis. No significant bowel wall thickening is seen. No abnormal fluid collection is seen. Large volume of stool seen in the right and transverse colon. Small fat-containing umbilical hernia, without evidence for bowel obstruction. [facility] Workstation ID: [id number] [facility] Hepatic Function Panel (LFT) on 05-19-2018 Albumin mass conc 4.7 g/dL 3.2 - 5.2 g/dL [facility] ALP enzyme act/vol 58 U/L 40 - 150 U/L [facility] ALT enzyme act/vol 18 U/L 0 - 40 U/L [facility] AST enzyme act/vol 19 U/L 0 - 45 U/L [facility] alth Bilirubin mass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 Diastolic 70 mm[Hg] [facility]2019 09:29-0500 BP Systolic 135 mm[Hg] John Jaimes [facility] 01-04-2019 09:29-0500 Pulse (Heart Rate) 50 /[facility]-04-2019 09:29-0500 Pulse Oximetry 95 % [facility] 01-04-2019 09:29-0500 Respiratory Rate 19 /min [facility] 01-04-2019 08:11-0500 BMI (Body Mass Index) 33.64 kg/m2 [facility] 01-04-2019 08:11-0500 Body weight 118.84 kg [facility] 01-04-2019 08:11-0500 Height 188 cm [facility] 01-04-2019 08:09-0500 Body Temperature 98.6 [degF] John [facility] 05-20-2018 16:18-0400 Body Temperature 98.29 [degF] [facility] 05-20-2018 16:18-0400 BP Diastolic 78 mm[Hg] [facility] 05-20-2018 16:18-0400 BP Systolic 154 mm[Hg] [facility] 05-20-2018 16:18-0400 Pulse (Heart Rate) 57 /min [facility] 05-20-2018 16:18-0400 Pulse Oximetry 98 % [facility] 05-20-2018 16:18-0400 Respiratory Rate 16 /min [facility] 05-20-2018 11:23-0400 BMI (Body Mass Index) 37.97 kg/m2 [facility] 05-20-2018 11:23-0400 Height 182.9 cm [facility] 05-20-2018 11:23-0400 Weight 127.01 kg [facility] 04-02-2017 10:53-0500 BMI (Body Mass Index) 36.46 kg/m2 Kishor [facility] Work Phone: 04-02-2017 10:53-0500 Body Temperature 98.29 [degF] [facility] Work Phone: 04-02-2017 10:53-0500 BP Diastolic 83 mm[Hg] Kishor Miranda [facility] Work Phone: 04-02-2017 10:53-0500 BP Systolic 176 mm[Hg] Kishor Miranda [facility] Work Phone: 04-02-2017 10:53-0500 Pulse (Heart Rate) 74 /min Kishor Miranda [facility] Work Phone: 04-02-2017 10:53-0500 Pulse Oximetry 91 % Kishor Miranda [facility] Work Phone: 04-02-2017 10:53-0500 Respiratory Rate 16 /min Kishor Miranda [facility] Work Phone: 04-02-2017 10:53-0500 Weight 128.82 kg Kishor Miranda [facility] Work Phone: 11-09-2016 14:00-0400 BP Diastolic 81 mm[Hg] Dolores Wheeler [facility] Work Phone: 11-09-2016 14:00-0400 BP Systolic 155 mm[Hg] Dolores Wheeler [facility] Work Phone: 11-09-2016 14:00-0400 Pulse (Heart Rate) 61 /min Dolores Wheeler [facility] Work Phone: 11-09-2016 14:00-0400 Pulse Oximetry 99 % Dolores Wheeler [facility] Work Phone: 11-09-2016 14:00-0400 Respiratory Rate 10 /min Dolores Wheeler [facility] Work Phone: 11-09-2016 10:41-0400 Body Temperature 97.5 [degF] Dolores Wheeler [facility] Work Phone: 11-09-2016 09:19-0400 BMI (Body Mass Index) 35.31 kg/m2 Linda Sacha [facility] Work Phone: 11-09-2016 09:19-0400 BP Diastolic 73 mm[Hg] Linda Goncalves [facility] Work Phone: 11-09-2016 09:19-0400 BP Systolic 138 mm[Hg] Linda Goncalves [facility] Work Phone: 11-09-2016 09:19-0400 Height 188 cm Linda Goncalves [facility] Work Phone: 11-09-2016 09:19-0400 Pulse (Heart Rate) 80 /min Linda Goncalves [facility] Work Phone: 11-09-2016 09:19-0400 Pulse Oximetry 98 % Linda Goncalves [facility] Work Phone: 11-09-2016 09:19-0400 Respiratory Rate 18 /min Lindabennett Goncalves [facility] Work Phone: 11-09-2016 09:19-0400 Weight 124.74 kg Linda Goncalves [facility] Work Phone: Encounters Encounter Date Encounter Type Care Provider Facility Start: 07-31-2024 Non-patient / Non-visit Dr. Guille [facility] Work Phone: Start: 07-30-2024 Non-patient / Non-visit [facility]. [facility] Work Phone: Start: 07-29-2024 Non-patient / Non-visit Dr. Guille [facility] Work Phone: Start: 07-28-2024 Non-patient / Non-visit Dr. Mikhail Lopez [facility] Work Phone: Start: 07-27-2024 Non-patient / Non-visit Dr. Mikhail Lopez [facility] Work Phone: Start: 07-26-2024 Non-patient / Non-visit [facility] Work Phone: Start: 07-25-2024 End: 07-31-2024 Evaluation and management of inpatient Dr. Guille Oswald DO -Medical Surgical 3 Work Phone: Start: 07-25-2024 End: 07-31-2024 observation encounter Out of Town Doctor [facility] Work Phone: Start: 07-25-2024 End: 07-31-2024 ambulatory Out of Town Doctor Facility:[facility] Start: 07-25-2024 Non-patient / Non-visit Dr. Indu Strauss MD -[place] [facility] Work Phone: Start: 07-15-2024 ambulatory Lonnie Beck Facility :[facility] Start: 07-15-2024 Non-patient / Non-visit Dr. Lonnie flores MD -[facility] Start: 07-15-2024 End: 07-15-2024 Emergency department patient visit Dr. Darlene Ayala DO -Emergency Department Work Phone: Start: 10-14-2023 End: 10-14-2023 ambulatory [place] [facility] Start: 10-09-2023 End: 10-09-2023 Emergency department patient visit [place] [facility] Start: 02-19-2021 End: 02-21-2021 Evaluation and management of inpatient Jose Enrique Garay MD Work Phone: [facility] Start: 11-28-2020 End: 11-28-2020 Office outpatient new 45 minutes Mario Rodriguez MD Work Phone: [facility], Neuroscience Comment on above: 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) Start: 04-01-2020 End: 04-01-2020 Orders Only Mai Chase Work Phone: [facility] Start: 01-04-2019 End: 01-04-2019 Patient encounter procedure JOHN KUMAR [facility] Start: 01-04-2019 End: 01-04-2019 Subsequent hospital visit by physician John Jaimes Work Phone: [facility] Start: 05-23-2018 End: 05-23-2018 Patient encounter procedure Yahir Moreno [facility] Start: 05-19-2018 End: 05-20-2018 Emergency department patient visit Jake Childs Napoleon Work Phone: [facility] Comment on above: Acute pancreatitis, unspecified complication status, unspecified pancreatitis type (Primary Dx); Generalized abdominal pain Start: 07-22-2017 End: 07-22-2017 Emergency department patient visit BENJAMIN ZHU Facility:[facility] Start: 04-02-2017 End: 04-02-2017 [facility] Start: 04-02-2017 Office/outpatient visit, est, level 4 [facility] Work Phone: [facility] Start: 11-09-2016 End: 11-09-[address] [facility] Start: 11-09-2016 [facility] Start: 11-09-2016 End: 11-09-2016 Emergency department patient visit [facility] Start: 11-09-2016 End: 11-09-2016 Evaluation and management of inpatient [facility]moise Wheeler Work Phone: [facility] Emergency Department Start: 11-09-2016 End: 11-09-2016 Emergency department patient visit Linda Beau Goncalves Work Phone: [facility] Emergency Department Procedures Date Procedure Procedure Detail Performing Clinician Start: 07-29-2024 Estimated creatinine clearance [facility] Doctor Start: 07-27-2024 Immature reticulocyt e fraction [facility] Doctor Start: 07-27-2024 Serum inorganic phos phate measurement [facility] Doctor Start: 07-27-2024 Total iron binding capacity measurement [facility] Doctor Start: 07-25-2024 Plain radiography of pelvis [facility] Doctor Start: 07-25-2024 Plain X-ray of femur Ou t Town Doctor Start: 07-25-2024 Plain x-ray of humerus [facility] Town Doctor Start: 07-25-2024 Plain X-ray of shoulder [facility] Doctor Start: 07-25-2024 Methadone measuremen t, urine [facility] Doctor Start: 07-15-2024 X-ray of knee, four or more views Out Town Doctor Start: 02-21-2021 Glucose measurement Alli Brown MD [...] metabolic pane l calcium total Slime Winston CNP Work Phone: Start: 02-20-2021 Blood ethanol measurement Slime Winston CNP Work Phone: Start: 02-20-2021 LAVENDER TOP Triage Pro to[facility] Start: 02-20-2021 LIGHT GREEN TOP Triage Protocol Emergency MD Start: 02-20-2021 Lipid panel Slime Winston TRAINING ASSOCIATE Work Phone: Start: 02-20-2021 PINK TOP Triage [facility] Start: 02-20-2021 RAINBOW DRAW Triage [facility] Start: 02-20-2021 Glucose measurement Rakel Salter MD Work Phone: Start: 02-20-2021 SARS-CoV-2 (COVID-19 ) RdRp gene [Presence] in Respiratory specimen by ROXANA with probe detection Luis ESPINOZA-Agus Work Phone: Start: 02-20-2021 Assay of lactate Cheryl ESPINOZA-C Work Phone: Start: 02-19-2021 Ct abdomen & pelvis w/contrast material Luis Dick PA-C Work Phone: Start: 02-19-2021 Urnls dip stick/tabl et reagent auto microscopy Triage Protocol Emergency MD Start: 02-19-2021 Calcium total Loreta C te Salter MD Work Phone: Start: 02-19-2021 Hepatic function panel Triage Protocol Emergency MD Start: 01-04-2019 End: 01-04-2019 Colonoscopy Johnra Reji Hartho tra Work Phone: Start: 01-04-2019 Glucose [Mass/volume ] in Blood John Mendoza Freddy Work Phone: Start: 01-03-2019 SCAN OTHER ORDERS Provi viry Not In System Start: 12-31-2018 SCAN OTHER ORDERS Provi viry Not In System Start: 05-20-2018 Glucose [Mass/volume ] in Blood Loreta Conrad Work Phone: Start: 05-20-2018 Endoscopy of esophagus Tyrell Beckett Grazyna Work Phone: Start: 05-20-2018 Glucose [Mass/volume ] in Blood Loreta Conrad Work Phone: Start: 05-20-2018 12 lead ECG Surendra Adler Work Phone: Start: 05-20-2018 Glucose [Mass/volume ] [...] Fan Work Phone: Start: 05-19-2018 Urinalysis [place] Fan Work Phone: Start: 05-19-2018 Basic metabolic 2000 panel - Serum or Plasma [place]ino Fan Work Phone: Start: 05-19-2018 Complete blood count with white cell differential, automated [place] Fan Work Phone: Start: 05-19-2018 Complete blood count with white cell differential, manual [place] Fan Work Phone: Start: 05-19-2018 SEGURA TOP [...] Screening for malign ant neoplasm of colon [facility] Start: 07-31-2024 Patient discharge [facility] Start: 07-31-2024 [facility] Start: 07-29-2024 [facility] Start: 07-26-2024 [facility] Start: 07-25-2024 Following clinical pathway protocol [facility] Start: 07-25-2024 Assessment of risk o f venous thromboembolism [facility] Start: 07-25-2024 Care regimes management [facility] Start: 07-25-2024 Fall prevention [facility] Start: 07-25-2024 Insertion of cathete r into peripheral vein [facility] Start: 07-25-2024 Introduction of urin darlene catheter [facility] Start: 07-25-2024 Measuring intake and output [facility] Start: 07-25-2024 Notification of physician [facility] Start: 07-25-2024 Providing care accor ding to standard [facility] Start: 07-25-2024 Provision of activit y privileges [facility] Start: 07-25-2024 Referral to occupati onal therapist [facility] Start: 07-25-2024 Referral to service [facility] Start: 07-25-2024 End: 07-25-2024 [facility] Start: 07-25-2024 Admission procedure [facility] Start: 07-25-2024 Verification routine [facility] Start: 07-15-2024 [facility] Start: 05-05-2023 Pneumococcal Vaccine : Age 65+ (2 of 2 - PPSV23) Pneumococcal Vaccine: Age 65+ (2 of 2 - PPSV23) [facility] Start: 02-22-2022 Tetanus vaccination Tetanus: Every 1 0yrs [facility] Start: 11-25-2021 Pneumococcal vaccination PNEUM OCOCCAL VACCINE AGE 65+ (2 of 2 - PPSV23) [facility] Start: 10-23-2020 Influenza vaccination Sequenti al Influenza Vaccine (#1) [facility] Start: 10-24-2019 Influenza vaccinatio n given Sequential Influenza Vaccine (#1) [facility] Start: 10-23-2018 Influenza vaccinatio n given SEQUENTIAL INFLUENZA VACCINE (#1) [facility] Start: 04-02-2018 Microalbumin measure ment, urine, quantitative Urine Microalbumin [facility] Start: 04-02-2018 Urine, microalbumin URINE MICROALBUM IN [facility] Work Phone: Start: 10-23-2017 Influenza vaccinatio n given SEQUENTIAL INFLUENZA VACCINE (#1) [facility] Start: 09-30-2017 HbA1c [facility] Work Phone: Start: 09-30-2017 Hemoglobin A1c measurement A1C [facility] Start: 05-04-2017 Ambulatory 05/04/2017 Off ice Visit Primary Care Kishor Miranda, DO [address] [place] [address] [facility] Start: 2017 Fall risk assessment Oh [facility] Start: 2017 Pneumococcal vaccination PNEUM OCOCCAL VACCINE AGE 65+ (1 of 2 - PCV13) [facility] Start: 2017 US scan of abdominal aorta ABDOMINAL AORTIC ULTRASOUND [facility] Start: 10-23-2016 Influenza vaccination SEQUENTI AL INFLUENZA VACCINE (#1) [facility] Work Phone: Start: 07-15-2016 Urine, microalbumin URINE MICROALBUM IN [facility] Work Phone: Start: 01-16-2016 HbA1c HEMOGLOBIN A1C [facility] Work Phone: Start: 2012 Zoster vacc, sc [facility] VACCINE [facility] Work Phone: Start: 2002 Administration of he rpes zoster vaccine ZOSTER VACCINES (1 of 2) [facility] Start: 2002 Screening for malign ant neoplasm of colon [facility] Start: 1970 Hepatitis C antibody , confirmatory test Hepatitis C Screening [facility] Start: 1970 Hepatitis C screening Hepatitis C Sc reening [facility] Start: 1968 COVID-19 Vaccine (1 of 2) COVI D-19 Vaccine (1 of 2) [facility] Start: 1964 Adolescent depressio n screening assessment Depression Screening (PHQ9) [facility] Start: 1964 Depression screening using PHQ-9 (Patient Health Questionnaire 9) score Depression Screening (PHQ9) [facility] Start: 1962 Diabetic foot examin ation (regime/therapy) FOOT EXAM [facility] Start: 1962 Ophthalmic examinati on and evaluation OPHTHALMOLOGY EXAM [facility] Start: 1955 History and physical examination, annual for health maintenance Wellness Visit [facility] Start: 1952 Abdominal aortic ane urysm screening Abdominal Aortic Ultrasound [facility] Start: 1952 Depression screening using PHQ-9 (Patient Health Questionnaire 9) score DEPRESSION SCREENING (PHQ9) [facility] Start: 1952 Fall risk assessment Falls Risk Asse ssment [facility] Start: 1952 Hepatitis C antibody , confirmatory test HEPATITIS C SCREENING [facility] Start: 1952 HEPATITIS C SCREENING HEPATITIS C SC REENING [facility] Work Phone: Start: 1952 Prostate specific an tigen measurement PSA Level [facility] Start: 1952 [facility]: Start: 1952 Screening for malign ant neoplasm of colon Colorectal Cancer Screening: Colonoscopy [facility] Start: 1952 Tetanus vaccination Ohi [facility] Work Phone: Start: 1952 US scan of abdominal aorta Abdominal Aortic Ultrasound [facility] CT Angiogram Chest Abdomen Pelvis CT Angiogram Chest Abdomen Pelvis STAT 11/09/2016 11:30 AM EDT [facility] Work Phone: CT Head Or Brain Wit hout Contrast CT Head Or Brain Without Contrast STAT 11/09/2016 11:16 AM EDT [facility] Work Phone: CT Thoracic And Lumb ar Spine Without Contrast Reconstructed CT Thoracic And Lumbar Spine Without Contrast Reconstructed STAT 11/09/2016 11:30 AM EDT [facility] Work Phone: Patient Education ED Quadriceps Tendon Rupture [facility] Work Phone: Patient referral [facility] Work Phone: End: 04-02-2018 PFT spirometry pre and post bronchodilator PFT spirometry pre and post bronchodilator Routine Shortness of breath 1 Occurrences starting 04/02/2017 until 04/02/2018 [facility] Work Phone: Procedure on tissue specimen [facility] Comment on above: Once for 1 Occurrenc es starting 05/20/2018, 1 completed End: 11-09-2016 US ED Fast Scan US ED Fast Scan STAT One time imaging One time imaging for 1 Occurrences starting 11/09/2016 until 11/09/2016 [facility] Work Phone: ED Fast Scan ED Fast Scan STAT 11/09/2016 10:40 AM EDT [facility] Work Phone: XR Cervical Spine AP/LAT XR Cerv ical Spine AP/LAT DAVID 11/09/2016 9:44 AM EDT [facility] Work Phone: XR Pelvis 1 View (Standard) XR Pelvis 1 View (Standard) DAVID 11/09/2016 9:43 AM EDT [facility] Work Phone: Immunizations Immunization Date Immunization Notes Care Provider Bisi bernardo 04-02-2017 HEMOGLOBIN A1C Jake Bender [facility] 12-24-2014 influenza virus vacc ine, unspecified formulation Linda Goncalves [facility] Payers Date Payer Category Payer Self-pay 2018 Unknown xxxxxxxxx [id number] 2018 Unknown [id number] 2017 Unknown [id number] 2017 Medicare 2017 Medicare MEDICARE MEDICAR E PART A xxxxxxxxxxx 2017-Present [place] xxxxxxxxxxx [id number] 2017 Medicare MEDICARE MEDICAR E PART A [id number] 2017-Present [place] [id number] 2017 Medicare [id number] 2016 Unknown [id number] 2016 Unknown [employer] INSURANCE [id number] 2016-Present [id number] 2016 Unknown [employer] AC [employer] INSURANCE [id number] 2016-Present [id number] 1952 Unknown [id number] 1952 Unknown [id number] 1952 Unknown [id number] 1952 Unknown [id number] Medicare [id number] Unknown VA VA OPTUM COLU MBUS [id number] Effective for all dates [phone] [address] [place] [address] [id number] Unknown [id number] Unknown [id number] Unknown [id number] Unknown [id number] Unknown [id number] Unknown [id number] Unknown [id number] Unknown [id number] Unknown [id number] Unknown [id number] Social History Date Type Detail Facility Start: 11-09-2016 End: 07-25-2024 Tobacco smoking status NHIS Former smoker [facility] Work Phone: End: 02-22-1977 History of tobacco use Current smoker [facility] Work Phone: Start: 1950 Sex Assigned At Not on file O [facility] Work Phone: Start: 01-04-2019 End: 02-19-2021 Alcohol intake Current non-drinker of alcohol (finding) [facility] Start: 04-10-2015 End: 01-04-2019 Tobacco use and exposure Never used [facility] Start: 11-28-2020 End: 02-19-2021 Alcohol intake [facility] Exposure to SARS-CoV -2 (event) Not sure [facility] Start: 1950 Sex Assigned At Male [facility] Goals Date Patient Goal Desired Activity /State Functional Status Date Assessment Result Facility 07-31-2024 Functional status Activity Abili ty With Assist of 2;With Assistance of 3 or more [facility] Work Phone: 07-30-2024 Functional status Ambulates [facility] Work Phone: Mental Status Date Assessment Result Facility 07-30-2024 Cognitive function Voice/Name [facility] Work Phone: Clinical Notes 11-28-2020 to 07-31-2024 Note Date & Type Note Facility 07-31-2024 Discharge summary [facility] 07-30-2024 Progress note Note Date/Time July 30, 2024 2:20pm [facility] Medical Records Department [address] [place] [address] Progress Note - Hospitalist 07/30/24 1418 MR#: [id number] Acct: [id number] Name: RANJANA HUGHES Rep #:[id number] : 1950 74 From: Guille Oswald DO PCP: OUT OF TOWN DOCTOR Status:ADM LOUIE Location: MS3 [id number] Reason for Visit Reason for Visit: Diagnoses Polyneuropathy, unspecified (07/25/24) Pain, unspecified (07/25/24) Unspecified fall, initial encounter (07/25/24) Subjective Subjective Patient was seen and examined today, he states that he still having pain in his left knee but the right knee pain is better. I have elected to place him on Voltaren p.o., according to the patient, he has not taken nonsteroidal anti-inflammatory agents before. Objective Data Objective Data Vital Signs: Vital Signs Temp Pulse Resp BP Pulse Ox O2 Del Method 98.6 F 76 20 H 142/86 H 99 Room Air 07/30/24 07:30 07/30/24 07:30 07/30/24 07:30 07/30/24 07:30 07/30/24 07:30 07/30/24 10:00 Oxygen Delivery Method Room Air Weight: 120.6 kg Body Mass Index (BMI) 34.1 Intake & Output: Intake and Output for Last 24 Hours 07/28/24 07/29/24 07/30/24 23:59 23:59 23:59 Intake Total 970 / 1470 1100 / 1100 400 / 400 Output Total 925 / 1925 3350 / 3650 750 / 750 Balance 45 / -455 -2250 / -2550 -350 / -350 Lab / Micro Data 07/29/24 05:45 07/29/24 05:45 Labs: Laboratory Results - last 24 hr 07/29/24 16:21: POC Glucose 275 H 07/29/24 20:17: POC Glucose 348 H 07/30/24 08:11: POC Glucose 217 H 07/30/24 11:15: POC Glucose 227 H Physical Exam Narrative alert, oriented x3, no apparent distress and healthy appearing General Appearance: cooperative, well kempt and well developed Orientation / Consciousness: awake, oriented to person, oriented to place and oriented to time HEENT normocephalic, head/scalp atraumatic and moist oral mucous membranes Eyes PERRL, EOMs intact bilaterally and conjunctivae normal Neck supple, no JVD, thyroid normal and no carotid bruits General: trachea midline Resp normal respiratory effort, no retractions, no use of accessory muscles and clearto auscultation bilaterally Auscultation: Negative for rales, rhonchi or wheezes Cardio regular rate, regular rhythm, S1 normal heart sound, S2 normal heart sound, no murmurs, no rub and no gallops GI normal to inspection, nondistended, normoactive bowel sounds, soft to palpation,non-tender and non-distended Extremity no clubbing, cyanosis or edema Skin no rashes or lesions noted General Skin Exam: no breakdown Neuro oriented x3, CN's II-XII intact bilaterally and no focal motor deficits Neuro Narrative: decreased sensation to light touch in the feet Sensorium / Orientation: awake and alert Speech: speech normal Psych affect normal Assessment & Plan Assessment/Plan (1) Intractable pain: (2) Neuropathy: PLAN: Plan 1. 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-patient will remain on his present medications Total clinical time spent by myself addressing the patient's medical issues, reviewing all of his data, and collaborating with patient's care team: 35 minutes Charges/Coding Visit Charges Inpatient E&M: 40943 Subs Hosp L2 07/30/24 1420 <Electronically signed by Guille Oswald DO> Cosigner Signature (if applicable): CC: ~ Signed [facility] Work Phone: 1(760) 649-705406-08-2025 Progress note [facility] Medical Records Department [address] [place] [address] Progress Note - Hospitalist 07/30/24 1418 MR#: [id number] Acct: [id number] Name: RANJANA HUGHES Rep #:[id number] : 1950 74 From: Guille Oswald DO PCP: OUT OF TOWN DOCTOR Status:ADM LOUIE Location: [place] [address] Reason for Visit Reason for Visit: Diagnoses Polyneuropathy, unspecified (07/25/24) Pain, unspecified (07/25/24) Unspecified fall, initial encounter (07/25/24) Subjective Subjective Patient was seen and examined today, he states that he still having pain in his left knee but the right knee pain is better. I have elected to place him on Voltaren p.o., according to the patient, hehas not taken nonsteroidal anti- inflammatory agents before. Objective Data Objective Data Vital Signs: Vital Signs Temp Pulse Resp BP Pulse Ox O2 Del Method 98.6 F 76 20 H 142/86 H 99 Room Air 07/30/24 07:30 07/30/24 07:30 07/30/24 07:30 07/30/24 07:30 07/30/24 07:30 07/30/24 10:00 Oxygen Delivery Method Room Air Weight: 120.6 kg Body Mass Index (BMI) 34.1 Intake & Output: Intake and Output for Last 24 Hours 07/28/24 07/29/24 07/30/24 23:59 23:59 23:59 Intake Total 970 / 1470 1100 / 1100 400 / 400 Output Total 925 / 1925 3350 / 3650 750 / 750 Balance 45 / -455 -2250 / -2550 -350 / -350 Lab / Micro Data 07/29/24 05:45 07/29/24 05:45 Labs: Laboratory Results - last 24 hr 07/29/24 16:21: POC Glucose 275 H 07/29/24 20:17: POC Glucose 348 H 07/30/24 08:11: POC Glucose 217 H 07/30/24 11:15: POC Glucose 227 H Physical Exam Narrative alert, oriented x3, no apparent distress and healthy appearing General Appearance: cooperative, well kempt and well developed Orientation / Consciousness: awake, oriented to person, oriented to place and oriented to time HEENT normocephalic, head/scalp atraumatic and moist oral mucous membranes Eyes PERRL, EOMs intact bilaterally and conjunctivae normal Neck supple, no JVD, thyroid normal and no carotid bruits General: trachea midline Resp normal respiratory effort, no retractions, no use of accessory muscles and clearto auscultation bilaterally Auscultation: Negative for rales, rhonchi or wheezes Cardio regular rate, regular rhythm, S1 normal heart sound, S2 normal heart sound, no murmurs, no rub and no gallops GI normal to inspection, nondistended, normoactive bowel sounds, soft to palpation,non-tender and non-distended Extremity no clubbing, cyanosis or edema Skin no rashes or lesions noted General Skin Exam: no breakdown Neuro oriented x3, CN's II-XII intact bilaterally and no focal motor deficits Neuro Narrative: decreased sensation to light touch in the feet Sensorium / Orientation: awake and alert Speech: speech normal Psych affect normal Assessment & Plan Assessment/Plan (1) Intractable pain: (2) Neuropathy: PLAN: Plan 1. 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-patient will remain on his present medications Total clinical time spent by myself addressing the patient's medical issues, reviewing all of his data, and collaborating with patient's care team: 35 minutes Charges/Coding Visit Charges Inpatient E&M: 93425 Subs Hosp L2 07/30/24 1420 Cosigner Signature (if applicable): CC: ~ Signed [facility]06-07-2025 Progress note Author [facility] Note Date/Time July 29, 2024 6:26p m [facility] Medical Records Department [address] [place] [address] Progress Note - Hospitalist 07/29/24 1819 MR#: [id number] Acct: [id number] Name: RANJANA HUGHES Rep #:[id number] : 1950 74 From: Guille Oswald DO PCP: OUT OF TOWN DOCTOR Status:ADM LOUIE Location: [address] Reason for Visit Reason for Visit: Diagnoses Pain, unspecified (07/25/24) Unspecified fall, initial encounter (07/25/24) Subjective Subjective Patient was seen and examined today we are still awaiting approval for him to [facility] for inpatient rehab services Objective Data Objective Data Vital Signs: Vital Signs Temp Pulse Resp BP Pulse Ox O2 Del Method 98.0 F 88 15 130/76 H 100 Room Air 07/29/24 15:15 07/29/24 15:15 07/29/24 15:15 07/29/24 15:15 07/29/24 15:15 07/29/24 15:15 Oxygen Delivery Method Room Air Weight: 120.3 kg Body Mass Index (BMI) 34.0 Intake & Output: Intake and Output for Last 24 Hours 07/27/24 07/28/24 07/29/24 23:59 23:59 23:59 Intake Total 120 / 120 970 / 1470 1100 / 1100 Output Total 400 / 400 925 / 1925 2600 / 2600 Balance -280 / -280 45 / -455 -1500 / -1500 Lab / Micro Data 07/29/24 05:45 07/29/24 05:45 Labs: Laboratory Results - last 24 hr 07/28/24 21:01: POC Glucose 290 H 07/29/24 05:45: WBC 6.3, RBC 4.31 L, Hgb 10.1 L, Hct 31.8 L, MCV 73.8 L, MCH 23.4 L, MCHC 31.8 L, RDW Std Deviation 38.5, RDW Coeff of Summer 14.4, Plt Count 212, MPV 11.2, Immature Gran % (Auto) 0.600, Neut % (Auto) 53.7, Lymph % (Auto) 31.5, [place] % (Auto) 11.7 H, Eos % (Auto) 2.2, Baso % (Auto) 0.3, Absolute Neuts (auto) 3.4, Absolute Lymphs (auto) 1.97, Nucleated RBC % 0, Sodium 137, Potassium 4.5, Chloride 101, Carbon Dioxide 26.2, Anion Gap 10, BUN 15, Creatinine 0.99, Estim Creat Clear Calc 92.96, Est GFR (MDRD) Non-Af 81, BUN/Creatinine Ratio 14.6, Glucose 157 H, Calcium 9.3 07/29/24 07:53: POC Glucose 147 H 07/29/24 11:40: POC Glucose 222 H 07/29/24 16:21: POC Glucose 275 H Physical Exam Const alert, oriented x3, no apparent distress and healthy appearing General Appearance: cooperative, well kempt and well developed Orientation / Consciousness: awake, oriented to person, oriented to place and oriented to time HEENT normocephalic, head/scalp atraumatic and moist oral mucous membranes Eyes PERRL, EOMs intact bilaterally and conjunctivae normal Neck supple, no JVD, thyroid normal and no carotid bruits General: trachea midline Resp normal respiratory effort, no retractions, no use of accessory muscles and clearto auscultation bilaterally Auscultation: Negative for rales, rhonchi or wheezes Cardio regular rate, regular rhythm, S1 normal heart sound, S2 normal heart sound, no murmurs, no rub and no gallops GI normal to inspection, nondistended, normoactive bowel sounds, soft to palpation,non-tender and non-distended Extremity no clubbing, cyanosis or edema Skin no rashes or lesions noted General Skin Exam: no breakdown Neuro oriented x3, CN's II-XII intact bilaterally and no focal motor deficits Neuro Narrative: decreased sensation to light touch in the feet Sensorium / Orientation: awake and alert Speech: speech normal Psych affect normal Assessment & Plan Assessment/Plan (1) Neuropathy: PLAN: Plan 1. Acute debility-secondary to neuropathy and osteoarthritis-continue PT and OT, awaiting approval of for ECF placement #2 type 2 diabetes-continue present medications, monitor blood sugars #3 essential hypertension-continue present medications #4 neuropathy secondary to diabetes-patient will remain on his present medications Total clinical time spent by myself addressing the patient's medical issues, reviewing all of his data, and collaborating with patient's care team: 35 minutes Charges/Coding Visit Charges Inpatient E&M: 91455 Subs Hosp L2 07/29/24 1826 <Electronically signed by Guille Oswald DO> Cosigner Signature (if applicable): CC: ~ Signed [facility] Work Phone: 1(585) 180-869606-07-2025 Progress note [facility] Medical Records Department [address] [place] [address] Progress Note - Hospitalist 07/29/24 1819 MR#: [id number] Acct: [id number] Name: RANJANA HUGHES Rep #:[id number] : 1950 74 From: Guille Oswald DO PCP: OUT OF TOWN DOCTOR Status:ADM LOUIE Location: [place] [address] Reason for Visit Reason for Visit: Diagnoses Pain, unspecified (07/25/24) Unspecified fall, initial encounter (07/25/24) Subjective Subjective Patient was seen and examined today we are still awaiting approval for him to [facility] for inpatient rehab services Objective Data Objective Data Vital Signs: Vital Signs Temp Pulse Resp BP Pulse Ox O2 Del Method 98.0 F 88 15 130/76 H 100 Room Air 07/29/24 15:15 07/29/24 15:15 07/29/24 15:15 07/29/24 15:15 07/29/24 15:15 07/29/24 15:15 Oxygen Delivery Method Room Air Weight: 120.3 kg Body Mass Index (BMI) 34.0 Intake & Output: Intake and Output for Last 24 Hours 07/27/24 07/28/24 07/29/24 23:59 23:59 23:59 Intake Total 120 / 120 970 / 1470 1100 / 1100 Output Total 400 / 400 925 / 1925 2600 / 2600 Balance -280 / -280 45 / -455 -1500 / -1500 Lab / Micro Data 07/29/24 05:45 07/29/24 05:45 Labs: Laboratory Results - last 24 hr 07/28/24 21:01: POC Glucose 290 H 07/29/24 05:45: WBC 6.3, RBC 4.31 L, Hgb 10.1 L, Hct 31.8 L, MCV 73.8 L, MCH 23.4 L, MCHC 31.8 L, RDW Std Deviation 38.5, RDW Coeff of Summer 14.4, Plt Count 212, MPV 11.2, Immature Gran % (Auto) 0.600,Neut % (Auto) 53.7, Lymph % (Auto) 31.5, [place] % (Auto) 11.7 H, Eos % (Auto) 2.2, Baso % (Auto) 0.3,Absolute Neuts (auto) 3.4, Absolute Lymphs (auto) 1.97, Nucleated RBC % 0, Sodium 137, Potassium 4.5, Chloride 101, Carbon Dioxide 26.2, Anion Gap 10, BUN 15, Creatinine 0.99, Estim Creat Clear Calc 92.96, Est GFR (MDRD) Non-Af 81, BUN/Creatinine Ratio 14.6, Glucose 157 H, Calcium 9.3 07/29/24 07:53: POC Glucose 147 H 07/29/24 11:40: POC Glucose 222 H 07/29/24 16:21: POC Glucose 275 H Physical Exam Const alert, oriented x3, no apparent distress and healthy appearing General Appearance: cooperative, well kempt and well developed Orientation / Consciousness: awake, oriented to person, oriented to place and oriented to time HEENT normocephalic, head/scalp atraumatic and moist oral mucous membranes Eyes PERRL, EOMs intact bilaterally and conjunctivae normal Neck supple, no JVD, thyroid normal and no carotid bruits General: trachea midline Resp normal respiratory effort, no retractions, no use of accessory muscles and clearto auscultation bilaterally Auscultation: Negative for rales, rhonchi or wheezes Cardio regular rate, regular rhythm, S1 normal heart sound, S2 normal heart sound, no murmurs, no rub and no gallops GI normal to inspection, nondistended, normoactive bowel sounds, soft to palpation,non-tender and non-distended Extremity no clubbing, cyanosis or edema Skin no rashes or lesions noted General Skin Exam: no breakdown Neuro oriented x3, CN's II-XII intact bilaterally and no focal motor deficits Neuro Narrative: decreased sensation to light touch in the feet Sensorium / Orientation: awake and alert Speech: speech normal Psych affect normal Assessment & Plan Assessment/Plan (1) Neuropathy: PLAN: Plan 1. Acute debility-secondary to neuropathy and osteoarthritis-continue PT and OT, awaiting approval of for ECF placement #2 type 2 diabetes-continue present medications, monitor blood sugars #3 essential hypertension-continue present medications #4 neuropathy secondary to diabetes-patient will remain on his present medications Total clinical time spent by myself addressing the patient's medical issues, reviewing all of his data, and collaborating with patient's care team: 35 minutes Charges/Coding Visit Charges Inpatient E&M: 50799 Subs Hosp L2 07/29/24 1917 Cosigner Signature (if applicable): CC: ~ Signed [facility]06-06-2025 Discharge summary Author Mikhail Guzman [facility] Note Date/Time July 28, 2024 4:27p m [facility] Medical Records Department [address] [place] [address] Discharge Summary 07/28/24 7140 MR#: [id number] Acct: [id number] Name: RANJANA HUGHES Rep #:[id number] : 1950 74 From: Mikhail Guzman MD PCP: OUT OF [facility] DOCTOR Status:ADM LOUIE Location: [place] [address] Providers Date of Admission: 07/25/24 Date of Discharge: 07/28/24 Primary Care Physician: Out of [facility] Doctor Reason For Visit: FALL, INTRACTABLE PAIN Diagnosis Discharge Diagnosis (1) Intractable pain: Status: Acute Code(s): R52 - Pain, unspecified (2) Fall: Status: Acute Code(s): W19.XXXA - Unspecified fall, initial encounter Plan Patient is a 74-year-old gentleman presented following a fall 1. Acute mechanical fall ? Patient underwent extensive imaging studies with no identifiable fractures. Admitted to regular nursing floor for pain management. Requested for PT OT [facility] director social welfare to assist with discharge planning 07/27/2024;Patient seen awaiting insurance precertification prior to being transferred to longterm facility for rehab. If patient denied plan for patient to be discharged home with outpatient PT ? 07/28/2024; insurance precertification pending prior to patient being 2. Polysubstance dependence ? Patient urine drug screen was positive for cocaine alcohol was less than10.1. Cessation encouraged 3. Diabetes mellitus type II -patient's oral hypoglycemics held. Placed on long acting insulin, Accu-Cheks a.c. and at bedtime and covered with sliding scale insulin 4. Class I obesity with BMI of 33.6 ? Weight loss advised 5. Hypertension ? Blood pressure controlled, home medications continued with dose adjustment as needed 6. GERD ? On PPI 7. Mild intermittent asthma ? Aerosol treatment as needed 8. Diabetic polyneuropathy ? Patient is on gabapentin 9. Dyslipidemia ?Patient is on statin therapy, continued at home dose 10. Obstructive sleep apnea ? With reported noncompliance with PAP therapy consistent use encouraged 11. DVT prophylaxis ? On enoxaparin 12. Anemia ? Secondary to chronic disorder monitoring H&H and transfuse if patient becomes symptomatic or hemoglobin falls below 7, did undertake iron studies given patient low MCV 6 extremity and 5; patient iron studies consistent with iron deficiency anemia patient given parenteral iron discussed with patient on the need to undergo subsequent outpatient evaluation including colonoscopy given hisadvanced age Time spent in the patient's overall evaluation,decision-making process, review of diagnostic data, adjustment of management, discussion with other providers, nursing nursing and ancillary staff involved in patient's care documentation, 35Minutes Medications at Discharge Home Medications albuterol sulfate 90 mcg/actuation aerosol inhaler (Ventolin HFA) 2 inh inhalation Q8H PRN shortness of breath 07/15/24 ascorbic acid (vitamin C) 500 mg tablet (Vitamin C) 500 mg PO DAILY 07/15/24 atorvastatin 40 mg tablet (Lipitor) 40 mg PO QHS 07/15/24 cholecalciferol (vitamin D3) 25 mcg (1,000 unit) tablet (Vitamin D3) 50 mcg PO DAILY 07/15/24 gabapentin 800 mg tablet 800 mg PO BID 07/15/24 insulin aspart U-100 100 unit/mL (3 mL) subcutaneous pen (Novolog FlexPen U-100 Insulin aspart) 12 unit subcut TID 07/15/24 insulin glargine 100 unit/mL (3 mL) subcutaneous pen (Lantus Solostar U-100 Insulin) 35 unit subcut BID 07/15/24 losartan 25 mg tablet (Cozaar) 12.5 mg PO DAILY 07/15/24 metformin 1,000 mg tablet 1,000 mg PO BID 07/15/24 pantoprazole 40 mg tablet,delayed release (Protonix) 40 mg PO DAILY 07/15/24 acetaminophen 325 mg tablet 650 mg (2 x 325 mg) PO Q4H PRN PRN Fever, pain 1- 12/01 #0 tabs 07/28/24 albuterol sulfate 2.5 mg/3 mL (0.083 %) solution for nebulization 2.5 mg (3 mL) inhalation Q2H PRN PRN Dyspnea, wheezing #0 mL 07/28/24 aluminum-mag hydroxide-simethicone 400 mg-400 mg-40 mg/5 mL oral susp (Mag-Al Plus Extra Strength) 30 ml PO Q6H PRN PRN Gastric Burning #0 mL 07/28/24 insulin lispro 100 unit/mL subcutaneous pen (Humalog KwikPen (U-100) Insulin) See Protocol subcut ACHS #0 mL 07/28/24 lidocaine 5 % topical patch 2 patch topical DAILY #0 ea 07/28/24 melatonin 3 mg tablet 3 mg PO QHS PRN PRN Insomnia #0 tabs 07/28/24 oxycodone 5 mg tablet 5 mg PO Q4H PRN PRN Pain Score 4-10 3 days #14 tabs 07/28/24 polysaccharide iron complex 150 mg iron capsule (Ferrex) 150 mg PO DAILY #0 caps07/28/24 sennosides 8.6 mg-docusate sodium 50 mg tablet (Stimulant Laxative Plus) 2 tab PO BID PRN PRN Constipation #0 tabs 07/28/24 tizanidine 2 mg tablet 2 mg PO Q8H PRN PRN Muscle spasm/strain #0 tabs 07/28/24 Physical Exam Narrative GENERAL: cooperative HEENT: Atraumatic; normocephalic EYES; Anicteric, Normal Conjunctiva NECK; supple, normal thyroid, RESPIRATORY: Diminished to auscultation CARDIOVASCULAR: Regular S1 S2, GI: soft, normoactive bowel sounds, : No Renal angle tenderness; EXTREMITIES: No edema, no clubbing, MUSCULOSKELETAL: no muscle wasting NEURO: Awake; no lateralizing signs. SKIN: No Rash PSYCH; Flat affect Weight / BMI Weight Weight: 122.7 kg Body Mass Index (BMI) 34.7 ABG / Lab / Microbiology Data 07/28/24 05:47 07/28/24 05:47 Laboratory: Laboratory Results - last 24 hr 07/27/24 16:41: POC Glucose 190 H 07/27/24 22:15: POC Glucose 338 H 07/28/24 05:47: WBC 5.2, RBC 3.81 L, Hgb 8.8 L, Hct 28.2 L, MCV 74.0 L, MCH 23.1L, MCHC 31.2 L, RDW Std Deviation 38.9, RDW Coeff of Summer 14.6, Plt Count 181, MPV 11.6, Immature Gran % (Auto) 0.400, Neut % (Auto) 49.0, Lymph % (Auto) 35.9,[place] % (Auto) 12.2 H, Eos % (Auto) 2.3, Baso % (Auto) 0.2, Absolute Neuts (auto)2.6, Absolute Lymphs (auto) 1.88, Nucleated RBC % 0, Sodium 136, Potassium 4.9, Chloride 103, Carbon Dioxide 24.2, Anion Gap 9, BUN 24 H, Creatinine 1.06, EstimCreat Clear Calc 87.67, Est GFR (MDRD) Non-Af 75, BUN/Creatinine Ratio 22.3 H, Glucose 244 H, Calcium 8.8 07/28/24 08:33: POC Glucose 201 H 07/28/24 11:26: POC Glucose 141 H D/C Instructions Discharge Diet: 1800 Calorie Control Diet Discharge Activity: Return to Normal Activity Call your doctor if you observe: Fever of 101 or Higher, Shortness of breath, Fainting spells and Chest pain DC O2, CPAP, BIPAP Needs Home O2 Discharge instructions: No Meaningful Use Info Meaningful Use Meaningful Use Diagnoses (Choose all that apply): None applicable Ischemic Stroke Statin Dosing Therapy Reference: STATIN DOSE THERAPY REFERENCE: * Patients > 75 years receive moderate or high dose statin therapy. * Patients 75 years or YOUNGER should receive HIGH intensity statin dose unless contraindicated. You will be required to document reason for non-treatment if statin daily dose does not meet guidelines. HIGH DOSE STATIN THERAPY DAILY Atorvastatin > than or = to 40 mg Rosuvastatin > than or = to 20 mg Amlodipine + Atorvastatin > than or = to 2.5/40 mg Ezetimibe + Simvastatin 10/80 mg Simvastatin 80mg Discharge Plan Admission Admit Date/Time: 07/25/24 20:25 Attending Provider: Mikhail Guzman Primary Care Provider: [facility] Doctor,Out of Consulting Providers: Indu Strauss Discharge Orders/Prescriptions Prescriptions: New melatonin 3 mg Tablet 3 mg PO QHS PRN PRN (Reason: Insomnia) Qty: 0 0RF lidocaine 5 % Adhesive Patch,Medicated 2 patch topical DAILY Qty: 0 0RF Protocol: *Topical Application Instructions APPLICATION INSTRUCTIONS: L side U/L extremity points of most pain. alum-mag hydroxide-simeth [Mag-Al Plus Extra Strength] 400-400-40 mg/5 mL Suspension 30 ml PO Q6H PRN PRN (Reason: Gastric Burning) Qty: 0 0RF oxycodone 5 mg Tablet 5 mg PO Q4H PRN PRN (Reason: Pain Score 4-10) 3 Days Qty: 14 0RF insulin lispro [Humalog KwikPen Insulin] 100 unit/mL Insulin Pen See Protocol subcut ACHS Qty: 0 0RF Protocol: 3. Sliding Scale Insulin Med Dosing Condition: 150-189 mg/dl = 1 unit Condition: 190-229 mg/dl = 2 units Condition: 230-269 mg/dl = 3 units Condition: 270-309 mg/dl = 4 units Condition: 310-349 mg/dl = 5 units Condition: 350-399 mg/dl = 6 units Condition: 400-449 mg/dl = 7 units Condition: Greater than 449 call physician Protocol Text: - Use for Total Daily Dose of Insulin 37-55 units - Obsese, infected, or steroid patients MEDIUM DOSING ALGORITHIM tizanidine 2 mg Tablet 2 mg PO Q8H PRN PRN (Reason: Muscle spasm/strain) Qty: 0 0RF sennosides-docusate sodium [Stimulant Laxative Plus] 8.6-50 mg Tablet 2 tab PO BID PRN PRN (Reason: Constipation) Qty: 0 0RF acetaminophen 325 mg Tablet 650 mg PO Q4H PRN PRN (Reason: Fever, pain -12/01) Qty: 0 0RF albuterol sulfate 2.5 mg /3 mL (0.083 %) Solution For Nebulization 2.5 mg inhalation Q2H PRN PRN (Reason: Dyspnea, wheezing) Qty: 0 0RF polysaccharide iron complex [Ferrex 150] 150 mg iron Capsule 150 mg PO DAILY Qty: 0 0RF Continued insulin glargine [Lantus Solostar U-100 Insulin] 100 unit/mL (3 mL) insulin pen 35 unit subcut BID insulin aspart U-100 [Novolog FlexPen U-100 Insulin] 100 unit/mL (3 mL) insulin pen 12 unit subcut TID metformin 1,000 mg tablet 1,000 mg PO BID atorvastatin [Lipitor] 40 mg tablet 40 mg PO QHS losartan [Cozaar] 25 mg tablet 12.5 mg PO DAILY albuterol sulfate [Ventolin HFA] 90 mcg/actuation HFA aerosol inhaler 2 inh inhalation Q8H PRN (Reason: shortness of breath) gabapentin 800 mg tablet 800 mg PO BID cholecalciferol (vitamin D3) [Vitamin D3] 25 mcg (1,000 unit) tablet 50 mcg PO DAILY ascorbic acid (vitamin C) [Vitamin C] 500 mg tablet 500 mg PO DAILY pantoprazole [Protonix] 40 mg tablet,delayed release (DR/EC) 40 mg PO DAILY Discontinued hydrocodone-acetaminophen 5-325 mg tablet 1 tab PO Q6H PRN PRN (Reason: Pain) 3 Days Qty: 10 0RF Referrals / Follow Up: [facility] Doctor,Out of [Primary Care Provider] - Within 1 Month (To be scheduled foroutpatient colonoscopy) Disposition Disposition (needs filled in before D/C Order can be placed): Alf Facility Charges/Coding Visit Charges Inpatient E&M: 40087 Disch Hosp >30min 07/28/24 1627 <Electronically signed by Mikhail Guzman MD> Cosigner Signature (if applicable): CC: Dr. Mikhail Guzman MD~ Signed [facility] Work Phone: [phone]) 925-259706-06-2025 Discharge summary Author Mikhail Guzman [facility] Note Date/Time July 28, 2024 4:18p m [facility] Medical Records Department [address] [place] [address] Transfer to [facility] MR#: [id number] Acct: [id number] Name: RANJANA HUGHES Rep #:[id number] : 1950 74 From: Mikhail Guzman MD PCP: OUT OF [facility] DOCTOR Status:ADM LOUIE Certification of patient admission REQUIRED AT TIME OF ADMISSION. I CERTIFY THAT POST-HOSPITAL ECF SERVICES ARE REQUIRED TO BE GIVEN ON AN IN-PATIENT BASIS BECAUSE OF THE ABOVE NAMED PATIENT'S NEED FOR CUSTODIAL CARE ON A CONTINUING BASIS FOR THE CONDITION(S) FOR WHICH HE/SHE WAS RECEIVING IN-PATIENT HOSPITAL SERVICES PRIOR TO HIS/HER TRANSFER TO THE [facility]. 07/28/24 1618<Electronically signed by Mikhail Guzman MD> Diet Diet Order/Speech Therapy: INPATIENT Hospital Diet / Speech Therapy Order(s) 07/25/24 21:08 Diet: Consistent Carb - Calorie Controlled Food consistency:: Regular Liquid Consistency:: Regular/Thin How many daily calories?: 1800 calorie Routine Orders/Code Status Code Status: Full Code DC O2, CPAP, BIPAP needs Home O2 Discharge instructions: No Wound(s) rt knee: Wound Type: Skin Tear Therapies Physical Therapy: Eval and Treat Occupational Therapy: Eval and Treat Problem/Diagnosis (1) Intractable pain: Status: Acute Code(s): R52 - Pain, unspecified (2) Fall: Status: Acute Code(s): W19.XXXA - Unspecified fall, initial encounter Plan Patient is a 74-year-old gentleman presented following a fall 1. Acute mechanical fall ? Patient underwent extensive imaging studies with no identifiable fractures. Admitted to regular nursing floor for pain management. Requested for PT OT [facility] director social welfare to assist with discharge planning 07/27/2024;Patient seen awaiting insurance precertification prior to being transferred to longterm facility for rehab. If patient denied plan for patient to be discharged home with outpatient PT ? 07/28/2024; insurance precertification pending prior to patient being 2. Polysubstance dependence ? Patient urine drug screen was positive for cocaine alcohol was less than10.1. Cessation encouraged 3. Diabetes mellitus type II -patient's oral hypoglycemics held. Placed on long acting insulin, Accu-Cheks a.c. and at bedtime and covered with sliding scale insulin 4. Class I obesity with BMI of 33.6 ? Weight loss advised 5. Hypertension ? Blood pressure controlled, home medications continued with dose adjustment as needed 6. GERD ? On PPI 7. Mild intermittent asthma ? Aerosol treatment as needed 8. Diabetic polyneuropathy ? Patient is on gabapentin 9. Dyslipidemia ?Patient is on statin therapy, continued at home dose 10. Obstructive sleep apnea ? With reported noncompliance with PAP therapy consistent use encouraged 11. DVT prophylaxis ? On enoxaparin 12. Anemia ? Secondary to chronic disorder monitoring H&H and transfuse if patient becomes symptomatic or hemoglobin falls below 7, did undertake iron studies given patient low MCV 6 extremity and 5; patient iron studies consistent with iron deficiency anemia patient given parenteral iron discussed with patient on the need to undergo subsequent outpatient evaluation including colonoscopy given hisadvanced age Time spent in the patient's overall evaluation,decision-making process, review of diagnostic data, adjustment of management, discussion with other providers, nursing nursing and ancillary staff involved in patient's care documentation, 35Minutes Allergies/Procedures Done in Hospital Allergies Penicillins Allergy (Unknown, Verified 07/25/24 16:41) NEEDS FOLLOW-UP Type of Care/Length of Stay Estimated LOS: Convalescent Care Less Than 30 days Type of Care Needed: Skilled Rehab Potential: Good Prognosis: Good Additional Orders/Day of Discharge Day of Discharge: 07/28/24 Discharge Plan Admission Admit Date/Time: 07/25/24 20:25 Attending Provider: Mikhail Guzman Primary Care Provider: [facility] ,Out of Consulting Providers: Indu Strauss Discharge Orders/Prescriptions Prescriptions: New melatonin 3 mg Tablet 3 mg PO QHS PRN PRN (Reason: Insomnia) Qty: 0 0RF lidocaine 5 % Adhesive Patch,Medicated 2 patch topical DAILY Qty: 0 0RF Protocol: *Topical Application Instructions APPLICATION INSTRUCTIONS: L side U/L extremity points of most pain. alum-mag hydroxide-simeth [Mag-Al Plus Extra Strength] 400-400-40 mg/5 mL Suspension 30 ml PO Q6H PRN PRN (Reason: Gastric Burning) Qty: 0 0RF oxycodone 5 mg Tablet 5 mg PO Q4H PRN PRN (Reason: Pain Score 4-10) 3 Days Qty: 14 0RF insulin lispro [Humalog KwikPen Insulin] 100 unit/mL Insulin Pen See Protocol subcut ACHS Qty: 0 0RF Protocol: 3. Sliding Scale Insulin Med Dosing Condition: 150-189 mg/dl = 1 unit Condition: 190-229 mg/dl = 2 units Condition: 230-269 mg/dl = 3 units Condition: 270-309 mg/dl = 4 units Condition: 310-349 mg/dl = 5 units Condition: 350-399 mg/dl = 6 units Condition: 400-449 mg/dl = 7 units Condition: Greater than 449 call physician Protocol Text: - Use for Total Daily Dose of Insulin 37-55 units - Obsese, infected, or steroid patients MEDIUM DOSING ALGORITHIM tizanidine 2 mg Tablet 2 mg PO Q8H PRN PRN (Reason: Muscle spasm/strain) Qty: 0 0RF sennosides-docusate sodium [Stimulant Laxative Plus] 8.6-50 mg Tablet 2 tab PO BID PRN PRN (Reason: Constipation) Qty: 0 0RF acetaminophen 325 mg Tablet 650 mg PO Q4H PRN PRN (Reason: Fever, pain 1-1010) Qty: 0 0RF albuterol sulfate 2.5 mg /3 mL (0.083 %) Solution For Nebulization 2.5 mg inhalation Q2H PRN PRN (Reason: Dyspnea, wheezing) Qty: 0 0RF polysaccharide iron complex [Ferrex 150] 150 mg iron Capsule 150 mg PO DAILY Qty: 0 0RF Continued insulin glargine [Lantus Solostar U-100 Insulin] 100 unit/mL (3 mL) insulin pen 35 unit subcut BID insulin aspart U-100 [Novolog FlexPen U-100 Insulin] 100 unit/mL (3 mL) insulin pen 12 unit subcut TID metformin 1,000 mg tablet 1,000 mg PO BID atorvastatin [Lipitor] 40 mg tablet 40 mg PO QHS losartan [Cozaar] 25 mg tablet 12.5 mg PO DAILY albuterol sulfate [Ventolin HFA] 90 mcg/actuation HFA aerosol inhaler 2 inh inhalation Q8H PRN (Reason: shortness of breath) gabapentin 800 mg tablet 800 mg PO BID cholecalciferol (vitamin D3) [Vitamin D3] 25 mcg (1,000 unit) tablet 50 mcg PO DAILY ascorbic acid (vitamin C) [Vitamin C] 500 mg tablet 500 mg PO DAILY pantoprazole [Protonix] 40 mg tablet,delayed release (DR/EC) 40 mg PO DAILY Discontinued hydrocodone-acetaminophen 5-325 mg tablet 1 tab PO Q6H PRN PRN (Reason: Pain) 3 Days Qty: 10 0RF Referrals / Follow Up: [facility],Out of [Primary Care Provider] - Within 1 Month (To be scheduled foroutpatient colonoscopy) Disposition Disposition (needs filled in before D/C Order can be placed): Alf Facility 07/28/24 1618 <Electronically signed by Mikhail Guzman MD> Cosigner Signature (if applicable): CC: Dr. Indu Strauss MD ~ [facility] Work Phone: [phone]) 413-816406-06-2025 Discharge summary [facility] Medical Records Department [address] [place] [address] Discharge Summary 07/28/24 1618 MR#: [id number] Acct: [id number] Name: RANJANA HUGHSE Rep #:[id number] : 1950 74 From: Mikhail Guzman MD PCP: OUT OF [facility] DOCTOR Status:ADM LOUIE Location: [place] [id number] Providers Date of Admission: 07/25/24 Date of Discharge: 07/28/24 Primary Care Physician: Out of [facility] Doctor Reason For Visit: FALL, INTRACTABLE PAIN Diagnosis Discharge Diagnosis (1) Intractable pain: Status: Acute Code(s): R52 - Pain, unspecified (2) Fall: Status: Acute Code(s): W19.XXXA - Unspecified fall, initial encounter Plan Patient is a 74-year-old gentleman presented following a fall 1. Acute mechanical fall ? Patient underwent extensive imaging studies with no identifiable fractures. Admitted to regular nursing floor for pain management. Requested for PT OT [facility] director social welfare to assist with discharge planning 07/27/2024;Patient seen awaiting insurance precertification prior to being transferred to longterm facility for rehab. If patient denied plan for patient to be discharged home with outpatient PT ? 07/28/2024; insurance precertification pending prior to patient being 2. Polysubstance dependence ? Patient urine drug screen was positive for cocaine alcohol was less than10.1. Cessation encouraged 3. Diabetes mellitus type II -patient's oral hypoglycemics held. Placed on long acting insulin, Accu-Cheks a.c. and at bedtime and covered with sliding scale insulin 4. Class I obesity with BMI of 33.6 ? Weight loss advised 5. Hypertension ? Blood pressure controlled, home medications continued with dose adjustment as needed 6. GERD ? On PPI 7. Mild intermittent asthma ? Aerosol treatment as needed 8. Diabetic polyneuropathy ? Patient is on gabapentin 9. Dyslipidemia ?Patient is on statin therapy, continued at home dose 10. Obstructive sleep apnea ? With reported noncompliance with PAP therapy consistent use encouraged 11. DVT prophylaxis ? On enoxaparin 12. Anemia ? Secondary to chronic disorder monitoring H&H and transfuse if patient becomes symptomatic or hemoglobin falls below 7, did undertake iron studies given patient low MCV 6 extremity and 5; patient iron studies consistent with iron deficiency anemia patient given parenteral iron discussed with patient on the need to undergo subsequent outpatient evaluation including colonoscopy given hisadvanced age Time spent in the patient's overall evaluation,decision-making process, review of diagnostic data, adjustment of management, discussion with other providers, nursing nursing and ancillary staff involved in patient's care documentation, 35Minutes Medications at Discharge Home Medications albuterol sulfate 90 mcg/actuation aerosol inhaler (Ventolin HFA) 2 inh inhalation Q8H PRN shortness of breath 07/15/24 ascorbic acid (vitamin C) 500 mg tablet (Vitamin C) 500 mg PO DAILY 07/15/24 atorvastatin 40 mg tablet (Lipitor) 40 mg PO QHS 07/15/24 cholecalciferol (vitamin D3) 25 mcg (1,000 unit) tablet (Vitamin D3) 50 mcg PO DAILY 07/15/24 gabapentin 800 mg tablet 800 mg PO BID 07/15/24 insulin aspart U-100 100 unit/mL (3 mL) subcutaneous pen (Novolog FlexPen U-100 Insulin aspart) 12 unit subcut TID 07/15/24 insulin glargine 100 unit/mL (3 mL) subcutaneous pen (Lantus Solostar U-100 Insulin) 35 unit subcutBID 07/15/24 losartan 25 mg tablet (Cozaar) 12.5 mg PO DAILY 07/15/24 metformin 1,000 mg tablet 1,000 mg PO BID 07/15/24 pantoprazole 40 mg tablet,delayed release (Protonix) 40 mg PO DAILY 07/15/24 acetaminophen 325 mg tablet 650 mg (2 x 325 mg) PO Q4H PRN PRN Fever, pain 1- 12/01 #0 tabs 07/28/24 albuterol sulfate 2.5 mg/3 mL (0.083 %) solution for nebulization 2.5 mg (3 mL) inhalation Q2H PRN PRN Dyspnea, wheezing #0 mL 07/28/24 aluminum-mag hydroxide-simethicone 400 mg-400 mg-40 mg/5 mL oral susp (Mag-Al Plus Extra Strength) 30 ml PO Q6H PRN PRN Gastric Burning #0 mL 07/28/24 insulin lispro 100 unit/mL subcutaneous pen (Humalog KwikPen (U-100) Insulin) See Protocol subcut ACHS #0 mL 07/28/24 lidocaine 5 % topical patch 2 patch topical DAILY #0 ea 07/28/24 melatonin 3 mg tablet 3 mg PO QHS PRN PRN Insomnia #0 tabs 07/28/24 oxycodone 5 mg tablet 5 mg PO Q4H PRN PRN Pain Score 4-10 3 days #14 tabs 07/28/24 polysaccharide iron complex 150 mg iron capsule (Ferrex) 150 mg PO DAILY #0 caps07/28/24 sennosides 8.6 mg-docusate sodium 50 mg tablet (Stimulant Laxative Plus) 2 tab PO BID PRN PRN Constipation #0 tabs 07/28/24 tizanidine 2 mg tablet 2 mg PO Q8H PRN PRN Muscle spasm/strain #0 tabs 07/28/24 Physical Exam Narrative GENERAL: cooperative HEENT: Atraumatic; normocephalic EYES; Anicteric, Normal Conjunctiva NECK; supple, normal thyroid, RESPIRATORY: Diminished to auscultation CARDIOVASCULAR: Regular S1 S2, GI: soft, normoactive bowel sounds, : No Renal angle tenderness; EXTREMITIES: No edema, no clubbing, MUSCULOSKELETAL: no muscle wasting NEURO: Awake; no lateralizing signs. SKIN: No Rash PSYCH; Flat affect Weight / BMI Weight Weight: 122.7 kg Body Mass Index (BMI) 34.7 ABG / Lab / Microbiology Data 07/28/24 05:47 07/28/24 05:47 Laboratory: Laboratory Results - last 24 hr 07/27/24 16:41: POC Glucose 190 H 07/27/24 22:15: POC Glucose 338 H 07/28/24 05:47: WBC 5.2, RBC 3.81 L, Hgb 8.8 L, Hct 28.2 L, MCV 74.0 L, MCH 23.1L, MCHC 31.2 L, RDWStd Deviation 38.9, RDW Coeff of Summer 14.6, Plt Count 181, MPV 11.6, Immature Gran % (Auto) 0.400, Neut % (Auto) 49.0, Lymph % (Auto) 35.9,[place] % (Auto) 12.2 H, Eos % (Auto) 2.3, Baso % (Auto) 0.2, Absolute Neuts (auto)2.6, Absolute Lymphs (auto) 1.88, Nucleated RBC % 0, Sodium 136, Potassium 4.9, Chloride 103, Carbon Dioxide 24.2, Anion Gap 9, BUN 24 H, Creatinine 1.06, EstimCreat Clear Calc 87.67, Est GFR (MDRD) Non-Af 75, BUN/Creatinine Ratio 22.3 H, Glucose 244 H, Calcium 8.8 07/28/24 08:33: POC Glucose 201 H 07/28/24 11:26: POC Glucose 141 H D/C Instructions Discharge Diet: 1800 Calorie Control Diet Discharge Activity: Return to Normal Activity Call your doctor if you observe: Fever of 101 or Higher, Shortness of breath, Fainting spells and Chest pain DC O2, CPAP, BIPAP Needs Home O2 Discharge instructions: No Meaningful Use Info Meaningful Use Meaningful Use Diagnoses (Choose all that apply): None applicable Ischemic Stroke Statin Dosing Therapy Reference: STATIN DOSE THERAPY REFERENCE: * Patients > 75 years receive moderate or high dose statin therapy. * Patients 75 years or YOUNGER should receive HIGH intensity statin dose unless contraindicated. You will be required to document reason for non-treatment if statin daily dose does not meet guidelines. HIGH DOSE STATIN THERAPY DAILY Atorvastatin > than or = to 40 mg Rosuvastatin > than or = to 20 mg Amlodipine + Atorvastatin > than or = to 2.5/40 mg Ezetimibe + Simvastatin 10/80 mg Simvastatin 80mg Discharge Plan Admission Admit Date/Time: 07/25/24 20:25 Attending Provider: Mikhail Guzman Primary Care Provider: [facility] Doctor,Out of Consulting Providers: Indu Strauss Discharge Orders/Prescriptions Prescriptions: New melatonin 3 mg Tablet 3 mg PO QHS PRN PRN (Reason: Insomnia) Qty: 0 0RF lidocaine 5 % Adhesive Patch,Medicated 2 patch topical DAILY Qty: 0 0RF Protocol: *Topical Application Instructions APPLICATION INSTRUCTIONS: L side U/L extremity points of most pain. alum-mag hydroxide-simeth [Mag-Al Plus Extra Strength] 400-400-40 mg/5 mL Suspension 30 ml PO Q6H PRN PRN (Reason: Gastric Burning) Qty: 0 0RF oxycodone 5 mg Tablet 5 mg PO Q4H PRN PRN (Reason: Pain Score 4-10) 3 Days Qty: 14 0RF insulin lispro [Humalog KwikPen Insulin] 100 unit/mL Insulin Pen See Protocol subcut ACHS Qty: 0 0RF Protocol: 3. Sliding Scale Insulin Med Dosing Condition: 150-189 mg/dl = 1 unit Condition: 190-229 mg/dl = 2 units Condition: 230-269 mg/dl = 3 units Condition: 270-309 mg/dl = 4 units Condition: 310-349 mg/dl = 5 units Condition: 350-399 mg/dl = 6 units Condition: 400-449 mg/dl = 7 units Condition: Greater than 449 call physician Protocol Text: - Use for Total Daily Dose of Insulin 37-55 units - Obsese, infected, or steroid patients MEDIUM DOSING ALGORITHIM tizanidine 2 mg Tablet 2 mg PO Q8H PRN PRN (Reason: Muscle spasm/strain) Qty: 0 0RF sennosides-docusate sodium [Stimulant Laxative Plus] 8.6-50 mg Tablet 2 tab PO BID PRN PRN (Reason: Constipation) Qty: 0 0RF acetaminophen 325 mg Tablet 650 mg PO Q4H PRN PRN (Reason: Fever, pain 1-12/01) Qty: 0 0RF albuterol sulfate 2.5 mg /3 mL (0.083 %) Solution For Nebulization 2.5 mg inhalation Q2H PRN PRN (Reason: Dyspnea, wheezing) Qty: 0 0RF polysaccharide iron complex [Ferrex 150] 150 mg iron Capsule 150 mg PO DAILY Qty: 0 0RF Continued insulin glargine [Lantus Solostar U-100 Insulin] 100 unit/mL (3 mL) insulin pen 35 unit subcut BID insulin aspart U-100 [Novolog FlexPen U-100 Insulin] 100 unit/mL (3 mL) insulin pen 12 unit subcut TID metformin 1,000 mg tablet 1,000 mg PO BID atorvastatin [Lipitor] 40 mg tablet 40 mg PO QHS losartan [Cozaar] 25 mg tablet 12.5 mg PO DAILY albuterol sulfate [Ventolin HFA] 90 mcg/actuation HFA aerosol inhaler 2 inh inhalation Q8H PRN (Reason: shortness of breath) gabapentin 800 mg tablet 800 mg PO BID cholecalciferol (vitamin D3) [Vitamin D3] 25 mcg (1,000 unit) tablet 50 mcg PO DAILY ascorbic acid (vitamin C) [Vitamin C] 500 mg tablet 500 mg PO DAILY pantoprazole [Protonix] 40 mg tablet,delayed release (DR/EC) 40 mg PO DAILY Discontinued hydrocodone-acetaminophen 5-325 mg tablet 1 tab PO Q6H PRN PRN (Reason: Pain) 3 Days Qty: 10 0RF Referrals / Follow Up: [facility] Doctor,Out of [Primary Care Provider] - Within 1 Month (To be scheduled foroutpatient colonoscopy) Disposition Disposition (needs filled in before D/C Order can be placed): Alf Facility Charges/Coding Visit Charges Inpatient E&M: 35632 Disch Hosp >30min 07/28/24 7332 Cosigner Signature (if applicable): CC: Dr. Mikhail Guzman MD~ Signed [facility]06-06-2025 Discharge summary [facility] Medical Records Department [address] [place] [address] Transfer to Extended Care MR#: [id number] Acct: [id number] Name: RANJANA HUGHES Rep #:[id number] : 1950 74 From: Mikhail Guzman MD PCP: OUT OF TOWN DOCTOR Status:ADM LOUIE Certification of patient admission REQUIRED AT TIME OF ADMISSION. I CERTIFY THAT POST-HOSPITAL ECF SERVICES ARE REQUIRED TO BE GIVEN ON AN IN-PATIENT BASIS BECAUSE OF THE ABOVE NAMED PATIENT'S NEED FOR CUSTODIAL CARE ON A CONTINUING BASIS FOR THE CONDITION(S) FOR WHICH HE/SHE WAS RECEIVING IN-PATIENT HOSPITAL SERVICES PRIOR TO HIS/HER TRANSFER TO THE F. 07/28/24 1618 Diet Diet Order/Speech Therapy: INPATIENT Hospital Diet / Speech Therapy Order(s) 07/25/24 21:08 Diet: Consistent Carb - Calorie Controlled Food consistency:: Regular Liquid Consistency:: Regular/Thin How many daily calories?: 1800 calorie Routine Orders/Code Status Code Status: Full Code DC O2, CPAP, BIPAP needs Home O2 Discharge instructions: No Wound(s) rt knee: Wound Type: Skin Tear Therapies Physical Therapy: Eval and Treat Occupational Therapy: Eval and Treat Problem/Diagnosis (1) Intractable pain: Status: Acute Code(s): R52 - Pain, unspecified (2) Fall: Status: Acute Code(s): W19.XXXA - Unspecified fall, initial encounter Plan Patient is a 74-year-old gentleman presented following a fall 1. Acute mechanical fall ? Patient underwent extensive imaging studies with no identifiable fractures. Admitted to regular nursing floor for pain management. [facility] to assist with discharge planning 07/27/2024;Patient seen awaiting insurance precertification prior to being transferred to longterm facility for rehab. If patient denied plan for patient to be discharged home with outpatient PT ? 07/28/2024; insurance precertification pending prior to patient being 2. Polysubstance dependence ? Patient urine drug screen was positive for cocaine alcohol was less than10.1. Cessation encouraged 3. Diabetes mellitus type II -patient's oral hypoglycemics held. Placed on long acting insulin, Accu-Cheks a.c. and at bedtime and covered with sliding scale insulin 4. Class I obesity with BMI of 33.6 ? Weight loss advised 5. Hypertension ? Blood pressure controlled, home medications continued with dose adjustment as needed 6. GERD ? On PPI 7. Mild intermittent asthma ? Aerosol treatment as needed 8. Diabetic polyneuropathy ? Patient is on gabapentin 9. Dyslipidemia ?Patient is on statin therapy, continued at home dose 10. Obstructive sleep apnea ? With reported noncompliance with PAP therapy consistent use encouraged 11. DVT prophylaxis ? On enoxaparin 12. Anemia ? Secondary to chronic disorder monitoring H&H and transfuse if patient becomes symptomatic or hemoglobin falls below 7, did undertake iron studies given patient low MCV 6 extremity and 5; patient iron studies consistent with iron deficiency anemia patient given parenteral iron discussed with patient on the need to undergo subsequent outpatient evaluation including colonoscopy given hisadvanced age Time spent in the patient's overall evaluation,decision-making process, review of diagnostic data, adjustment of management, discussion with other providers, nursing nursing and ancillary staff involved in patient's care documentation, 35Minutes Allergies/Procedures Done in Hospital Allergies Penicillins Allergy (Unknown, Verified 07/25/24 16:41) NEEDS FOLLOW-UP Type of Care/Length of Stay Estimated LOS: Convalescent Care Less Than 30 days Type of Care Needed: Skilled Rehab Potential: Good Prognosis: Good Additional Orders/Day of Discharge Day of Discharge: 07/28/24 Discharge Plan Admission Admit Date/Time: 07/25/24 20:25 Attending Provider: Mikhail Guzman Primary Care Provider: [facility] Doctor,Out of Consulting Providers: Indu Strauss Discharge Orders/Prescriptions Prescriptions: New melatonin 3 mg Tablet 3 mg PO QHS PRN PRN (Reason: Insomnia) Qty: 0 0RF lidocaine 5 % Adhesive Patch,Medicated 2 patch topical DAILY Qty: 0 0RF Protocol: *Topical Application Instructions APPLICATION INSTRUCTIONS: L side U/L extremity points of most pain. alum-mag hydroxide-simeth [Mag-Al Plus Extra Strength] 400-400-40 mg/5 mL Suspension 30 ml PO Q6H PRN PRN (Reason: Gastric Burning) Qty: 0 0RF oxycodone 5 mg Tablet 5 mg PO Q4H PRN PRN (Reason: Pain Score 4-10) 3 Days Qty: 14 0RF insulin lispro [Humalog KwikPen Insulin] 100 unit/mL Insulin Pen See Protocol subcut ACHS Qty: 0 0RF Protocol: 3. Sliding Scale Insulin Med Dosing Condition: 150-189 mg/dl = 1 unit Condition: 190-229 mg/dl = 2 units Condition: 230-269 mg/dl = 3 units Condition: 270-309 mg/dl = 4 units Condition: 310-349 mg/dl = 5 units Condition: 350-399 mg/dl = 6 units Condition: 400-449 mg/dl = 7 units Condition: Greater than 449 call physician Protocol Text: - Use for Total Daily Dose of Insulin 37-55 units - Obsese, infected, or steroid patients MEDIUM DOSING ALGORITHIM tizanidine 2 mg Tablet 2 mg PO Q8H PRN PRN (Reason: Muscle spasm/strain) Qty: 0 0RF sennosides-docusate sodium [Stimulant Laxative Plus] 8.6-50 mg Tablet 2 tab PO BID PRN PRN (Reason: Constipation) Qty: 0 0RF acetaminophen 325 mg Tablet 650 mg PO Q4H PRN PRN (Reason: Fever, pain -12/01) Qty: 0 0RF albuterol sulfate 2.5 mg /3 mL (0.083 %) Solution For Nebulization 2.5 mg inhalation Q2H PRN PRN (Reason: Dyspnea, wheezing) Qty: 0 0RF polysaccharide iron complex [Ferrex 150] 150 mg iron Capsule 150 mg PO DAILY Qty: 0 0RF Continued insulin glargine [Lantus Solostar U-100 Insulin] 100 unit/mL (3 mL) insulin pen 35 unit subcut BID insulin aspart U-100 [Novolog FlexPen U-100 Insulin] 100 unit/mL (3 mL) insulin pen 12 unit subcut TID metformin 1,000 mg tablet 1,000 mg PO BID atorvastatin [Lipitor] 40 mg tablet 40 mg PO QHS losartan [Cozaar] 25 mg tablet 12.5 mg PO DAILY albuterol sulfate [Ventolin HFA] 90 mcg/actuation HFA aerosol inhaler 2 inh inhalation Q8H PRN (Reason: shortness of breath) gabapentin 800 mg tablet 800 mg PO BID cholecalciferol (vitamin D3) [Vitamin D3] 25 mcg (1,000 unit) tablet 50 mcg PO DAILY ascorbic acid (vitamin C) [Vitamin C] 500 mg tablet 500 mg PO DAILY pantoprazole [Protonix] 40 mg tablet,delayed release (DR/EC) 40 mg PO DAILY Discontinued hydrocodone-acetaminophen 5-325 mg tablet 1 tab PO Q6H PRN PRN (Reason: Pain) 3 Days Qty: 10 0RF Referrals / Follow Up: [facility] Doctor,Out of [Primary Care Provider] - Within 1 Month (To be scheduled foroutpatient colonoscopy) Disposition Disposition (needs filled in before D/C Order can be placed): Alf Facility 07/28/24 1618 Cosigner Signature (if applicable): CC: Dr. Indu Strauss MD ~ [facility]06-06-2025 [facility] Medical Records Department [address] [place] [address] Discharge Summary 07/28/24 1618 MR#: [id number] Acct: [id number] Name: RANJANA HUGHES Rep #: [id number] : 1950 74 From: Mikhail Guzman MD PCP: OUT OF [facility] DOCTOR Status:ADM LOUIE Location: [place] [address] Providers Date of Admission: 07/25/24 Date of Discharge: 07/28/24 Primary Care Physician: Out [facility] Doctor Reason For Visit: FALL, INTRACTABLE PAIN Diagnosis Discharge Diagnosis (1) Intractable pain: Status: Acute Code(s): R52 - Pain, unspecified (2) Fall: Status: Acute Code(s): W19.XXXA - Unspecified fall, initial encounter Plan Patient is a 74-year-old gentleman presented following a fall 1. Acute mechanical fall ??? Patient underwent extensive imaging studies with no identifiable fractures. Admitted to regular nursing floor for pain management. Requested for PT OT eval and director social welfare to assist with discharge planning 07/27/2024;Patient seen awaiting insurance precertification prior to being transferred to longterm facility for rehab. If patient denied plan for patient to be discharged home with outpatient PT ??? 07/28/2024; insurance precertification pending prior to patient being 2. Polysubstance dependence ??? Patient urine drug screen was positive for cocaine alcohol was less than10.1. Cessation encouraged 3. Diabetes mellitus type II -patient's oral hypoglycemics held. Placed on long acting insulin, Accu-Cheks a.c. and at bedtime and covered with sliding scale insulin 4. Class I obesity with BMI of 33.6 ??? Weight loss advised 5. Hypertension ??? Blood pressure controlled, home medications continued with dose adjustment as needed 6. GERD ??? On PPI 7. Mild intermittent asthma ??? Aerosol treatment as needed 8. Diabetic polyneuropathy ??? Patient is on gabapentin 9. Dyslipidemia ???Patient is on statin therapy, continued at home dose 10. Obstructive sleep apnea ??? With reported noncompliance with PAP therapy consistent use encouraged 11. DVT prophylaxis ??? On enoxaparin 12. Anemia ??? Secondary to chronic disorder monitoring H H and transfuse if patient becomes symptomatic or hemoglobin falls below 7, did undertake iron studies given patient low MCV 6 extremity and 5; patient iron studies consistent with iron deficiency anemia patient given parenteral iron discussed with patient on the need to undergo subsequent outpatient evaluation including colonoscopy given his advanced age Time spent in the patient's overall evaluation,decision-making process, review of diagnostic data, adjustment of management, discussion with other providers, nursing nursing and ancillary staff involved in patient's care documentation, 35 Minutes Medications at Discharge Home Medications albuterol sulfate 90 mcg/actuation aerosol inhaler (Ventolin HFA) 2 inh inhalation Q8H PRN shortness of breath 07/15/24 ascorbic acid (vitamin C) 500 mg tablet (Vitamin C) 500 mg PO DAILY 07/15/24 atorvastatin 40 mg tablet (Lipitor) 40 mg PO QHS 07/15/24 cholecalciferol (vitamin D3) 25 mcg (1,000 unit) tablet (Vitamin D3) 50 mcg PO DAILY 07/15/24 gabapentin 800 mg tablet 800 mg PO BID 07/15/24 insulin aspart U-100 100 unit/mL (3 mL) subcutaneous pen (Novolog FlexPen U-100 Insulin aspart) 12 unit subcut TID 07/15/24 insulin glargine 100 unit/mL (3 mL) subcutaneous pen (Lantus Solostar U-100 Insulin) 35 unit subcut BID 07/15/24 losartan 25 mg tablet (Cozaar) 12.5 mg PO DAILY 07/15/24 metformin 1,000 mg tablet 1,000 mg PO BID 07/15/24 pantoprazole 40 mg tablet,delayed release (Protonix) 40 mg PO DAILY 07/15/24 acetaminophen 325 mg tablet 650 mg (2 x 325 mg) PO Q4H PRN PRN Fever, pain 1- 10 #0 tabs 07/28/24 albuterol sulfate 2.5 mg/3 mL (0.083 %) solution for nebulization 2.5 mg (3 mL) inhalation Q2H PRN PRN Dyspnea, wheezing #0 mL 07/28/24 aluminum-mag hydroxide-simethicone 400 mg-400 mg-40 mg/5 mL oral susp (Mag-Al Plus Extra Strength) 30 ml PO Q6H PRN PRN Gastric Burning #0 mL 07/28/24 insulin lispro 100 unit/mL subcutaneous pen (Humalog KwikPen (U-100) Insulin) See Protocol subcut ACHS #0 mL 07/28/24 lidocaine 5 % topical patch 2 patch topical DAILY #0 ea 07/28/24 melatonin 3 mg tablet 3 mg PO QHS PRN PRN Insomnia #0 tabs 07/28/24 oxycodone 5 mg tablet 5 mg PO Q4H PRN PRN Pain Score 4-10 3 days #14 tabs 07/28/24 polysaccharide iron complex 150 mg iron capsule (Ferrex) 150 mg PO DAILY #0 caps 07/28/24 sennosides 8.6 mg-docusate sodium 50 mg tablet (Stimulant Laxative Plus) 2 tab PO BID PRN PRN Constipation #0 tabs 07/28/24 tizanidine 2 mg tablet 2 mg PO Q8H PRN PRN Muscle spasm/strain #0 tabs 07/28/24 Physical Exam Narrative GENERAL: cooperative HEENT: Atraumatic; normocephalic EYES; Anicteric, Normal Conjunctiva NECK; supple, normal thyroid, RESPIRATORY: Diminished to au (more content not included)...[facility]06-06-2025 Progress note Author Mikhail Guzman [facility] Note Date/Time July 28, 2024 9:09a m [facility] Medical Records Department [address] [place] [address] Progress Note - Hospitalist 07/28/24 0908 MR#: [id number] Acct: [id number] Name: RANJANA HUGHES Rep #:[id number] : 1950 74 From: Mikhail Guzman MD PCP: OUT OF TOWN DOCTOR Status:ADM LOUIE Location: [address] Reason for Visit Reason for Visit: Diagnoses Pain, unspecified (07/25/24) Unspecified fall, initial encounter (07/25/24) Subjective Subjective Patient seen still complains of feeling weak. Awaiting insurance precertification from the [place] prior to patient being discharged Objective Data Objective Data Vital Signs: Vital Signs Temp Pulse Resp BP Pulse Ox O2 Del Method 98 F 80 18 142/68 H 100 Room Air 07/28/24 04:04 07/28/24 04:04 07/28/24 04:04 07/28/24 04:04 07/28/24 04:04 07/28/24 04:04 Oxygen Delivery Method Room Air Weight: 122.7 kg Body Mass Index (BMI) 34.7 Intake & Output: Intake and Output for Last 24 Hours 07/26/24 07/27/24 07/28/24 23:59 23:59 23:59 Intake Total 120 / 120 120 / 120 700 / 700 Output Total 600 / 900 400 / 400 Balance -480 / -780 -280 / -280 700 / 700 Lab / Micro Data 07/28/24 05:47 07/28/24 05:47 Labs: Laboratory Results - last 24 hr 07/27/24 06:10: Retic Count 2.26 H, Immature Retic Fraction 30.90 H, Retic Hgb Equivalent 24.9 L, Iron 43 L, TIBC 267, Iron Saturation 16.0, Unsaturated IBC 224 L, Vitamin B12 394 07/27/24 11:54: POC Glucose 155 H 07/27/24 16:41: POC Glucose 190 H 07/27/24 22:15: POC Glucose 338 H 07/28/24 05:47: WBC 5.2, RBC 3.81 L, Hgb 8.8 L, Hct 28.2 L, MCV 74.0 L, MCH 23.1L, MCHC 31.2 L, RDW Std Deviation 38.9, RDW Coeff of Summer 14.6, Plt Count 181, MPV 11.6, Immature Gran % (Auto) 0.400, Neut % (Auto) 49.0, Lymph % (Auto) 35.9,[place] % (Auto) 12.2 H, Eos % (Auto) 2.3, Baso % (Auto) 0.2, Absolute Neuts (auto)2.6, Absolute Lymphs (auto) 1.88, Nucleated RBC % 0, Sodium 136, Potassium 4.9, Chloride 103, Carbon Dioxide 24.2, Anion Gap 9, BUN 24 H, Creatinine 1.06, EstimCreat Clear Calc 87.67, Est GFR (MDRD) Non-Af 75, BUN/Creatinine Ratio 22.3 H, Glucose 244 H, Calcium 8.8 Physical Exam Narrative GENERAL: cooperative HEENT: Atraumatic; normocephalic EYES; Anicteric, Normal Conjunctiva NECK; supple, normal thyroid, RESPIRATORY: Diminished to auscultation CARDIOVASCULAR: Regular S1 S2, GI: soft, normoactive bowel sounds, : No Renal angle tenderness; EXTREMITIES: No edema, no clubbing, MUSCULOSKELETAL: no muscle wasting NEURO: Awake; no lateralizing signs. SKIN: No Rash PSYCH; Flat affect Assessment & Plan Assessment/Plan (1) Intractable pain: (2) Fall: PLAN: Plan Patient is a 74-year-old gentleman presented following a fall 1. Acute mechanical fall ? Patient underwent extensive imaging studies with no identifiable fractures. Admitted to regular nursing floor for pain management. Requested for PT OT evaland director social welfare to assist with discharge planning 07/27/2024;Patient seen awaiting insurance precertification prior to being transferred to longterm facility for rehab. If patient denied plan for patient to be discharged home with outpatient PT ? 07/28/2024; insurance precertification pending prior to patient being 2. Polysubstance dependence ? Patient urine drug screen was positive for cocaine alcohol was less than10.1. Cessation encouraged 3. Diabetes mellitus type II -patient's oral hypoglycemics held. Placed on long acting insulin, Accu-Cheks a.c. and at bedtime and covered with sliding scale insulin 4. Class I obesity with BMI of 33.6 ? Weight loss advised 5. Hypertension ? Blood pressure controlled, home medications continued with dose adjustment as needed 6. GERD ? On PPI 7. Mild intermittent asthma ? Aerosol treatment as needed 8. Diabetic polyneuropathy ? Patient is on gabapentin 9. Dyslipidemia ?Patient is on statin therapy, continued at home dose 10. Obstructive sleep apnea ? With reported noncompliance with PAP therapy consistent use encouraged 11. DVT prophylaxis ? On enoxaparin 12. Anemia ? Secondary to chronic disorder monitoring H&H and transfuse if patient becomes symptomatic or hemoglobin falls below 7, did undertake iron studies given patient low MCV 6 extremity and 5; patient iron studies consistent with iron deficiency anemia patient given parenteral iron discussed with patient on the need to undergo subsequent outpatient evaluation including colonoscopy given his advanced age Time spent in the patient's overall evaluation,decision-making process, review of diagnostic data, adjustment of management, discussion with other providers, nursing nursing and ancillary staff involved in patient's care documentation, 35Minutes Charges/Coding Visit Charges Inpatient E&M: 79326 Subs Hosp L2 07/28/24 0909 <Electronically signed by Mikhail Guzman MD> Cosigner Signature (if applicable): CC: ~ Signed [facility] Work Phone: 1(523) 166-644506-06-2025 Progress note [facility] Medical Records Department [address] [place] [address] Progress Note - Hospitalist 07/28/24 0908 MR#: [id number] Acct: [id number] Name: RANJANA HUGHES Rep #:[id number] : 1950 74 From: Mikhail Guzman MD PCP: OUT OF TOWN DOCTOR Status:ADM LOUIE Location: [place] [address] Reason for Visit Reason for Visit: Diagnoses Pain, unspecified (07/25/24) Unspecified fall, initial encounter (07/25/24) Subjective Subjective Patient seen still complains of feeling weak. Awaiting insurance precertification from the [place] priorto patient being discharged Objective Data Objective Data Vital Signs: Vital Signs Temp Pulse Resp BP Pulse Ox O2 Del Method 98 F 80 18 142/68 H 100 Room Air 07/28/24 04:04 07/28/24 04:04 07/28/24 04:04 07/28/24 04:04 07/28/24 04:04 07/28/24 04:04 Oxygen Delivery Method Room Air Weight: 122.7 kg Body Mass Index (BMI) 34.7 Intake & Output: Intake and Output for Last 24 Hours 07/26/24 07/27/24 07/28/24 23:59 23:59 23:59 Intake Total 120 / 120 120 / 120 700 / 700 Output Total 600 / 900 400 / 400 Balance -480 / -780 -280 / -280 700 / 700 Lab / Micro Data 07/28/24 05:47 07/28/24 05:47 Labs: Laboratory Results - last 24 hr 07/27/24 06:10: Retic Count 2.26 H, Immature Retic Fraction 30.90 H, Retic Hgb Equivalent 24.9 L, Iron 43 L, TIBC 267, Iron Saturation 16.0, Unsaturated IBC 224 L, Vitamin B12 394 07/27/24 11:54: POC Glucose 155 H 07/27/24 16:41: POC Glucose 190 H 07/27/24 22:15: POC Glucose 338 H 07/28/24 05:47: WBC 5.2, RBC 3.81 L, Hgb 8.8 L, Hct 28.2 L, MCV 74.0 L, MCH 23.1L, MCHC 31.2 L, RDWStd Deviation 38.9, RDW Coeff of Summer 14.6, Plt Count 181, MPV 11.6, Immature Gran % (Auto) 0.400, Neut % (Auto) 49.0, Lymph % (Auto) 35.9,[place] % (Auto) 12.2 H, Eos % (Auto) 2.3, Baso % (Auto) 0.2, Absolute Neuts (auto)2.6, Absolute Lymphs (auto) 1.88, Nucleated RBC % 0, Sodium 136, Potassium 4.9, Chloride 103, Carbon Dioxide 24.2, Anion Gap 9, BUN 24 H, Creatinine 1.06, EstimCreat Clear Calc 87.67, Est GFR (MDRD) Non-Af 75, BUN/Creatinine Ratio 22.3 H, Glucose 244 H, Calcium 8.8 Physical Exam Narrative GENERAL: cooperative HEENT: Atraumatic; normocephalic EYES; Anicteric, Normal Conjunctiva NECK; supple, normal thyroid, RESPIRATORY: Diminished to auscultation CARDIOVASCULAR: Regular S1 S2, GI: soft, normoactive bowel sounds, : No Renal angle tenderness; EXTREMITIES: No edema, no clubbing, MUSCULOSKELETAL: no muscle wasting NEURO: Awake; no lateralizing signs. SKIN: No Rash PSYCH; Flat affect Assessment & Plan Assessment/Plan (1) Intractable pain: (2) Fall: PLAN: Plan Patient is a 74-year-old gentleman presented following a fall 1. Acute mechanical fall ? Patient underwent extensive imaging studies with no identifiable fractures. Admitted to regular nursing floor for pain management. Requested for PT OT evaland director social welfare to assist with discharge planning 07/27/2024;Patient seen awaiting insurance precertification prior to being transferred to longterm facility for rehab. If patient denied plan for patient to be discharged home with outpatient PT ? 07/28/2024; insurance precertification pending prior to patient being 2. Polysubstance dependence ? Patient urine drug screen was positive for cocaine alcohol was less than10.1. Cessation encouraged 3. Diabetes mellitus type II -patient's oral hypoglycemics held. Placed on long acting insulin, Accu-Cheks a.c. and at bedtime and covered with sliding scale insulin 4. Class I obesity with BMI of 33.6 ? Weight loss advised 5. Hypertension ? Blood pressure controlled, home medications continued with dose adjustment as needed 6. GERD ? On PPI 7. Mild intermittent asthma ? Aerosol treatment as needed 8. Diabetic polyneuropathy ? Patient is on gabapentin 9. Dyslipidemia ?Patient is on statin therapy, continued at home dose 10. Obstructive sleep apnea ? With reported noncompliance with PAP therapy consistent use encouraged 11. DVT prophylaxis ? On enoxaparin 12. Anemia ? Secondary to chronic disorder monitoring H&H and transfuse if patient becomes symptomatic or hemoglobin falls below 7, did undertake iron studies given patient low MCV 6 extremity and 5; patient iron studies consistent with iron deficiency anemia patient given parenteral iron discussed with patient on the need to undergo subsequent outpatient evaluation including colonoscopy given his advanced age Time spent in the patient's overall evaluation,decision-making process, review of diagnostic data, adjustment of management, discussion with other providers, nursing nursing and ancillary staff involved in patient's care documentation, 35Minutes Charges/Coding Visit Charges Inpatient E&M: 54884 Subs Hosp L2 07/28/24 0909 Cosigner Signature (if applicable): CC: ~ Signed [facility]06-05-2025 Progress note Author Mikhail Guzman [facility] Note Date/Time July 27, 2024 11:32 am [facility] Medical Records Department [address] [place] [address] Progress Note - Hospitalist 07/27/24 1101 MR#: [id number] Acct: [id number] Name: RANJANA HUGHES Rep #:[id number] : 1950 74 From: Mikhail Guzman MD PCP: OUT OF TOWN DOCTOR Status:ADM LOUIE Location: [place] [address] Reason for Visit Reason for Visit: Diagnoses Pain, unspecified (07/25/24) Unspecified fall, initial encounter (07/25/24) Subjective Subjective Patient seen awaiting insurance precertification prior to being transferred to longterm facility for rehab. If patient denied plan for patient to be discharged home with outpatient PT Objective Data Objective Data Vital Signs: Vital Signs Temp Pulse Resp BP Pulse Ox O2 Del Method 97.7 F L 75 18 150/80 H 95 Room Air 07/27/24 09:30 07/27/24 09:30 07/27/24 09:30 07/27/24 09:30 07/27/24 09:30 07/27/24 09:30 Oxygen Delivery Method Room Air Weight: 120.6 kg Body Mass Index (BMI) 34.1 Intake & Output: Intake and Output for Last 24 Hours 07/25/24 07/26/24 07/27/24 23:59 23:59 23:59 Intake Total 1000 / 1000 120 / 120 Output Total 600 / 600 600 / 900 400 / 400 Balance 400 / 400 -480 / -780 -400 / -400 Lab / Micro Data 07/27/24 06:10 07/27/24 06:10 Labs: Laboratory Results - last 24 hr 07/26/24 11:44: POC Glucose 125 H 07/26/24 16:31: POC Glucose 247 H 07/26/24 21:38: POC Glucose 264 H 07/27/24 06:04: POC Glucose 261 H 07/27/24 06:10: WBC 5.1, RBC 3.91 L, Hgb 9.0 L, Hct 29.0 L, MCV 74.2 L, MCH 23.0L, MCHC 31.0 L, RDW Std Deviation 38.7, RDW Coeff of Summer 14.6, Plt Count 163, MPV 11.3, Immature Gran % (Auto) 0.200, Neut % (Auto) 46.8 L, Lymph % (Auto) 38.9, [place] % (Auto) 11.5 H, Eos % (Auto) 2.4, Baso % (Auto) 0.2, Absolute Neuts (auto) 2.4, Absolute Lymphs (auto) 1.97, Nucleated RBC % 0, Platelet Estimate A,Polychromasia 1+, Ovalocytes 1+, Sodium 135, Potassium 5.1, Chloride 103, CarbonDioxide 23.6, Anion Gap 9, BUN 33 H, Creatinine 1.28 H, Estim Creat Clear Calc 71.98, Est GFR (MDRD) Non-Af 59 L, BUN/Creatinine Ratio 26.0 H, Glucose 296 H, Calcium 8.4, Phosphorus 3.8, Magnesium 1.9 Physical Exam Narrative GENERAL: cooperative HEENT: Atraumatic; normocephalic EYES; Anicteric, Normal Conjunctiva NECK; supple, normal thyroid, RESPIRATORY: Diminished to auscultation CARDIOVASCULAR: Regular S1 S2, GI: soft, normoactive bowel sounds, : No Renal angle tenderness; EXTREMITIES: No edema, no clubbing, MUSCULOSKELETAL: no muscle wasting NEURO: Awake; no lateralizing signs. SKIN: No Rash PSYCH; Flat affect Assessment & Plan Assessment/Plan (1) Intractable pain: (2) Fall: PLAN: Plan Patient is a 74-year-old gentleman presented following a fall 1. Acute mechanical fall ? Patient underwent extensive imaging studies with no identifiable fractures. Admitted to regular nursing floor for pain management. [facility] director social welfare to assist with discharge planning 07/27/2024;Patient seen awaiting insurance precertification prior to being transferred to longterm facility for rehab. If patient denied plan for patient to be discharged home with outpatient PT 2. Polysubstance dependence ? Patient urine drug screen was positive for cocaine alcohol was less than10.1. Cessation encouraged 3. Diabetes mellitus type II -patient's oral hypoglycemics held. Placed on long acting insulin, Accu-Cheks a.c. and at bedtime and covered with sliding scale insulin 4. Class I obesity with BMI of 33.6 ? Weight loss advised 5. Hypertension ? Blood pressure controlled, home medications continued with dose adjustment as needed 6. GERD ? On PPI 7. Mild intermittent asthma ? Aerosol treatment as needed 8. Diabetic polyneuropathy ? Patient is on gabapentin 9. Dyslipidemia ?Patient is on statin therapy, continued at home dose 10. Obstructive sleep apnea ? With reported noncompliance with PAP therapy consistent use encouraged 11. DVT prophylaxis ? On enoxaparin 12. Anemia ? Secondary to chronic disorder monitoring H&H and transfuse if patient becomes symptomatic or hemoglobin falls below 7, did undertake iron studies given patient low MCV Charges/Coding Visit Charges Inpatient E&M: 83929 Subs Hosp L2 07/27/24 1131 <Electronically signed by Mikhail Guzman MD> Cosigner Signature (if applicable): CC: ~ Signed [facility] Work Phone: [phone]) 999-618806-05-2025 Progress note [facility] Medical Records Department [address] [place] [address] Progress Note - Hospitalist 07/27/24 1101 MR#: [id number] Acct: [id number] Name: RANJANA HUGHES Rep #:[id number] : 1950 74 From: Mikhail Guzman MD PCP: OUT OF TOWN DOCTOR Status:ADM LOUIE Location: [place] [address] Reason for Visit Reason for Visit: Diagnoses Pain, unspecified (07/25/24) Unspecified fall, initial encounter (07/25/24) Subjective Subjective Patient seen awaiting insurance precertification prior to being transferred to longterm facility for rehab. If patient denied plan for patient to be discharged home with outpatient PT Objective Data Objective Data Vital Signs: Vital Signs Temp Pulse Resp BP Pulse Ox O2 Del Method 97.7 F L 75 18 150/80 H 95 Room Air 07/27/24 09:30 07/27/24 09:30 07/27/24 09:30 07/27/24 09:30 07/27/24 09:30 07/27/24 09:30 Oxygen Delivery Method Room Air Weight: 120.6 kg Body Mass Index (BMI) 34.1 Intake & Output: Intake and Output for Last 24 Hours 07/25/24 07/26/24 07/27/24 23:59 23:59 23:59 Intake Total 1000 / 1000 120 / 120 Output Total 600 / 600 600 / 900 400 / 400 Balance 400 / 400 -480 / -780 -400 / -400 Lab / Micro Data 07/27/24 06:10 07/27/24 06:10 Labs: Laboratory Results - last 24 hr 07/26/24 11:44: POC Glucose 125 H 07/26/24 16:31: POC Glucose 247 H 07/26/24 21:38: POC Glucose 264 H 07/27/24 06:04: POC Glucose 261 H 07/27/24 06:10: WBC 5.1, RBC 3.91 L, Hgb 9.0 L, Hct 29.0 L, MCV 74.2 L, MCH 23.0L, MCHC 31.0 L, RDWStd Deviation 38.7, RDW Coeff of Summer 14.6, Plt Count 163, MPV 11.3, Immature Gran % (Auto) 0.200, Neut % (Auto) 46.8 L, Lymph % (Auto) 38.9, [place] % (Auto) 11.5 H, Eos % (Auto) 2.4, Baso % (Auto) 0.2,Absolute Neuts (auto) 2.4, Absolute Lymphs (auto) 1.97, Nucleated RBC % 0, Platelet Estimate A,Polychromasia 1+, Ovalocytes 1+, Sodium 135, Potassium 5.1, Chloride 103, CarbonDioxide 23.6, Anion Gap 9, BUN 33 H, Creatinine 1.28 H, Estim Creat Clear Calc 71.98, Est GFR (MDRD) Non-Af 59 L, BUN/Creatinine Ratio 26.0 H, Glucose 296 H, Calcium 8.4, Phosphorus 3.8, Magnesium 1.9 Physical Exam Narrative GENERAL: cooperative HEENT: Atraumatic; normocephalic EYES; Anicteric, Normal Conjunctiva NECK; supple, normal thyroid, RESPIRATORY: Diminished to auscultation CARDIOVASCULAR: Regular S1 S2, GI: soft, normoactive bowel sounds, : No Renal angle tenderness; EXTREMITIES: No edema, no clubbing, MUSCULOSKELETAL: no muscle wasting NEURO: Awake; no lateralizing signs. SKIN: No Rash PSYCH; Flat affect Assessment & Plan Assessment/Plan (1) Intractable pain: (2) Fall: PLAN: Plan Patient is a 74-year-old gentleman presented following a fall 1. Acute mechanical fall ? Patient underwent extensive imaging studies with no identifiable fractures. Admitted to regular nursing floor for pain management. Requested for PT OT evaland director social welfare to assist with discharge planning 07/27/2024;Patient seen awaiting insurance precertification prior to being transferred to longterm facility for rehab. If patient denied plan for patient to be discharged home with outpatient PT 2. Polysubstance dependence ? Patient urine drug screen was positive for cocaine alcohol was less than10.1. Cessation encouraged 3. Diabetes mellitus type II -patient's oral hypoglycemics held. Placed on long acting insulin, Accu-Cheks a.c. and at bedtime and covered with sliding scale insulin 4. Class I obesity with BMI of 33.6 ? Weight loss advised 5. Hypertension ? Blood pressure controlled, home medications continued with dose adjustment as needed 6. GERD ? On PPI 7. Mild intermittent asthma ? Aerosol treatment as needed 8. Diabetic polyneuropathy ? Patient is on gabapentin 9. Dyslipidemia ?Patient is on statin therapy, continued at home dose 10. Obstructive sleep apnea ? With reported noncompliance with PAP therapy consistent use encouraged 11. DVT prophylaxis ? On enoxaparin 12. Anemia ? Secondary to chronic disorder monitoring H&H and transfuse if patient becomes symptomatic or hemoglobin falls below 7, did undertake iron studies given patient low MCV Charges/Coding Visit Charges Inpatient E&M: 90005 Subs Hosp L2 07/27/24 1132 Cosigner Signature (if applicable): CC: ~ Signed [facility]06-04-2025 Progress note Author Mikhail Guzman [facility] Note Date/Time July 26, 2024 11:07 am [facility] Medical Records Department [address] [place] [address] Progress Note - Hospitalist 07/26/24 0723 MR#: [id number] Acct: [id number] Name: RANJANA HUGHES Rep #:[id number] : 1950 74 From: Mikhail Guzman MD PCP: OUT OF TOWN DOCTOR Status:ADM LOUIE [id number] Reason for Visit Reason for Visit: Diagnoses Pain, unspecified (07/25/24) Unspecified fall, initial encounter (07/25/24) Subjective Subjective Patient is a 74-year-old gentleman presented following a fall Objective Data Objective Data Vital Signs: Vital Signs Temp Pulse Resp BP Pulse Ox O2 Del Method 98 F 88 16 157/88 H 97 Room Air 07/26/24 03:30 07/26/24 03:30 07/26/24 03:30 07/26/24 03:30 07/26/24 03:30 07/26/24 03:30 Oxygen Delivery Method Room Air Weight: 118.6 kg Body Mass Index (BMI) 33.5 Intake & Output: Intake and Output for Last 24 Hours 07/24/24 07/25/24 07/26/24 23:59 23:59 23:59 Intake Total 1000 / 1000 Output Total 600 / 600 600 / 600 Balance 400 / 400 -600 / -600 Lab / Micro Data 07/26/24 06:44 07/26/24 06:44 Labs: Laboratory Results - last 24 hr 07/25/24 15:10: Urine Opiates Screen NEGATIVE, U Buprenorphine Qual NEGATIVE, UrOxycodone Screen NEGATIVE, Urine Methadone Screen NEGATIVE, Urine Fentanyl Screen NEGATIVE, Ur Barbiturates Screen NEGATIVE, Ur Phencyclidine Scrn NEGATIVE, Ur Amphetamines Screen NEGATIVE, U Benzodiazepines Scrn NEGATIVE, Urine Cocaine Screen PRESUMPTIVE POSITIVE, U Cannabinoids Screen NEGATIVE 07/25/24 17:25: WBC 9.6, RBC 4.90, Hgb 11.5 L, Hct 36.0 L, MCV 73.5 L, MCH 23.5 L, MCHC 31.9 L, RDW Std Deviation 38.4, RDW Coeff of Summer 14.5, Plt Count 207, MPV 11.0, Sodium 133, Potassium 5.2 H, Chloride 98, Carbon Dioxide 17.5 L, AnionGap 17 H, BUN 21 H, Creatinine 1.56 H, Estim Creat Clear Calc 59.14, Est GFR (MDRD) Non-Af 47 L, BUN/Creatinine Ratio 13.7, Glucose 391 H, Calcium 9.8, EthylAlcohol < 10.1 07/25/24 21:43: POC Glucose 332 H 07/26/24 06:44: WBC 5.7, RBC 3.95 L, Hgb 9.1 L, Hct 28.9 L, MCV 73.2 L, MCH 23.0L, MCHC 31.5 L, RDW Std Deviation 38.7, RDW Coeff of Summer 14.6, Plt Count 166, MPV 10.9, Immature Gran % (Auto) 0.200, Neut % (Auto) 54.8, Lymph % (Auto) 28.7,[place] % (Auto) 14.0 H, Eos % (Auto) 2.1, Baso % (Auto) 0.2, Absolute Neuts (auto)3.1, Absolute Lymphs (auto) 1.64, Nucleated RBC % 0 Radiography Diagnostic Testing: Radiology Impression Femur X-Ray 07/25/24 17:45 IMPRESSION: No acute osseous abnormality of the left femur. Reading Location: [id number] Humerus X-Ray 07/25/24 17:45 IMPRESSION: No acute osseous abnormalities. Reading Location: [id number] Pelvis X-Ray 07/25/24 17:45 IMPRESSION: No acute osseous abnormalities. Details above. Reading Location: [id number] Shoulder X-Ray 07/25/24 17:45 IMPRESSION: No acute osseous abnormalities. Reading Location: [id number] Physical Exam Narrative GENERAL: cooperative HEENT: Atraumatic; normocephalic EYES; Anicteric, Normal Conjunctiva NECK; supple, normal thyroid, RESPIRATORY: Diminished to auscultation CARDIOVASCULAR: Regular S1 S2, GI: soft, normoactive bowel sounds, : No Renal angle tenderness; EXTREMITIES: No edema, no clubbing, MUSCULOSKELETAL: no muscle wasting NEURO: Awake; no lateralizing signs. SKIN: No Rash PSYCH; Flat affect Assessment & Plan Assessment/Plan (1) Intractable pain: (2) Fall: PLAN: Plan Patient is a 74-year-old gentleman presented following a fall 1. Acute mechanical fall ? Patient underwent extensive imaging studies with no identifiable fractures. Admitted to regular nursing floor for pain management. Requested for PT OT evaland director social welfare to assist with discharge planning 2. Polysubstance dependence ? Patient urine drug screen was positive for cocaine alcohol was less than10.1. Cessation encouraged 3. Diabetes mellitus type II -patient's oral hypoglycemics held. Placed on long acting insulin, Accu-Cheks a.c. and at bedtime and covered with sliding scale insulin 4. Class I obesity with BMI of 33.6 ? Weight loss advised 5. Hypertension ? Blood pressure controlled, home medications continued with dose adjustment as needed 6. GERD ? On PPI 7. Mild intermittent asthma ? Aerosol treatment as needed 8. Diabetic polyneuropathy ? Patient is on gabapentin 9. Dyslipidemia ?Patient is on statin therapy, continued at home dose 10. Obstructive sleep apnea ? With reported noncompliance with PAP therapy consistent use encouraged 11. DVT prophylaxis ? On enoxaparin Charges/Coding Visit Charges Inpatient E&M: 19235 Subs Hosp L2 07/26/24 1107 <Electronically signed by Mikhail Guzman MD> Cosigner Signature (if applicable): CC: ~ Signed [facility] Work Phone: 1(380) 732-121606-04-2025 Progress note [facility] Medical Records Department [address] [place] [address] Progress Note - Hospitalist 07/26/24 0723 MR#: [id number] Acct: [id number] Name: RANJANA HUGHES Rep #:[id number] : 1950 74 From: Mikhail Guzman MD PCP: OUT OF TOWN DOCTOR Status:ADM LOUIE Location: [place] [address] Reason for Visit Reason for Visit: Diagnoses Pain, unspecified (07/25/24) Unspecified fall, initial encounter (07/25/24) Subjective Subjective Patient is a 74-year-old gentleman presented following a fall Objective Data Objective Data Vital Signs: Vital Signs Temp Pulse Resp BP Pulse Ox O2 Del Method 98 F 88 16 157/88 H 97 Room Air 07/26/24 03:30 07/26/24 03:30 07/26/24 03:30 07/26/24 03:30 07/26/24 03:30 07/26/24 03:30 Oxygen Delivery Method Room Air Weight: 118.6 kg Body Mass Index (BMI) 33.5 Intake & Output: Intake and Output for Last 24 Hours 07/24/24 07/25/24 07/26/24 23:59 23:59 23:59 Intake Total 1000 / 1000 Output Total 600 / 600 600 / 600 Balance 400 / 400 -600 / -600 Lab / Micro Data 07/26/24 06:44 07/26/24 06:44 Labs: Laboratory Results - last 24 hr 07/25/24 15:10: Urine Opiates Screen NEGATIVE, U Buprenorphine Qual NEGATIVE, UrOxycodone Screen NEGATIVE, Urine Methadone Screen NEGATIVE, Urine Fentanyl Screen NEGATIVE, Ur Barbiturates Screen NEGATIVE, Ur Phencyclidine Scrn NEGATIVE, Ur Amphetamines Screen NEGATIVE, U Benzodiazepines Scrn NEGATIVE, Urine Cocaine Screen PRESUMPTIVE POSITIVE, U Cannabinoids Screen NEGATIVE 07/25/24 17:25: WBC 9.6, RBC 4.90, Hgb 11.5 L, Hct 36.0 L, MCV 73.5 L, MCH 23.5 L, MCHC 31.9 L, RDWStd Deviation 38.4, RDW Coeff of Summer 14.5, Plt Count 207, MPV 11.0, Sodium 133, Potassium 5.2 H, Chloride 98, Carbon Dioxide 17.5 L, AnionGap 17 H, BUN 21 H, Creatinine 1.56 H, Estim Creat Clear Calc59.14, Est GFR (MDRD) Non-Af 47 L, BUN/Creatinine Ratio 13.7, Glucose 391 H, Calcium 9.8, EthylAlcohol < 10.1 07/25/24 21:43: POC Glucose 332 H 07/26/24 06:44: WBC 5.7, RBC 3.95 L, Hgb 9.1 L, Hct 28.9 L, MCV 73.2 L, MCH 23.0L, MCHC 31.5 L, RDWStd Deviation 38.7, RDW Coeff of Summer 14.6, Plt Count 166, MPV 10.9, Immature Gran % (Auto) 0.200, Neut % (Auto) 54.8, Lymph % (Auto) 28.7,[place] % (Auto) 14.0 H, Eos % (Auto) 2.1, Baso % (Auto) 0.2, Absolute Neuts (auto)3.1, Absolute Lymphs (auto) 1.64, Nucleated RBC % 0 Radiography Diagnostic Testing: Radiology Impression Femur X-Ray 07/25/24 17:45 IMPRESSION: No acute osseous abnormality of the left femur. Reading Location: [facility] Humerus X-Ray 07/25/24 17:45 IMPRESSION: No acute osseous abnormalities. Reading Location: [place] [address] Pelvis X-Ray 07/25/24 17:45 IMPRESSION: No acute osseous abnormalities. Details above. Reading Location: [place] [address] Shoulder X-Ray 07/25/24 17:45 IMPRESSION: No acute osseous abnormalities. Reading Location: [place] [address] Physical Exam Narrative GENERAL: cooperative HEENT: Atraumatic; normocephalic EYES; Anicteric, Normal Conjunctiva NECK; supple, normal thyroid, RESPIRATORY: Diminished to auscultation CARDIOVASCULAR: Regular S1 S2, GI: soft, normoactive bowel sounds, : No Renal angle tenderness; EXTREMITIES: No edema, no clubbing, MUSCULOSKELETAL: no muscle wasting NEURO: Awake; no lateralizing signs. SKIN: No Rash PSYCH; Flat affect Assessment & Plan Assessment/Plan (1) Intractable pain: (2) Fall: PLAN: Plan Patient is a 74-year-old gentleman presented following a fall 1. Acute mechanical fall ? Patient underwent extensive imaging studies with no identifiable fractures. Admitted to regular nursing floor for pain management. Requested for PT OT evaland director social welfare to assist with discharge planning 2. Polysubstance dependence ? Patient urine drug screen was positive for cocaine alcohol was less than10.1. Cessation encouraged 3. Diabetes mellitus type II -patient's oral hypoglycemics held. Placed on long acting insulin, Accu-Cheks a.c. and at bedtime and covered with sliding scale insulin 4. Class I obesity with BMI of 33.6 ? Weight loss advised 5. Hypertension ? Blood pressure controlled, home medications continued with dose adjustment as needed 6. GERD ? On PPI 7. Mild intermittent asthma ? Aerosol treatment as needed 8. Diabetic polyneuropathy ? Patient is on gabapentin 9. Dyslipidemia ?Patient is on statin therapy, continued at home dose 10. Obstructive sleep apnea ? With reported noncompliance with PAP therapy consistent use encouraged 11. DVT prophylaxis ? On enoxaparin Charges/Coding Visit Charges Inpatient E&M: 95131 Subs Hosp L2 07/26/24 1107 Cosigner Signature (if applicable): CC: ~ Signed [facility]06-03-2025 History and physical note Author Indu Strauss [facility] Note Date/Time July 25, 2024 8:43p m [facility] Medical Records Department [address] [place] [address] H&P Exam - Hospitalist 07/25/242022 MR#: [id number] Acct: [id number] Name: RANJANA HUGHES Rep #:[id number] : 1950 74 From: Indu Strauss MD PCP: OUT OF TOWN DOCTOR Status:REG ER Location: ED HPI - General General Date of Admission: 07/25/24 Date of Service: 07/25/24 Chief Complaint: Fall, debility, intractable L sided pain. HPI Narrative The patient is a 74 y/o [facility] patient M w/ PMHx: Former tobacco use, RADHA noncompliant with PAP therapy, Asthma, HTN, HLD, GERD, Diabetes mellitus type IIwith chronic neuropathy, Obesity, Presumed Chronic CKD stage III unclear subtypebut uncertain, Presumed chronic microcytic anemia but uncertain who presents to the [facility] ED on 07/25/24 with history of mechanical fall onto the left side with discomfort to the upper and lower extremity noting that he recently went throughdivorce and was at a constitution party the day prior where he drank a significant mount of alcohol and used cocaine and while attempting to ambulate to the bathroom slipped on a rug with no loss of consciousness or head trauma with family helping him to the couch however he has had discomfort and inability to ambulatesince then normally using a walker secondary to severe right knee osteoarthritisprompting family to bring him in for evaluation. In the ED patient initially reporting pain 9 out of 10 in severity to the left side primarily with any exertion or movement or weightbearing attempts. Following administration medications the ED patient noted pain improved to 7 out of 10 however still somediscomfort in the calf and thigh. Workup in the ED included T90.6, heart rate 89, BP 138/83, respiratory 18, 99% on room air with most recent repeat labs withheart rate 103, BP 170/94, respiratory rate 18, 98% on room air, CBC with WC 9.6, hemoglobin 0.5, MCV 73.5, platelet 207 without differential, BMP with potassium 5.2, At 17.5, anion gap 17, BUN/creatinine 21/1.56, GFR 47, glucose 391, UDS with presumptive positive cocaine, ethyl alcohol less than 10.1, plain film of the left femur with no acute osseous abnormality, plain film of the lefthumerus with no acute osseous abnormality, plain film of the pelvis with no acute osseous abnormality, plain film of the left shoulder with no acute osseousabnormality. Patient has both medicare and [facility] insurance and preferred to remain at [facility] for care and evaluation. [facility] Medical History Former tobacco use RADHA (obstructive sleep apnea) Chronic anemia CKD (chronic kidney disease), stage III Cocaine use Obesity HLD (hyperlipidemia) Arthritis Neuropathy Diabetes mellitus Hypertension Asthma Hx of fracture of patella Home Medications ?Medication ?Instructions ?Recorded ?Last Taken ?Type albuterol sulfate 90 mcg/actuation 2 inh inhalation Q8 H PRN shortness 07/15/24 Unknown History aerosol inhaler (Ventolin HFA) of breath ascorbic acid (vitamin C) 500 mg 500 mg PO DAILY 07/1507/24/24 History tablet (Vitamin C) atorvastatin 40 mg tablet (Lipitor) 40 mg PO QHS 07/1507/24/24 History cholecalciferol (vitamin D3) 25 50 mcg PO DAILY 07/24/24 History mcg (1,000 unit) tablet (Vitamin D3) gabapentin 800 mg tablet 800 mg PO BID 07/15/2407/24 History hydrocodone-acetaminophen 5-325mg 1 tab PO Q6H PRN PRN Pain 3 days 07/15/24 07/24/24 Rx 5mg-325mg #10 TABLETS insulin aspart U-100 100 unit/mL 12 unit subcut TID 07/24/24 History (3 mL) subcutaneous pen (Novolog FlexPen U-100 Insulin aspart) insulin glargine 100 unit/mL (3 35 unit subcut BID 07/24/24 History mL) subcutaneous pen (Lantus Solostar U-100 Insulin) losartan 25 mg tablet (Cozaar) 12.5 mg PO DAILY 07/24/24 History metformin 1,000 mg tablet 1,000 mg PO BID 07/15/2404/18 History pantoprazole 40 mg tablet,delayed 40 mg PO DAILY 07/1507/24/24 History release (Protonix) Allergy/AdvReac Type Severity Reaction Status Date / Time Penicillins Allergy Unknown NEEDS Verified 07/25/24 16:41 FOLLOW-UP Family History Mother Diabetes Father Hypertension GERD (gastroesophageal reflux disease) Surgical History History of cholecystectomy Hx of right knee surgery Social History household members: significant other Smoking Status: Former smoker how long ago did patient quit smoking: Quit remotely. alcohol intake: current alcohol intake frequency: holidays/special occasions only substance use type: other details: Admits to cocaine use 07/26/24 but denies commonly using. ROS ROS Narrative Admission Review of Systems: CONSTITUTIONAL: No weight loss, fever, chills, + weakness or fatigue. HEENT: Eyes: No visual loss, blurred vision, double vision or yellow sclerae. Ears, Nose, Throat: No hearing loss, sneezing, congestion, runny nose or sore throat. SKIN: No rash or itching, lesions, wounds. CARDIOVASCULAR: No chest pain, chest pressure or chest discomfort, palpitations,edema, orthopnea, syncopal events. RESPIRATORY: No shortness of breath, cough or sputum, wheezing, hemoptysis. GASTROINTESTINAL: No anorexia, nausea, vomiting or diarrhea, abdominal pain, melena, BRBPR. GENITOURINARY: No dysuria, frequency, urgency or retention. NEUROLOGICAL: + Chronic diabetic neuropathy. No headache, dizziness, syncope, paralysis, ataxia, focal weakness, change in bowel or bladder control, seizure. MUSCULOSKELETAL: + muscle, back pain, joint pain or stiffness. HEMATOLOGIC: + Chronic anemia. No marked easy history of bleeding or bruising. LYMPHATICS: No enlarged nodes. No history of splenectomy. PSYCHIATRIC: No history of depression or anxiety. ENDOCRINOLOGIC: No reports of sweating, cold or heat intolerance. No polyuria orpolydipsia. ALLERGIES: + History of asthma. Vital Signs Vital Signs Vital Signs: 07/25/24 16:33 07/25/24 16:38 07/25/24 19:00 Temperature 98.6 F Temperature Source Oral Pulse Rate 89 103 H Respiratory Rate 18 18 Respiratory Effort Normal Respiratory Depth Normal Respiratory Pattern Normal Blood Pressure 138/83 H 170/94 H Blood Pressure Mean 101 119 Pulse Ox 99 98 Oxygen Delivery Method Room Air Room Air Room Air Weight Weight: 266 lb 8.622 oz Body Mass Index (BMI) 34.2 Physical Exam Narrative Physical Examination: General: Awake, alert, oriented x 3 and cooperative, seated upright in bed, no obvious distress, reports ongoing left-sided upper and lower extremity discomfort worse with activity attempts. Skin: Normal color, normal turgor, no icterus, no cyanosis. HEENT: AT/NC, EOMI, PERRLA, MMM, no carotid bruits, difficult to discern JVD given thickened neck. Lungs: Mildly diminished, greater bases, poor effort, no rales, ronchi or wheezing. Heart: Regular rate and rhythm; no gallop, rub audible. Abdomen: Soft, obese, NTTP, no obvious distention, mildly hyperactive BS, no appreciated HSM however habitus makes evaluation difficult. Extremities: No cyanosis, no marked clubbing, no marked significant extremity edema despite recent fall with left-sided ongoing pain to the upper and lower extremity primarily worse with movements. Neurological: Patient awake, alert, oriented as noted, cognitive function intact; pupils equally reactive to light and accommodation, cranial nerves grossnormal, moving all 4 extremities, no focal deficits, strength moderately to severely globally decreased secondary to pain reported. Psychiatric: Affect appears normal, talkative, no acute evidence of depressive or anxiety feelings. Results Lab / Micro Data 07/25/24 17:25 07/25/24 17:25 Labs: Laboratory Results - last 24 hr 07/25/24 15:10: Urine Opiates Screen NEGATIVE, U Buprenorphine Qual NEGATIVE, UrOxycodone Screen NEGATIVE, Urine Methadone Screen NEGATIVE, Urine Fentanyl Screen NEGATIVE, Ur Barbiturates Screen NEGATIVE, Ur Phencyclidine Scrn NEGATIVE, Ur Amphetamines Screen NEGATIVE, U Benzodiazepines Scrn NEGATIVE, Urine Cocaine Screen PRESUMPTIVE POSITIVE, U Cannabinoids Screen NEGATIVE 07/25/24 17:25: WBC 9.6, RBC 4.90, Hgb 11.5 L, Hct 36.0 L, MCV 73.5 L, MCH 23.5 L, MCHC 31.9 L, RDW Std Deviation 38.4, RDW Coeff of Summer 14.5, Plt Count 207, MPV 11.0, Sodium 133, Potassium 5.2 H, Chloride 98, Carbon Dioxide 17.5 L, AnionGap 17 H, BUN 21 H, Creatinine 1.56 H, Estim Creat Clear Calc 59.14, Est GFR (MDRD) Non-Af 47 L, BUN/Creatinine Ratio 13.7, Glucose 391 H, Calcium 9.8, EthylAlcohol < 10.1 Imaging Radiology Impression Femur X-Ray 07/25/24 17:45 IMPRESSION: No acute osseous abnormality of the left femur. Reading Location: [id number] Humerus X-Ray 07/25/24 17:45 IMPRESSION: No acute osseous abnormalities. Reading Location: [id number] Pelvis X-Ray 07/25/24 17:45 IMPRESSION: No acute osseous abnormalities. Details above. Reading Location: [id number] Shoulder X-Ray 07/25/24 17:45 IMPRESSION: No acute osseous abnormalities. Reading Location: [id number] Assessment & Plan Assessment/Plan (1) Intractable pain: (2) Fall: PLAN: Plan The patient is a 74 [facility]/o [facility] M w/ PMHx: Former tobacco use, RADHA noncompliant with PAP therapy, Asthma, HTN, HLD, GERD, Diabetes mellitus type IIwith chronic neuropathy, Obesity, Presumed Chronic CKD stage III unclear subtypebut uncertain, Presumed chronic microcytic anemia but uncertain who presents to the [facility] ED on 07/25/24 with history of mechanical fall onto the left side with discomfort to the upper and lower extremity noting that he recently went throughdivorce and was at a constitution party the day prior where he drank a significant mount of alcohol and used cocaine and while attempting to ambulate to the bathroom slipped on a rug with no loss of consciousness or head trauma with family helping him to the couch however he has had discomfort and inability to ambulatesince then normally using a walker secondary to severe right knee osteoarthritisprompting family to bring him in for evaluation. #1. Mechanical fall complicated by recent intoxication and cocaine usage which patient denies baseline however uncertain with intractable left upper and lower extremity discomfort complicated by usually chronic walker usage secondary to severe right knee osteoarthritis: Will admit to medical surgical floor, maintainon fall precautions, will initiate short course low-dose IV torado given renal function, lidoacine patches, as needed Tylenol, po/IV narcotic pain regimen onlyas needed, anti-emetics, bowel regimen. Will consult PT and OT for evaluation aswell as Case management for discharge planning. #2. Hyperkalemia, mild: Admission potassium 5.2, no evidence of hemolysis, willjudiciously hydrate and repeat CMP in AM. #3. Cocaine use: UDS with positive presumptive cocaine, otherwise negative, ethyl alcohol less than 10.1, [facility], notes used cocaine the day previously at a constitution party, encourage clean status. #4. Diabetes mellitus type II with hyperglycemia with chronic neuropathy: Hold oral home regimen, continue home insulin regimen, ADA diet, accu checks w/ ISS, continue home gabapentin regimen. #5. Chronic asthma: Per current list does not appear to be on chronic regimen, will have PRN albuterol, HOB, IS parameters. #6. Hypertension: Continue home regimen including losartan, PRN hydralazine. #7. Hyperlipidemia: Will continue patient on statin therapy. #8. Possible chronic microcytic anemia: Admission hemoglobin 1.5, MCV 73.5, no comparison labs available, will continue to trend CBC to further elucidate. #9. Presumed Chronic Kidney Disease Stage III, unclear subtype: Admission BUN/Cr 21/1.56, GFR 47, baseline renal function uncertain as no comparison labs,will repeat BMP in AM to further elucidate. #10. Obesity: Weight loss and lifestyle changes encouraged. GERD: Will continue patient on PPI. #11. RADHA: Noncompliant with PAP therapy. #12. Former tobacco use: Patient notes he smoked very remotely, encourage continued cessation. #13. DVT prophylaxis: Lovenox. #14. CODE status: Patient ALVA is his girlfriend [place] and living will is currently in place. Discussed CODE status at length including difference betweenFULL code, DNR-CCA and DNR-CC status. Following discussions about the differences in these status, requested Full Code status. Charges/Coding Visit Charges Inpatient E&M: 46733 Init Hosp L2 07/25/242042 <Electronically signed by Indu Strauss MD> Cosigner Signature (if applicable): CC: Dr. Indu Strauss MD~ Signed [facility] Work Phone: 1(889) 623-333106-03-2025 Discharge summary Author [facility] Note Date/Time July 25, 2024 8:29p m [facility] Medical Records Department [address] [place] [address] Emergency Department Summary 07/25/24 MR#: [id number] Acct: [id number] Name: RANJANA HUGHES Rep #:[id number] : 1950 74 From: Red daniels DO PCP: OUT OF TOWN DOCTOR Status:REG ER Location: ED HPI HPI - Fall History of Present Illness Chief Complaint: Fall Narrative Narrative: Chief complaint and HPI: Mechanical fall with left upper extremity and left lower extremity pain. 74-year-old male with past medical history of DM 2, HLD, HTN presents for evaluation of left upper extremity and left lower extremity after mechanical fall. Patient states he recently went through divorce and decided to have fun yesterday and constitution party. States he used cocaine and alcohol. States he was at a family house when he tried to ambulate to the bathroom and slipped on a rug. Did not his head. No LOC. States he landed on his left leg and arm. Family helped him to the couch. Patient states that he has been unable to ambulate since last night secondary to pain which is why presents. Heusually uses a walker due to a bad right knee. Denies any fever, chills, abdominal pain, chest pain, nausea, vomiting, shortness of breath. Has taken Tylenol and Advil yesterday for the pain. States that he usually is not a drug abuser. Review of systems: See HPI Medications: As listed on the chart Allergies: As listed on the chart PFSH: Per chart Vital signs: As listed on the chart. Reviewed. Physical exam: Gen: A&O x3, NAD Head: Normocephalic, atraumatic Eyes: No sclera icterus, conjunctiva clear, PERRL, EOMI ENT: TMs clear BL, moist mucous membranes, no swelling/lacerations/blood in the mouth or the nares, No nasal septal hematoma, no facial tenderness Neck: Trachea midline, No JVD, Nontender, full range of motion CV: RRR, no murmurs, no chest wall TTP Resp: Lungs CTA BL, no w/r/c GI: Abd soft, non-distended, non-tender, no r/r/g Musc: Full ROM of the bilateral upper extremities although endorses pain in the left shoulder and mid humerus with movement-no deformity or obvious signs of trauma- tender to palpation, limited range of motion of the left lower extremity secondary to left thigh pain-tender to palpation without any deformity or obvious signs of injury, full range of motion of the left knee without pain or tenderness, radial/DP/PT pulses +2 bilateral, good capillary refill, no midline spinal tenderness, no bony step-off Skin: Warm, dry, intact Neuro: Alert, oriented, grossly intact, sensation intact, GCS 15 Psych: Cooperative, appropriate mood and affect [facility] Medical History (Updated 07/25/24 @ 20:[address] Indu Strauss MD) Cocaine use Obesity HLD (hyperlipidemia) Arthritis Neuropathy Diabetes mellitus Hypertension Asthma Hx of fracture of patella Home Medications ?Medication ?Instructions ?Recorded ?Last Taken ?Type albuterol sulfate 90 mcg/actuation 2 inh inhalation Q8 H PRN shortness 07/15/24 Unknown History aerosol inhaler (Ventolin HFA) of breath ascorbic acid (vitamin C) 500 mg 500 mg PO DAILY 07/1507/24/24 History tablet (Vitamin C) atorvastatin 40 mg tablet (Lipitor) 40 mg PO QHS 07/1507/24/24 History cholecalciferol (vitamin D3) 25 50 mcg PO DAILY 07/24/24 History mcg (1,000 unit) tablet (Vitamin D3) gabapentin 800 mg tablet 800 mg PO BID 07/15/2407/24 History hydrocodone-acetaminophen 5-325mg 1 tab PO Q6H PRN PRN Pain 3 days 07/15/24 07/24/24 Rx 5mg-325mg #10 TABLETS insulin aspart U-100 100 unit/mL 12 unit subcut TID 07/24/24 History (3 mL) subcutaneous pen (Novolog FlexPen U-100 Insulin aspart) insulin glargine 100 unit/mL (3 35 unit subcut BID 07/24/24 History mL) subcutaneous pen (Lantus Solostar U-100 Insulin) losartan 25 mg tablet (Cozaar) 12.5 mg PO DAILY 07/24/24 History metformin 1,000 mg tablet 1,000 mg PO BID 07/15/2404/18 History pantoprazole 40 mg tablet,delayed 40 mg PO DAILY 07/1507/24/24 History release (Protonix) Allergy/AdvReac Type Severity Reaction Status Date / Time Penicillins Allergy Unknown NEEDS Verified 07/25/24 16:41 FOLLOW-UP Surgical History Hx of right knee surgery Social History Smoking Status: Never smoker EXAM Physical Exam Const Vital Signs: 07/25/24 16:33 07/25/24 16:38 07/25/24 19:00 Temperature 98.6 F Temperature Source Oral Pulse Rate 89 103 H Respiratory Rate 18 18 Respiratory Effort Normal Respiratory Depth Normal Respiratory Pattern Normal Blood Pressure 138/83 H 170/94 H Blood Pressure Mean 101 119 Pulse Ox 99 98 Oxygen Delivery Method Room Air Room Air Room Air MDM MDM MDM Narrative Medical decision making narrative: 74-year-old male with past medical history of DM 2, HLD, HTN presents for evaluation of left upper extremity and left lower extremity after mechanical fall. Had a mechanical fall on a rug yesterday after alcohol and cocaine abuse. Did not hit his head. No LOC. Not able to ambulate. Differential diagnosis includes but is not limited to contusion, sprain, fracture. X-ray of the left shoulder and humerus ordered along with x-rays of the pelvis and left femur. Morphine and Zofran ordered for symptoms. Given patient has not been able to ambulate he may end up needing admission for placement/PT/OT. Will obtain basiclabs with urine drug screen and alcohol level. Given patient did not hit his head and is not endorsing any neck pain I do not think any imaging of the head or neck is needed. Patient did not hit his head. No LOC. Not on blood thinners. CBC without leukocytosis. Patient has anemia with hemoglobin 11.5. I do not have previous labs to compare to although I suspect this is chronic. Urine drug screen positive for cocaine. Patient does admit to cocaine use yesterday. Alcohol level unremarkable. X-rays of the pelvis, left femur, left humerus, left shoulder were personally reviewed interpreted by me, ED physician. No fracture or dislocation. Radiology in agreement. Suspect patient's pain issecondary to contusions. Now that patient has received pain medicine will ambulate with walker. BMP consistent with dehydration, likely secondary to his cocaine and alcohol abuse yesterday. NS bolus ordered. Potassium mildly elevated at 5.2. Will obtain EKG to assess for changes. Creatinine 1.56. Unknown patient's baseline. Glucose 391. Patient is a known diabetic. Patientwas unable to ambulate with a walker. Unsteady on his feet and required 2 people to assist him. Patient states his pain is controlled currently in the bed. States pain worsens with ambulation. Patient will warrant admission for PT/OT evaluation. EKG was personally reviewed interpreted by me, ED physician. Sinus tachycardia. No acute ischemic changes. No hyperacute T waves. Heart rate 107. Patient was discussed with the hospitalist service, given patient follows with the [facility] plan will be to reach out to the [facility] first for admission. I spoke with the [facility] given that patient also has Medicare it is his option if [facility] would [facility] with the use of his Medicare. Patient elected to stay here and use Medicare. Hospitalist repaged, they accepted admission. Impression: 1. Inability to ambulate secondary to injury/pain 2. Left upper extremity contusion 3. Left lower extremity contusion 4. Mechanical fall 5. Mild dehydration 6. Mild hyperkalemia 7. Cocaine abuse Lab Data Labs: Laboratory Results - last 24 hr 07/25/24 07/25/24 15:10 17:25 WBC 9.6 RBC 4.90 Hgb 11.5 L Hct 36.0 L MCV 73.5 L MCH 23.5 L MCHC 31.9 L RDW Std Deviation 38.4 RDW Coeff of Summer 14.5 Plt Count 207 MPV 11.0 Sodium 133 Potassium 5.2 H Chloride 98 Carbon Dioxide 17.5 L Anion Gap 17 H BUN 21 H Creatinine 1.56 H Estim Creat Clear Calc 59.14 Est GFR (MDRD) Non-Af 47 L BUN/Creatinine Ratio 13.7 Glucose 391 H Calcium 9.8 Urine Opiates Screen NEGATIVE U Buprenorphine Qual NEGATIVE Ur Oxycodone Screen NEGATIVE Urine Methadone Screen NEGATIVE Urine Fentanyl Screen NEGATIVE Ur Barbiturates Screen NEGATIVE Ur Phencyclidine Scrn NEGATIVE Ur Amphetamines Screen NEGATIVE U Benzodiazepines Scrn NEGATIVE Urine Cocaine Screen PRESUMPTIVE POSITIVE U Cannabinoids Screen NEGATIVE Ethyl Alcohol < 10.1 Radiography Diagnostic Testing: Clinical Impression(s) from Imaging Studies Femur X-Ray 07/25/24 17:45 IMPRESSION: No acute osseous abnormality of the left femur. Reading Location: [id number] Humerus X-Ray 07/25/24 17:45 IMPRESSION: No acute osseous abnormalities. Reading Location: [id number] Pelvis X-Ray 07/25/24 17:45 IMPRESSION: No acute osseous abnormalities. Details above. Reading Location: [id number] Shoulder X-Ray 07/25/24 17:45 IMPRESSION: No acute osseous abnormalities. Reading Location: [id number] Discharge Plan Triage Chief Complaint: Fall ED Provider: Red Hector Dx/Rx/DC Orders Prescriptions: No Action insulin glargine [Lantus Solostar U-100 Insulin] 100 unit/mL (3 mL) insulin pen 35 unit subcut BID insulin aspart U-100 [Novolog FlexPen U-100 Insulin] 100 unit/mL (3 mL) insulin pen 12 unit subcut TID metformin 1,000 mg tablet 1,000 mg PO BID atorvastatin [Lipitor] 40 mg tablet 40 mg PO QHS losartan [Cozaar] 25 mg tablet 12.5 mg PO DAILY albuterol sulfate [Ventolin HFA] 90 mcg/actuation HFA aerosol inhaler 2 inh inhalation Q8H PRN (Reason: shortness of breath) gabapentin 800 mg tablet 800 mg PO BID cholecalciferol (vitamin D3) [Vitamin D3] 25 mcg (1,000 unit) tablet 50 mcg PO DAILY ascorbic acid (vitamin C) [Vitamin C] 500 mg tablet 500 mg PO DAILY pantoprazole [Protonix] 40 mg tablet,delayed release (DR/EC) 40 mg PO DAILY hydrocodone-acetaminophen 5-325 mg tablet 1 tab PO Q6H PRN PRN (Reason: Pain) 3 Days Qty: 10 0RF Primary Care Provider: Edilson Roldan,Out of Referrals: [facility] Doctor,Out of [Primary Care Provider] - Print Language: Tongan What to do if you have Problems For any increased pain, shortness of breath, bleeding, nausea or vomiting, chestpain, or any unexpected problems, contact your Primary Care Provider. Call [facility] ([phone]) or report to the closest Emergency Room. Call 911 if necessary. 07/25/242028 <Electronically signed by eRd Hector DO> Cosigner Signature (if applicable): CC: ~ Signed [facility] Work Phone: 1(437) 954-674806-03-2025 Evaluation note* Diagnosis Onset Date Resolution Status Admit Date Fall acute July 25, 2024 8:25pm Intractable pain acute July 8:25pm Neuropathy acute July 25, 2024 8:25pm [facility] Work Phone: 1(656) 216-957506-03-2025 History and physical note [facility] Medical Records Department [address] [place] [address] H&P Exam - Hospitalist 07/25/242022 MR#: [id number] Acct: [id number] Name: RANJANA HUGHES Rep #:[id number] : 1950 74 From: Indu Strauss MD PCP: OUT OF TOWN DOCTOR Status:REG ER Location: ED HPI - General General Date of Admission: 07/25/24 Date of Service: 07/25/24 Chief Complaint: Fall, debility, intractable L sided pain. HPI Narrative The patient is a 74 y/o [facility] M w/ PMHx: Former tobacco use, RADHA noncompliant with PAP therapy, Asthma, HTN, HLD, GERD, Diabetes mellitus type IIwith chronic neuropathy, Obesity, Presumed Chronic CKD stage III unclear subtypebut uncertain, Presumed chronic microcytic anemia but uncertain who pr esents to the [facility] ED on 07/25/24 with history of mechanical fall onto the left side with discomfort to the upper and lower extremity noting that he recently went throughdivorce and was at a constitution party the day prior where he drank a significant mount of alcohol and used cocaine and while attempting to ambulate to the bathroom slipped on a rug with no loss of consciousness or head trauma with family helping him to the couch however he has had discomfort and inability to ambulatesince then normally usinga walker secondary to severe right knee osteoarthritisprompting family to bring him in for evaluation. In the ED patient initially reporting pain 9 out of 10 in severity to the left side primarily with any exertion or movement or weightbearing attempts. Following administration medications the ED patient noted pain improved to 7 out of 10 however still somediscomfort in the calf and thigh. Workupin the ED included T90.6, heart rate 89, BP 138/83, respiratory 18, 99% on room air with most recent repeat labs withheart rate 103, BP 170/94, respiratory rate 18, 98% on room air, CBC with WC 9.6, hemoglobin 0.5, MCV 73.5, platelet 207 without differential, BMP with potassium 5.2, At 17.5, anion gap 17, BUN/creatinine 21/1.56, GFR 47, glucose 391, UDS with presumptive positive cocaine, ethyl alcohol less than 10.1, plain film of the left femur with no acute osseous abnormality, plain film of the lefthumerus with no acute osseous abnormality, plain film of the pelvis with no acute osseous abnormality, plain film of the left shoulder with no acute osseousabnormality. Patient has both medicare and [facility] insurance and preferred to remain at [facility] for care and evaluation. [facility] Medical History Former tobacco use RADHA (obstructive sleep apnea) Chronic anemia CKD (chronic kidney disease), stage III Cocaine use Obesity HLD (hyperlipidemia) Arthritis Neuropathy Diabetes mellitus Hypertension Asthma Hx of fracture of patella Home Medications ?Medication ?Instructions ?Recorded ?Last Taken ?Type albuterol sulfate 90 mcg/actuation 2 inh inhalation Q8 H PRN shortness 07/15/24 Unknown History aerosol inhaler (Ventolin HFA) of breath ascorbic acid (vitamin C) 500 mg 500 mg PO DAILY 07/1507/24/24 History tablet (Vitamin C) atorvastatin 40 mg tablet (Lipitor) 40 mg PO QHS 07/1507/24/24 History cholecalciferol (vitamin D3) 25 50 mcg PO DAILY 07/24/24 History mcg (1,000 unit) tablet (Vitamin D3) gabapentin 800 mg tablet 800 mg PO BID 07/15/2407/24 History hydrocodone-acetaminophen 5-325mg 1 tab PO Q6H PRN PRN Pain 3 days 07/15/24 07/24/24 Rx 5mg-325mg #10 TABLETS insulin aspart U-100 100 unit/mL 12 unit subcut TID 07/24/24 History (3 mL) subcutaneous pen (Novolog FlexPen U-100 Insulin aspart) insulin glargine 100 unit/mL (3 35 unit subcut BID 07/24/24 History mL) subcutaneous pen (Lantus Solostar U-100 Insulin) losartan 25 mg tablet (Cozaar) 12.5 mg PO DAILY 07/24/24 History metformin 1,000 mg tablet 1,000 mg PO BID 07/15/2404/18 History pantoprazole 40 mg tablet,delayed 40 mg PO DAILY 07/1507/24/24 History release (Protonix) Allergy/AdvReac Type Severity Reaction Status Date / Time Penicillins Allergy Unknown NEEDS Verified 07/25/24 16:41 FOLLOW-UP Family History Mother Diabetes Father Hypertension GERD (gastroesophageal reflux disease) Surgical History History of cholecystectomy Hx of right knee surgery Social History household members: significant other Smoking Status: Former smoker how long ago did patient quit smoking: Quit remotely. alcohol intake: current alcohol intake frequency: holidays/special occasions only substance use type: other details: Admits to cocaine use 07/26/24 but denies commonly using. ROS ROS Narrative Admission Review of Systems: CONSTITUTIONAL: No weight loss, fever, chills, + weakness or fatigue. HEENT: Eyes: No visual loss, blurred vision, double vision or yellow sclerae. Ears, Nose, Throat: No hearing loss, sneezing, congestion, runny nose or sore throat. SKIN: No rash or itching, lesions, wounds. CARDIOVASCULAR: No chest pain, chest pressure or chest discomfort, palpitations,edema, orthopnea, syncopal events. RESPIRATORY: No shortness of breath, cough or sputum, wheezing, hemoptysis. GASTROINTESTINAL: No anorexia, nausea, vomiting or diarrhea, abdominal pain, melena, BRBPR. GENITOURINARY: No dysuria, frequency, urgency or retention. NEUROLOGICAL: + Chronic diabetic neuropathy. No headache, dizziness, syncope, paralysis, ataxia, focal weakness, change in bowel or bladder control, seizure. MUSCULOSKELETAL: + muscle, back pain, joint pain or stiffness. HEMATOLOGIC: + Chronic anemia. No marked easy history of bleeding or bruising. LYMPHATICS: No enlarged nodes. No history of splenectomy. PSYCHIATRIC: No history of depression or anxiety. ENDOCRINOLOGIC: No reports of sweating, cold or heat intolerance. No polyuria orpolydipsia. ALLERGIES: + History of asthma. Vital Signs Vital Signs Vital Signs: 07/25/24 16:33 07/25/24 16:38 07/25/24 19:00 Temperature 98.6 F Temperature Source Oral Pulse Rate 89 103 H Respiratory Rate 18 18 Respiratory Effort Normal Respiratory Depth Normal Respiratory Pattern Normal Blood Pressure 138/83 H 170/94 H Blood Pressure Mean 101 119 Pulse Ox 99 98 Oxygen Delivery Method Room Air Room Air Room Air Weight Weight: 266 lb 8.622 oz Body Mass Index (BMI) 34.2 Physical Exam Narrative Physical Examination: General: Awake, alert, oriented x 3 and cooperative, seated upright in bed, no obvious distress, reports ongoing left-sided upper and lower extremity discomfort worse with activity attempts. Skin: Normal color, normal turgor, no icterus, no cyanosis. HEENT: AT/NC, EOMI, PERRLA, MMM, no carotid bruits, difficult to discern JVD given thickened neck. Lungs: Mildly diminished, greater bases, poor effort, no rales, ronchi or wheezing. Heart: Regular rate and rhythm; no gallop, rub audible. Abdomen: Soft, obese, NTTP, no obvious distention, mildly hyperactive BS, no appreciated HSM however habitus makes evaluation difficult. Extremities: No cyanosis, no marked clubbing, no marked significant extremity edema despite recent fall with left-sided ongoing pain to the upper and lower extremity primarily worse with movements. Neurological: Patient awake, alert, oriented as noted, cognitive function intact; pupils equally reactive to light and accommodation, cranial nerves grossnormal, moving all 4 extremities, no focal deficits, strength moderately to severely globally decreased secondary to pain reported. Psychiatric: Affect appears normal, talkative, no acute evidence of depressive or anxiety feelings. Results Lab / Micro Data 07/25/24 17:25 07/25/24 17:25 Labs: Laboratory Results - last 24 hr 07/25/24 15:10: Urine Opiates Screen NEGATIVE, U Buprenorphine Qual NEGATIVE, UrOxycodone Screen NEGATIVE, Urine Methadone Screen NEGATIVE, Urine Fentanyl Screen NEGATIVE, Ur Barbiturates Screen NEGATIVE, Ur Phencyclidine Scrn NEGATIVE, Ur Amphetamines Screen NEGATIVE, U Benzodiazepines Scrn NEGATIVE, Urine Cocaine Screen PRESUMPTIVE POSITIVE, U Cannabinoids Screen NEGATIVE 07/25/24 17:25: WBC 9.6, RBC 4.90, Hgb 11.5 L, Hct 36.0 L, MCV 73.5 L, MCH 23.5 L, MCHC 31.9 L, RDWStd Deviation 38.4, RDW Coeff of Summer 14.5, Plt Count 207, MPV 11.0, Sodium 133, Potassium 5.2 H, Chloride 98, Carbon Dioxide 17.5 L, AnionGap 17 H, BUN 21 H, Creatinine 1.56 H, Estim Creat Clear Calc59.14, Est GFR (MDRD) Non-Af 47 L, BUN/Creatinine Ratio 13.7, Glucose 391 H, Calcium 9.8, EthylAlcohol < 10.1 Imaging Radiology Impression Femur X-Ray 07/25/24 17:45 IMPRESSION: No acute osseous abnormality of the left femur. Reading Location: [facility] Humerus X-Ray 07/25/24 17:45 IMPRESSION: No acute osseous abnormalities. Reading Location: [id number] [id number] Pelvis X-Ray 07/25/24 17:45 IMPRESSION: No acute osseous abnormalities. Details above. Reading Location: [id number] Shoulder X-Ray 07/25/24 17:45 IMPRESSION: No acute osseous abnormalities. Reading Location: [id number] Assessment & Plan Assessment/Plan (1) Intractable pain: (2) Fall: PLAN: Plan The patient is a 74 y/[facility] M w/ PMHx: Former tobacco use, RADHA noncompliant with PAP therapy, Asthma, HTN, HLD, GERD, Diabetes mellitus type IIwith chronic neuropathy, Obesity, Presumed Chronic CKD stage III unclear subtypebut uncertain, Presumed chronic microcytic anemia but uncertain who pr esents to the [facility] ED on 07/25/24 with history of mechanical fall onto the left side with discomfort to the upper and lower extremity noting that he recently went throughdivorce and was at a constitution party the day prior where he drank a significant mount of alcohol and used cocaine and while attempting to ambulate to the bathroom slipped on a rug with no loss of consciousness or head trauma with family helping him to the couch however he has had discomfort and inability to ambulatesince then normally usinga walker secondary to severe right knee osteoarthritisprompting family to bring him in for evaluation. #1. Mechanical fall complicated by recent intoxication and cocaine usage which patient denies baseline however uncertain with intractable left upper and lower extremity discomfort complicated by usually chronic walker usage secondary to severe right knee osteoarthritis: Will admit to medical surgical floor, maintainon fall precautions, will initiate short course low-dose IV torado given renal function, lidoacine patches, as needed Tylenol, po/IV narcotic pain regimen onlyas needed, anti-emetics, bowel regimen. Will consult PT and OT for evaluation aswell as Case management for discharge planning. #2. Hyperkalemia, mild: Admission potassium 5.2, no evidence of hemolysis, willjudiciously hydrate and repeat CMP in AM. #3. Cocaine use: UDS with positive presumptive cocaine, otherwise negative, ethyl alcohol less than10.1, [facility], notes used cocaine the day previously at a constitution party, encourage clean status. #4. Diabetes mellitus type II with hyperglycemia with chronic neuropathy: Hold oral home regimen, continue home insulin regimen, ADA diet, accu checks w/ ISS, continue home gabapentin regimen. #5. Chronic asthma: Per current list does not appear to be on chronic regimen, will have PRN albuterol, HOB, IS parameters. #6. Hypertension: Continue home regimen including losartan, PRN hydralazine. #7. Hyperlipidemia: Will continue patient on statin therapy. #8. Possible chronic microcytic anemia: Admission hemoglobin 1.5, MCV 73.5, no comparison labs available, will continue to trend CBC to further elucidate. #9. Presumed Chronic Kidney Disease Stage III, unclear subtype: Admission BUN/Cr 21/1.56, GFR 47, baseline renal function uncertain as no comparison labs,will repeat BMP in AM to further elucidate. #10. Obesity: Weight loss and lifestyle changes encouraged. GERD: Will continue patient on PPI. #11. RADHA: Noncompliant with PAP therapy. #12. Former tobacco use: Patient notes he smoked very remotely, encourage continued cessation. #13. DVT prophylaxis: Lovenox. #14. CODE status: Patient ALVA is his girlfriend Sonja and living will is currently in place. Discussed CODE status at length including difference betweenFULL code, DNR-CCA and DNR-CC status. Following discussions about the differences in these status, requested Full Code status. Charges/Coding Visit Charges Inpatient E&M: 25135 Init Hosp L2 07/25/242042 Cosigner Signature (if applicable): CC: Dr. Indu Strauss MD~ Signed [facility]06-03-2025 Discharge summary [facility] Medical Records Department [address] [place] [address] Emergency Department Summary 07/25/24 MR#: [id number] Acct: [id number] Name: RANJANA HUGHES Rep #:[id number] : 1950 74 From: Red Patel ggett DO PCP: OUT OF TOWN DOCTOR Status:REG ER Location: ED HPI HPI - Fall History of Present Illness Chief Complaint: Fall Narrative Narrative: Chief complaint and HPI: Mechanical fall with left upper extremity and left lower extremity pain. 74-year-old male with past medical history of DM 2, HLD, HTN presents for evaluation of left upper extremity and left lower extremity after mechanical fall. Patient states he recently went through divorce and decided to have fun yesterday and constitution party. States he used cocaine and alcohol. States he was at a family house when he tried to ambulate to the bathroom and slipped on a rug. Did not his head. No LOC. States he landed on his left leg and arm. Family helped him to the couch. Patient states thathe has been unable to ambulate since last night secondary to pain which is why presents. Heusually u ses a walker due to a bad right knee. Denies any fever, chills, abdominal pain, chest pain, nausea,vomiting, shortness of breath. Has taken Tylenol and Advil yesterday for the pain. States that he usually is not a drug abuser. Review of systems: See HPI Medications: As listed on the chart Allergies: As listed on the chart PFSH: Per chart Vital signs: As listed on the chart. Reviewed. Physical exam: Gen: A&O x3, NAD Head: Normocephalic, atraumatic Eyes: No sclera icterus, conjunctiva clear, PERRL, EOMI ENT: TMs clear BL, moist mucous membranes, no swelling/lacerations/blood in the mouth or the nares,No nasal septal hematoma, no facial tenderness Neck: Trachea midline, No JVD, Nontender, full range of motion CV: RRR, no murmurs, no chest wall TTP Resp: Lungs CTA BL, no w/r/c GI: Abd soft, non-distended, non-tender, no r/r/g Musc: Full ROM of the bilateral upper extremities although endorses pain in the left shoulder and mid humerus with movement-no deformity or obvious signs of trauma-tender to palpation, limited range of motion of the left lower extremity secondary to left thigh pain-tender to palpation without any deformity or obvious signs of injury, full range of motion of the left knee without pain or tenderness, radial/DP/PT pulses +2 bilateral, good capillary refill, no midline spinal tenderness, no bony step-off Skin: Warm, dry, intact Neuro: Alert, oriented, grossly intact, sensation intact, GCS 15 Psych: Cooperative, appropriate mood and affect [facility] Medical History (Updated 07/25/24 @ 20:[address] Indu Strauss MD) Cocaine use Obesity HLD (hyperlipidemia) Arthritis Neuropathy Diabetes mellitus Hypertension Asthma Hx of fracture of patella Home Medications ?Medication ?Instructions ?Recorded ?Last Taken ?Type albuterol sulfate 90 mcg/actuation 2 inh inhalation Q8 H PRN shortness 07/15/24 Unknown History aerosol inhaler (Ventolin HFA) of breath ascorbic acid (vitamin C) 500 mg 500 mg PO DAILY 07/1507/24/24 History tablet (Vitamin C) atorvastatin 40 mg tablet (Lipitor) 40 mg PO QHS 07/1507/24/24 History cholecalciferol (vitamin D3) 25 50 mcg PO DAILY 07/24/24 History mcg (1,000 unit) tablet (Vitamin D3) gabapentin 800 mg tablet 800 mg PO BID 07/15/2407/24 History hydrocodone-acetaminophen 5-325mg 1 tab PO Q6H PRN PRN Pain 3 days 07/15/24 07/24/24 Rx 5mg-325mg #10 TABLETS insulin aspart U-100 100 unit/mL 12 unit subcut TID 07/24/24 History (3 mL) subcutaneous pen (Novolog FlexPen U-100 Insulin aspart) insulin glargine 100 unit/mL (3 35 unit subcut BID 07/24/24 History mL) subcutaneous pen (Lantus Solostar U-100 Insulin) losartan 25 mg tablet (Cozaar) 12.5 mg PO DAILY 07/24/24 History metformin 1,000 mg tablet 1,000 mg PO BID 07/15/2404/18 History pantoprazole 40 mg tablet,delayed 40 mg PO DAILY 07/1507/24/24 History release (Protonix) Allergy/AdvReac Type Severity Reaction Status Date / Time Penicillins Allergy Unknown NEEDS Verified 07/25/24 16:41 FOLLOW-UP Surgical History Hx of right knee surgery Social History Smoking Status: Never smoker EXAM Physical Exam Const Vital Signs: 07/25/24 16:33 07/25/24 16:38 07/25/24 19:00 Temperature 98.6 F Temperature Source Oral Pulse Rate 89 103 H Respiratory Rate 18 18 Respiratory Effort Normal Respiratory Depth Normal Respiratory Pattern Normal Blood Pressure 138/83 H 170/94 H Blood Pressure Mean 101 119 Pulse Ox 99 98 Oxygen Delivery Method Room Air Room Air Room Air MDM MDM MDM Narrative Medical decision making narrative: 74-year-old male with past medical history of DM 2, HLD, HTN presents for evaluation of left upper extremity and left lower extremity after mechanical fall. Had a mechanical fall on a rug yesterday after alcohol and cocaine abuse. Did not hit his head. No LOC. Not able to ambulate. Differential diagnosis includes but is not limited to contusion, sprain, fracture. X-ray of the left shoulder and humerus ordered along with x-rays of the pelvis and left femur. Morphine and Zofran ordered for symptoms. Given patient has not been able to ambulate he may end up needing admission for placement/PT/OT.Will obtain basiclabs with urine drug screen and alcohol level. Given patient did not hit his head and is not endorsing any neck pain I do not think any imaging of the head or neck is needed. Patientdid not hit his head. No LOC. Not on blood thinners. CBC without leukocytosis. Patient has anemia with hemoglobin 11.5. I do not have previous labs to compare to although I suspect this is chronic. Ur ine drug screen positive for cocaine. Patient does admit to cocaine use yesterday. Alcohol level unremarkable. X-rays of the pelvis, left femur, left humerus, left shoulder were personally reviewed interpreted by me, ED physician. No fracture or dislocation. Radiology in agreement. Suspect patient's pain issecondary to contusions. Now that patient has received pain medicine will ambulate with walker. BMP consistent with dehydration, likely secondary to his cocaine and alcohol abuse yesterday. NS bolus ordered. Potassium mildly elevated at 5.2. Will obtain EKG to assess for changes. Creatinine1.56. Unknown patient's baseline. Glucose 391. Patient is a known diabetic. Patientwas unable to amb ulate with a walker. Unsteady on his feet and required 2 people to assist him. Patient states his pain is controlled currently in the bed. States pain worsens with ambulation. Patient will warrant admission for PT/OT evaluation. EKG was personally reviewed interpreted by me, ED physician. Sinus tachycardia. No acute ischemic changes. No hyperacute T waves. Heart rate 107. Patient was discussed with the hospitalist service, given [facility] will be to [facility] to [facility] for [facility]. I spoke with the [facility] given that patient also has Medicare it is his option if he would like to be [facility] versus here in our hospital with the use of his Medicare. Patientelected to stay here and use Medicare. Hospitalist repaged, they accepted admission. Impression: 1. Inability to ambulate secondary to injury/pain 2. Left upper extremity contusion 3. Left lower extremity contusion 4. Mechanical fall 5. Mild dehydration 6. Mild hyperkalemia 7. Cocaine abuse Lab Data Labs: Laboratory Results - last 24 hr 07/25/24 07/25/24 15:10 17:25 WBC 9.6 RBC 4.90 Hgb 11.5 L Hct 36.0 L MCV 73.5 L MCH 23.5 L MCHC 31.9 L RDW Std Deviation 38.4 RDW Coeff of Summer 14.5 Plt Count 207 MPV 11.0 Sodium 133 Potassium 5.2 H Chloride 98 Carbon Dioxide 17.5 L Anion Gap 17 H BUN 21 H Creatinine 1.56 H Estim Creat Clear Calc 59.14 Est GFR (MDRD) Non-Af 47 L BUN/Creatinine Ratio 13.7 Glucose 391 H Calcium 9.8 Urine Opiates Screen NEGATIVE U Buprenorphine Qual NEGATIVE Ur Oxycodone Screen NEGATIVE Urine Methadone Screen NEGATIVE Urine Fentanyl Screen NEGATIVE Ur Barbiturates Screen NEGATIVE Ur Phencyclidine Scrn NEGATIVE Ur Amphetamines Screen NEGATIVE U Benzodiazepines Scrn NEGATIVE Urine Cocaine Screen PRESUMPTIVE POSITIVE U Cannabinoids Screen NEGATIVE Ethyl Alcohol < 10.1 Radiography Diagnostic Testing: Clinical Impression(s) from Imaging Studies Femur X-Ray 07/25/24 17:45 IMPRESSION: No acute osseous abnormality of the left femur. Reading Location: [facility] Humerus X-Ray 07/25/24 17:45 IMPRESSION: No acute osseous abnormalities. Reading Location: [place] [address] Pelvis X-Ray 07/25/24 17:45 IMPRESSION: No acute osseous abnormalities. Details above. Reading Location: [place] [address] Shoulder X-Ray 07/25/24 17:45 IMPRESSION: No acute osseous abnormalities. Reading Location: [place] [address] Discharge Plan Triage Chief Complaint: Fall ED Provider: Red Hector Dx/Rx/DC Orders Prescriptions: No Action insulin glargine [Lantus Solostar U-100 Insulin] 100 unit/mL (3 mL) insulin pen 35 unit subcut BID insulin aspart U-100 [Novolog FlexPen U-100 Insulin] 100 unit/mL (3 mL) insulin pen 12 unit subcut TID metformin 1,000 mg tablet 1,000 mg PO BID atorvastatin [Lipitor] 40 mg tablet 40 mg PO QHS losartan [Cozaar] 25 mg tablet 12.5 mg PO DAILY albuterol sulfate [Ventolin HFA] 90 mcg/actuation HFA aerosol inhaler 2 inh inhalation Q8H PRN (Reason: shortness of breath) gabapentin 800 mg tablet 800 mg PO BID cholecalciferol (vitamin D3) [Vitamin D3] 25 mcg (1,000 unit) tablet 50 mcg PO DAILY ascorbic acid (vitamin C) [Vitamin C] 500 mg tablet 500 mg PO DAILY pantoprazole [Protonix] 40 mg tablet,delayed release (DR/EC) 40 mg PO DAILY hydrocodone-acetaminophen 5-325 mg tablet 1 tab PO Q6H PRN PRN (Reason: Pain) 3 Days Qty: 10 0RF Primary Care Provider: [facility] Doctor,Out of Referrals: [facility] Doctor,Out of [Primary Care Provider] - Print Language: Tongan What to do if you have Problems For any increased pain, shortness of breath, bleeding, nausea or vomiting, chestpain, or any unexpected problems, contact your Primary Care Provider. Call [facility] ([phone]) or report tothe closest Emergency Room. Call 911 if necessary. 07/25/242028 Cosigner Signature (if applicable): CC: ~ Signed [facility]06-03-2025 Radiology Diagnostic study note [facility] Imaging Services [address] [place] [address] Femur Min 2 Views MR#: [id number] Acct: [id number] Name: RANJANA HUGHES Rep #: [id number] : 1950 M 74 From: Rachel Gibbons MD PCP: OUT OF [facility] DOCTOR Status: REG ER Study:Femur Min 2 Views Date of Exam: Exam# [id number] Ordering Dr: Red Mancilla DO PROCEDURE: FEMUR MIN 2 VIEWS 07/25/2024 REASON FOR EXAM: PAIN TECHNIQUE: 4 view(s) of the left femur. COMPARISON: None FINDINGS: No acute fracture or traumatic malalignment. There is osteophyte formation at the hip and knee. Bone mineral density is subjectively normal. There are vascular calcifications in the soft tissues. RAD/Femur Min 2 Views IMPRESSION: No acute osseous abnormality of the left femur. Reading Location: [id number] CC: Dr. Red Hector DO ~ [place] [place] [employer] Sawyer: Signed [facility]06-03-2025 Radiology Diagnostic study note [facility] Imaging Services [address] [place] [address] Shoulder min 2 Views MR#: [id number] Acct: [id number] Name: RANJANA HUGHES Rep #: [id number] : 1950 M 74 From: Avni Guadarrama MD PCP: OUT OF TOWN DOCTOR Status: REG ER Study:Shoulder min 2 Views Date of Exam: 07/25/24 Exam# [id number] Ordering Dr: Red Mancilla DO PROCEDURE: SHOULDER MIN 2 VIEWS 07/25/2024 REASON FOR EXAM: PAIN TECHNIQUE: 4 views of the left shoulder. COMPARISON: None. FINDINGS: No evidence of acute fracture or dislocation. Mild glenohumeral and acromioclavicular degenerative changes. RAD/Shoulder min 2 Views IMPRESSION: No acute osseous abnormalities. Reading Location: [id number] CC: Dr. Red Hector DO ~ [place] [employer] Sawyer: Signed [facility]06-03-2025 Radiology Diagnostic study note [facility] Imaging Services [address], [place] [id number] Humerus min 2 Views MR#: [id number] Acct: [id number] Name: RANJANA HUGHES Rep #: [id number] : 1950 M 74 From: Avni Guadarrama MD PCP: OUT OF TOWN DOCTOR Status: REG ER Study:Humerus min 2 Views Date of Exam: 07/25/24 Exam# [id number] Ordering Dr: Red Mancilla DO PROCEDURE: HUMERUS MIN 2 VIEWS 07/25/2024 REASON FOR EXAM: PAIN TECHNIQUE: 2 view(s) of the left humerus. COMPARISON: None. FINDINGS: No evidence acute fracture or dislocation. No acute soft tissue abnormalities. RAD/Humerus min 2 Views IMPRESSION: No acute osseous abnormalities. Reading Location: [id number] CC: Dr. Red Hector DO ~ [place] [place] [employer]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
[2024-08-01 08:58] LABS: Hematocrit 29.4 % (40-54); Hemoglobin 9.2 g/dL (13.0-16.5); Mean Corp Hgb Conc 31.3 g/dL (32-36); Mean Corpuscular Hgb 23.2 pg (27.0-32.0); Mean Corpuscular Volume 74.2 fL (80-94); Mean Platelet Vol. 11.5 fl (6.2-12.0); Platelet Count 232 K/mm3 (150-450); RBC Distribution Width CV 14.6 % (11.6-14.6); RBC Distribution Width SD 39.1 fl (35.1-43.9); Red Blood Count 3.96 M/mm3 (4.6-6.2); White Blood Count 6.8 K/mm3 (4.4-11.0)
[2024-08-01 09:10] LABS: ALB/GLOB Ratio 1.4 RATIO (0.9-2.4); AST(SGOT) 26 U/L (<=37); Alanine Aminotransfer ALT/SGPT 20 U/L (<=46); Alkaline Phosphatase 76 U/L (40-129); Anion Gap 10 (5-15); BUN 21 mg/dL (4-19); BUN/Creat Ratio 19.9 RATIO (10-20); Calcium,Total 9.1 mg/dL (7.6-11.0); Carbon Dioxide 23.1 mmol/L (21.0-32.0); Chloride 102 mmol/L (98-108); Creatinine, Serum 1.07 mg/dL (0.70-1.20); EST Glomerular Filtration Rate 74 (>60); Globulin 2.8 g/dL (2.2-4.2); Glucose 146 mg/dL (70-99); Potassium 4.7 mmol/L (3.3-5.1); Protein, Total 6.9 g/dL (5.9-8.4); Sodium Level 135 mmol/L (133-145); Total Bilirubin 0.72 mg/dL (0.00-1.30)
== END ==
LOC: OLS.SW 05:00
PROVIDERS: Visit Provider Internal Medicine
DX: I10 Essential (primary) hypertension (principal); I48.91 Unspecified atrial fibrillation; E11.9 Type 2 diabetes mellitus without complications
CPT/HCPCS: 36415; 80053; 85027

== ENCOUNTER → 2024-08-07 | Outpatient (REF) | payer MEDICARE, SELFPAY ==
--- OUTSIDE RECORDS SUMMARY | 2024-08-07 04:46 | XMS RPT_ITS ---
[...] commonly using. (more content not included)... Normal [facility] Humerus min 2 Viewson 2024 Humerus min 2 Views [facility] Imaging Services [address] [place], [place] [address] Humerus min 2 Views MR#: [id number] Acct: [id number] Name: RANJANA HUGHES Rep #: [id number] : 1950 M 74 From: Osito Guadarrama MD PCP: OUT OF TOWN DOCTOR Status: REG ER Study: Humerus min 2 Views Date of Exam: 07/25/24 Exam# [id number] Ordering Dr: Red Hector DO PROCEDURE: HUMERUS MIN 2 VIEWS 07/25/2024 REASON FOR EXAM: PAIN TECHNIQUE: 2 view(s) of the left humerus. COMPARISON: None. FINDINGS: No evidence acute fracture or dislocation. No acute soft tissue abnormalities. RAD/Humerus min 2 Views IMPRESSION: No acute osseous abnormalities. Reading Location: [place] [address] CC: Dr. Red Hector DO Body Sander: Signed Normal [facility] No Panel InformationOrdered By: Red Hector on 07-25-2024 Urine Buprenorphine Qualitative Negative < 200 ng/mL [facility] Urine Oxycodone Screen Negative < 100 ng/mL [facility] Pelvis 1 or 2 Viewson 2024 Pelvis 1 or 2 Views [facility] Imaging Services [address] [address] Pelvis 1 or 2 Views MR#: [id number] Acct: [id number] Name: RANJANA HUGHES Rep #: [id number] : 1950 M 74 From: Osito Guadarrama MD PCP: OUT OF TOWN DOCTOR Status: REG ER Study: Pelvis 1 or 2 Views Date of Exam: 07/25/24 Exam# [id number] Ordering Dr: Red Hector DO PROCEDURE: PELVIS [...] acute osseous abnormalities. Details above. Reading Location: [id number] CC: Dr. Red Hector DO Body Sander: Signed Normal [facility] Quantitative urine opiates m easurementOrdered By: Red Hector on 07-25-2024 Opiates Ql (U) Negative < 300 ng/mL [facility] Screening urine fentanyl melinda surementOrdered By: Red Hector on 07-25-2024 fentaNYL Screen Ql (U) Negative [facility] Serum or plasma ethanol rodolfo urement (mass/volume)Ordered By: Red Wallace on 07-25-2024 Ethanol [Mass/Vol] mg/dL <10.1 [facility] Comment on above: This test is for med ical purposes only. The legal definition of intoxication varies according to local law. Shoulder min 2 Viewson 07-25 Shoulder min 2 Views [facility] Imaging Services [address] [place], [place] [address] Shoulder min 2 Views MR#: [id number] Acct: [id number] Name: RANJANA HUGHES Rep #: [id number] : 1950 M 74 From: Osito Guadarrama MD PCP: OUT OF TOWN DOCTOR Status: REG ER Study: Shoulder min 2 Views Date of Exam: 07/25/24 Exam# [id number] Ordering Dr: Red Hector DO PROCEDURE: SHOULDER MIN 2 VIEWS 07/25/2024 REASON FOR EXAM: PAIN TECHNIQUE: 4 views of the left shoulder. COMPARISON: None. FINDINGS: No evidence of acute fracture or dislocation. Mild glenohumeral and acromioclavicular degenerative changes. RAD/Shoulder min 2 Views IMPRESSION: No acute osseous abnormalities. Reading Location: [id number] CC: Dr. Red Hector DO Body Sander: Signed Normal [facility] Urine Drug Screen (VISTA)on 07-25-2024 AMPHETAMINES Negative Normal <1000 ng/mL [facility] Comment on above: Performed By: #### L 501.080 #### [facility] Laboratory [address] [place], [address] BARBITIURATES Negative Normal < 200 ng/mL [facility] Comment on above: Performed By: #### L 501.080 #### [facility] [address] [place], [address] BENZODIAZIPINE Negative Normal < 200 ng/mL [facility] Comment on above: Performed By: #### L 501.080 #### [facility] [address] [place], [address] BUP Ur Drug Scr Negative Normal < 200 ng/mL [facility] Comment on above: Performed By: #### L 501.080 #### [facility] [address] [place], [address] COCAINE Positive Normal < 300 ng/mL [facility] Comment on above: Result Comment: If c onfirmation testing is needed, a separate order will be required to send out testing to the reference laboratory. Performed By: #### L 501.080 #### [facility] [address] [place], [address] Fentanyl Negative Normal [facility] Comment on above: Performed By: #### L 501.080 #### [facility] [address] [place], [address] METHADONE Negative Normal < 300 ng/mL [facility] Comment on above: Performed By: #### L [id number] #### [facility] [address] [place], [address] OPIATES Negative Normal < 300 ng/mL [facility] Comment on above: Performed By: #### L [id number] #### [facility] [address] [place], [place], [address] OXYCODONE Negative Normal < 100 ng/mL [facility] Comment on above: Performed By: #### L 501.080 #### [facility] [address] [place], [place], [address] PCP Negative Normal < 25 ng/mL [facility] Comment on above: Performed By: #### L 501.080 #### [facility] [address] [place], [place], [id number] THC Negative Normal < 50 ng/mL [facility] Comment on above: Performed By: #### L 501.080 #### [facility] [address] [place], [place], [address] Urine benzodiazepine levelOr dered By: Red Hector on 07-25-2024 Benzodiazepines Ql (U) Negative < 200 ng/mL [facility] Urine cocaine levelOrdered B y: Red Hector on 07-25-2024 Cocaine Ql (U) Positive < 300 ng/mL [facility] Comment on above: If confirmation test ing is needed, a separate order will be required to send out testing to the reference laboratory. Urine uajrj-4-dkswlplbzqonqt abinol (THC) measurementOrdered By: Red Wallace on 07-25-2024 Cannabinoids Screen Ql (U) Negative < 50 ng/mL [facility] Urine phencyclidine (PCP) de tectionOrdered By: Red Hector on 07-25-2024 Phencyclidine Ql (U) Negative < 25 ng/mL [facility] Consultation - Orthopedicson 07-15-2024 Consultation - Orthopedics [facility] Medical Records Department [address] [place] [address] Consultation - Orthopedics 07/15/24 1736 MR#: [id number] Acct: [id number] Name: RANJANA HUGHES Rep #: [id number] : 1950 74 From: Lonnie Beck MD PCP: OUT OF TOWN DOCTOR Status:DEP ER Location: ED HPI Consult Data Date of Consult: 07/15/24 HPI Narrative HPI Narrative: RANJANA HUGHES is a 74 M who presents with concern of patellar tendon injury from ED provider. Setting of past TWB for patellar fracture. [facility] Medical History (Updated 07/15/24 @ 15:38 by [...] be performed for further evaluation. Reading Location: [id number] Assessment Plan Assessment/Plan (1) Rupture of right patellar tendon: PLAN: 74 yr M with concern for patellar tendon injury. Recommend for now knee immobilizer, WBAT in full extension. he can FU with myself early this week for further exam and investigation, or go back to [place] where he is travelling from to get definitive treatment there. 07/15/24 1498 Cosigner Signature (if applicable): CC: Signed Normal [facility] Emergency Department Summary on 07-15-2024 Emergency Department Summary [facility] Medical Records Department [address] [place] [address] Emergency Department Summary 07/15/24 MR#: [id number] Acct: [id number] Name: RANJANA HUGHES Rep #: [id number] : 1950 74 From: Darlene Ayala DO [...] and Weakness; Negative for Loss of Funtion [facility] Medical History (Updated 07/15/24 @ 15:38 [...] throughout MDM (more content not included)... Normal [facility] Knee 4 or More Viewson 07-15 Knee 4 or More Views [facility] Imaging Services [address] [place], [place] [id number] Knee 4 or More Views MR#: [id number] Acct: [id number] Name: RANJANA HUGHES Rep #: [id number] : 1950 M 74 From: Graciela Delatorre nd, MD PCP: OUT OF TOWN DOCTOR Status: REG ER Study: Knee 4 or More Views Date of Exam: 07/15/24 Exam# [id number] Ordering Dr: Darlene Ayala DO PROCEDURE: KNEE [...] be performed for further evaluation. Reading Location: [id number] CC: Dr. Darlene Ayala DO Body Sander: Signed Normal [facility] WOUND AEROBIC CULTUREon 09-22 WOUND AEROBIC [...] Vancomycin Susc Islt S <=0.5 F Abnormal [facility] Comment on above: Performed By: #### 4 [id number] #### [facility] [address] [place] [address] Chino Rosales M.D. [id number] ED Prov Noteon 10-09-2023 ED Prov Note [...] Oral (!) 111 17 95 % 6' 2" 112.1 kg (247 lb 3.2 oz) Procedures Clinical Impression: 1. Conjunctivitis of both eyes, unspecified conjunctivitis type 2. Eye irritation ED Disposition ED Disposition Discharge Condition Stable Comment Ranjana Hughes discharged to home/self care in stable condition. Follow-up Infor (more content not included)... Normal [facility] Amylaseon 02-21-2021 Amylase.pancreatic [Catalytic activity/Vol] 115.2 U/L High 13.0 - 53.0 U/L [facility] Glucose (Bld) [Mass/Vol]on 1 Glucose [Mass/Vol] 223 mg/dL High 65 - 99 mg/dL [facility] Interpretation and review of laboratory results Abnormal [facility] Glucose [Mass/Vol] 168 mg/dL High 65 - 99 mg/dL [facility] Interpretation and review of laboratory results Abnormal [facility] Lipaseon 02-21-2021 Lipase [Catalytic activity/Vol] 286 U/L High 15 - 65 U/L [facility] Magnesiumon 02-21-2021 Magnesium [Mass/Vol] 1.9 mg/dL 1.6 - 2 .4 mg/dL [facility] Magnesium [Mass/Vol]on 02-21 Interpretation and review of laboratory results Normal [facility] No Panel Informationon 02-21 Interpretation and review of laboratory results Abnormal [facility] Alcohol, Medicalon Ethanol [Mass/Vol] mg/dL <10.0 mg/dL [facility] Comment on above: Alcohol cutoff: <10. 00 mg/dL = None Detected Amylaseon 02-20-2021 Amylase.pancreatic [Catalytic activity/Vol] 192.4 U/L High 13.0 - 53.0 U/L [facility] Interpretation and review of laboratory results Abnormal [facility] Basic metabolic 2000 panelon 02-20-2021 Anion gap [Moles/Vol] 15 mmol/L 10 - 2 0 mmol/L [facility] Calcium [Mass/Vol] 9.0 mg/dL 8.4 - 10. 2 mg/dL [facility] Chloride [Moles/Vol] 103 mmol/L 98 - 10 8 mmol/L [facility] Creatinine [Mass/Vol] 0.81 mg/dL 0.80 - 1.30 [facility] GFR/1.73 sq M.predicted CKD-EPI (S/P/Bld) [Vol rate/Area] 106 >=60 mL/min/1.73 m2 [facility] Glucose [Mass/Vol] 204 mg/dL High 65 - 99 mg/dL [facility] HCO3 [Moles/Vol] 25 mmol/L 21 - 32 mmol/L [facility] Interpretation and review of laboratory results Abnormal [facility] Potassium [Moles/Vol] 4.7 mmol/L 3.5 - 5.1 mmol/L [facility] Sodium [Moles/Vol] 138 mmol/L 135 - 145 mmol/L [facility] Urea nitrogen [Mass/Vol] 15 mg/dL 8 - 25 mg/dL [facility] Urea nitrogen/Creatinine [Mass ratio] 18.5 mg/mg [facility] The eGFR should be used for monitoring renal function only and not for medication dosing. [facility] COVID-19, MolecularOrdered B y: Arturo Castanojasper on 02-20-2021 SARS-CoV-2 (COVID-19) RdRp gene ROXANA+probe Ql (Resp) Not detected Not Detected [facility] Comment on above: This test was perfor [...] at the following links: For Healthcare Providers: https://www.fda.gov/media/751380/download For Patients: https://www.fda.gov/media/693901/download CT Abdomen Pelvis With IV Co ntrast [...] pelvis. 2. Interval cholecystectomy. Workstation ID: [id number] [employer] EXAMINATION: CT ABDOMEN WITH CONTRAST AND CT [...] Mild endplate irregularity at L5-S1 favors degenerative exchange engineer early discitis. No disc space narrowing is seen. No acute osseous abnormality or suspicious bony lesion is identified. [facility] Austyn Bush MD - 02/20/2021 EXAMINATION: CT [...] Mild endplate irregularity at L5-S1 favors degenerative exchange engineer early discitis. No disc space narrowing is [...] pelvis. 2. Interval cholecystectomy. Workstation ID: [id number] [facility] CT Abdomen Pelvis With IV Co ntrast OnlyOrdered By: Austyn Bush on 02-20-2021 [facility] Work Phone: Calcium Levelon 02-20-2021 Calcium [Mass/Vol] 9.1 mg/dL 8.4 - 10. 2 mg/dL [facility] Calcium [Mass/Vol]on Interpretation and review of laboratory results Normal [facility] Ethanol [Mass/Vol]on Interpretation and review of laboratory results Normal [facility] Glucose (Bld) [Mass/Vol]on Glucose [Mass/Vol] 174 mg/dL High 65 - 99 mg/dL [facility] Interpretation and review of laboratory results Abnormal [facility] Glucose [Mass/Vol] 285 mg/dL High 65 - 99 mg/dL [facility] Interpretation and review of laboratory results Abnormal [facility] Glucose [Mass/Vol] 176 mg/dL High 65 - 99 mg/dL [facility] Interpretation and review of laboratory results Abnormal [facility] Glucose [Mass/Vol] 236 mg/dL High 65 - 99 mg/dL [facility] Interpretation and review of laboratory results Abnormal [facility] HbA1c (Bld) [Mass fraction]o n 02-20-2021 Average glucose Estimated from glycated hemoglobin (Bld) [Mass/Vol] 280 mg/dL High 74 - 114 mg/dL [facility] Interpretation and review of laboratory results Abnormal [facility] Normal: 4.2% - 5.6% Increased risk for diabetes: 5.7% - 6.4% Diabetes: >= 6.5% Pediatrics: No established reference range Estimated average glucose: 74-114 mg/dL [facility] Hemoglobin A1con 02-20-2021 HbA1c (Bld) [Mass fraction] 11.4 % High 4.2 - 5.6 % [facility] Iron Study with Ferritinon 1 Ferritin [Mass/Vol] 189 ng/mL 30 - 400 ng/mL [facility] Interpretation and review of laboratory results Abnormal [facility] Iron [Mass/Vol] 42 ug/dL [facility] Iron binding capacity [Mass/Vol] 279 [facility] Iron saturation [Mass fraction] 15 % Low 20 - 50 % [facility] Lactate [Moles/Vol]on 2020 Interpretation and review of laboratory results Normal [facility] Lactic Acid, Plasmaon 2020 Lactate [Moles/Vol] 0.7 mmol/L 0.6 - 2. 0 mmol/L [facility] LipaseOrdered By: Shayne sewell on 02-20-2021 Lipase [Catalytic activity/Vol] 693 U/L Critically high 15 - 65 U/L [facility] Lipase [Catalytic activity/V ol]Ordered By: Shayne Mccarthy on 02-20-2021 Interpretation and review of laboratory results Abnormal [facility] Lipid 1996 panelon Cholesterol [Mass/Vol] 101 mg/dL 100 - 199 mg/dL [facility] Cholesterol in HDL [Mass/Vol] 39 mg/dL Low 40 - 59 [facility] Cholesterol in LDL [Mass/Vol] 52 mg/dL 10 - 130 mg/dL [facility] Comment on above: National Cholesterol Education Program Guidelines: LDL Cholesterol Optimal: <100 mg/dL Near Optimal/above Optimal: 100-129 mg/dL Borderline High: 130-159 mg/dL High: 160-189 mg/dL Very High: greater than or equal to 190 mg/dL Cholesterol non HDL [Mass/Vol] 62 mg/dL [facility] Comment on above: National Cholesterol Education Program Guidelines: NON HDL Cholesterol Desirable: <130 mg/dL Borderline High: 130-159 mg/dL High: 160-189 mg/dL Very High: > or = 190 mg/dL Cholesterol.total/Francisca sterol in HDL [Mass ratio] 2.6 {ratio} ratio [facility] Comment on above: Males Cholesterol/HD L Ratio: Average risk: 5.0 1/2 average risk: 3.4 2 x average risk: 9.6 Interpretation and review of laboratory results Abnormal [facility] Triglyceride [Mass/Vol] 52 mg/dL 30 - 150 mg/dL [facility] Magnesium Levelon 02-20-2021 Magnesium [Mass/Vol] 2.3 mg/dL 1.6 - 2 .4 mg/dL [facility] Magnesium [Mass/Vol]on 02-20 Interpretation and review of laboratory results Normal [facility] No Panel Informationon 02-20 Extra Tube Hold for add-ons. [facility] Comment on above: Auto resulted. [facility] Topon 02-20-2021 [facility] SARS-CoV-2 (COVID-19) RdRp g shahnaz ROXANA+probe Ql (Resp)Ordered By: Arturo Charles on 02-20-2021 Interpretation and review of laboratory results Normal [facility] Triglyceride [Mass/Vol]on Interpretation and review of laboratory results Abnormal [facility] Triglycerideson 02-20-2021 Triglyceride [Mass/Vol] 160 mg/dL High 30 - 150 mg/dL [facility] Comment on above: National Cholesterol Education Program Guidelines: Triglyceride Normal: <150 mg/dL Borderline High: 150-199 mg/dL High: 200-499 mg/dL Very High: greater than or equal to 500 mg/dL Basic metabolic 1998 panelOr dered By: Sherin Morris on 02-19-2021 Anion gap [Moles/Vol] 17 mmol/L 10 - 2 0 mmol/L [facility] Chloride [Moles/Vol] 97 mmol/L Low 98 - 10 8 mmol/L [facility] Creatinine [Mass/Vol] 0.95 mg/dL 0.80 - 1.30 [facility] GFR/1.73 sq M.predicted CKD-EPI (S/P/Bld) [Vol rate/Area] 95 >=60 mL/min/1.73 m2 [facility] Glucose [Mass/Vol] 486 mg/dL Critically high 65 - 9 9 mg/dL [facility] HCO3 [Moles/Vol] 21 mmol/L 21 - 32 mmol/L [facility] Interpretation and review of laboratory results Abnormal [facility] Potassium [Moles/Vol] 4.4 mmol/L 3.5 - 5.1 mmol/L [facility] Sodium [Moles/Vol] 131 mmol/L Low 135 - 145 mmol/L [facility] Urea nitrogen [Mass/Vol] 20 mg/dL 8 - 25 mg/dL [facility] Urea nitrogen/Creatinine [Mass ratio] 21.1 mg/mg High [facility] The eGFR should be used for monitoring renal function only and not for medication dosing. [facility] CBC Auto Differentialon 01-23 Basophils (Bld) [#/Vol] 0.02 10*3/uL [facility] Basophils/100 WBC (Bld) 0.2 % [facility] Eosinophils (Bld) [#/Vol] 0.08 10*3/uL [facility] Eosinophils/100 WBC (Bld) 0.9 % [facility] Erythrocyte distribution width (RBC) [Entitic vol] 14.8 % 11.6 - 14.8 % [facility] Hematocrit (Bld) [Volume fraction] 39.4 % Low 41.0 - 53.0 % [facility] Hemoglobin (Bld) [Mass/Vol] 12.6 g/dL Low 13.5 - 17.5 g/dL [facility] Immature granulocytes (Bld) [#/Vol] 0.05 10*3/uL [facility] Immature granulocytes/100 WBC (Bld) 0.60 % [facility] Comment on above: The IG parameter is the percentage of metamyelocytes, myelocytes and promyelocytes. An immature granulocyte count (IG) of 1% or more suggests the possibility of infection, an IG count of 3% is very likely related to an infection. Interpretation and review of laboratory results Abnormal [facility] Lymphocytes (Bld) [#/Vol] 2.90 10*3/uL [facility] Lymphocytes/100 WBC (Bld) 34.1 % [facility] MCH (RBC) [Entitic mass] 23.1 pg Low 26.0 - 34.0 pg [facility] MCHC (RBC) [Mass/Vol] 32.0 g/dL 31.0 - 37.0 g/dL [facility] MCV (RBC) [Entitic vol] 72.3 fL Low 80.0 - 100.0 fL [facility] Monocytes (Bld) [#/Vol] 0.82 10*3/uL [facility] Monocytes/100 WBC (Bld) 9.6 % [facility] Neutrophils (Bld) [#/Vol] 4.63 10*3/uL [facility] Neutrophils/100 WBC (Bld) 54.6 % [facility] Nucleated RBC (Bld) [#/Vol] 0.00 10*3/uL [facility] Nucleated RBC/100 WBC (Bld) [Ratio] 0.0 % [facility] Platelet mean volume (Bld) [Entitic vol] 11.0 fL 9.4 - 12.4 fL [facility] Platelets (Bld) [#/Vol] 250 10*3/uL [facility] RBC (Bld) [#/Vol] 5.45 10*6/uL [facility] ealth WBC (Bld) [#/Vol] 8.50 10*3/uL [facility]vis With IV Co ntrast Onlyon 02-19-2021 Radiology Study observation (narrative) [facility] Hepatic function 2000 panelo n 02-19-2021 Albumin [Mass/Vol] 4.2 g/dL 3.2 - 5.2 g/dL [facility] ALP [Catalytic activity/Vol] 93 U/L 40 - 150 U/L [facility] ALT [Catalytic activity/Vol] 13 U/L 0 - 40 U/L [facility] AST [Catalytic activity/Vol] 12 U/L 0 - 45 U/L [facility] Bilirubin [Mass/Vol] 0.2 mg/dL 0.0 - 1 .3 mg/dL [facility] Bilirubin.conjugated [Mass/Vol] mg/dL 0.0 - 0.4 mg/dL [facility] Interpretation and review of laboratory results Normal [facility] Protein [Mass/Vol] 7.2 g/dL 6.0 - 8.0 g/dL [facility] Lipaseon 02-19-2021 Lipase [Catalytic activity/Vol] 1200 U/L Critically high 15 - 65 U/L [facility] Lipase [Catalytic activity/V ol]on 02-19-2021 Interpretation and review of laboratory results Abnormal [facility] UrinalysisOrdered By: Thalia Rogers on 02-19-2021 Bacteria Auto Ql (U) None Seen None Se en /hpf [facility] Bilirubin Ql (U) Negative Negative [facility] th Clarity Refractometry automated (U) Clear Clear [facility] Color (U) Colorless Colorless, Yellow [facility] Glucose Auto test strip (U) [Mass/Vol] >=500 Abnormal Negative mg/dL [facility] Hemoglobin Auto test strip Ql (U) Negative Negative [facility] Interpretation and review of laboratory results Abnormal [facility] Ketones (U) [Mass/Vol] Trace Abnormal Negat sharmila mg/dL [facility] Leukocyte esterase Auto test strip Ql (U) Negative Negative [facility] Mucus Auto (Urine sed) [#/Area] Rare None Seen, Rare /lpf [facility] Nitrite Auto test strip Ql (U) Negative Negative [facility] [facility] pH (U) 5.0 [pH] [facility] Protein (U) [Mass/Vol] Negative Negat sharmila mg/dL [facility] RBC Auto (Urine sed) [#/Area] 1 [facility] Specific gravity (U) [Rel density] 1.035 High [facility] Urobilinogen (U) [Mass/Vol] mg/dL <2.0 mg/dL [facility] Microscopic examination is performed on all urinalysis samples and only positive findings are reported. The test for blood on the chemical analytic portion of urinalysis may also be positive due to hemoglobinuria and myoglobinuria and if red blood cells are present they are quantified by microscopic examination. [facility] POC Glucoseon 01-04-2019 Glucose [Mass/Vol] 196 mg/dL High 65 - 99 mg/dL [facility] Interpretation and review of laboratory results Abnormal [facility] SCAN OTHER ORDERSon 01-04-20 Ordered by an unspecified provider. [facility] SCAN OTHER ORDERSon 12-31-19 Ordered by an unspecified provider. [facility] Basic Metabolic Panelon - Anion gap molar conc 13 mmol/L 10 - 20 mmol/L [facility] Calcium mass conc 9.1 mg/dL 8.4 - 10.2 mg/dL [facility] Chloride molar conc 102 mmol/L 98 - 108 mmol/L [facility] Creatinine mass conc 0.87 mg/dL 0.8 - 1 .3 mg/dL [facility] GFR/1.73 sq M predicted among non-blacks MDRD vol rate/area (S/P/Bld) The eGFR should be used for monitoring renal function only and not for medication dosing. [facility] GFR/1.73 sq M.predicted CKD-EPI vol rate/area (S/P/Bld) 104 >=60 mL/min/1.73 m2 [facility] Glucose mass conc 89 mg/dL 65 - 99 mg/dL [facility] HCO3 molar conc 26 mmol/L 21 - 32 mmol/L [facility] Potassium molar conc 4.6 mmol/L 3.5 - 5 .1 mmol/L [facility] Sodium molar conc 136 mmol/L 135 - 145 mmol/L [facility] Urea nitrogen mass conc 15 mg/dL 8 - 25 mg/dL [facility] Urea nitrogen/Creatinine mass ratio 17.2 mg/mg [facility] CBCon 05-20-2018 Erythrocyte distribution width Entitic volume (RBC) 14.7 % 11.6 - 14.8 % [facility] Hematocrit Volume Fraction (Bld) 33.6 % Low 41 - 53 % [facility] Hemoglobin mass conc (Bld) 10.7 g/dL Low 13.5 - 17.5 g/dL [facility] Interpretation and review of laboratory results Abnormal [facility] MCH Entitic mass (RBC) 22.8 pg Low 26 - 34 pg [facility] Comment on above: 2+ hypochromia MCHC mass conc (RBC) 31.8 g/dL 31 - 37 g/dL [facility] MCV Entitic volume (RBC) 71.6 fL Low 80 - 100 fL [facility] Comment on above: 2+microcytosis Nucleated RBC #/vol (Bld) 0.00 10*3/uL [facility] Nucleated RBC/100 WBC Ratio (Bld) 0.0 % [facility] Platelet mean volume Entitic volume (Bld) 11.6 fL 9 - 15.5 fL [facility] Platelets #/vol (Bld) 177 10*3/uL [facility] RBC #/vol (Bld) 4.69 10*6/uL [facility] WBC #/vol (Bld) 7.21 10*3/uL [facility] ECG 12-LEADon 05-20-2018 Atrial Rate 49 BPM [facility] P Lowell 33 degrees [facility] P-R Interval 218 ms [facility] Q-T Interval 438 ms [facility] QRS Duration 72 ms [facility] QTC Calculation (Bezet) 395 ms [facility] [place] 21 degrees [facility] T Lowell 27 degrees [facility] Ventricular Rate 49 BPM [facility] Sinus bradycardia with 1st degree AV block Otherwise normal ECG Confirmed by Dolores Espinosa MD ([id number]) on 05/20/2018 6:06:36 PM [facility] Otheron 05-20-2018 Interpretation and review of laboratory results Normal [facility] POC Glucoseon 05-20-2018 Glucose mass conc 122 mg/dL High 65 - 99 mg/dL [facility] Interpretation and review of laboratory results Abnormal [facility] Glucose mass conc 122 mg/dL High 65 - 99 mg/dL [facility] Interpretation and review of laboratory results Abnormal [facility] Glucose mass conc 98 mg/dL 65 - 99 mg/dL [facility] Glucose mass conc 100 mg/dL High 65 - 99 mg/dL [facility] Interpretation and review of laboratory results Abnormal [facility] Glucose mass conc 88 mg/dL 65 - 99 mg/dL [facility] US ABDOMEN LIMITED STUDYon 0 05-20-2018 EXAMINATION: [...] sign is reported. There is no ascites. [facility] Interface, Rad In Kay[employer] Speechq - 05/20/2018 5:24 AM EDT EXAMINATION: [...] definite shadowing stones, or biliary ductal dilatation. [facility]/Zarfo Workstation ID: [id number] [facility] 1. Heterogeneously echogenic liver, which is nonspecific finding and may represent hepatic steatosis and/or other underlying hepatocellular pathology. 2. Small amount of gallbladder sludge with no evidence of significant gallbladder wall thickening, definite shadowing stones, or biliary ductal dilatation. [facility] Work[facility] ID: [id number] [facility] BMPon 05-19-2018 Anion gap molar conc 18 mmol/L 10 - 20 mmol/L [facility] Calcium mass conc 9.4 mg/dL 8.4 - 10.2 mg/dL [facility] Chloride molar conc 97 mmol/L Low 98 - 108 mmol/L [facility] Creatinine mass conc 1.04 mg/dL 0.8 - 1 .3 mg/dL [facility] GFR/1.73 sq M predicted among non-blacks MDRD vol rate/area (S/P/Bld) The eGFR should be used for monitoring renal function only and not for medication dosing. [facility] GFR/1.73 sq M.predicted CKD-EPI vol rate/area (S/P/Bld) 86 >=60 mL/min/1.73 m2 [facility] Glucose mass conc 271 mg/dL High 65 - 99 mg/dL [facility] HCO3 molar conc 24 mmol/L 21 - 32 mmol/L [facility] Interpretation and review of laboratory results Abnormal [facility] Potassium molar conc 4.7 mmol/L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 mm[Hg] Jose Enrique Garay MD Work Phone: [facility] 02-21-2021 11:28-0500 Heart rate 67 /min Jose Enrique Garay MD Work Phone: [facility] 02-21-2021 11:28-0500 SaO2% (BldA) [Mass fraction] 97 % Jose Enrique Garay MD Work Phone: [facility] 02-21-2021 11:28-0500 Systolic blood pressure 136 mm[Hg] Jose Enrique Garay MD Work Phone: [facility] 02-19-2021 22:19-0500 Body height 188 cm Jose Enrique Garay MD Work Phone: [facility] 02-19-2021 22:19-0500 Body mass index (BMI) [Ratio] 30.81 kg/m2 Jose Enrique Garay MD Work Phone: [facility] 02-19-2021 22:19-0500 Body weight 108.86 kg Jose Enrique Garay MD Work Phone: [facility] 11-28-2020 13:53-0400 Body height 188 cm Mario Rodriguez MD Work Phone: [facility] 11-28-2020 13:53-0400 Body mass index (BMI) [Ratio] 27.99 kg/m2 Mario Rodriguez MD Work Phone: [facility] 11-28-2020 13:53-0400 Body weight 98.88 kg Mario Rodriguez MD Work Phone: [facility] 11-28-2020 13:53-0400 Diastolic blood pressure 77 mm[Hg] Mario Rodriguez MD Work Phone: [facility] 11-28-2020 13:53-0400 Heart rate 94 /min Mario Rodriguez MD Work Phone: [facility] 11-28-2020 13:53-0400 Systolic blood pressure 119 mm[Hg] Mario Rodriguez MD Work Phone: [facility] 01-04-2019 09:29-0500 BP Diastolic 70 mm[Hg] [facility] 01-04-2019 09:29-0500 BP Systolic 135 mm[Hg] [facility] 01-04-2019 09:29-0500 Pulse (Heart Rate) 50 /min [facility] 01-04-2019 09:29-0500 Pulse Oximetry 95 % Alex [facility] 01-04-2019 09:29-0500 Respiratory Rate 19 /min Alex [facility] 01-04-2019 08:11-0500 BMI (Body Mass Index) 33.64 kg/m2 [facility] 01-04-2019 08:11-0500 Body weight 118.84 kg [facility] 01-04-2019 08:11-0500 Height 188 cm Alex [facility] 01-04-2019 08:09-0500 Body Temperature 98.6 [degF] Alex [facility] 05-20-2018 16:18-0400 Body Temperature 98.29 [degF] Jake Bender [facility] 05-20-2018 16:18-0400 BP Diastolic 78 mm[Hg] Jake Bender [facility] 05-20-2018 16:18-0400 BP Systolic 154 mm[Hg] Jake Bender [facility] 05-20-2018 16:18-0400 Pulse (Heart Rate) 57 /min Jake Bender [facility] 05-20-2018 16:18-0400 Pulse Oximetry 98 % Jake Bender [facility] 05-20-2018 16:18-0400 Respiratory Rate 16 /min Jake Bender [facility] 05-20-2018 11:23-0400 BMI (Body Mass Index) 37.97 kg/m2 Jake Bender [facility] 05-20-2018 11:23-0400 Height 182.9 cm Jake Bender [facility] 05-20-2018 11:23-0400 Weight 127.01 kg [facility] 04-02-2017 10:53-0500 BMI (Body Mass Index) 36.46 kg/m2 Kishor [facility] Work Phone: 04-02-2017 10:53-0500 Body Temperature 98.29 [degF] Kishor [facility] Work Phone: 04-02-2017 10:53-0500 BP Diastolic 83 mm[Hg] Kishor [facility] Work Phone: 04-02-2017 10:53-0500 BP Systolic 176 mm[Hg] Kishor [facility] Work Phone: 04-02-2017 10:53-0500 Pulse (Heart Rate) 74 /min [facility] Work Phone: 04-02-2017 10:53-0500 Pulse Oximetry 91 % Kishor [facility] Work Phone: 04-02-2017 10:53-0500 Respiratory Rate 16 /min Kishor [facility] Work Phone: 04-02-2017 10:53-0500 Weight 128.82 kg Kishor [facility] Work Phone: 11-09-2016 14:00-0400 BP Diastolic 81 mm[Hg] Dolores Wheeler [facility] Work Phone: 11-09-2016 14:00-0400 BP Systolic 155 mm[Hg] Dolores Carmelaemily [facility] Work Phone: 11-09-2016 14:00-0400 Pulse (Heart Rate) 61 /min Dolores Wheeler [facility] Work Phone: 11-09-2016 14:00-0400 Pulse Oximetry 99 % Dolores Wheeler [facility] Work Phone: 11-09-2016 14:00-0400 Respiratory Rate 10 /min Dolores Wheeler [facility] Work Phone: 11-09-2016 10:41-0400 Body Temperature 97.5 [degF] Dolores Wheeler [facility] Work Phone: 11-09-2016 09:19-0400 BMI (Body Mass Index) 35.31 kg/m2 Linda Goncalves [facility] Work Phone: 11-09-2016 09:19-0400 BP Diastolic 73 mm[Hg] Linda Goncalves [facility] Work Phone: 11-09-2016 09:19-0400 BP Systolic 138 mm[Hg] Linda Goncalves [facility] Work Phone: 11-09-2016 09:19-0400 Height 188 cm Linda Goncalves [facility] Work Phone: 11-09-2016 09:19-0400 Pulse (Heart Rate) 80 /min Linda Goncalves [facility] Work Phone: 11-09-2016 09:19-0400 Pulse Oximetry 98 % Linda Goncalves [facility] Work Phone: 11-09-2016 09:19-0400 Respiratory Rate 18 /min Linda Goncalves [facility] Work Phone: 11-09-2016 09:19-0400 Weight 124.74 kg Linda Goncalves [facility] Work Phone: Encounters Encounter Date Encounter Type Care Provider Facility Start: 08-01-2024 ambulatory Soraya Anderson ty:[facility] Start: 07-31-2024 Non-patient / Non-visit Dr. Guille Ortiz [facility] Work Phone: Start: 07-30-2024 Non-patient / Non-visit Dr. Guille Ortiz DO [facility] Work Phone: Start: 07-29-2024 Non-patient / Non-visit Dr. Guille Ortiz DO [facility] Work Phone: Start: 07-28-2024 Non-patient / Non-visit Dr. Mikhail martell MD -[place] [facility] Work Phone: Start: 07-27-2024 Non-patient / Non-visit Dr. Mikhail martell MD [facility] Work Phone: Start: 07-26-2024 Non-patient / Non-visit Dr. Mikhail martell MD [facility] Work Phone: Start: 07-25-2024 End: 07-31-2024 Evaluation and management of inpatient Dr. Guille Oswald DO -[facility] 3 Work Phone: Start: 07-25-2024 End: 07-31-2024 observation encounter [place] Doctor [facility] Work Phone: Start: 07-25-2024 End: 07-31-2024 ambulatory Out of Town Doctor Facility:[facility] Start: 07-25-2024 Non-patient / Non-visit Dr. Indu Strauss MD -[place] [facility] Work Phone: Start: 07-15-2024 ambulatory Out of Town Doctor Faci lity:[facility] Start: 07-15-2024 Non-patient / Non-visit Dr. Lonnie flores MD -[facility] Start: 07-15-2024 End: 07-15-2024 Emergency department patient visit Dr. 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 Start: 01-04-2019 End: 01-04-2019 Subsequent hospital visit by physician Alex Hayes Work Phone: [facility] Start: 05-23-2018 End: 05-23-2018 Patient encounter procedure Yahir Moreno [facility] Start: 05-19-2018 End: 05-20-2018 Emergency department patient visit Jake Bender Work Phone: [facility] Observation Comment on above: Acute pancreatitis, unspecified complication status, unspecified pancreatitis type (Primary Dx); Generalized abdominal pain Start: 07-22-2017 End: 07-22-2017 Emergency department patient visit BENJAMIN ZHU Facility:[facility] Start: 04-02-2017 End: 04-02-2017 [facility] Start: 04-02-2017 Office/outpatient visit, est, level 4 [facility]ishor [facility] Work Phone: [facility] Phys[facility] Start: 11-09-2016 End: 11-09-2016 Ambulatory [facility] Start: 11-09-2016 Emergency department patient visit DOLORES KIMBROUGH [facility] Start: 11-09-2016 End: 11-09-2016 Emergency department patient visit [facility] Start: 11-09-2016 End: 11-09-2016 Evaluation and management of inpatient Dolores Wheeler Work Phone: [facility] Emergency Department Start: 11-09-2016 End: 11-09-2016 Emergency department patient visit Linda Goncalves Work Phone: [facility] Emergency Department Procedures Date Procedure Procedure Detail Performing Clinician Start: 07-29-2024 Estimated creatinine clearance Out [facility] Doctor Start: 07-27-2024 Immature reticulocyt e fraction Out [facility] Doctor Start: 07-27-2024 Serum inorganic phos phate measurement Out [facility] Doctor Start: 07-27-2024 Total iron binding capacity measurement Out [facility] [facility] Start: 07-25-2024 Plain radiography of pelvis Out [facility] Doctor Start: 07-25-2024 Plain X-ray of femur Ou t [facility] Doctor Start: 07-25-2024 Plain x-ray of humerus Out [facility] Doctor Start: 07-25-2024 Plain X-ray of shoulder Out [facility] Doctor Start: 07-25-2024 Methadone measuremen t, urine Out [facility] Doctor Start: 07-15-2024 X-ray of knee, four or more views Out [facility] Doctor Start: 02-21-2021 Glucose measurement Alli Brown [...] metabolic pane l calcium total Slime Winston [employer] Work Phone: Start: 02-20-2021 Blood ethanol measurement Slime Winston [employer] Work Phone: Start: 02-20-2021 LAVENDER TOP Triage Pro tocol Emergency MD Start: 02-20-2021 LIGHT GREEN TOP Triage Protocol Emergency MD Start: 02-20-2021 Lipid panel Slime Winston [employer] Work Phone: Start: 02-20-2021 PINK TOP Triage Pro tocol Emergency MD Start: 02-20-2021 RAINBOW DRAW Triage Pro tocol Emergency MD Start: 02-20-2021 Glucose measurement Rakel Salter MD Work Phone: Start: 02-20-2021 SARS-CoV-2 (COVID-19 ) RdRp gene [Presence] in Respiratory specimen by ROXANA with probe detection Luis ESPINOZA-[employer]us Work Phone: Start: 02-20-2021 Assay of lactate Cheryl Dick PA-[facility]us Work Phone: Start: 02-19-2021 Ct abdomen & pelvis w/contrast material Luis ESPINOZA-[employer]us Work Phone: Start: 02-19-2021 Urnls dip stick/tabl et reagent auto microscopy Triage Protocol Emergency Start: 02-19-2021 Calcium total Loreta Salter MD Work Phone: Start: 02-19-2021 Hepatic function panel Triage Protocol Emergency Start: 01-04-2019 End: 01-04-2019 Colonoscopy Alex laurent Work Phone: Start: 01-04-2019 Glucose [Mass/volume ] in Blood Alex Hayes Work Phone: Start: 01-03-2019 SCAN OTHER ORDERS Provi viry Not In System Start: 12-31-2018 SCAN OTHER ORDERS Provi viry Not In System Start: 05-20-2018 Glucose [Mass/volume ] in Blood Loreta Conrad Work Phone: Start: 05-20-2018 Endoscopy of esophagus Tyrell Vale Work Phone: Start: 05-20-2018 Glucose [Mass/volume ] [...] 200 0 panel - Serum or Plasma Chion Fan Work Phone: Start: 05-19-2018 LIGHT BLUE [...] Screening for malign ant neoplasm of colon [facility] Start: 07-31-2024 Patient discharge [facility] Start: 07-31-2024 [facility] Start: 07-29-2024 [facility] Start: 07-26-2024 [facility] Start: 07-25-2024 Following clinical pathway protocol [facility] Start: 07-25-2024 Assessment of risk o f venous thromboembolism [facility] Start: 07-25-2024 Care regimes management [facility] Start: 07-25-2024 Fall prevention [facility] Start: 07-25-2024 Insertion of cathete r into peripheral vein [facility] Start: 07-25-2024 Introduction of urin darlene catheter [facility] Start: 07-25-2024 Measuring intake and output [facility] Start: 07-25-2024 Notification of physician [facility] Start: 07-25-2024 Providing care accor ding to standard [facility] Start: 07-25-2024 Provision of activit y privileges [facility] Start: 07-25-2024 Referral to occupati onal therapist [facility] Start: 07-25-[address] [facility] Start: 07-25-2024 End: 07-25-2024 [facility] Start: 07-25-[address] [facility] Start: 07-25-2024 Verification routine [facility] Start: 07-15-2024 [facility] Start: 05-05-2023 Pneumococcal Vaccine : Age 65+ (2 of 2 - PPSV23) Pneumococcal Vaccine: Age 65+ (2 of 2 - PPSV23) [facility] Start: 02-22-2022 Tetanus vaccination Tetanus: Every 1 0yrs [facility] Start: 11-25-2021 Pneumococcal vaccination PNEUM OCOCCAL VACCINE AGE 65+ (2 of 2 - PPSV23) [facility] Start: 10-23-2020 Influenza vaccination Sequenti al Influenza Vaccine (#1) [facility] Start: 10-24-2019 Influenza vaccinatio n given Sequential Influenza Vaccine (#1) [facility] Start: 10-23-2018 Influenza vaccinatio n given SEQUENTIAL INFLUENZA VACCINE (#1) [facility] Start: 04-02-2018 Microalbumin measure ment, urine, quantitative Urine Microalbumin [facility] Start: 04-02-2018 Urine, microalbumin URINE MICROALBUM IN [facility] Work Phone: Start: 10-23-2017 Influenza vaccinatio n given SEQUENTIAL INFLUENZA VACCINE (#1) [facility] Start: 09-30-2017 HbA1c [facility] Work Phone: Start: 09-30-2017 Hemoglobin A1c measurement A1C [facility] Start: 05-04-2017 Ambulatory 05/04/2017 Off ice Visit Primary Care Kishor Miranda, DO [address] [place] [address] [facility] Primary Care Physicians Start: 2017 Fall risk assessment [facility] Start: 2017 Pneumococcal vaccination PNEUM OCOCCAL VACCINE AGE 65+ (1 of 2 - PCV13) [facility] Start: 2017 US scan of abdominal aorta ABDOMINAL AORTIC ULTRASOUND [facility] Start: 10-23-2016 Influenza vaccination SEQUENTI AL INFLUENZA VACCINE (#1) [facility] Work Phone: Start: 07-15-2016 Urine, microalbumin URINE MICROALBUM IN [facility] Work Phone: Start: 01-16-2016 HbA1c HEMOGLOBIN A1C [facility] Work Phone: Start: 2012 Zoster vacc, sc ZOSTER VACCINE [facility] Work Phone: Start: 2002 Administration of he rpes zoster vaccine ZOSTER VACCINES (1 of 2) [facility] Start: 2002 Screening for malign ant neoplasm of colon [facility] Start: 1970 Hepatitis C antibody , confirmatory test Hepatitis C Screening [facility] Start: 1970 Hepatitis C screening Hepatitis C Sc reening [facility] Start: 1968 COVID-19 Vaccine (1 of 2) COVI D-19 Vaccine (1 of 2) [facility] Start: 1964 Adolescent depressio n screening assessment Depression Screening (PHQ9) [facility] Start: 1964 Depression screening using PHQ-9 (Patient Health Questionnaire 9) score Depression Screening (PHQ9) [facility] Start: 1962 Diabetic foot examin ation (regime/therapy) FOOT EXAM [facility] Start: 1962 Ophthalmic examinati on and evaluation OPHTHALMOLOGY EXAM [facility] Start: 1955 History and physical examination, annual for health maintenance Wellness Visit [facility] Start: 1952 Abdominal aortic ane urysm screening Abdominal Aortic Ultrasound [facility] Start: 1952 Depression screening using PHQ-9 (Patient Health Questionnaire 9) score DEPRESSION SCREENING (PHQ9) [facility] Start: 1952 Fall risk assessment Falls Risk Asse ssment [facility] Start: 1952 Hepatitis C antibody , confirmatory test HEPATITIS C SCREENING [facility] Start: 1952 HEPATITIS C SCREENING HEPATITIS C SC REENING [facility] Work Phone: Start: 1952 Prostate specific an tigen measurement PSA Level [facility] Start: 1952 Screening colonoscopy COLONOSCOPY [facility] Work Phone: Start: 1952 Screening for malign ant neoplasm of colon Colorectal Cancer Screening: Colonoscopy [facility] Start: 1952 Tetanus vaccination [facility] Work Phone: Start: 1952 US scan of abdominal aorta Abdominal Aortic Ultrasound [facility] CT Angiogram Chest Abdomen Pelvis CT Angiogram Chest Abdomen Pelvis STAT 11/09/2016 11:30 AM EDT [facility] Work Phone: CT Head Or Brain Wit hout Contrast CT Head Or Brain Without Contrast STAT 11/09/2016 11:16 AM EDT [facility] Work Phone: CT Thoracic And Lumb ar Spine Without Contrast Reconstructed CT Thoracic And Lumbar Spine Without Contrast Reconstructed STAT 11/09/2016 11:30 AM EDT [facility] Work Phone: Patient Education ED Quadriceps Tendon Rupture [facility] Work Phone: Patient referral [facility] Work Phone: End: 04-02-2018 PFT spirometry pre and post bronchodilator PFT spirometry pre and post bronchodilator Routine Shortness of breath 1 Occurrences starting 04/02/2017 until 04/02/2018 [employer] Work Phone: Procedure on tissue specimen [facility] Comment on above: Once for 1 Occurrenc es starting 05/20/2018, 1 completed End: 11-09-2016 US ED Fast Scan ED Fast Scan STAT One time imaging One time imaging for 1 Occurrences starting 11/09/2016 until 11/09/2016 [employer] Work Phone: US ED Fast Scan US ED Fast Scan STAT 11/09/2016 10:40 AM EDT [facility] Work Phone: XR Cervical Spine AP/LAT XR Cerv ical Spine AP/LAT DAVID 11/09/2016 9:44 AM EDT [facility] Work Phone: XR Pelvis 1 View (Standard) XR Pelvis 1 View (Standard) DAVID 11/09/2016 9:43 AM EDT [facility] Work Phone: Immunizations Immunization Date Immunization Notes Care Provider Bisi bernardo 04-02-2017 HEMOGLOBIN A1C Jake Berylleona [facility] 12-24-2014 influenza virus vacc ine, unspecified formulation Linda Goncalves [facility] Payers Date Payer Category Payer Self-pay 2018 Unknown xxxxxxxxx [id number] 2018 Unknown [id number] 2017 Unknown [id number] 2017 Medicare 2017 Medicare MEDICARE MEDICAR E PART A xxxxxxxxxxx 2017-Present [place] xxxxxxxxxxx [id number] 2017 Medicare MEDICARE MEDICAR E PART A [id number] 2017-Present [place] [id number] 2017 Medicare [id number] 2016 Unknown [id number] 2016 Unknown [employer] INSURANCE [id number] 2016-Present [id number] 2016 Unknown [employer] AC CIDENT [employer] INSURANCE [id number] 2016-Present [id number] [id number] 1952 Unknown [id number] [id number] 1952 Unknown [id number] 2.16.840.1.814060.3.579.2.903 1950 Unknown [id number] 2.16.840.1.857449.3.579.2.900 1950 Unknown [id number] [id number] Medicare [id number] [id number] Unknown [place] VA OPTUM COLU MBUS [id number] Effective for all dates [phone] [address] [place] [address] [id number] [id number] Unknown [id number] [id number] Unknown [id number] 2.16.840.1.530025.3.579.2.462 Unknown [id number] 2.16.840.1.652273.3.579.2.462 Unknown [id number] 2.16.840.1.345752.3.579.2.462 Unknown [id number] 2.16.840.1.398739.3.579.2.462 Unknown [id number] [id number] Unknown [id number] 2.16.840.1.962635.3.579.2.462 Unknown [id number] 2.16.840.1.262615.3.579.2.462 Unknown [id number] 2.16.840.1.137736.3.579.2.462 Unknown [id number] 2.16.840.1.937209.3.579.2.462 Unknown [id number] [id number] Social History Date Type Detail Facility Start: 11-09-2016 End: 07-25-2024 Tobacco smoking status [facility] Former smoker [employer] Phone: End: 02-22-1977 History of tobacco use Current smoker [employer] Phone: Start: 1950 Sex Assigned At Not on file [facility] Work Phone: Start: 01-04-2019 End: 02-19-2021 Alcohol intake Current non-drinker of alcohol (finding) [facility] Start: 04-10-2015 End: 01-04-2019 Tobacco use and exposure Never used [facility] Start: 11-28-2020 End: 02-19-2021 Alcohol intake [facility] Exposure to SARS-CoV -2 (event) Not sure [facility] Start: 1950 Sex Assigned At Male W [facility] Goals Date Patient Goal Desired Activity /State Functional Status Date Assessment Result Facility 07-31-2024 Functional status Activity Abili ty With Assist of 2;With Assistance of 3 or more [facility] Work Phone: 07-30-2024 Functional status Ambulates [facility]: Mental Status Date Assessment Result Facility 07-30-2024 Cognitive function Voice/Name [facility] Work Phone: Clinical Notes 11-28-2020 to 07-31-2024 Note Date & Type Note Facility 07-31-2024 Discharge summary [facility] 07-31-2024 Note [facility] Medical Records Department [address] [place] [address] Discharge Summary 07/31/24 1254 MR#: [id number] Acct: [id number] Name: RANJANA HUGHES Rep #: [id number] : 1950 74 From: Guille Oswald DO PCP: OUT OF TOWN DOCTOR Status:DIS LOUIE [place] [facility] [id number] Providers Date of Admission: 07/25/24 Date of Discharge: 07/31/24 Primary Care Physician: Out of Town Doctor Reason For Visit: FALL, INTRACTABLE PAIN Diagnosis Discharge Diagnosis (1) Intractable pain: Status: Acute Code(s): R52 - Pain, unspecified (2) Neuropathy: Status: Acute Code(s): G62.9 - Polyneuropathy, unspecified Plan 1. 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-patient will remain on his present medications Total clinical time spent by myself addressing the patient's medical issues, reviewing all of his data, and collaborating with patient's care team: 35 minutes Medications at Discharge Home Medications albuterol sulfate [...] 800 mg tablet 800 mg PO TID 07/15/24 insulin aspart U-100 100 unit/mL (3 mL) subcutaneous pen (Novolog FlexPen U-100 Insulin aspart) 14 unit subcut TID 07/15/24 insulin glargine 100 [...] mg) PO Q4H PRN PRN Fever, pain 1-12/01 #0 tabs 07/28/24 albuterol sulfate 2.5 mg/3 [...] PRN PRN Muscle spasm/strain #0 tabs 07/28/24 diclofenac sodium 75 mg tablet,delayed release 75 mg PO BIDCM #0 tabs 07/31/24 Hospital Course Operations None Procedures None Summary of Care Provided Minutes Spent on Discharge: 32 Hospital Course: This 74-year-old black male was seen in the emergency room at [facility] after sustaining mechanical fall at home. He has a history of type 2 diabetes with severe peripheral neuropathy. Patient admitted to using cocaine and alcohol, he was at a family house when he tried to ambulate to the bathroom and slipped. Patient stated he landed on his left leg and arm. Patient complained he was unable to ambulate since the night before secondary to pain. Patient uses a walker due to osteoarthritis in his knees. Imaging studies were performed that showed no evidence of fracture or dislocation. There was suspected the patient's pain was due to contusions. Patient's glucose was elevated at 391 and creatinine was 1.56. Patient was placed in observation status on [facility] 3 and seen by PT and OT, patient was a [facility] patient but elected to stay here at [facility] and uses Medicare, ultimately it was advised that the patient go to a skilled care facility for further inpatient rehab services, the [place] approved [facility] but admission was delayed due to communication issues until 07/31/2024. On 07/31/2024, patient was seen and examined: On examination he appeared in good health and spirits. Vital signs as documented. Skin warm and dry and without overt rashes. Neck without JVD, neck was supple, trachea midline, thyroid was normal. Lungs clear bilaterally, normal air movement was noted. Heart exam notable for regular rhythm, normal sounds and absence of murmurs, rubs or gallops. Abdomen un (more content not included)... [facility] 07-30-2024 Progress note Note Date/Time July 30, 2024 2:20p m [facility] Medical Records Department [address] [place] [address] Progress Note - Hospitalist 07/30/24 1418 MR#: [id number] Acct: [id number] Name: RANJANA HUGHES Rep #:[id number] : 1950 74 From: Guille Darek HERNANDEZ PCP: OUT OF TOWN DOCTOR Status:ADM LOUIE Location: [place] [address] Reason for Visit Reason for Visit: Diagnoses [...] 35 minutes Charges/Coding Visit Charges Inpatient E&M: 39330 Subs Hosp L2 07/30/24 1420 <Electronically signed by Guille Oswald DO> Cosigner Signature (if applicable): CC: ~ Signed [facility] Work Phone: 1(652) 491-566706-08-2025 Progress note [facility] Medical Records Department [address] [place] [address] Progress Note - Hospitalist 07/30/24 1418 MR#: [id number] Acct: [id number] Name: RANJANA HUGHES Rep #:[id number] : 1950 74 From: Guille Oswald DO PCP: OUT OF TOWN DOCTOR Status:ADM LOUIE Location: [place] [address] Reason for Visit Reason for Visit: Diagnoses [...] 35 minutes Charges/Coding Visit Charges Inpatient E&M: 70935 Subs Hosp L2 07/30/24 1420 Cosigner Signature (if applicable): CC: ~ Signed [facility]06-07-2025 Progress note Author Guille Oswald [facility] Note Date/Time July 29, 2024 6:26p m [facility] Medical Records Department [address] [place] [address] Progress Note - Hospitalist 07/29/24 1819 MR#: [id number] Acct: [id number] Name: RANJANA HUGHES Rep #:[id number] : 1950 74 From: Guille Oswald DO PCP: OUT OF TOWN DOCTOR Status:ADM LOUIE Location: [place] [id number] Reason for Visit Reason for Visit: Diagnoses Pain, unspecified (07/25/24) Unspecified fall, initial encounter (07/25/24) Subjective Subjective Patient was seen and examined today we are still awaiting approval for him to [facility] for inpatient rehab services Objective Data Objective [...] % (Auto) 53.7, Lymph % (Auto) 31.5, [place] % (Auto) 11.7 H, Eos % (Auto) [...] 35 minutes Charges/Coding Visit Charges Inpatient E&M: 99991 Subs Hosp L2 07/29/24 1826 <Electronically signed by Guille Oswald DO> Cosigner Signature (if applicable): CC: ~ Signed [facility] Work Phone: 1(751) 970-319906-07-2025 Progress note [facility] Medical Records Department [address] [place] [address] Progress Note - Hospitalist 07/29/24 181 MR#: [id number] Acct: [id number] Name: RANJANA HUGHES Rep #:[id number] : 1950 74 From: Guille Oswald DO PCP: OUT OF TOWN DOCTOR Status:ADM LOUIE [id number] Reason for Visit Reason for Visit: Diagnoses [...] % (Auto) 53.7, Lymph % (Auto) 31.5, [place] % (Auto) 11.7 H, Eos % (Auto) [...] 35 minutes Charges/Coding Visit Charges Inpatient E&M: 62029 Subs Hosp L2 07/29/24 1826 Cosigner Signature (if applicable): CC: ~ Signed [facility]06-06-2025 Discharge summary Author Mikahil Guzman [facility] Note Date/Time July 28, 2024 4:27p m [facility] Medical Records Department [address] [place] [address] Discharge Summary 07/28/24 1618 MR#: [id number] Acct: [id number] Name: RANJANA HUGHES Rep #:[id number] : 1950 74 From: Mikhail Guzman MD PCP: OUT OF TOWN DOCTOR Status:ADM LOUIE Location: [place] [address] Providers Date of Admission: 07/25/24 Date of Discharge: 07/28/24 Primary Care Physician: Out of Town Doctor Reason For Visit: FALL, INTRACTABLE PAIN [...] for pain management. Requested for PT OT [facility] social insurance adviser to assist with discharge planning 07/27/2024;Patient seen awaiting insurance precertification prior to being transferred to nursing home facility for rehab. If patient denied plan [...] Neut % (Auto) 49.0, Lymph % (Auto) 35.9,[place] % (Auto) 12.2 H, Eos % (Auto) [...] Attending Provider: Mikhail Guzman Primary Care Provider: Edilson Roldan,Out of Consulting Providers: Indu Strauss Discharge Orders/Prescriptions [...] Qty: 10 0RF Referrals / Follow Up: [facility] Doctor,Out of [Primary Care Provider] - Within 1 Month (To be scheduled foroutpatient colonoscopy) Disposition Disposition (needs filled in before D/C Order can be placed): [facility] Charges/Coding Visit Charges Inpatient E&M: 92913 Disch Hosp >30min 07/28/24 1627 <Electronically signed by Mikhail Guzman MD> Cosigner Signature (if applicable): CC: Dr. Mikhail Guzman MD~ Signed [facility] Work Phone: 1(277) 368-680706-06-2025 Discharge summary Author Mikhail Guzman [facility] Note Date/Time July 28, 2024 4:18p m [facility] Medical Records Department [address] [place] [address] Transfer to [facility] MR#: [id number] Acct: [id number] Name: RANJANA HUGHES Rep #:[id number] : 1950 74 From: Mikhail Guzman MD PCP: OUT OF [facility] DOCTOR Status:ADM LOUIE Certification of patient admission REQUIRED AT TIME OF ADMISSION. I CERTIFY THAT POST-HOSPITAL ECF SERVICES ARE REQUIRED TO BE GIVEN ON AN IN-PATIENT BASIS BECAUSE OF THE ABOVE NAMED PATIENT'S NEED FOR ALF CARE ON A CONTINUING BASIS FOR THE CONDITION(S) FOR WHICH HE/SHE WAS RECEIVING IN-PATIENT HOSPITAL SERVICES PRIOR TO HIS/HER TRANSFER TO [facility]. 07/28/24 1618<Electronically signed by Mikhail Guzman [...] for pain management. Requested for PT OT [facility] social insurance adviser to assist with discharge planning 07/27/2024;Patient seen awaiting insurance precertification prior to being transferred to nursing home facility for rehab. If patient denied plan [...] Attending Provider: Mikhail Guzman Primary Care Provider: [facility] Doctor,Out of Consulting Providers: Indu Strauss Discharge [...] PO Q4H PRN PRN (Reason: Fever, pain 1-10) Qty: 0 0RF albuterol sulfate 2.5 mg [...] in before D/C Order can be placed): [facility] 07/28/241617 <Electronically signed by Mikhail Guzman MD> Cosigner Signature (if applicable): CC: Dr. Indu Strauss MD ~ [facility] Work Phone: 1(484) 527-671306-06-2025 Discharge summary [facility] Medical Records Department [address] [place] [address] Discharge Summary 07/28/24 1618 MR#: [id number] Acct: [id number] Name: RANJANA HUGHES Rep #:[id number] : 1950 74 From: Mikhail Guzman MD PCP: OUT OF TOWN DOCTOR Status:ADM LOUIE [facility] Providers Date of Admission: 07/25/24 Date of Discharge: 07/28/24 Primary Care Physician: Out of Town Doctor Reason For Visit: FALL, INTRACTABLE PAIN [...] for pain management. Requested for PT OT [facility] social insurance adviser to assist with discharge planning 07/27/2024;Patient seen awaiting insurance precertification prior to being transferred to nursing home facility for rehab. If patient denied plan [...] mg tablet (Lipitor) 40 mg PO QHS 05/24/25 cholecalciferol (vitamin D3) 25 mcg (1,000 unit) [...] Neut % (Auto) 49.0, Lymph % (Auto) 35.9,[place] % (Auto) 12.2 H, Eos % (Auto) [...] Attending Provider: Mikhail Guzman Primary Care Provider: [facility] Doctor,Out of Consulting Providers: Indu Strauss Discharge [...] Qty: 10 0RF [facility] [facility] Doctor,Out of [Primary Care Provider] - Within 1 Month (To be scheduled foroutpatient colonoscopy) Disposition Disposition (needs filled in before D/C Order can be placed): [facility] Charges/Coding Visit Charges Inpatient E&M: 67121 Disch Hosp >30min 07/28/24 3770 Cosigner Signature (if applicable): CC: Dr. Mikhail Guzman MD~ Signed [facility]06-06-2025 Discharge summary [facility] Medical Records Department [address] [place] [address] Transfer to Extended Care MR#: [id number] Acct: [id number] Name: RANJANA HUGHES Rep #:[id number] : 1950 74 From: Mikhail Guzman MD PCP: OUT OF TOWN DOCTOR Status:ADM LOUIE Certification of patient admission REQUIRED AT TIME OF ADMISSION. I CERTIFY THAT POST-HOSPITAL ECF SERVICES ARE REQUIRED TO BE GIVEN ON AN IN-PATIENT BASIS BECAUSE OF THE ABOVE NAMED PATIENT'S NEED FOR ALF CARE ON A CONTINUING BASIS FOR THE [...] for pain management. Requested for PT OT [facility] social insurance adviser to assist with discharge planning 07/27/2024;Patient seen awaiting insurance precertification prior to being transferred to nursing home facility for rehab. If patient denied plan [...] Attending Provider: Mikhail Guzman Primary Care Provider: [facility] ,Out of Consulting Providers: Indu Strauss Discharge [...] Qty: 10 0RF Referrals / Follow Up: [facility] Doctor,Out of [Primary Care Provider] - Within 1 Month (To be scheduled foroutpatient colonoscopy) Disposition Disposition (needs filled in before D/C Order can be placed): [facility] 07/28/24 1618 Cosigner Signature (if applicable): CC: Dr. Indu Strauss MD ~ [facility]06-06-2025 [facility] Medical Records Department [address] [place] [address] Discharge Summary 07/28/24 1618 MR#: [id number] Acct: [id number] Name: RANJANA HUGHES Rep #: [id number] : 1950 74 From: Mikhail Guzman MD PCP: OUT OF [facility] DOCTOR Status:ADM LOUIE Location: [place] [address] Providers Date of Admission: 07/25/24 Date of Discharge: 07/28/24 Primary Care Physician: Out of [facility] Doctor Reason For Visit: FALL, INTRACTABLE PAIN [...] management. Requested for PT OT eval and social insurance adviser to assist with discharge planning 07/27/2024;Patient seen awaiting insurance precertification prior to being transferred to nursing home facility for rehab. If patient denied plan [...] PO Q4H PRN PRN Fever, pain 1- 10/10 #0 tabs 07/28/24 albuterol sulfate 2.5 mg/3 [...] RESPIRATORY: Diminished to au (more content not included)...[facility]06-06-2025 Progress note Author Mikhail Guzman [facility] Note Date/Time July 28, 2024 9:09a m [facility] Medical Records Department [address] [facility] [place] [address] Progress Note - Hospitalist 07/28/24 09 MR#: [id number] Acct: [id number] Name: RANJANA HUGHES Rep #:[id number] : 1950 74 From: Mikhail Guzman MD PCP: OUT OF TOWN DOCTOR Status:ADM LOUIE Location: [place] [address] Reason for Visit Reason for Visit: Diagnoses Pain, unspecified (07/25/24) Unspecified fall, initial encounter (07/25/24) Subjective Subjective Patient seen still complains of feeling weak. Awaiting insurance precertification from the [place] prior to patient being discharged Objective Data [...] Neut % (Auto) 49.0, Lymph % (Auto) 35.9,[place] % (Auto) 12.2 H, Eos % (Auto) [...] for pain management. Requested for PT OT [facility] social insurance adviser to assist with discharge planning 07/27/2024;Patient seen awaiting insurance precertification prior to being transferred to nursing home facility for rehab. If patient denied plan [...] documentation, 35Minutes Charges/Coding Visit Charges Inpatient E&M: 36332 Subs Hosp L2 07/28/24 0909 <Electronically signed by Mikhail Guzman MD> Cosigner Signature (if applicable): CC: ~ Signed [facility] Work Phone: 1(654) 124-700706-06-2025 Progress note [facility] Medical Records Department [address] [facility] [place] [address] Progress Note - Hospitalist 07/28/24 0908 MR#: [id number] Acct: [id number] Name: RANJANA HUGHES Rep #:[id number] : 1950 74 From: Mikhail Guzman MD PCP: OUT OF TOWN DOCTOR Status:ADM LOUIE Location: [place] [address] Reason for Visit Reason for Visit: Diagnoses Pain, unspecified (07/25/24) Unspecified fall, initial encounter (07/25/24) Subjective Subjective Patient seen still complains of feeling weak. Awaiting [facility]ert[facility] priorto patient being discharged Objective Data Objective [...] Neut % (Auto) 49.0, Lymph % (Auto) 35.9,[place] % (Auto) 12.2 H, Eos % (Auto) [...] pain management. Requested for PT OT evaland social insurance adviser to assist with discharge planning 07/27/2024;Patient seen awaiting insurance precertification prior to being transferred to nursing home facility for rehab. If patient denied plan [...] documentation, 35Minutes Charges/Coding Visit Charges Inpatient E&M: 30813 Subs Hosp L2 07/28/24 0909 Cosigner Signature (if applicable): CC: ~ Signed [facility]06-05-2025 Progress note Author Mikhail Guzman [facility] Note Date/Time July 27, 2024 11:32 am [facility] Medical Records Department [address] [place] [address] Progress Note - Hospitalist 07/27/24 1101 MR#: [id number] Acct: [id number] Name: RANJANA HUGHES Rep #:[id number] : 1950 74 From: Mikhail Guzman MD PCP: OUT OF TOWN DOCTOR Status:ADM LOUIE Location: [address] Reason for Visit Reason for Visit: Diagnoses Pain, unspecified (07/25/24) Unspecified fall, initial encounter (07/25/24) Subjective Subjective Patient seen awaiting insurance precertification prior to being transferred to nursing home facility for rehab. If patient denied plan [...] (Auto) 46.8 L, Lymph % (Auto) 38.9, [place] % (Auto) 11.5 H, Eos % (Auto) [...] for pain management. [facility] social insurance adviser to assist with discharge planning 07/27/2024;Patient seen awaiting insurance precertification prior to being transferred to nursing home facility for rehab. If patient denied plan [...] low MCV Charges/Coding Visit Charges Inpatient E&M: 16726 Subs Hosp L2 07/27/24 1132 <Electronically signed by Mikhail Guzman MD> Cosigner Signature (if applicable): CC: ~ Signed [facility] Work Phone: 1(353) 618-450206-05-2025 Progress note [facility] Medical Records Department [address] [place] [address] Progress Note - Hospitalist 07/27/24 1101 MR#: [id number] Acct: [id number] Name: RANJANA HUGHES Rep #:[id number] : 1950 74 From: Mikhail Guzman MD PCP: OUT OF TOWN DOCTOR Status:ADM LOUIE Location: [place] [address] Reason for Visit Reason for Visit: Diagnoses Pain, unspecified (07/25/24) Unspecified fall, initial encounter (07/25/24) Subjective Subjective Patient seen awaiting insurance precertification prior to being transferred to nursing home facility for rehab. If patient denied plan [...] (Auto) 46.8 L, Lymph % (Auto) 38.9, [place] % (Auto) 11.5 H, Eos % (Auto) [...] pain management. Requested for PT OT evaland social insurance adviser to assist with discharge planning 07/27/2024;Patient seen awaiting insurance precertification prior to being transferred to nursing home facility for rehab. If patient denied plan [...] low MCV Charges/Coding Visit Charges Inpatient E&M: 94447 Subs Hosp L2 07/27/24 1132 Cosigner Signature (if applicable): CC: ~ Signed [facility]06-04-2025 Progress note Author Mikhail Guzman [facility] Note Date/Time July 26, 2024 11:07 am [facility] Medical Records Department [address] [facility] [place] [address] Progress Note - Hospitalist 07/26/2423 MR#: [id number] Acct: [id number] Name: RANJANA HUGHES Rep #:[id number] : 1950 74 From: Mikhail Guzman MD PCP: OUT OF TOWN DOCTOR Status:ADM LOUIE Location: [place] [address] Reason for Visit Reason for Visit: Diagnoses [...] Neut % (Auto) 54.8, Lymph % (Auto) 28.7,[place] % (Auto) 14.0 H, Eos % (Auto) 2.1, Baso % (Auto) 0.2, Absolute Neuts (auto)3.1, Absolute Lymphs (auto) 1.64, Nucleated RBC % 0 Radiography Diagnostic Testing: Radiology Impression Femur X-Ray 07/25/24 17:45 IMPRESSION: No acute osseous abnormality of the left femur. Reading Location: [id number] Humerus X-Ray 07/25/24 17:45 IMPRESSION: No acute osseous abnormalities. Reading Location: [id number] Pelvis X-Ray 07/25/24 17:45 IMPRESSION: No acute osseous abnormalities. Details above. Reading Location: [id number] Shoulder X-Ray 07/25/24 17:45 IMPRESSION: No acute osseous abnormalities. Reading Location: [id number] Physical Exam Narrative GENERAL: cooperative HEENT: Atraumatic; [...] pain management. Requested for PT OT evaland social insurance adviser to assist with discharge planning 2. Polysubstance [...] On enoxaparin Charges/Coding Visit Charges Inpatient E&M: 30359 Subs Hosp L2 07/26/24 1107 <Electronically signed by Mikhail Guzman MD> Cosigner Signature (if applicable): CC: ~ Signed [facility] Work Phone: 1(755) 673-184306-04-2025 Progress note [facility] Medical Records Department [address] [place] [address] Progress Note - Hospitalist 07/26/24 0723 MR#: [id number] Acct: [id number] Name: RANJANA HUGHES Rep #:[id number] : 1950 74 From: Mikhail Guzman MD PCP: OUT OF TOWN DOCTOR Status:ADM LOUIE Location: [place] [address] Reason for Visit Reason for Visit: Diagnoses [...] Neut % (Auto) 54.8, Lymph % (Auto) 28.7,[place] % (Auto) 14.0 H, Eos % (Auto) 2.1, Baso % (Auto) 0.2, Absolute Neuts (auto)3.1, Absolute Lymphs (auto) 1.64, Nucleated RBC % 0 Radiography Diagnostic Testing: Radiology Impression Femur X-Ray 07/25/24 17:45 IMPRESSION: No acute osseous abnormality of the left femur. Reading Location: [id number] Humerus X-Ray 07/25/24 17:45 IMPRESSION: No acute osseous abnormalities. Reading Location: [place] [address] Pelvis X-Ray 07/25/24 17:45 IMPRESSION: No acute osseous abnormalities. Details above. Reading Location: [place] [address] Shoulder X-Ray 07/25/24 17:45 IMPRESSION: No acute osseous abnormalities. Reading Location: [place] [address] Physical Exam Narrative GENERAL: cooperative HEENT: Atraumatic; [...] pain management. Requested for PT OT evaland social insurance adviser to assist with discharge planning 2. Polysubstance [...] On enoxaparin Charges/Coding Visit Charges Inpatient E&M: 10851 Subs Hosp L2 07/26/24 1107 Cosigner Signature (if applicable): CC: ~ Signed [facility]06-03-2025 History and physical note Author Indu Strauss [facility] Note Date/Time July 25, 2024 8:43p m [facility] Medical Records Department [address] [facility] [place] [address] H&P Exam - Hospitalist 07/25/242022 MR#: [id number] Acct: [id number] Name: RANJANA HUGHES Rep #:[id number] : [...] anemia but uncertain who presents to the [facility] ED on 07/25/24 with history of mechanical fall onto the left side with discomfort to the upper and lower extremity noting that he recently went throughdivorce and was at a republican the day prior where he drank a [...] [place] insurance and preferred to remain at [facility] for care and evaluation. [facility] Medical History Former tobacco use RADHA (obstructive [...] abnormality of the left femur. Reading Location: [id number] Humerus X-Ray 07/25/24 17:45 IMPRESSION: No acute osseous abnormalities. Reading Location: [id number] Pelvis X-Ray 07/25/24 17:45 IMPRESSION: No acute osseous abnormalities. Details above. Reading Location: [id number] Shoulder X-Ray 07/25/24 17:45 IMPRESSION: No acute osseous abnormalities. Reading Location: [id number] Assessment & Plan Assessment/Plan (1) Intractable pain: (2) Fall: PLAN: Plan The patient is a 74 y/o [facility] patient M w/ PMHx: Former tobacco use, RADHA noncompliant with PAP therapy, Asthma, HTN, HLD, GERD, Diabetes mellitus type IIwith chronic neuropathy, Obesity, Presumed Chronic CKD stage III unclear subtypebut uncertain, Presumed chronic microcytic anemia but uncertain who presents to the [facility] ED on 07/25/24 with history of mechanical fall onto the left side with discomfort to the upper and lower extremity noting that he recently went throughdivorce and was at a republican the day prior where he drank a [...] used cocaine the day previously at a republican, encourage clean status. #4. Diabetes mellitus type [...] Code status. Charges/Coding Visit Charges Inpatient E&M: 12811 Init Hosp L2 07/25/242042 <Electronically signed by Indu Strauss MD> Cosigner Signature (if applicable): CC: Dr. Indu Strauss MD~ Signed [facility] Work Phone: 1(402) 589-638906-03-2025 Discharge summary Author Red [facility] Note Date/Time July 25, 2024 8:29p m [facility] Medical Records Department [address] [place] [address] Emergency Department Summary 07/25/24 MR#: [id number] Acct: [id number] Name: RANJANA HUGHES Rep #:[id number] : [...] and decided to have fun yesterday and republican. States he used cocaine and alcohol. States [...] 15 Psych: Cooperative, appropriate mood and affect [facility] Medical History (Updated 07/25/24 @ 20:25 by [...] hospitalist service, given patient follows with the [facility] plan will be to reach out to the [facility] first for admission. I spoke with the [facility] given that patient also has Medicare it [...] abnormality of the left femur. Reading Location: [id number] Humerus X-Ray 07/25/24 17:45 IMPRESSION: No acute osseous abnormalities. Reading Location: [id number] Pelvis X-Ray 07/25/24 17:45 IMPRESSION: No acute osseous abnormalities. Details above. Reading Location: [id number] Shoulder X-Ray 07/25/24 17:45 IMPRESSION: No acute osseous abnormalities. Reading Location: [id number] Discharge Plan Triage Chief Complaint: Fall ED [...] Primary Care Provider: Edilson Roldan,Out of Referrals: Edilson Doctor,Out of [Primary Care Provider] - Print Language: Comoran What to do if you have Problems For any increased pain, shortness of breath, bleeding, nausea or vomiting, chestpain, or any unexpected problems, contact your Primary Care Provider. Call [facility] ([phone]) or report to the closest Emergency Room. Call 911 if necessary. 07/25/242028 <Electronically signed by Red Hector DO> Cosigner Signature (if applicable): CC: ~ Signed [facility] Work Phone: 1(616) 257-262306-03-2025 Evaluation note* Diagnosis Onset Date Resolution Status Admit Date Fall acute July 25, 2024 8:25pm Intractable pain acute July 8:25pm Neuropathy acute July 25, 2024 8:25pm [facility] Work Phone: 1(550) 855-984306-03-2025 History and physical note [facility] Medical Records Department [address] [facility] [place] [address] H&P Exam - Hospitalist 07/25/242022 MR#: [id number] Acct: [id number] Name: RANJANA HUGHES Rep #:[id number] : [...] but uncertain who pr esents to the [facility] ED on 07/25/24 with history of mechanical fall onto the left side with discomfort to the upper and lower extremity noting that he recently went throughdivorce and was at a republican the day prior where he drank a [...] VA insurance and preferred to remain at [facility] for care and evaluation. [facility] Medical History Former tobacco use RADHA (obstructive [...] abnormality of the left femur. Reading Location: [facility] Humerus X-Ray 07/25/24 17:45 IMPRESSION: No acute osseous abnormalities. Reading Location: [place] [address] Pelvis X-Ray 07/25/24 17:45 IMPRESSION: No acute osseous abnormalities. Details above. Reading Location: [id number] Shoulder X-Ray 07/25/24 17:45 IMPRESSION: No acute osseous abnormalities. Reading Location: [place] [address] Assessment & Plan Assessment/Plan (1) Intractable pain: (2) Fall: PLAN: Plan The patient is a 74 y/o [facility] patient M w/ PMHx: Former tobacco use, RADHA noncompliant with PAP therapy, Asthma, HTN, HLD, GERD, Diabetes mellitus type IIwith chronic neuropathy, Obesity, Presumed Chronic CKD stage III unclear subtypebut uncertain, Presumed chronic microcytic anemia but uncertain who pr esents to the [facility] ED on 07/25/24 with history of mechanical fall onto the left side with discomfort to the upper and lower extremity noting that he recently went throughdivorce and was at a republican the day prior where he drank a [...] used cocaine the day previously at a republican, encourage clean status. #4. Diabetes mellitus type [...] Code status. Charges/Coding Visit Charges Inpatient E&M: 52893 Init Hosp L2 07/25/242042 Cosigner Signature (if applicable): CC: Dr. Indu Strauss MD~ Signed [facility]06-03-2025 Discharge summary [facility] Medical Records Department [address] [place] [address] Emergency Department Summary 07/25/24 MR#: [id number] Acct: [id number] Name: RANJANA HUGHES Rep #:[id number] : [...] and decided to have fun yesterday and republican. States he used cocaine and alcohol. States [...] 15 Psych: Cooperative, appropriate mood and affect [facility] Medical History (Updated 07/25/24 @ 20:25 by [...] hospitalist service, given patient follows with the [facility] plan will be to reach out to the [facility] first for admission. I spoke with the [facility] given that patient also has Medicare it [...] abnormality of the left femur. Reading Location: [id number] Humerus X-Ray 07/25/24 17:45 IMPRESSION: No acute osseous abnormalities. Reading Location: [place] [address] Pelvis X-Ray 07/25/24 17:45 IMPRESSION: No acute osseous abnormalities. Details above. Reading Location: [id number] Shoulder X-Ray 07/25/24 17:45 IMPRESSION: No acute osseous abnormalities. Reading Location: [id number] Discharge Plan Triage Chief Complaint: Fall ED [...] Days Qty: 10 0RF Primary Care Provider: [facility] Doctor,Out of Referrals: [facility] Doctor,Out of [Primary Care Provider] - Print Language: Comoran What to do if you have Problems For any increased pain, shortness of breath, bleeding, nausea or vomiting, chestpain, or any unexpected problems, contact your Primary Care Provider. Call [facility] ([phone]) or report tothe closest Emergency Room. Call 911 if necessary. 07/25/242028 Cosigner Signature (if applicable): CC: ~ Signed [facility]06-03-2025 Radiology Diagnostic study note [facility] Imaging Services [address] [place] [address] Femur Min 2 Views MR#: [id number] Acct: [id number] Name: RANJANA HUGHES Rep #: [id number] : 1950 M 74 From: Rachel Gibbons MD PCP: OUT OF [facility] DOCTOR Status: REG ER Study:Femur Min 2 Views Date of Exam: Exam# [id number] Ordering Dr: Red Mancilla DO PROCEDURE: FEMUR [...] abnormality of the left femur. Reading Location: [id number] CC: Dr. Red Hector DO ~ Body Sander: Signed [facility]06-03-2025 Radiology Diagnostic study note [facility] Imaging Services [address] [place] [address] Shoulder min 2 Views MR#: [id number] Acct: [id number] Name: RANJANA HUGHES Rep #: [id number] : 1950 M 74 From: Avni Guadarrama MD PCP: OUT OF TOWN DOCTOR Status: REG ER Study:Shoulder min 2 Views Date of Exam: 07/25/24 Exam# [id number] Ordering Dr: Red Mancilla DO PROCEDURE: SHOULDER MIN 2 VIEWS 07/25/2024 REASON FOR EXAM: PAIN TECHNIQUE: 4 views of the left shoulder. COMPARISON: None. FINDINGS: No evidence of acute fracture or dislocation. Mild glenohumeral and acromioclavicular degenerative changes. RAD/Shoulder min 2 Views IMPRESSION: No acute osseous abnormalities. Reading Location: [id number] CC: Dr. Red Hector DO ~ Body Sander: Signed [facility]06-03-2025 Radiology Diagnostic study note [facility] Imaging Services [address] [place], [place] [address] Humerus min 2 Views MR#: [id number] Acct: [id number] Name: RANJANA HUGHES HAYLEEAmy Rep #: [id number] : 1950 M 74 From: Avni Guadarrama MD PCP: OUT OF TOWN DOCTOR Status: REG ER Study:Humerus min 2 Views Date of Exam: 07/25/24 Exam# [id number] Ordering Dr: Red Mancilla DO PROCEDURE: HUMERUS MIN 2 VIEWS 07/25/2024 REASON FOR EXAM: PAIN TECHNIQUE: 2 view(s) of the left humerus. COMPARISON: None. FINDINGS: No evidence acute fracture or dislocation. No acute soft tissue abnormalities. RAD/Humerus min 2 Views IMPRESSION: No acute osseous abnormalities. Reading Location: [id number] CC: Dr. Red Hector DO ~ Body Sander: Signed [facility]06-03-2025 Radiology Diagnostic study note [facility] Imaging Services [address] [place], [place]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 t: July 25, 2024 End: July 31, 2024 Team Status: Active Member Role Status Dates Out of [facility] Doctor Primary Care Provider Active Start: July [...] Active Member Role Status Dates Out of [facility] Doctor Primary Care Provider Active Start: July [...] Active Member Role Status Dates Out of [facility] Doctor Primary Care Provider Active Start: July [...] Active Member Role Status Dates Out of [facility] Doctor Primary Care Provider Active Start: July [...] Active Member Role Status Dates Out of [facility] Doctor Primary Care Provider Active Start: July [...] Active S tart: July 30, 2024 Dr. Mikahil Guzman MD Other Provider Active Star t: July 30, 2024 Team Status: Active Member Role Status Dates Out of Town Doctor Primary Care Provider Active Start: July 31, 2024 Dr. Red Hector DO Emergency Provider Activ e Start: July 31, [...] 0938 (Given - Provider: Danni Vaughan, JAREK) budesonide-formoteroL (SYMBICORT) 80-4.5 mcg/actuation inhaler 2 puff 2 puff, Inhalation, 2 times daily (RT), First dose on Tori 02/20/21 at 1400, SPACER REQUIRED FOR ADMINISTRATION 1454 (Given - Provider: Dejah Anthony, JAREK) 0100 (Not Given - Provider: Mai Townsend RN - Reason: Patient/family refused)0900 (Not Given - Provider: Danni Vaughan, JAREK - Reason: Patient/family refused) cholecalciferol (vitamin D3) tablet 1,000 Units 1,000 Units, Oral, Daily, First dose on Tori 21 at 0900 0900 (Given - Provider: Jarrod Lu RN) 0938 (Given - Provider: Danni Vaughan, JAREK) enoxaparin (LOVENOX) syringe 40 mg 40 mg, Subcutaneous, Daily, First dose on Tori 21 at 0900, Administer in abdomen unless otherwise directed by prescriber. Notify physician if patient refuses., Indication: VTE Prophylaxis 0900 (Given - Provider: Jarrod Lu RN) 0938 (Given - Provider: Danni Vaughan RN) ferrous sulfate tablet 325 mg 325 [...] Dejah Anthony RN)2051 (Given - Provider: Charis Sanford, JAREK) 0652 (Given - Provider: Mai Townsend RN) HYDROmorphone (DILAUDID) injection 0.5 mg (COMPLETED) 0.5 mg, Intravenous, Once, On Wed02/19/21 at 2345, For 1 dose 0004 (Given - Provider: Polina Soto, JAREK) HYDROmorphone (DILAUDID) injection 0.5 mg (COMPLETED) 0.5 [...] mix with other insulins in a syringe. "Do NOT hold basal insulin without notifying physician" 2054 (Given - Provider: Charis Sanford, JAREK) insulin lispro (AdmeLOG,HumaLOG) injection 0-15 Units 0-15 Units, Subcutaneous, At bedtime, First dose on Wed02/20/21 at 2100, For Nightly Insulin Dose Coverage, use: CORRECTIVE (Only) for BG greater than 300, Nightly CORRECTIVE Dose Method: Follow Corrective SCALE, Corrective Scale to use for BG > 300: Normal Sensitivity Scale, For Downtime Calculator, use: Insulin SC NIGHTtime 2100 (Not Given - Provider: Charis Sanford, JAREK - Reason: Order parameters not met) insulin [...] Normal Sensitivity Scale, For Downtime Calculator, use: "Insulin SC MEALtime PREprandial" 0730 (Given - Provider: James Moreau RN)1130 (Not Given - Provider: Dejah Anthony RN - Reason: Patient/family refused)1852 (Given - Provider: Djeah Anthony RN) 0952 (Given - Provider: Danni Vaughan RN - Comment: late breakfast)1246 (Given - Provider: Francisca Carrion, JAREK) lactated ringers bolus 1,000 mL (COMPLETED) 1,000 [...] Lu RN)2051 (Not Given - Provider: Charis Sanford, JAREK [...] Sanford, JAREK) 0938 (Given - Provider: Danni Vaughan RN) sodium chloride (PF) (NS) flush 5 mL(Linked Group 1) 5 mL, Intravenous, Every 8 hours scheduled, First dose on Wed02/20/21 at 0600, Saline lock 0600 (Not Given - Provider: James Moreau RN - Reason: Other)1400 (Canceled Entry - Provider: Dejah Anthony RN)2200 (Canceled Entry - Provider: Charis Sanford RN) 0600 (Canceled Entry - Provider: Danni Vaughan, JAREK) sodium chloride 0.9% (NS) bolus 1,000 mL (COMPLETED) 1,000 mL, Intravenous, at 983.6 mL/hr, Once, On Wed02/19/21 at 2345, For 1 dose 0003 (New Bag - Provider: Polina Soto, JAREK)0104 (Stopped - Provider: Polina Soto RN) thiamine tablet 100 mg 100 mg, Oral, Daily, First dose on Wed02/20/21 at 1500 1454 (Given - Provider: Dejah Anthony RN) 0938 (Given - Provider: Danni Vaughan, JAREK) Continuous Medication Order 02/19/2021 02/20/2021 02/21/2021 lactated Ringers infusion (CANCELED) 3 mL/kg/hr 108.9 kg (326.7 mL/hr), Intravenous, Continuous, Starting on Tori 02/20/21 at 0505 0644 (New Bag - Provider: James Moreau RN)1215 (Stopped - Provider: Dejah Anthony RN) lactated Ringers infusion 150 mL/hr, Intravenous, Continuous, Starting on Tori 02/20/21 at 1500 1453 (New Bag - Provider: Dejah Anthony RN)1522 (Paused - Provider: Charis Sanford RN)1525 [...] Sanford RN)2046 (Paused - Provider: Charis Sanford RN)2046 (Paused - Provider: Charis Sanford RN)2047 (Paused - Provider: Charis Sanford RN)2047 (Paused - Provider: Charis Sanford RN)2048 (Restarted - Provider: Charis Sanford RN)2248 (Rate/Dose [...] 0502 1652 (Given - Provider: Dejah Anthony, JAREK) 1249 (Given - Provider: Francisca Carrion RN) [...] nausea, vomiting, Starting on Tori 02/20/21 at 0502, Use oral route first, if tolerated. Formulation requires tablet remain in sealed package until immediately prior to dose being administered. senna (SENOKOT) tablet 8.6 mg 8.6 mg (1 tablet), Oral, 2 times daily PRN, constipation, Starting on Tori 02/20/21 at 0502 sodium chloride (PF) (NS) 0.9 % contrast line flush 10 mL (COMPLETED) 10 mL, Intravenous, Once in imaging, contrast, Per senior compensation analyst (Radiology) for line patency check prior to contrast administration, Starting on Wed02/19/21 at 2343, For 1 dose 2349 (Given - Provider: Duyen Frey, TECHNOLOGIST) sodium chloride (PF) (NS) 0.9 % contrast line flush 80 mL (COMPLETED) 80 mL, Intravenous, Once in imaging, contrast, Per senior compensation analyst (Radiology), Starting on Wed02/19/21 at 2343, For [...] lock IV (CANCELED) Routine, Continuous, Starting on Tori 02/20/21 at 0505, Until Specified And sodium chloride (PF) (NS) flush 5 mLJump to med 5 mL, Intravenous, As needed, line care, Starting on Tori 02/20/21 at 0502 And sodium chloride (PF) (NS) flush 5 mLJump to med 5 mL, Intravenous, Every 8 hours scheduled, First dose on Wed02/20/21 at 0600
Saline lock
And sodium chloride [...] 6 hours PRN, nausea, vomiting, Starting on Troi 02/20/21 at 0502
Use oral route first, [...] BE BASED ON THE PRIMARY CLINICAL RECORDS. [employer] provides no warranty or guarantee of the accuracy or completeness of information in this document.
[2024-08-07 09:30] LABS: Hematocrit 30.1 % (40-54); Hemoglobin 9.3 g/dL (13.0-16.5); Mean Corp Hgb Conc 30.9 g/dL (32-36); Mean Corpuscular Hgb 23.1 pg (27.0-32.0); Mean Corpuscular Volume 74.7 fL (80-94); Mean Platelet Vol. 11.3 fl (6.2-12.0); Platelet Count 267 K/mm3 (150-450); RBC Distribution Width CV 14.9 % (11.6-14.6); RBC Distribution Width SD 39.7 fl (35.1-43.9); Red Blood Count 4.03 M/mm3 (4.6-6.2); White Blood Count 6.4 K/mm3 (4.4-11.0)
[2024-08-07 09:45] LABS: Hemoglobin A1c 10.1 % (<=5.6)
[2024-08-07 10:03] LABS: Anion Gap 10 (5-15); BUN 22 mg/dL (4-19); BUN/Creat Ratio 19.9 RATIO (10-20); Carbon Dioxide 22.9 mmol/L (21.0-32.0); Chloride 104 mmol/L (98-108); Creatinine, Serum 1.12 mg/dL (0.70-1.20); EST Glomerular Filtration Rate 70 (>60); Glucose 118 mg/dL (70-99); Magnesium 1.8 mg/dL (1.5-2.2); Sodium Level 136 mmol/L (133-145); Vitamin B12 427 pg/mL (180-914); Vitamin D,25 Hydroxy 15.7 ng/mL (30-100)
== END ==
LOC: OLS.SW 05:00
PROVIDERS: Visit Provider Internal Medicine
DX: D64.9 Anemia, unspecified (principal); E11.22 Type 2 diabetes mellitus with diabetic chronic kidney disease; E78.5 Hyperlipidemia, unspecified; G47.33 Obstructive sleep apnea (adult) (pediatric); N18.30 Chronic kidney disease, stage 3 unspecified; E55.9 Vitamin D deficiency, unspecified; Z91.81 History of falling
CPT/HCPCS: 36415; 80048; 82306; 82607; 83036; 83735; 84443; 85027